=== PATIENT | male | born 1950 | race Caucasian/White ===

== ENCOUNTER → 2016-09-24 | Outpatient (CLI) | payer OTHER, MEDICARE ==
--- NOTE | 2016-09-24 17:44 | CONS ---
DATE OF CONSULTATION: 09/24/2016 This patient is a 65-year-old gentleman who has been evaluated in the sleep center for possible obstructive sleep apnea-hypopnea syndrome and periodic limb movements. HISTORY OF PRESENT ILLNESS/SLEEP-WAKE EVALUATION: Patient's usual sleep schedule is from around 11 or 12 midnight until 4 a.m. He wakes up 5 times from sleep with up to 4 episodes of nocturia. He snores, has witnessed episodes of stopped breathing during sleep. Positive history of choking, heartburn; sometimes gasping for air and sweating. He has a positive history of kicking at night. During the day patient may feel sleepy. [place] Sleepiness Scale is in an extremely high range at 21. He may take naps multiple times during the day and he feels better after a nap. No history of hypnagogic hallucinations, sleep paralysis or cataplexy. PAST MEDICAL HISTORY: 1. Polyarthritis with pain in the back, knees, ankles. 2. Hypertension. 3. Acid reflux. 4. COPD. 5. Iron deficiency. PAST SURGICAL HISTORY: 1. Surgery for hiatal hernia. 2. Tonsillectomy. 3. Hernia repair. 4. Knee arthroscopic surgery. SOCIAL HISTORY: Positive for smoking for about 50 years; recently increased amount of smoking cigarettes up to 3 packs a day. Alcohol consumption overused in the past. No use of alcohol at the present time. MEDICATIONS: 1. Hydrocodone. 2. Lisinopril. 3. Ranitidine. 4. Bupropion. 5. Ferrous sulfate. 6. Proventil inhaler. 7. Symbicort. REVIEW OF SYSTEMS: Multiple awakenings from sleep, sleepiness during the day. Episodes of shortness of breath and wheezing. No fevers. No double vision. No recent chest pain. No shortness of breath. No abdominal pain. No bleeding episodes. No blood in urine. No seizure episodes. FAMILY HISTORY: Hypertension, angina, heart problems, hyperlipidemia, arthritis, asthma, weakness, bronchitis, lung problems, sleep apnea, acid reflux, anemia, during sleep. PHYSICAL EXAMINATION: A 65-year-old gentleman without distress. VITAL SIGNS: BP 125/73, HR 56, RR 18. Height 69 inches. Weight 166 pounds. BMI 24.5. Neck 16-1/2 inches in circumference. Temperature 97.9. Oxygen saturation at room air 98%. HEENT: [place]. Evaluation of oropharynx showed tongue protrudes midline; extremely low position of soft palate. NECK: Supple. No JVD. Thyroid is not palpable. LUNGS: Some wheezing bilaterally. HEART: S1, S2 regular. No murmurs, gallops or rubs. ABDOMEN: Soft and nontender. Bowel sounds are present. No organomegaly appreciated. EXTREMITIES: No clubbing or cyanosis. SUPERVISOR DATA PROCESSING: Awake, alert, and oriented x3. Cranial nerves 2 to 7 intact. There is no fasciculation or atrophy noted. No focal deficits observed. IMPRESSION: 1. Snoring, witnessed episodes of stopped breathing during sleep, extremely low position of soft palate, multiple awakenings from sleep; obstructive sleep apnea-hypopnea syndrome. 2. Positive history of kicking at night; possible periodic limb movement syndrome. 3. Chronic obstructive pulmonary disease; history of smoking for more than 100 pack/years. 4. Hypertension. 5. Acid reflux. 6. Polyarthritis with pain in the back, knees. 7. Left ankle problems. PLAN: 1. Polysomnography for evaluation of patient's breathing during sleep. 2. CPAP/BiPAP titration if sleep study confirms obstructive sleep apnea-hypopnea syndrome. 3. Preferable position during sleep on the side. 4. No driving if patient feels any sleepiness. Patient is aware of civil and criminal liability for unsafe driving. 5. I will see patient for follow-up visit to explain results of the testing and following plan. Thank you very much for referring this patient for consultation. Sincerely, Antwon Bustos MD, PhD, FAASM. Diplomat of [place] [employer], Sleep Medicine Board by [place] [employer] [place] [employer] Corporate Associate of [facility] [place]
== END ==
LOC: SLEEP 13:50
PROVIDERS: ATTEND Internal Medicine
DX: G47.33 Obstructive sleep apnea (adult) (pediatric) (principal); I10 Essential (primary) hypertension; K21.9 Gastro-esophageal reflux disease without esophagitis; M13.0 Polyarthritis, unspecified; Z79.891 Long term (current) use of opiate analgesic; Z79.51 Long term (current) use of inhaled steroids; Z79.899 Other long term (current) drug therapy
CPT/HCPCS: 99211

== ENCOUNTER → 2016-10-29 | Outpatient (CLI) | payer MEDICARE ==
--- NOTE | 2016-10-29 19:19 | PN ---
DATE OF SERVICE: 10/29/2016 A 65-year-old gentleman who has been followed in the Sleep Center to discuss results of sleep studies and plan of the treatment. I discussed results of the sleep studies with the patient. Diagnostic sleep study did not show any significant abnormalities of respiration, but showed significant amount of periodic limb movements 54.4 per hour with 11.7 microarousals per hour. Multiple sleep latency test done on the following day showed extremely short sleep latency 2.6 minutes without any sleep onset REM periods. Oxygen level was not normal during the night. Oxygen was below normal for 11.9 minutes, but that happened again without any significant amount or episodes of stopped breathing or shallow breathing. Total apnea-hypopnea index was 3.1 only. The lowest oxygen level was 82.6%. MEDICATIONS: Hydrocodone, lisinopril, ranitidine, bupropion, ferrous sulfate, Proventil, Symbicort, melatonin, vitamin C. PHYSICAL EXAMINATION: GENERAL: During physical exam, the patient in no distress. VITAL SIGNS: BP 154/94, HR 54, RR 16, weight 168. Height 5 foot 9, BMI 24.8. Oxygen saturation at room air 96%. HEENT: PERRLA, EOMI. Evaluation of oropharynx showed low position of soft palate. NECK: Supple. No JVD. Thyroid is not palpable. LUNGS: No rhonchi. HEART: S1, S2 regular. No murmurs, gallops, or rubs. ABDOMEN: Soft and nontender. Bowel sounds are present. No organomegaly appreciated. EXTREMITIES: No clubbing or cyanosis. TRUCK SPOTTER: Awake, alert, and oriented x3. Cranial nerves 2 to 7 intact. There is no fasciculation or atrophy noted. No focal deficits observed. ( ) of the feet. IMPRESSION: 1. No significantly stopped breathing or shallow breathing has been documented during the sleep study. 2. Oxygen desaturation during the sleep has been documented secondary to chronic obstructive pulmonary disease. 3. Significant amount of periodic limb movements have been documented during this sleep in severe range. 4. Multiple sleep latency test confirmed pathological sleepiness without sleep onset REM periods. Multiple sleep latency test showed extremely short sleep latency 2.6. Difference of diagnosis includes narcolepsy. 5. Hypertension. 6. Chronic obstructive pulmonary disease. 7. Acid reflux. 8. Polyarthritis with pain in the knees and back. 9. Left ankle problems. PLAN: 1. I will start patient on Mirapex 0.125 mg 1 or 2 tablets at bedtime with the goal to stop periodic limb movements. 2. Depending on clinical response patient is a candidate for additional treatment with daytime stimulants because of extremely severe sleepiness, which has been documented and that dictates possibility of diagnosis of narcolepsy. 3. HLA profile for narcolepsy. Patient is a candidate for additional oxygen supplement during the sleep. Total oxygen level was below normal range for 11.9 minutes during sleep. I will order a ( ) oximetry at home during the sleep. . 4. Sleep hygiene with regular time in bed for at least 8 hours. 5. No driving if feeling any sleepiness. Thank you very much for allowing me to participate in the management of your patient. Sincerely, Antwon Bustos MD, PhD, FAASM. Diplomat of [place] [employer], Sleep Medicine Board by [place] [employer] [place] [employer] Coal Cutting Machine Operator of [facility] [place]
== END | disposition home or self-care (01) ==
LOC: SLEEP 11:29
PROVIDERS: ATTEND Internal Medicine
DX: G47.33 Obstructive sleep apnea (adult) (pediatric) (principal); I10 Essential (primary) hypertension; G47.419 Narcolepsy without cataplexy; K21.9 Gastro-esophageal reflux disease without esophagitis; M13.0 Polyarthritis, unspecified; Z79.899 Other long term (current) drug therapy

== ENCOUNTER → 2017-01-07 | Outpatient (CLI) | payer MEDICARE ==
--- NOTE | 2017-01-07 14:11 | PN ---
DATE OF SERVICE: 01/07/2017 A 66-year-old gentleman who has been followed in the Sleep Center for treatment of significant excessive daytime sleepiness. Previously multiple sleep latency test confirms sleepiness with mean sleep latency extremely short only 2.6 minutes. No sleep onset REM period have been documented. Sleep study also showed periodic limb movements so I ordered for patient Mirapex but he was not able to get the medications. I ordered for him oximetry during the night. Oximetry test was done, but we did not get results. At the present time patient continues to have sleepiness during the day. [place] sleepiness scale is 13. MEDICATIONS: Hydrocodone, Lisinopril, ranitidine, bupropion, ferrous sulfate, ( ), Symbicort, melatonin, vitamin C. During physical exam, a 66-year-old gentleman without distress. VITAL SIGNS: BP 124/81, HR 64, RR 16, temp 97.2, oxygen saturation on room air 96%. Height 5 foot 9, weight 163, BMI 25. HEENT: PERRLA, EOMI. Evaluation of oropharynx showed low position of soft palate. NECK: Supple. No JVD. Thyroid is not palpable. LUNGS: clear to percussion and to auscultation. Good air exchange. No wheezing or rhonchi. HEART: S1, S2 regular. No murmurs, gallops or rubs. ABDOMEN: Soft and nontender. Bowel sounds are present. No organomegaly appreciated. EXTREMITIES: No cyanosis or clubbing. HOMEBIRTH MIDWIFE: Awake, alert and oriented x3. Cranial nerves II through VII intact. There is no fasciculation or atrophy noted. No focal deficits observed. IMPRESSION: 1. Pathological sleepiness by results of multiple sleep latency test. [place] sleepiness scale increased to 13. Possible diagnosis of narcolepsy. 2. Severe periodic limb movements have been documented during the sleep study. 3. Chronic obstructive pulmonary disease. 4. Hypertension. 5. Acid reflux. 6. Osteoarthritis with pain in the back and knees. 7. Left ankle problems. PLAN: 1. Repeat oximetry during the sleep. 2. I wrote prescription for Mirapex. Patient could use generic form. 3. Sleep hygiene with regular time in bed for at least 8 hours. 4. Daytime naps permitted. 5. Prescription for modafinil to prevent excessive daytime sleepiness. 6. No driving if feeling any sleepiness. Sincerely, Emma Bustos MD, PhD, FAASM Diplomat of [place] [employer] Medicine, Sleep Medicine Board by [place] [employer] [employer] Medicine Patient Placement Coordinator of [facility] [place]
== END ==
LOC: SLEEP 10:31
PROVIDERS: ATTEND Internal Medicine
DX: G47.10 Hypersomnia, unspecified (principal); G47.61 Periodic limb movement disorder; J44.9 Chronic obstructive pulmonary disease, unspecified; I10 Essential (primary) hypertension; K21.9 Gastro-esophageal reflux disease without esophagitis; M17.0 Bilateral primary osteoarthritis of knee; M19.90 Unspecified osteoarthritis, unspecified site; Z79.899 Other long term (current) drug therapy

== ENCOUNTER 2017-02-15 06:03 | Emergency (ER) | payer MEDICARE, OTHER ==
[2017-02-15 06:10] VITALS: RESP 16; TEMP 97.4
[2017-02-15] MEDS ORDERED: HYDROcodone/APAP 5-325MG 1 EACH TAB PO STA (06:35)
[2017-02-15] MEDS ORDERED: KETOROLAC 60 MG/2 ML VIAL IM STA (06:35)
--- NOTE | 2017-02-15 06:55 | ED ---
General Adult HPI - General Chief complaint: Fall Stated complaint: fall Time Seen by Provider: 02/15/17 06:14 Source: patient, RN notes reviewed, old records reviewed Mode of arrival: EMS Limitations: no limitations - History of Present Illness Initial comments: This is a 58-year-old male KIERSTEN status post fall. Patient is complaining of right-sided pain right-sided back pain and right-sided hip pain down into right leg. Patient denies any other trauma is walking on leg. Patient's fall as mechanical in nature was yesterday. Otherwise patient has no other pain control for pain. No improving modifying factors for pain. Worse with touch or movement. - Related Data Allergies Allergy/AdvReac Type Severity Reaction Status Date / Time No Known Allergies Allergy Verified 02/15/17 06:10 Review of Systems ROS Statement: Those systems with pertinent positive or pertinent negative responses have been documented in the HPI. ROS Other: All systems not noted in ROS Statement are negative. Past Medical History Past Medical History: COPD, Hyperlipidemia, Hypertension, Myocardial Infarction ([place]) Date of last positivie culture/infection: 2006 MDRO Source:: left elbow Past Surgical History: Heart Catheterization With Stent, Tonsillectomy Additional Past Surgical History / Comment(s): hiatal hernia. Smoking Status: Current every day smoker Past Alcohol Use History: None Reported Past Drug Use History: None Reported General Exam Limitations: no limitations General appearance: alert, in no apparent distress Head exam: Present: atraumatic, normocephalic, normal inspection Eye exam: Present: normal appearance, PERRL, EOMI. Absent: scleral icterus, conjunctival injection, periorbital swelling ENT exam: Present: normal exam, mucous membranes moist Neck exam: Present: normal inspection. Absent: tenderness, meningismus, lymphadenopathy Respiratory exam: Present: normal lung sounds bilaterally. Absent: respiratory distress, wheezes, rales, rhonchi, stridor Cardiovascular Exam: Present: regular rate, normal rhythm, normal heart sounds. Absent: systolic murmur, diastolic murmur, rubs, gallop, clicks GI/Abdominal exam: Present: soft, normal bowel sounds. Absent: distended, tenderness, guarding, rebound, rigid Extremities exam: Present: normal inspection, full ROM, normal capillary refill. Absent: tenderness, pedal edema, joint swelling, calf tenderness Back exam: Present: normal inspection Neurological exam: Present: alert, oriented X3, CN II-XII intact Psychiatric exam: Present: normal affect, normal mood Skin exam: Present: warm, dry, intact, normal color. Absent: rash Course Vital Signs 02/15/17 06:05 Temperature 97.4 F L Pulse Rate 95 Respiratory 16 Rate Blood Pressure 179/89 O2 Sat by Pulse 96 Oximetry Medical Decision Making - Medical Decision Making 6 emailed ER for evaluation. Patient is safe for evaluation regarding right side pain. Secondary to fall and contusion. X-rays are negative. Patient will be discharged - Radiology Data Radiology results: report reviewed (XR right hip negative), image reviewed Disposition Clinical Impression: Fall, Right hip pain Disposition: HOME SELF-CARE Condition: Good Instructions: Fall Prevention for Older Adults (ED), Contusion in Adults (ED) Referrals: Abdoul Lancaster DO [Primary Care Provider] - 1-2 days
--- NOTE | 2017-02-15 07:13 | XR ---
EXAMINATION TYPE: XR Hip Complete RT DATE OF EXAM: 02/15/2017 COMPARISON: NONE HISTORY: 66-year-old male with fall and right hip pain TECHNIQUE: 2 views FINDINGS: Mild degenerative joint space narrowing and marginal spurring is appreciated. No acute fracture, subl uxation, or dislocation. Mild osteopenia. IMPRESSION: Mild right hip osteoarthrosis. No acute osseous abnormality seen.
[2017-02-15 07:31] VITALS: BP 140/79; PULSE 77
== END 2017-02-15 07:30 | disposition home or self-care (01) ==
LOC: EC 06:03
DX: M25.551 Pain in right hip (principal); M54.9 Dorsalgia, unspecified; F17.200 Nicotine dependence, unspecified, uncomplicated; W19.XXXA Unspecified fall, initial encounter
CPT/HCPCS: 73502; 99284; 96372; J1885

== ENCOUNTER 2017-06-10 05:25 | Emergency (ER) | payer OTHER, MEDICARE ==
[2017-06-10] MEDS ORDERED: KETOROLAC 60 MG/2 ML VIAL IM STA (05:37)
--- NOTE | 2017-06-10 05:40 | ED ---
Extremity Problem HPI - General Chief complaint: Extremity Problem,Nontraumatic Stated complaint: Leg Weakness Time Seen by Provider: 06/10/17 05:30 Source: patient, RN notes reviewed Mode of arrival: wheelchair Limitations: no limitations - History of Present Illness Initial comments: This is a 66-year-old male with a history of rheumatoid arthritis and who is also currently smoker who complains of the onset of right leg pain yesterday afternoon. He denies any known trauma fevers chills sweats no back pain he points to his right knee into his calf area. He has no swelling and report no injury. He did not take any pain medication today. He does normally take [place] for pain MD Complaint: extremity pain - Related Data Home Medications Medication Instructions Recorded Confirmed Lisinopril [Prinivil] 10 mg PO DAILY 06/10/17 06/10/17 Simvastatin [Zocor] 5 mg PO HS 06/10/17 06/10/17 Previous Rx's Medication Instructions Recorded HYDROcodone/APAP 5-325MG [[place] 1 tab PO Q6HR PRN #20 tab 02/15/17 5-325] Ibuprofen 800 mg PO Q6HR PRN #20 tablet 06/10/17 Allergies Allergy/AdvReac Type Severity Reaction Status Date / Time No Known Allergies Allergy Verified 02/15/17 06:10 Review of Systems ROS Statement: Those systems with pertinent positive or pertinent negative responses have been documented in the HPI. ROS Other: All systems not noted in ROS Statement are negative. Past Medical History Past Medical History: COPD, Hyperlipidemia, Hypertension, Myocardial Infarction ([place]) Additional Past Medical History / Comment(s): RA Date of last positivie culture/infection: 2006 MDRO Source:: left elbow Past Surgical History: Heart Catheterization With Stent, Tonsillectomy Additional Past Surgical History / Comment(s): hiatal hernia. Smoking Status: Current every day smoker Past Alcohol Use History: None Reported Past Drug Use History: None Reported General Exam - General Exam Comments Initial Comments: This a well-developed well-nourished awake alert oriented 3 male Limitations: no limitations General appearance: alert, in no apparent distress Head exam: Present: atraumatic, normocephalic, normal inspection Eye exam: Present: normal appearance, PERRL, EOMI. Absent: scleral icterus, conjunctival injection, periorbital swelling Neck exam: Present: normal inspection Extremities exam: Present: tenderness, normal capillary refill, other ( Tenderness palpation over the distal quadriceps tendon just above the patella on the right no tenderness over the joint no patellar ballottement. No posterior knee pain tenderness palpation no palpable cords.). Absent: pedal edema, joint swelling, calf tenderness Back exam: Present: normal inspection Neurological exam: Present: alert, oriented X3, CN II-XII intact Psychiatric exam: Present: normal affect, normal mood Skin exam: Present: warm, dry, intact, normal color. Absent: rash Course Vital Signs 06/10/17 05:27 Temperature 97.3 F L Pulse Rate 69 Respiratory 20 Rate Blood Pressure 147/79 O2 Sat by Pulse 100 Oximetry Medical Decision Making - Medical Decision Making I did discuss the findings with the patient is getting some improvement in his pain he will be discharged on anti-inflammatories is a follow-up with his PCP and return when necessary - Radiology Data Radiology results: report reviewed (I did review the imaging and reports no acute findings or is degenerative changes noted.), image reviewed Disposition Clinical Impression: Right knee pain Disposition: HOME SELF-CARE Condition: Good Instructions: Knee Pain (ED), Arthralgia (ED) Prescriptions: Ibuprofen 800 mg PO Q6HR PRN #20 tablet PRN Reason: Pain Referrals: Abdoul Lancaster DO [Primary Care Provider] - 1-2 days
--- NOTE | 2017-06-10 06:21 | XR ---
RIGHT KNEE 4 views INDICATION: Right knee pain COMPARISON: None FINDINGS: AP, oblique, lateral, and sunrise views of the right knee are obtained. There is severe tricompartment osteoarthritis with large marginal osteophytes. There is a 4 cm osseous body posteriorly, possibly within a popliteal cyst. There is a small joint effusion. There is no evidence of acute fracture or malalignment. Soft tissues are unremarkable. IMPRESSION: 1. Severe tricompartment osteoarthritis. 2. Large osseous body posteriorly, possibly within a popliteal cyst. 3. No acute fracture or subluxation identified.
[2017-06-10 06:41] VITALS: BP 120/79; PULSE 61; RESP 17; TEMP 98.3
== END 2017-06-10 06:41 | disposition home or self-care (01) ==
LOC: EC 05:25
DX: M25.561 Pain in right knee (principal); E78.5 Hyperlipidemia, unspecified; I10 Essential (primary) hypertension; I25.2 Old myocardial infarction; F17.200 Nicotine dependence, unspecified, uncomplicated; Z79.899 Other long term (current) drug therapy
CPT/HCPCS: 73564; 99283; 96372; J1885

== ENCOUNTER → 2018-12-21 | Outpatient (CLI) | payer OTHER ==
--- NOTE | 2018-12-21 07:51 | US ---
EXAMINATION TYPE: US abdomen complete DATE OF EXAM: 12/21/2018 COMPARISON: MRI abdomen July 30, 2010 CLINICAL HISTORY: R10.10 Abdominal pain. Lower abdominal pain after eating with diarrhea EXAM MEASUREMENTS: Liver Length: 14.2 cm Gallbladder Wall: 0.2 cm CBD: 0.6 cm Spleen: 9.4 cm Right Kidney: 9.0 x 4.2 x 4.8 cm Left Kidney: 9.8 x 5.1 x 4.9 cm Pancreas: Obscured by bowel gas Liver: appears wnl Gallbladder: no evidence of stones Evidence for sonographic Benson's sign: no CBD: wnl Spleen: wnl Right Kidney: lower pole obscured by overlying bowel content Left Kidney: cystic area upper pole = 1.1 x 1.0 x 1.2cm Upper IVC: wnl Abd Aorta: distal measuring upper limits of normal 2.9cm The visualized liver is homogenous. There is and atherosclerotic change and ectasia to the abdominal aorta measuring up to 2.9 cm distally. IVC is seen near hepatic dome. There is no evidence of cholel ithiasis. Common bile duct is within normal limits for patient's age. Pancreas is suboptimally seen on images saved secondary to shadowing from overlying bowel gas per technologist. The spleen is unre markable. Kidneys show no hydronephrosis. Technologist eller nonspecific 1.1 cm exophytic hypoechoic anechoic lesion upper pole left kidney too small to further characterize. IMPRESSION: Suboptimal study without acute finding identified.
== END | disposition home or self-care (01) ==
LOC: RADUSWWP 06:41
DX: R10.10 Upper abdominal pain, unspecified (principal)
CPT/HCPCS: 76700

== ENCOUNTER → 2019-05-19 | Day surgery (SDC) | payer OTHER ==
[2019-05-18 08:35] VITALS: BMI 22.0
[~2019-05-19] MED LIST: LACTATED RINGERS 1,000 ML IV SCH; LIDOCAINE 1% 20 ML VIAL (10MG/ML) FOR IV START INTRADERMA PRN; LIDOCAINE 1% INJ 10MG/ML (20 ML MDV) ONE; PROPOFOL 10 MG/ML 20 ML VIAL IV ONE
[2019-05-19 07:37] VITALS: TEMP 97.2
--- NOTE | 2019-05-19 08:35 | P.PCN ---
Date of Procedure: 05/19/19 Procedure(s) Performed: BRIEF HISTORY: Patient is a 68-year-old pleasant white male scheduled for an elective colonoscopy as a part of evaluation of chronic diarrhea for the last 20 years duration. He has not was anywhere from 10-15 a day which are usually postprandial in nature but no blood or mucus in the stool. PROCEDURE PERFORMED: Colonoscopy with random biopsy. PREOPERATIVE DIAGNOSIS: chronic diarrhea of 20 years duration. IV sedation per Anesthesia. PROCEDURE: After informed consent was obtained, the patient, was brought into the endoscopy unit. IV sedation was administered by Anesthesia under continuous monitoring. Digital rectal examination was normal. Initially the Olympus CF-160 flexible video colonoscope was then inserted in the rectum, gradually advanced into the cecum without any difficulty. Careful examination was performed as the scope was gradually being withdrawn. Ileocecal valve and the appendiceal orifice were visualized and appeared normal. Prep was fair.. Mucosa of the cecum, ascending colon, transverse colon, descending colon, sigmoid colon, and rectum appeared normal.a few scattered diverticulosis noted throughout the entire colon. Random biopsies were done from ascending and descending colon to rule out microscopic/collagenous colitis. Retroflexion was performed in the rectum and no lesions were seen. The patient tolerated the procedure well. IMPRESSION: Normal-appearing colon from rectum to cecum with no evidence of colitis or colorectal neoplasia. RECOMMENDATIONS: Findings of this examination were discussed with the patient as well as his family. He was advised to follow with the biopsy results. In the meantime he was advised to use [id number] Imodium before each meal..
[2019-05-19 08:37] VITALS: RESP 17
[2019-05-19 08:52] VITALS: BP 112/83; PULSE 60
== END ==
LOC: ORWHC2ENDO 07:05
PROVIDERS: ATTEND Internal Medicine Gastroenterology
DX: K57.30 Diverticulosis of large intestine without perforation or abscess without bleeding (principal); K52.9 Noninfective gastroenteritis and colitis, unspecified; I10 Essential (primary) hypertension; E78.5 Hyperlipidemia, unspecified; J44.9 Chronic obstructive pulmonary disease, unspecified; I25.2 Old myocardial infarction; M06.9 Rheumatoid arthritis, unspecified; Z79.899 Other long term (current) drug therapy; Z97.2 Presence of dental prosthetic device (complete) (partial)
CPT/HCPCS: 88305; 45380; J2001; J2704

== ENCOUNTER 2019-06-21 12:04 | Emergency (ER) | payer OTHER ==
[2019-06-21 12:10] VITALS: RESP 18; TEMP 97.9
[2019-06-21] MEDS ORDERED: PROPARACAINE 0.5% OPHTH DROPS 15 ML BTL LEFT EYE STA (12:32)
--- NOTE | 2019-06-21 13:12 | ED ---
Eye Problem HPI - General Chief complaint: Eye Problems Stated complaint: eye redness/pain/drainage Time Seen by Provider: 06/21/19 12:13 Source: patient Mode of arrival: ambulatory Limitations: no limitations - History of Present Illness Initial comments: 68-year-old male presents today for chief complaint of right eye redness and drainage and pain. Patient states this is been ongoing for the past 2-3 days. Patient states he has an occasional headache nothing consistent with the symptoms denies any pain with extraocular movements. Patient states he has decreased vision is now on the right eye he typically uses glasses however there is a significant decrease from his normal baseline. Patient denies contact use. Denies injury to eye, denies nausea, vomiting, pain to palpation of the temples. Patient denies fevers, or known autoimmune disease. Patient denies experiencing this before. Patietn denies curtaining or veiling of vision. Patietn denies any other complaints. Upon arrival patient appears well there is no signs of acute distress. 20/30 OS, 20/70- OD. - Related Data Home Medications Medication Instructions Recorded Confirmed Lisinopril [Prinivil] 10 mg PO DAILY 06/10/17 05/19/19 Simvastatin [Zocor] 5 mg PO HS 06/10/17 05/19/19 Albuterol Inhaler [Ventolin Hfa 1 - 2 puff INHALATION RT-Q6H PRN 05/18/19 05/19/19 Inhaler] Etanercept [Enbrel] 50 mg SQ MO 05/18/19 05/19/19 HYDROcodone/APAP 10-325MG [[place] 1 tab PO TID 05/18/19 05/19/19 10-325] Leflunomide [Arava] 20 mg PO DAILY 05/18/19 05/19/19 Losartan (Unkn Dose) 1 tab PO DAILY 05/18/19 05/19/19 Omeprazole 40 mg PO DAILY 05/18/19 05/19/19 Tiotropium 18 Mcg/Puff [Spiriva] 2 puff INHALATION DAILY 05/18/19 05/19/19 Previous Rx's Medication Instructions Recorded Polymyxin B-Trimeth Sulf Ophth 1 drops BOTH EYES Q4H 10 Days #1 06/21/19 [Polytrim Opthalmic] bottle Allergies Allergy/AdvReac Type Severity Reaction Status Date / Time No Known Allergies Allergy Verified 06/21/19 12:06 Review of Systems ROS Statement: Those systems with pertinent positive or pertinent negative responses have been documented in the HPI. ROS Other: All systems not noted in ROS Statement are negative. Past Medical History Past Medical History: COPD, Hyperlipidemia, Hypertension, Myocardial Infarction ([place]), Rheumatoid Arthritis ([place]) Additional Past Medical History / Comment(s): RA Last Myocardial Infarction Date:: 07/1999 History of Any Multi-Drug Resistant Organisms: MRSA Date of last positivie culture/infection: 06/12/2006 MDRO Source:: lt elbow Past Surgical History: Heart Catheterization With Stent, Hernia Repair, Tonsillectomy Additional Past Surgical History / Comment(s): hiatal hernia. Past Anesthesia/Blood Transfusion Reactions: No Reported Reaction Date of Last Stent Placement:: 07/1999 Past Psychological History: No Psychological Hx Reported Smoking Status: Current every day smoker Past Alcohol Use History: None Reported Past Drug Use History: None Reported - Past Family History Mother Family Medical History: No Reported History General Exam - General Exam Comments Initial Comments: General: The patient is awake and alert, in no distress Eye: +2 mm pupils are equal, round and reactive to light, extra-ocular movements are intact. Direct photophonia, no consensual. There is a curvilinear area of uptake of worsening between the 9 11 o'clock position of the cornea, there is conjunctival injection mostly of the right side of right eye. No injection of left side. Right side is not sparing the limbus. No nystagmus. No signs of icterus. Movement of sclera present. No pain relief with proparacaine. IOP 21 OD. No pain with EOM. Ears, nose, mouth and throat: There are moist mucous membranes and no oral lesions. Neck: The neck is supple, there is no tenderness or JVD. Cardiovascular: There is a regular rate and rhythm. No murmur, rub or gallop is appreciated. Respiratory: Lungs are clear to auscultation, respirations are non-labored, suzy ath sounds are equal. No wheezes, stridor, rales, or rhonchi. Musculoskeletal: Normal ROM, no tenderness. Strength 5/5. Sensation intact. Pulses equal bilaterally 2+. Neurological: A&O x 3. CN II-XII intact grossly, There are no obvious motor or sensory deficits. Coordination appears grossly intact. Speech is normal. Skin: Skin is warm and dry and no rashes or lesions are noted. Psychiatric: Cooperative, appropriate mood & affect, normal judgment. Limitations: no limitations Course Vital Signs 06/21/19 12:07 Temperature 97.9 F Pulse Rate 65 Respiratory 18 Rate Blood Pressure 152/98 O2 Sat by Pulse 96 Oximetry Medical Decision Making - Medical Decision Making 5-year-old male presenting today for chief complaint of right eye redness. IOP within acceptable limits, decrease in VA. VF intact to confrontaction. Mobile sclera. No relief with proparacaine. Uptake at the 9-11oclock position of the right eye. Patient was evaluated in the emergency department after initial evaluation by spray drier Dr. Castellanos. He felt at this time most likely diagnosis was Phlyctenular disease, and should be started of poly-trim abx drops q4h with f/u tomorrow in office at 11AM. Patient is agreeable to this care plan and discharge at this time. Discussed case with Dr Mcmullen who was agreeable to care plan. 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 Please follow-up with ophthalmology tomorrow at 11AM as discussed. Please return to emergency room if the symptoms increase or worsen or for any other concerns. Prescriptions: Polymyxin B-Trimeth Sulf Ophth [Polytrim Opthalmic] 1 drops BOTH EYES Q4H 10 Days #1 bottle Is patient prescribed a controlled substance at d/c from ED?: No Referrals: [facility],Clinic [Primary Care Provider] - 1-2 days Richi Morris MD [STAFF PHYSICIAN] - 1-2 days Time of Disposition: 14:07
[2019-06-21] MEDS ORDERED: POLYMYXIN B-TRIMETHOPRIM SULF (10,000-1) OPHTH DROPS 10 ML BTL RIGHT EYE STA (14:01)
[2019-06-21 14:44] VITALS: BP 152/91; PULSE 77
--- NOTE | 2019-06-21 18:25 | P.CON ---
Consult Note - . Consult date: 06/21/19 Assessment/Plan:: 68 y/o male with 5 day or better history of discomfort, light sensitivity discharge and decreased vision. He presented to the ER today due primarily due to the discomfort. The left eye is not involved, only the right. This is the second time in several years this problem has happened and only previously required drops. He has a history of lens implant surgery more than 20 years ago. He rarely sees any eye care, but for every 5 years or so. Va: 20/70 right eye. External: mild erythema, definite discharge on eyelids Conjuntiva: moderate erythema overall AC: 3+ flare, mild cell Cornea: central clear, but definite superficial epithelial defect from 0930 to 1130 and from 12-2 o/c on his eye. There is positive staining. Iris: miotic. A: most likely a staph marginal type infection involving the conjunctiva and cornea. P: 1) follow up in AM at office. 2) Begin Polytrim drops every 4 hours throughout the day. 3) will begin steroids when cornea healing.
== END 2019-06-21 14:34 | disposition home or self-care (01) ==
LOC: EC 12:04
DX: H16 Keratitis (principal); E78.5 Hyperlipidemia, unspecified; I10 Essential (primary) hypertension; I25.2 Old myocardial infarction; J44.9 Chronic obstructive pulmonary disease, unspecified; M06.9 Rheumatoid arthritis, unspecified; F17.200 Nicotine dependence, unspecified, uncomplicated; Z79.899 Other long term (current) drug therapy; Z95.5 Presence of coronary angioplasty implant and graft
CPT/HCPCS: 99283

== ENCOUNTER → 2020-03-22 | Outpatient (CLI) | payer OTHER ==
--- NOTE | 2020-03-22 16:24 | CTL ---
EXAMINATION TYPE: CT Low Dose Lung DATE OF EXAM ORDERED: 03/22/2020 HISTORY: 69-year-old male Personal history of tobacco use.. Lung cancer screening CT DLP: [address] CTDI: 1.68 mGy Automated exposure control for dose reduction was used. SCREENING VISIT: Baseline COMPARISON: None TECHNIQUE: Low dose computed tomography scan was performed through the chest. Coronal and sagittal re constructions performed. CT DIAGNOSTIC QUALITY: Satisfactory FINDINGS: Heart normal size without pericardial effusion. LAD and mild scattered circumflex and RCA coronary ca lcifications are present. Aorta normal caliber with conventional arch vessel branching anatomy and minimal prostatic calcificat ions. No thoracic lymphadenopathy by CT size criteria. There are surgical changes at the GE junction air distention in the region of the distal esophagus an d some left lateral mural-based irregularity, refer to axial image 54. If prior hiatal hernia repair, this could reflect a slipped wrap. Direct visualization recommended to exclude neoplasm given the ir regularity. Biapical pleural parenchymal scarring scattered mild subpleural reticular change. Moderate diffuse br onchial wall thickening. No consolidation or pleural effusion. Minimal apical emphysema. - 4 mm calcified granuloma peripheral right mid to lower lung, axial image 206. - 7 mm endobronchial filling defect peripheral right lower lobe at the site of some focal bronchiecta sis, coronal image 204 and axial image 174. Visualized upper abdomen is very limited due to low-dose technique and lack of contrast. Bones: Degenerative changes at the right glenoid humeral joint with posterior joint subluxation. Ther e is a normal variant sternal foramen. IMPRESSION: 1. LungRADS Category 3 (probably benign, 1-2% chance of malignancy); a 7 mm endobronchial nodule in t he right lower lobe at the site of some focal bronchiectasis. Mucous plugging is possible. 2. Focal distention at the level of the distal esophagus with some surgical change at the GE junction , query prior Xi fundoplication which would raise the possibility of a slipped wrap. There is ezra e mural based soft tissue irregularity here as well. 3. COPD with minimal emphysema but with moderate bronchial wall thickening suggesting a prominent com ponent of chronic bronchitis or superimposed acute bronchitis. RECOMMENDATION: 1. 6 month follow-up low-dose CT chest to reassess the 7 mm endobronchial nodule in the right lower l obe. 2. Correlation with patient's surgical history at the GE junction to assess the possibility of a slip ped wrap and direct visualization to exclude underlying neoplasm. 3. Smoking cessation. FOLLOW UP CT CHEST RECOMMENDATION: [address] LUNG RAD: Lung-Rad 3 Probably Benign
== END | disposition home or self-care (01) ==
LOC: RADCTMAIN 15:23
DX: Z12.2 Encounter for screening for malignant neoplasm of respiratory organs (principal); F17.210 Nicotine dependence, cigarettes, uncomplicated

== ENCOUNTER 2020-05-06 10:10 | Day surgery (SDC) | payer OTHER ==
[2020-04-22 10:03] VITALS: BMI 21.4
[~2020-05-06 10:10] MED LIST changes: +LIDOCAINE 1% (10MG/ML) FOR IV START INTRADERMA PRN; -LIDOCAINE 1% 20 ML VIAL (10MG/ML) FOR IV START INTRADERMA PRN; -LIDOCAINE 1% INJ 10MG/ML (20 ML MDV) ONE; -PROPOFOL 10 MG/ML 20 ML VIAL IV ONE
[2020-05-06 10:59] VITALS: TEMP 97.2
[2020-05-06] MEDS ORDERED: LACTATED RINGERS 1,000 ML IV ONE (10:59)
[2020-05-06 11:10] LABS: Glucose,Whole Blood 82 mg/dL (75-99)
[2020-05-06] MEDS ORDERED: PROPOFOL 10 MG/ML 20 ML VIAL IV ONE (12:04)
--- NOTE | 2020-05-06 12:22 | P.PCN ---
Date of Procedure: 05/06/20 Description of Procedure: BRIEF HISTORY: Patient is a 69-year-old male presenting for outpatient EGD for abnormal findings on imaging. Patient had a computed tomography scan of the lungs with findings of some thickening at the GE junction and possible hiatal hernia with prior hiatal hernia repair in the remote past. He denies any current reflux or difficulty swallowing.. PROCEDURE PERFORMED: Esophagogastroduodenoscopy with biopsy. PREOPERATIVE DIAGNOSIS: Abnormal findings on imaging, history of GERD, history of hiatal hernia repair. ESTIMATED BLOOD LOSS: Minimal. IV sedation per anesthesia. PROCEDURE: After informed consent was obtained, the patient was brought into the endoscopy unit. IV sedation was administered by Anesthesia under continuous monitoring. Initially the Olympus GIF-190 video endoscope was inserted into the mouth. Esophagus intubated without any difficulty. It was gradually advanced into the stomach and duodenum and carefully examined. The bulb and the second part of the duodenum appeared normal, with biopsies taken. The scope at this time was withdrawn to the stomach, adequately insufflated with air, and upon careful examination, mucosa of the antrum, body, cardia and the fundus appeared normal, except for some mild scattered erythema in the antrum suggestive of mild gastritis with biopsies of the antrum and body taken. The scope was then withdrawn into the esophagus. The GE junction was located at 35 cm from the incisors and biopsied. The patient had a 6 cm hiatal hernia. The esophagus appeared normal. There were no erosions or ulcerations seen and the patient tolerated the procedure well. IMPRESSION: 1. Mild gastritis. 2. Hiatal hernia. 3. Biopsies of the duodenum, antrum and body and GE junction. RECOMMENDATIONS: The findings of this examination were discussed with the patient and his family. Okay to resume diet. Okay to resume medications. Await pathology from biopsies. Okay to resume current medical management, follow-up with PCP as scheduled.
[2020-05-06 12:56] VITALS: RESP 16
[2020-05-06 13:01] VITALS: BP 139/92; PULSE 49
== END 2020-05-06 13:09 | disposition home or self-care (01) ==
LOC: ORWHC2ENDO 10:10
PROVIDERS: ATTEND Internal Medicine
DX: K29.50 Unspecified chronic gastritis without bleeding (principal); K44.9 Diaphragmatic hernia without obstruction or gangrene; K21.9 Gastro-esophageal reflux disease without esophagitis; I25.2 Old myocardial infarction; I11.0 Hypertensive heart disease with heart failure; I50.9 Heart failure, unspecified; E78.5 Hyperlipidemia, unspecified; J44.9 Chronic obstructive pulmonary disease, unspecified; F17.210 Nicotine dependence, cigarettes, uncomplicated; E07.9 Disorder of thyroid, unspecified; Z88.8 Allergy status to other drugs, medicaments and biological substances; Z79.890 Hormone replacement therapy; Z79.899 Other long term (current) drug therapy; M06.9 Rheumatoid arthritis, unspecified; Z98.890 Other specified postprocedural states
CPT/HCPCS: 88305; 43239; J2704

== ENCOUNTER 2020-05-21 14:22 | Inpatient (IN) | payer OTHER, MEDICARE ==
[2020-05-21] MEDS ORDERED: SODIUM CHLORIDE 0.9% 1,000 ML IV STA ×2 (14:43→15:36)
[2020-05-21] MEDS ORDERED: ALBUTEROL HFA INHALER INHALATION STA (14:43)
--- NOTE | 2020-05-21 14:54 | ED ---
SOB HPI - General Chief Complaint: Shortness of Breath Stated Complaint: COVID Symptoms Time Seen by Provider: 05/21/20 14:33 Source: patient, RN notes reviewed Mode of arrival: wheelchair Limitations: no limitations - History of Present Illness Initial Comments: This is a 69-year-old male with a history of COPD who states he had the onset 3 or 4 days ago shortness of breath cough exertional dyspnea cough sometimes produces clear phlegm sometimes yellow-green phlegm. He's had chills but no fevers or sweats no overt chest pain. No other complaints. He was apparently tested for Covid 19 at [facility] and was negative. MD Complaint: shortness of breath, cough - Related Data Home Medications Medication Instructions Recorded Confirmed HYDROcodone/APAP 10-325MG [[place] 2 tab PO TID PRN 05/18/19 05/21/20 10-325] Leflunomide [Arava] 20 mg PO DAILY 05/18/19 05/21/20 Tiotropium 18 Mcg/Puff [Spiriva] 2 puff INHALATION DAILY 05/18/19 05/21/20 Cholecalciferol [Vitamin D3 (25 2,000 unit PO DAILY 04/22/20 05/21/20 Mcg = 1000 Iu)] modafiniL [Provigil] 200 mg PO DAILY 04/22/20 05/21/20 predniSONE 5 mg PO DAILY 04/22/20 05/21/20 Albuterol Inhaler [Ventolin Hfa 2 puff INHALATION RT-QID PRN 05/21/20 05/21/20 Inhaler] Budesonide/Formoterol Fumarate 2 puff INHALATION RT-BID 05/21/20 05/21/20 [Symbicort 160-4.5 Mcg Inhaler] Calcium Carbonate [Tums] 500 mg PO TID 05/21/20 05/21/20 Etanercept [Enbrel Sureclick] 50 mg SQ MCKEON 05/21/20 05/21/20 Levothyroxine Sodium [Synthroid] 112 mcg PO DAILY 05/21/20 05/21/20 Loperamide HCl [Imodium A-D] 2 mg PO AC-TID MDD 8 CAPS 05/21/20 05/21/20 Losartan [Cozaar] 25 mg PO DAILY 05/21/20 05/21/20 Omeprazole 20 mg PO DAILY 05/21/20 05/21/20 Simvastatin [Zocor] 40 mg PO HS 05/21/20 05/21/20 Allergies Allergy/AdvReac Type Severity Reaction Status Date / Time gabapentin [From Neurontin] AdvReac Extremely Verified 05/21/20 16:38 Dozy Review of Systems ROS Statement: Those systems with pertinent positive or pertinent negative responses have been documented in the HPI. ROS Other: All systems not noted in ROS Statement are negative. Past Medical History Past Medical History: COPD, Hyperlipidemia, Hypertension, Myocardial Infarction ([place]), Rheumatoid Arthritis ([place]) Additional Past Medical History / Comment(s): RA Last Myocardial Infarction Date:: 07/1999 History of Any Multi-Drug Resistant Organisms: MRSA Date of last positivie culture/infection: 06/12/2006 MDRO Source:: lt elbow Past Surgical History: Heart Catheterization With Stent, Hernia Repair, Tonsillectomy Additional Past Surgical History / Comment(s): hiatal hernia. Past Anesthesia/Blood Transfusion Reactions: No Reported Reaction Date of Last Stent Placement:: 07/1999 Past Psychological History: No Psychological Hx Reported Smoking Status: Current every day smoker Past Alcohol Use History: None Reported Past Drug Use History: None Reported - Past Family History Mother Family Medical History: No Reported History General Exam - General Exam Comments Initial Comments: This is a well-developed well-nourished awake alert oriented times 3 male Limitations: no limitations General appearance: alert, anxious Head exam: Present: atraumatic, normocephalic, normal inspection Eye exam: Present: normal appearance, PERRL, EOMI. Absent: scleral icterus, conjunctival injection, periorbital swelling ENT exam: Present: mucous membranes dry Neck exam: Present: normal inspection, full ROM, other (No stridor JVD or bruits). Absent: tenderness, meningismus, lymphadenopathy Respiratory exam: Present: wheezes, decreased breath sounds. Absent: respiratory distress, rales, rhonchi, stridor Cardiovascular Exam: Present: regular rate, normal rhythm, normal heart sounds. Absent: systolic murmur, diastolic murmur, rubs, gallop, clicks GI/Abdominal exam: Present: soft, normal bowel sounds. Absent: distended, tenderness, guarding, rebound, rigid Extremities exam: Present: normal inspection, full ROM, normal capillary refill. Absent: tenderness, pedal edema, joint swelling, calf tenderness Back exam: Present: normal inspection Neurological exam: Present: alert, oriented X3, CN II-XII intact Psychiatric exam: Present: normal affect, normal mood Skin exam: Present: warm, dry, intact, normal color. Absent: rash Course Vital Signs 05/21/20 05/21/20 05/21/20 14:30 15:30 16:30 Temperature 98.7 F Pulse Rate 57 L 54 L 51 L Respiratory 18 16 12 Rate Blood Pressure 151/89 162/102 136/96 O2 Sat by Pulse 95 96 94 L Oximetry - Reevaluation(s) Reevaluation #1: 05/21/20 17:34 Patient is breathing somewhat better after the initial treatment. Medical Decision Making - Medical Decision Making I did discuss findings with the patient and with Angela thurston for Dr. Pedroza patient will be admitted he does have evidence of COPD exacerbation rhabdomyolysis. He is a 3 pack a smoker. He'll be placed on nicotine patch. - Lab Data Result diagrams: 05/21/20 14:55 05/21/20 14:55 Lab Results 05/21/20 05/21/20 05/21/20 Range/Units 14:50 14:55 14:55 WBC 5.8 (3.8-10.6) k/uL RBC 4.47 (4.30-5.90) m/uL Hgb 13.0 (13.0-17.5) gm/dL Hct 41.2 (39.0-53.0) % MCV 92.1 (80.0-100.0) fL MCH 29.0 (25.0-35.0) pg MCHC 31.5 (31.0-37.0) g/dL RDW 16.4 H (11.5-15.5) % Plt Count 130 L (150-450) k/uL MPV 8.3 Neutrophils % 82 % Lymphocytes % 11 % Monocytes % 5 % Eosinophils % 2 % Basophils % 1 % Neutrophils # 4.8 (1.3-7.7) k/uL Lymphocytes # 0.6 L (1.0-4.8) k/uL Monocytes # 0.3 (0-1.0) k/uL Eosinophils # 0.1 (0-0.7) k/uL Basophils # 0.0 (0-0.2) k/uL Anisocytosis Slight PT 10.1 (9.0-12.0) sec INR 1.0 (<1.2) APTT 24.6 (22.0-30.0) sec D-Dimer 1.12 H (<0.60) mg/L FEU Sodium (137-145) mmol/L Potassium (3.5-5.1) mmol/L Chloride (98-107) mmol/L Carbon Dioxide (22-30) mmol/L Anion Gap mmol/L BUN (9-20) mg/dL Creatinine (0.66-1.25) mg/dL Est GFR (CKD-EPI)AfAm (>60 ml/min/1.73 sqM) Est GFR (CKD-EPI)NonAf (>60 ml/min/1.73 sqM) Glucose (74-99) mg/dL Plasma Lactic Acid Jn (0.7-2.0) mmol/L Calcium (8.4-10.2) mg/dL Magnesium (1.6-2.3) mg/dL Total Bilirubin (0.2-1.3) mg/dL AST (17-59) U/L ALT (4-49) U/L Alkaline Phosphatase (38-126) U/L Lactate Dehydrogenase (313-618) U/L Creatine Kinase (55-170) U/L Troponin I (0.000-0.034) ng/mL C-Reactive Protein (<10.0) mg/L NT-Pro-B Natriuret Pep pg/mL Total Protein (6.3-8.2) g/dL Albumin (3.5-5.0) g/dL Influenza Type A (PCR) Not Detected (Not Detectd) Influenza Type B (PCR) Not Detected (Not Detectd) RSV (PCR) Not Detected (Not Detectd) SARS-CoV-2 (PCR) Not Detected (Not Detectd) 05/21/20 05/21/20 05/21/20 Range/Units 14:55 14:55 14:55 WBC (3.8-10.6) k/uL RBC (4.30-5.90) m/uL Hgb (13.0-17.5) gm/dL Hct (39.0-53.0) % MCV (80.0-100.0) fL MCH (25.0-35.0) pg MCHC (31.0-37.0) g/dL RDW (11.5-15.5) % Plt Count (150-450) k/uL MPV Neutrophils % % Lymphocytes % % Monocytes % % Eosinophils % % Basophils % % Neutrophils # (1.3-7.7) k/uL Lymphocytes # (1.0-4.8) k/uL Monocytes # (0-1.0) k/uL Eosinophils # (0-0.7) k/uL Basophils # (0-0.2) k/uL Anisocytosis PT (9.0-12.0) sec INR (<1.2) APTT (22.0-30.0) sec D-Dimer (<0.60) mg/L FEU Sodium 138 (137-145) mmol/L Potassium 4.5 (3.5-5.1) mmol/L Chloride 106 (98-107) mmol/L Carbon Dioxide 29 (22-30) mmol/L Anion Gap 3 mmol/L BUN 24 H (9-20) mg/dL Creatinine 1.33 H (0.66-1.25) mg/dL Est GFR (CKD-EPI)AfAm 62 (>60 ml/min/1.73 sqM) Est GFR (CKD-EPI)NonAf 54 (>60 ml/min/1.73 sqM) Glucose 95 (74-99) mg/dL Plasma Lactic Acid Jn 1.3 (0.7-2.0) mmol/L Calcium 9.2 (8.4-10.2) mg/dL Magnesium 1.9 (1.6-2.3) mg/dL Total Bilirubin 0.7 (0.2-1.3) mg/dL AST 93 H (17-59) U/L ALT 51 H (4-49) U/L Alkaline Phosphatase 79 (38-126) U/L Lactate Dehydrogenase 993 H (313-618) U/L Creatine Kinase 1194 H* (55-170) U/L Troponin I <0.012 (0.000-0.034) ng/mL C-Reactive Protein <5.0 (<10.0) mg/L NT-Pro-B Natriuret Pep pg/mL Total Protein 7.2 (6.3-8.2) g/dL Albumin 3.9 (3.5-5.0) g/dL Influenza Type A (PCR) (Not Detectd) Influenza Type B (PCR) (Not Detectd) RSV (PCR) (Not Detectd) SARS-CoV-2 (PCR) (Not Detectd) 05/21/20 Range/Units 14:55 WBC (3.8-10.6) k/uL RBC (4.30-5.90) m/uL Hgb (13.0-17.5) gm/dL Hct (39.0-53.0) % MCV (80.0-100.0) fL MCH (25.0-35.0) pg MCHC (31.0-37.0) g/dL RDW (11.5-15.5) % Plt Count (150-450) k/uL MPV Neutrophils % % Lymphocytes % % Monocytes % % Eosinophils % % Basophils % % Neutrophils # (1.3-7.7) k/uL Lymphocytes # (1.0-4.8) k/uL Monocytes # (0-1.0) k/uL Eosinophils # (0-0.7) k/uL Basophils # (0-0.2) k/uL Anisocytosis PT (9.0-12.0) sec INR (<1.2) APTT (22.0-30.0) sec D-Dimer (<0.60) mg/L FEU Sodium (137-145) mmol/L Potassium (3.5-5.1) mmol/L Chloride (98-107) mmol/L Carbon Dioxide (22-30) mmol/L Anion Gap mmol/L BUN (9-20) mg/dL Creatinine (0.66-1.25) mg/dL Est GFR (CKD-EPI)AfAm (>60 ml/min/1.73 sqM) Est GFR (CKD-EPI)NonAf (>60 ml/min/1.73 sqM) Glucose (74-99) mg/dL Plasma Lactic Acid Jn (0.7-2.0) mmol/L Calcium (8.4-10.2) mg/dL Magnesium (1.6-2.3) mg/dL Total Bilirubin (0.2-1.3) mg/dL AST (17-59) U/L ALT (4-49) U/L Alkaline Phosphatase (38-126) U/L Lactate Dehydrogenase (313-618) U/L Creatine Kinase (55-170) U/L Troponin I (0.000-0.034) ng/mL C-Reactive Protein (<10.0) mg/L NT-Pro-B Natriuret Pep 360 pg/mL Total Protein (6.3-8.2) g/dL Albumin (3.5-5.0) g/dL Influenza Type A (PCR) (Not Detectd) Influenza Type B (PCR) (Not Detectd) RSV (PCR) (Not Detectd) SARS-CoV-2 (PCR) (Not Detectd) - EKG Data -: EKG Interpreted by Me EKG shows normal: sinus rhythm EKG Comments: Says bradycardia 52. Interval 182 QRS duration 82 QT since QTC 366/40 that exodeviation low-voltage QRS poor R-wave progression - Radiology Data Radiology results: report reviewed (Imaging reviewed no definite evidence of infiltrate. Evidence of COPD), image reviewed Critical Care Time Critical Care Time: Yes Total Critical Care Time: 31 Critical Care Time: 31 minutes of critical care time which includes initial presentation with hi story physical labs x-rays multiple reevaluation the patient response to therapy discuss with the patient regarding findings discussed with the admitting service admitting orders neck mentation the above Disposition Clinical Impression: Acute exacerbation of chronic obstructive pulmonary disease, Acute respiratory distress syndrome in adult, Rhabdomyolysis, Smoking, Dehydration Disposition: ADMITTED IP TO THIS HOSP Condition: Fair Instructions (If sedation given, give patient instructions): Acute Bronchitis (ED) Referrals: [facility],Clinic [Primary Care Provider] - 1-2 days
[2020-05-21 15:07] LABS: Anisocytosis Slight; Basophils % (A) 1 %; Eosinophils # (A) 0.1 k/uL (0-0.7); Eosinophils % (A) 2 %; HCT 41.2 % (39.0-53.0); Lymphocytes # (A) 0.6 k/uL (1.0-4.8); Lymphocytes % (A) 11 %; MCHC 31.5 g/dL (31.0-37.0); MCV 92.1 fL (80.0-100.0); Mean Platelet Volume 8.3; Monocytes # (A) 0.3 k/uL (0-1.0); Monocytes % (A) 5 %; Neutrophils # (A) 4.8 k/uL (1.3-7.7); Neutrophils % (A) 82 %; Platelet Count 130 k/uL (150-450); RBC 4.47 m/uL (4.30-5.90); RDW 16.4 % (11.5-15.5); WBC 5.8 k/uL (3.8-10.6)
[2020-05-21 15:19] LABS: ALT 51 U/L (4-49); AST 93 U/L (17-59); African American GFR (CKD) 62 (>60 ml/min/1.73 sqM); Albumin 3.9 g/dL (3.5-5.0); Alkaline Phosphatase 79 U/L (38-126); Anion Gap 3 mmol/L; Blood Urea Nitrogen 24 mg/dL (9-20); C Reactive Protein <5.0 mg/L (<10.0); Calcium 9.2 mg/dL (8.4-10.2); Carbon Dioxide 29 mmol/L (22-30); Chloride 106 mmol/L (98-107); Glucose 95 mg/dL (74-99); LDH 993 U/L (313-618); Magnesium 1.9 mg/dL (1.6-2.3); Non-African American GFR(CKD) 54 (>60 ml/min/1.73 sqM); Potassium 4.5 mmol/L (3.5-5.1); Sodium 138 mmol/L (137-145); Total Bilirubin 0.7 mg/dL (0.2-1.3); Total Protein 7.2 g/dL (6.3-8.2)
[2020-05-21 15:21] LABS: Creatine Kinase 1194 U/L (55-170)
[2020-05-21 15:25] LABS: Partial Thromboplastin Time 24.6 sec (22.0-30.0); Prothrombin Time 10.1 sec (9.0-12.0)
[2020-05-21 15:35] LABS: D-Dimer 1.12 mg/L FEU (<0.60)
--- NOTE | 2020-05-21 15:40 | XR ---
EXAMINATION TYPE: XR chest 2V DATE OF EXAM: 05/21/2020 COMPARISON: 01/22/2015 HISTORY: Shortness of breath TECHNIQUE: Frontal and lateral views of the chest are obtained. FINDINGS: Scattered senescent parenchymal changes noted. Hyperinflation compatible with COPD. No evidence for infiltrate. No evidence for atelectasis. Heart size is stable. Mediastinal structures are stable and grossly unremarkable. No evidence for hilar prominence. Degenerative changes dorsal spine. IMPRESSION: 1. No evidence for acute pulmonary disease.
--- NOTE | 2020-05-21 16:08 | CT ---
EXAMINATION TYPE: CT angio chest DATE OF EXAM: 05/21/2020 COMPARISON: None HISTORY: Shortness of breath and congestion CT DLP: 350.6 mGycm CONTRAST: CT chest with contrast and 3D reconstruction with MIP imaging is performed with IV Contrast, patient injected with 77 mL of Isovue 370. Contrast-enhanced CT of the chest was performed through the course of the pulmonary arteries with sara g and mediastinal window settings submitted. 3D reconstruction with MIP imaging was also performed. PULMONARY ARTERIES: The pulmonary arteries and their major tributaries are patent. I do not see sol dence for sizable filling defect to suggest pulmonary embolic process. LUNGS: The lungs are clear and free of infiltrate. No evidence for atelectasis. No pulmonary nodule or mass is detected. No pleural effusion. MEDIASTINUM: The heart is mildly enlarged. Ectasia of the thoracic aorta without evidence for aneurys m. No evidence for mediastinal mass. No mediastinal lymph nodes greater than 1cm. HILAR STRUCTURES: No evidence for mass. No hilar lymph nodes greater than 1 cm. UPPER ABDOMEN: Moderate fixed hiatal hernia. Small amount of free fluid upper abdomen. The gallbladde r is hydropic at 10.3 cm. IMPRESSION: 1. No evidence for Pulmonary embolism at this time. 2 gallbladder hydrops with a small amount of upper abdominal ascites.
[2020-05-21] MEDS ORDERED: NICOTINE 21MG/24HR PATCH TRANSDERM STA (16:47)
[2020-05-21] MEDS ORDERED: HYDROcodone/APAP 10-325MG 1 EACH TAB PO PRN (17:39)
[2020-05-21] MEDS: SODIUM CHLORIDE 0.9% 1,000 ML IV SCH (18:06)
[2020-05-21] MEDS: methylPREDNISolone SOD SUCCI 125 MG/2 ML VIAL IV SCH (18:54)
[2020-05-21] MEDS ORDERED: IPRATROPIUM-ALBUTEROL 3 ML NEB INHALATION SCH (20:00)
[2020-05-21] MEDS: ALBUTEROL HFA INHALER INHALATION SCH ×2 (21:40→23:48)
[2020-05-21] MEDS: ATORVASTATIN 20 MG TAB PO SCH (22:29)
[2020-05-21] MEDS: AMOXIC-POT CLAV 875-125MG 1 EACH TAB PO SCH (22:29)
[2020-05-21] MEDS: CALCIUM CARBONATE 500 MG CHEWABLE PO SCH (22:29)
[2020-05-22] MEDS: methylPREDNISolone SOD SUCCI 125 MG/2 ML VIAL IV SCH ×3 (00:37→13:47)
[2020-05-22 03:03] LABS: Ferritin 101.4 ng/mL (22.0-322.0)
[2020-05-22] MEDS: SODIUM CHLORIDE 0.9% 1,000 ML IV SCH ×4 (04:38→13:34)
[2020-05-22] MEDS: LEVOTHYROXINE 112 MCG TAB PO SCH (05:50)
[2020-05-22] MEDS: ALBUTEROL HFA INHALER INHALATION SCH ×4 (07:43→20:29)
[2020-05-22] MEDS: TIOTROPIUM 2.5 MCG INHALER INHALATION SCH (07:44)
[2020-05-22] MEDS: LOSARTAN 25 MG TAB PO SCH (07:50)
[2020-05-22] MEDS: PANTOPRAZOLE 40 MG TABLET PO SCH (07:50)
[2020-05-22] MEDS: AMOXIC-POT CLAV 875-125MG 1 EACH TAB PO SCH ×2 (07:50→21:08)
[2020-05-22] MEDS: LOPERAMIDE 2 MG CAP PO SCH ×3 (07:50→17:00)
[2020-05-22] MEDS: CHOLECALCIFEROL 1,000 UNIT TAB PO SCH (07:50)
[2020-05-22] MEDS: CALCIUM CARBONATE 500 MG CHEWABLE PO SCH ×3 (07:50→21:08)
[2020-05-22] MEDS: LEFLUNOMIDE 20 MG TAB PO SCH (07:51)
[2020-05-22] MEDS ORDERED: NON FORMULARY DRUG (Tiotropium 18 Mcg/Puff 1 PUFF Inhaler) INHALATION SCH (09:00)
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
[2020-05-22] MEDS: FAMOTIDINE 20 MG TAB PO SCH ×2 (13:34→21:09)
--- NOTE | 2020-05-22 15:06 | US ---
EXAMINATION TYPE: US gallbladder DATE OF EXAM: 05/22/2020 COMPARISON: US 12/21/2018, CT 05/21/2020 CLINICAL HISTORY: elevated liver enzymes. EXAM MEASUREMENTS: Liver Length: 15.9 cm Gallbladder Wall: 0.28 cm CBD: 0.8 cm Right Kidney: 9.0 x 4.3 x 4.5 cm Pancreas: Obscured by bowel gas Liver: Heterogeneous Gallbladder: Slightly hydropic Evidence for sonographic Benson's sign: No CBD: dilated Right Kidney: Small cystic area visualized upper pole measuring 0.8 cm Small amount of ascites visualized IMPRESSION: 1. Heterogeneous pattern of liver is nonspecific could be seen with hepatic steatosis, diffuse hepato cellular disease including hepatitis. 2. There is a small amount of ascites. 3. Gallbladder is hydropic in the CBD is dilated measuring 8 mm. Distal CBD stone or pathology in the differential diagnosis.
[2020-05-22] MEDS: NICOTINE 21MG/24HR PATCH TRANSDERM SCH (17:25)
[2020-05-22] MEDS: methylPREDNISolone SOD SUCCI 40 MG/ML 1 ML VIAL IV SCH (21:09)
[2020-05-22] MEDS: HEPARIN SODIUM,PORCINE 5,000 UNIT/ML 1 ML VIAL SQ SCH (21:09)
[2020-05-22] MEDS: ATORVASTATIN 20 MG TAB PO SCH (21:09)
[2020-05-23] MEDS: SODIUM CHLORIDE 0.9% 1,000 ML IV SCH ×3 (05:28→08:01)
[2020-05-23] MEDS: LEFLUNOMIDE 20 MG TAB PO SCH (07:59)
[2020-05-23] MEDS: NICOTINE 21MG/24HR PATCH TRANSDERM SCH (07:59)
[2020-05-23] MEDS: CALCIUM CARBONATE 500 MG CHEWABLE PO SCH (07:59)
[2020-05-23] MEDS: LEVOTHYROXINE 112 MCG TAB PO SCH (08:00)
[2020-05-23] MEDS: PANTOPRAZOLE 40 MG TABLET PO SCH (08:00)
[2020-05-23] MEDS: FAMOTIDINE 20 MG TAB PO SCH (08:00)
[2020-05-23] MEDS: CHOLECALCIFEROL 1,000 UNIT TAB PO SCH (08:00)
[2020-05-23] MEDS: HEPARIN SODIUM,PORCINE 5,000 UNIT/ML 1 ML VIAL SQ SCH (08:00)
[2020-05-23] MEDS: AMOXIC-POT CLAV 875-125MG 1 EACH TAB PO SCH (08:00)
[2020-05-23] MEDS: methylPREDNISolone SOD SUCCI 40 MG/ML 1 ML VIAL IV SCH (08:00)
[2020-05-23] MEDS: LOSARTAN 25 MG TAB PO SCH (08:00)
[2020-05-23] MEDS: LOPERAMIDE 2 MG CAP PO SCH ×2 (08:00→12:45)
[2020-05-23] MEDS: ALBUTEROL HFA INHALER INHALATION SCH ×2 (08:06→11:14)
[2020-05-23] MEDS: TIOTROPIUM 2.5 MCG INHALER INHALATION SCH (09:05)
[2020-05-23 10:51] VITALS: BP 162/87; RESP 16; TEMP 98
[2020-05-23 11:35] LABS: African American GFR (CKD) 58.2 (60.0-200.0); Calcium 8.8 mg/dL (8.7-10.3); Magnesium 1.9 mg/dL (1.5-2.4); Non-African American GFR(CKD) 50.2 (60.0-200.0); Potassium 4.9 mmol/L (3.5-5.5)
[2020-05-23 14:10] VITALS: PULSE 76
--- NOTE | 2020-05-23 14:18 | P.DS ---
Providers Date of admission: 05/21/20 17:37 Attending physician: Meri Pedroza Primary care physician: [facility] Course: 69-year-old pleasant male came in with complaints of shortness of breath found to have COPD exacerbation was wheezing quite a bit patient's is improved significantly patient is on IV steroids inhalational treatments. Patient smokes about 3 packs of cigarettes per day patient has a nicotine patch at this time patient denied any fever chills chest x-ray did not show any pneumonia patient the was tested for Covid 19 as an outpatient he was negative in both of these scenarios patient has mildly elevated CK. She is comparing of cough without any symptoms from production. was started on Augmentin which will be continued chest x-ray did not show any pneumonia at this time. ET angios the chest did not show any pneumonia or PE, patient had hydrops gallbladder which is an incidental finding. 05/23/2020 Patient was pretty status is better today will ablate the patient if patient is not requiring any attacks and patient will be discharged today patient is wanting to go home. Patient has chronic cystitis/hydrops gallbladder patient will be referred to Gen. surgery as an outpatient.patient will be given nicotine patches. Extensive counseling regarding nicotine cessation was provided . There is a very high chance that patient go home and smoke again because of which patient is high risk for readmission. PHYSICAL EXAMINATION: GENERAL: The patient is alert and oriented x3, not in any acute distress. Well developed, well nourished. HEENT: Pupils are round and equally reacting to light. EOMI. No scleral icterus. No conjunctival pallor. Normocephalic, atraumatic. No pharyngeal erythema. No thyromegaly. CARDIOVASCULAR: S1 and S2 present. No murmurs, rubs, or gallops. PULMONARY: Decreased air entry with significant expiratory wheezing on exam ABDOMEN: Soft, nontender, nondistended, normoactive bowel sounds. No palpable organomegaly. MUSCULOSKELETAL: No joint swelling or deformity. EXTREMITIES: No cyanosis, clubbing, or pedal edema. NEUROLOGICAL: Gross neurological examination did not reveal any focal deficits. SKIN: No rashes. Assessment and Plan Plan: -COPD exacerbation: -Hydrops gallbladder:was referred to general surgery - hypertension -Coronary artery disease -chronic kidney disease stage III patient creatinine is at his baseline, prob ably hypertensive nephrosclerosis -Ruled out pulmonary embolism -Continued nicotine use: Counseling was provided extensively patient is a nicotine patch at this time Patient Condition at Discharge: Fair Plan - Discharge Summary New Discharge Prescriptions: New Amoxic-Pot Clav 875-125Mg [Augmentin 875-125] 1 each PO BID #10 tab Nicotine 21Mg/24Hr Patch [Habitrol] 1 patch TRANSDERM DAILY #14 patch predniSONE 10 mg PO DAILY #30 tab Continue HYDROcodone/APAP 10-325MG [[place] 10-325] 2 tab PO TID PRN PRN Reason: Pain Leflunomide [Arava] 20 mg PO DAILY Tiotropium 18 Mcg/Puff [Spiriva] 2 puff INHALATION DAILY modafiniL [Provigil] 200 mg PO DAILY Cholecalciferol [Vitamin D3 (25 Mcg = 1000 Iu)] 2,000 unit PO DAILY Omeprazole 20 mg PO DAILY Loperamide HCl [Imodium A-D] 2 mg PO AC-TID MDD 8 CAPS Levothyroxine Sodium [Synthroid] 112 mcg PO DAILY Etanercept [Enbrel Sureclick] 50 mg SQ MCKEON Calcium Carbonate [Tums] 500 mg PO TID Budesonide/Formoterol Fumarate [Symbicort 160-4.5 Mcg Inhaler] 2 puff INHALATION RT-BID Albuterol Inhaler [Ventolin Hfa Inhaler] 2 puff INHALATION RT-QID PRN PRN Reason: Shortness Of Breath Simvastatin [Zocor] 40 mg PO HS predniSONE 5 mg PO DAILY #0 Changed Losartan [Cozaar] 50 mg PO DAILY #0 Discharge Medication List HYDROcodone/APAP 10-325MG [[place] 10-325] 2 tab PO TID PRN 05/18/19 [History] Leflunomide [Arava] 20 mg PO DAILY 05/18/19 [History] Tiotropium 18 Mcg/Puff [Spiriva] 2 puff INHALATION DAILY 05/18/19 [History] Cholecalciferol [Vitamin D3 (25 Mcg = 1000 Iu)] 2,000 unit PO DAILY 04/22/20 [History] modafiniL [Provigil] 200 mg PO DAILY 04/22/20 [History] Albuterol Inhaler [Ventolin Hfa Inhaler] 2 puff INHALATION RT-QID PRN 05/21/20 [History] Budesonide/Formoterol Fumarate [Symbicort 160-4.5 Mcg Inhaler] 2 puff INHALATION RT-BID 05/21/20 [History] Calcium Carbonate [Tums] 500 mg PO TID 05/21/20 [History] Etanercept [Enbrel Sureclick] 50 mg SQ MCKEON 05/21/20 [History] Levothyroxine Sodium [Synthroid] 112 mcg PO DAILY 05/21/20 [History] Loperamide HCl [Imodium A-D] 2 mg PO AC-TID MDD 8 CAPS 05/21/20 [History] Omeprazole 20 mg PO DAILY 05/21/20 [History] Simvastatin [Zocor] 40 mg PO HS 05/21/20 [History] Amoxic-Pot Clav 875-125Mg [Augmentin 875-125] 1 each PO BID #10 tab 05/23/20 [Rx] Losartan [Cozaar] 50 mg PO DAILY #0 05/23/20 [Rx] Nicotine 21Mg/24Hr Patch [Habitrol] 1 patch TRANSDERM DAILY #14 patch 05/23/20 [Rx] predniSONE 5 mg PO DAILY #0 05/23/20 [Rx] predniSONE 10 mg PO DAILY #30 tab 05/23/20 [Rx] Follow up Appointment(s)/Referral(s): [facility],Clinic [Primary Care Provider] - 05/28/20 1:00 pm (They will have your blood pressure cuff, rolllator and nebulizer at the clinic. They will call you when these arrive and are ready for pickup. This is a phone visit. ) Patient Instructions/Handouts: How to Stop Smoking (DC), Acute Bronchitis (ED)
[2020-05-26] MEDS ORDERED: NON FORMULARY DRUG (Etanercept [Enbrel Sureclick] 50 MG/ML Pen.Injctr) SQ SCH (17:39)
== END 2020-05-23 15:36 | disposition home health service (06) | DRG 191 ==
LOC: EC 14:22 → 4SSUR 17:37 → 6NMEDSUR 20:31
PROVIDERS: ADMIT Internal Medicine; ATTEND Internal Medicine
DX: J44.1 Chronic obstructive pulmonary disease with (acute) exacerbation (principal); K82.1 Hydrops of gallbladder; M62.82 Rhabdomyolysis; N18.30 Chronic kidney disease, stage 3 unspecified; M06.9 Rheumatoid arthritis, unspecified; J20.9 Acute bronchitis, unspecified; I12.9 Hypertensive chronic kidney disease with stage 1 through stage 4 chronic kidney disease, or unspecified chronic kidney disease; E86.0 Dehydration; Z20.828 Contact with and (suspected) exposure to other viral communicable diseases; E78.5 Hyperlipidemia, unspecified; I25.10 Atherosclerotic heart disease of native coronary artery without angina pectoris; N30.20 Other chronic cystitis without hematuria; I25.2 Old myocardial infarction; F17.210 Nicotine dependence, cigarettes, uncomplicated; Z71.6 Tobacco abuse counseling; Z79.51 Long term (current) use of inhaled steroids; Z79.890 Hormone replacement therapy; Z79.899 Other long term (current) drug therapy; Z86.14 Personal history of Methicillin resistant Staphylococcus aureus infection; Z95.5 Presence of coronary angioplasty implant and graft; Z87.19 Personal history of other diseases of the digestive system; Z90.89 Acquired absence of other organs; Z98.890 Other specified postprocedural states; Z88.8 Allergy status to other drugs, medicaments and biological substances
CPT/HCPCS: 36415; 71046; 71275; 76705; 80048; 80053; 82550; 82728; 83605; 83615; 83735; 83880; 84145; 84484; 85025; 85379; 85610; 85730; 86140; 87040; 87636; 93005; 94640; 96361; 96374; 99291

== ENCOUNTER → 2020-05-29 | Outpatient (CLI) | payer OTHER ==
--- NOTE | 2020-05-29 16:43 | CTL ---
EXAMINATION TYPE: CT Low Dose Lung DATE OF EXAM ORDERED: 05/29/2020 HISTORY: Personal history of tobacco use. Lung cancer screening CT DLP: 101.[address] CTDI: 2.80 mGy Automated exposure control for dose reduction was used. SCREENING VISIT: Follow-up COMPARISON: 03/22/2020 TECHNIQUE: Low dose computed tomography scan was performed through the chest at 1 mm thick sections a nd reconstructed images in the coronal plane at [address] DIAGNOSTIC QUALITY: Satisfactory FINDINGS: LUNG NODULES: Present, detailed below: 1.1 x 1.3 cm area of increased density which may reside within an area of bronchiectasis. Series 4 im age 89. Bronchiectasis was present previously. Filling defect is new. This could be mucus or fluid LUNGS: COPD: Severity: None Fibrosis: Severity: None Lymph nodes: None Other findings: None RIGHT PLEURAL SPACE: Effusion: None Calcification: None Thickening: None Pneumothorax: None LEFT PLEURAL SPACE: Effusion: None Calcification: None Thickening: None Pneumothorax: None HEART: Heart Size: Normal Coronary calcification: Moderate Pericardial effusion: None OTHER FINDINGS: Upper abdomen: Moderate size hiatal hernia is present. Ascites is visualized adjacent to the liver. Bony thorax: Intact Supraclavicular region: Normal Other: Ascending thoracic aorta at the level the main pulmonary artery Measures 3.7 cm. The main pul monary artery at the bifurcation measures 2.9 cm. IMPRESSION: Probably benign findings FOLLOW UP CT CHEST RECOMMENDATION: Follow-up CT chest [address] LUNG RAD: 3
== END | disposition home or self-care (01) ==
LOC: RADCTMAIN 15:05
DX: Z12.2 Encounter for screening for malignant neoplasm of respiratory organs (principal); F17.210 Nicotine dependence, cigarettes, uncomplicated

== ENCOUNTER 2020-06-24 11:53 | Inpatient (IN) | payer OTHER, MEDICARE ==
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
[2020-06-24 13:34] LABS: Anisocytosis Slight; Basophils % (A) 0 %; Eosinophils # (A) 0.1 k/uL (0-0.7); Eosinophils % (A) 1 %; HCT 37.6 % (39.0-53.0); HGB 12.3 gm/dL (13.0-17.5); Lymphocytes # (A) 0.8 k/uL (1.0-4.8); Lymphocytes % (A) 12 %; MCH 30.7 pg (25.0-35.0); MCHC 32.7 g/dL (31.0-37.0); MCV 93.7 fL (80.0-100.0); Mean Platelet Volume 8.2; Monocytes # (A) 0.3 k/uL (0-1.0); Monocytes % (A) 5 %; Neutrophils # (A) 5.4 k/uL (1.3-7.7); Neutrophils % (A) 81 %; Platelet Count 137 k/uL (150-450); RBC 4.01 m/uL (4.30-5.90); RDW 16.5 % (11.5-15.5); WBC 6.6 k/uL (3.8-10.6)
[2020-06-24 13:41] LABS: Albumin 3.5 g/dL (3.5-5.0); Calcium 9.1 mg/dL (8.4-10.2); Magnesium 2.1 mg/dL (1.6-2.3); Potassium 3.8 mmol/L (3.5-5.1); Total Bilirubin 0.6 mg/dL (0.2-1.3); Total Protein 6.4 g/dL (6.3-8.2)
[2020-06-24 13:53] LABS: Partial Thromboplastin Time 22.1 sec (22.0-30.0); Prothrombin Time 10.5 sec (9.0-12.0)
--- NOTE | 2020-06-24 14:10 | XR ---
EXAMINATION TYPE: XR chest 1V portable DATE OF EXAM: 06/24/2020 COMPARISON: Prior chest x-ray 06/13/2020 HISTORY: Cough TECHNIQUE: Single frontal view of the chest is obtained. FINDINGS: Bandlike increased attenuation present in the right lower lung. No evident pneumothorax or pleural effusion. No significant interval change. IMPRESSION: Probable atelectasis, follow-up to resolution recommended. Correlate to exclude pneumoni a, central obstruction.
[2020-06-24] MEDS ORDERED: AZITHROMYCIN 500 MG in SODIUM CHLORIDE 0.9% 250 ML IVPB STA (14:25)
[2020-06-24] MEDS ORDERED: cefTRIAXone IN SWFI 1,000 MG/10 ML SYRINGE IVP STA (14:25)
[2020-06-24] MEDS ORDERED: methylPREDNISolone SOD SUCCI 125 MG/2 ML VIAL IV STA (14:49)
[2020-06-24 14:52] LABS: Appearance,Urine Clear (Clear); Bilirubin,Urine Negative (Negative); Blood,Urine Negative (Negative); Color,Urine Yellow; Glucose,Urine (UA) Negative (Negative); Ketones,Urine Negative (Negative); Leukocyte Esterase,Urine Negative (Negative); Nitrite,Urine Negative (Negative); PH, Urine 5.5 (5.0-8.0); Protein,Urine Trace (Negative); Specific Gravity,Urine 1.019 (1.001-1.035); Urobilinogen,Urine <2.0 mg/dL (<2.0)
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
[2020-06-24] MEDS ORDERED: NON FORMULARY DRUG (Etanercept [Enbrel Sureclick] 50 MG/ML Pen.Injctr) SQ SCH (17:15)
[2020-06-24] MEDS ORDERED: methylPREDNISolone SOD SUCCI 125 MG/2 ML VIAL IV SCH (18:00)
[2020-06-24] MEDS: SODIUM CHLORIDE 0.9% 1,000 ML IV SCH (18:31)
[2020-06-24] MEDS: methylPREDNISolone SOD SUCCI 125 MG/2 ML VIAL IV SCH (20:47)
[2020-06-24] MEDS: ATORVASTATIN 40 MG TAB PO SCH (20:47)
[2020-06-24] MEDS: CALCIUM CARBONATE 500 MG CHEWABLE PO SCH (20:47)
[2020-06-24] MEDS: SYMBICORT 160-4.5 MCG INHALER INHALATION SCH (21:51)
[2020-06-24] MEDS: HEPARIN SODIUM,PORCINE 5,000 UNIT/ML 1 ML VIAL SQ SCH (23:00)
[2020-06-25] MEDS: SODIUM CHLORIDE 0.9% 1,000 ML IV SCH ×2 (05:14→19:49)
[2020-06-25] MEDS: LEVOTHYROXINE 112 MCG TAB PO SCH (05:14)
[2020-06-25 07:00] LABS: Anisocytosis Slight; HCT 37.8 % (39.0-53.0); HGB 12.3 gm/dL (13.0-17.5); MCH 30.8 pg (25.0-35.0); MCHC 32.5 g/dL (31.0-37.0); Mean Platelet Volume 8.6; Platelet Count 126 k/uL (150-450); RBC 3.98 m/uL (4.30-5.90); RDW 16.6 % (11.5-15.5); WBC 6.4 k/uL (3.8-10.6)
[2020-06-25] MEDS: SYMBICORT 160-4.5 MCG INHALER INHALATION SCH ×2 (07:32→19:50)
[2020-06-25] MEDS: IPRATROPIUM-ALBUTEROL 3 ML NEB INHALATION PRN (07:32)
[2020-06-25] MEDS: NICOTINE 21MG/24HR PATCH TRANSDERM SCH (07:48)
[2020-06-25] MEDS: CALCIUM CARBONATE 500 MG CHEWABLE PO SCH ×3 (07:48→20:17)
[2020-06-25] MEDS: AZITHROMYCIN 500 MG TAB PO SCH (07:48)
[2020-06-25] MEDS: PANTOPRAZOLE 40 MG TABLET PO SCH (07:48)
[2020-06-25] MEDS: HEPARIN SODIUM,PORCINE 5,000 UNIT/ML 1 ML VIAL SQ SCH ×3 (07:48→23:22)
[2020-06-25] MEDS: methylPREDNISolone SOD SUCCI 125 MG/2 ML VIAL IV SCH (07:49)
[2020-06-25] MEDS: LEFLUNOMIDE 20 MG TAB PO SCH (07:49)
[2020-06-25] MEDS: predniSONE 20 MG TAB PO SCH (11:43)
[2020-06-25 12:33] LABS: African American GFR (CKD) 40.2 (60.0-200.0); BUN/Creat Ratio 25.79 Ratio (12.00-20.00); Calcium 8.6 mg/dL (8.7-10.3); Non-African American GFR(CKD) 34.7 (60.0-200.0); Potassium 4.9 mmol/L (3.5-5.5)
--- NOTE | 2020-06-25 12:51 | P.PN ---
Subjective This is admitted for COPD exacerbation. Patient is still short of breath is on 2 L of oxygen. Can use to smoke. Patient is on 20 mg of prednisone now. Patient has some pedal edema this can urine IV fluids. No evidence of covid and will not need isolation. Constitutional: Denied any fatigue denied any fever. Cardio vascular: denied any chest pain, palpitations Gastrointestinal denied any nausea vomiting Pulmonary: Denied any shortness of breath cough Neurologic denied any new focal deficits All inpatient medications were reviewed and appropriate changes in these medications as dictated in the interval history and assessment and plan. Objective - Vital Signs Vital signs: Vital Signs Temp 98.7 F 06/25/20 07:18 Pulse 50 L 06/25/20 07:48 Resp 18 06/25/20 07:48 BP 118/80 06/25/20 07:18 Pulse Ox 95 06/25/20 07:18 Intake & Output 06/24/20 06/25/20 06/25/20 18:59 06:59 18:59 Weight 82.5 kg 83 kg Other: Voiding Method Toilet Toilet # Voids 1 4 # Bowel Movements 1 - Exam PHYSICAL EXAMINATION: GENERAL: The patient is alert and oriented x3, not in any acute distress. Well developed, well nourished. HEENT: Pupils are round and equally reacting to light. EOMI. No scleral icterus. No conjunctival pallor. Normocephalic, atraumatic. No pharyngeal erythema. No thyromegaly. CARDIOVASCULAR: S1 and S2 present. No murmurs, rubs, or gallops. PULMONARY: Bilateral rhonchi, diffuse expiratory wheezing decreased air entry into bilateral lung heredia ABDOMEN: Soft, nontender, nondistended, normoactive bowel sounds. No palpable organomegaly. MUSCULOSKELETAL: No joint swelling or deformity. EXTREMITIES: No cyanosis, clubbing, bilateral 1-2+ pitting pedal edema NEUROLOGICAL: Patient does have a somewhat physical deformities of the legs with muscle atrophy and generalized weakness of both legs without any focal new deficits SKIN: No rashes. - Labs CBC & Chem 7: 06/25/20 06:28 06/25/20 06:28 Labs: Abnormal Lab Results - Last 24 Hours (Table) 06/24/20 06/24/20 06/24/20 Range/Units 13:04 13:04 14:49 RBC 4.01 L (4.30-5.90) m/uL Hgb 12.3 L (13.0-17.5) gm/dL Hct 37.6 L (39.0-53.0) % RDW 16.5 H (11.5-15.5) % Plt Count 137 L (150-450) k/uL Lymphocytes # 0.8 L (1.0-4.8) k/uL Sodium 136 L (137-145) mmol/L BUN 50 H (9-20) mg/dL Creatinine 2.01 H (0.66-1.25) mg/dL Est GFR (CKD-EPI)AfAm (60.0-200.0) Est GFR (CKD-EPI)NonAf (60.0-200.0) BUN/Creatinine Ratio (12.00-20.00) Ratio Glucose 51 L (74-99) mg/dL Calcium (8.7-10.3) mg/dL AST 79 H (17-59) U/L Urine Protein Trace H (Negative) 06/25/20 06/25/20 Range/Units 06:28 06:28 RBC 3.98 L (4.30-5.90) m/uL Hgb 12.3 L (13.0-17.5) gm/dL Hct 37.8 L (39.0-53.0) % RDW 16.6 H (11.5-15.5) % Plt Count 126 L (150-450) k/uL Lymphocytes # (1.0-4.8) k/uL Sodium (137-145) mmol/L BUN 49.0 H (9-20) mg/dL Creatinine 1.9 H (0.66-1.25) mg/dL Est GFR (CKD-EPI)AfAm 40.2 L (60.0-200.0) Est GFR (CKD-EPI)NonAf 34.7 L (60.0-200.0) BUN/Creatinine Ratio 25.79 H (12.00-20.00) Ratio Glucose (74-99) mg/dL Calcium 8.6 L (8.7-10.3) mg/dL AST (17-59) U/L Urine Protein (Negative) Assessment and Plan Plan: -COPD exacerbation: Patient will be continued on systemic steroids inhalational treatments patient will be started on azithromycin for back no evidence of pneumonia at this time. Pulmonology evaluated the patient -Hypertension -Coronary artery disease -Hyperlipidemia -Chronic kidney disease stage III probably hypertensive nephrosclerosis baseline creatinine around 1.4-1.7. On the minimal improvement with IV fluids IV fluids will be discontinued because of his bilateral pedal edema -Mild acute renal failure prerenal azotemia .Hold off on ARSLAN inhibitor -Continued nicotine use extensive counseling was provided nicotine patch was ordered. -Generalized weakness: Patient is really what uses walker. Has a significant weakness part of which is probably secondary to COPD. Physical therapy occup ational therapy will be consulted -DVT prophylaxis with subcutaneous heparin GI prophylaxis with Prilosec/Protonix
--- NOTE | 2020-06-25 15:04 | XR ---
Right hip HISTORY: Right hip pain Single frontal view of the right hip Correlation prior exam 02/15/2017 There is no interval change. Mild joint space loss is present, alignment and bone mineralization main tained. No fracture or dislocation. Question some mild marginal spurring. IMPRESSION: Osteoarthritis as noted on prior exam.
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
[2020-06-25] MEDS ORDERED: methylPREDNISolone SOD SUCCI 40 MG/ML 1 ML VIAL IV SCH (16:00)
[2020-06-25] MEDS: ATORVASTATIN 40 MG TAB PO SCH (20:17)
[2020-06-25] MEDS: HYDROcodone/APAP 10-325MG 1 EACH TAB PO PRN (23:21)
[2020-06-26] MEDS: SODIUM CHLORIDE 0.9% 1,000 ML IV SCH (05:25)
[2020-06-26] MEDS: LEVOTHYROXINE 112 MCG TAB PO SCH (05:28)
[2020-06-26] MEDS: NICOTINE 21MG/24HR PATCH TRANSDERM SCH (08:11)
[2020-06-26] MEDS: CALCIUM CARBONATE 500 MG CHEWABLE PO SCH ×3 (08:11→20:20)
[2020-06-26] MEDS: LEFLUNOMIDE 20 MG TAB PO SCH (08:11)
[2020-06-26] MEDS: HEPARIN SODIUM,PORCINE 5,000 UNIT/ML 1 ML VIAL SQ SCH ×3 (08:11→23:52)
[2020-06-26] MEDS: PANTOPRAZOLE 40 MG TABLET PO SCH (08:11)
[2020-06-26] MEDS: AZITHROMYCIN 500 MG TAB PO SCH (08:11)
[2020-06-26] MEDS: predniSONE 20 MG TAB PO SCH (08:11)
[2020-06-26] MEDS: SYMBICORT 160-4.5 MCG INHALER INHALATION SCH ×2 (08:16→20:29)
[2020-06-26] MEDS: IPRATROPIUM-ALBUTEROL 3 ML NEB INHALATION PRN ×2 (08:17→11:51)
--- NOTE | 2020-06-26 08:59 | XR ---
EXAMINATION TYPE: XR chest 1V portable DATE OF EXAM: 06/26/2020 COMPARISON: 06/24/2020 HISTORY: This of breath TECHNIQUE: Single frontal view of the chest is obtained. FINDINGS: Abnormal attenuation present at the right lung base, right middle lobe. No evident pneumot horax. Cardiac mediastinal silhouette is stable. There is blunting of the right costophrenic angle. IMPRESSION: Correlate for pneumonia, atelectasis, difficult to exclude effusion.
--- NOTE | 2020-06-26 15:31 | P.PN ---
Subjective Progress Note Date: 06/26/20 69-year-old white male patient with past medical history of stage III COPD with baseline FEV1 of 35% of predicted follows with Dr. Humphries in the pulmonary clinic for the same, chronic and ongoing smoker, hypertension, hyperlipidemia, previous history of MT, rheumatoid arthritis on Arava, and Enbrel, coronary artery disease with previous stenting, who presented to the emergency department for evaluation of worsening dyspnea, lower extremity edema, weakness. Patient has a visiting nurse that sees him at home and patient states she noted increased dyspnea, weakness, and patient could not walk related to weakness, he states he had a fall about a week ago related to weakness. He states he walked in with a small bag of groceries and fell, denies any apparent injuries, denies hitting his head. He states he laid on the floor for little while because he could not get up unassisted. He was recently seen in the office by Dr. Humphries on the 06/13/2020 when she presented with cough, wheezing, and shortness of breath, was given a prednisone taper over 21 days, and 10 day course of doxycycline. He was counseled regarding smoking cessation. He is on a maintenance dose of prednisone 5 mg daily on the normal basis, albuterol, and Spiriva. On presentation patient complaining of some cough and congestion. He completed his antibiotics his been compliant with his medications, he was taking his prednisone taper. Denies any exposure to COVID 19 to his knowledge. Denies any recent fever chills, chest pain, back pain, no abdominal pain and nausea, vomiting or diarrhea. Chest x-ray showed probable atelectasis with a bandlike increased attenuation present in the right lower lung. COVID 19 PCR was negative, his white blood cell count was 6.6, hemoglobin is 12.3, lymphocyte count was 0.8, INR was 1, electrolytes were unremarkable, BUN is 50 creatinine is 2.01. Patient was started on gentle hydration with 0.9 normal saline at a rate of 75 ML per hour, azithromycin, we added a small dose of oral prednisone 20 mg daily, and addition to Symbicort and nebulized bronchodilators. The patient is seen today 06/26/2020 and follow-up on the regular medical floor. He is currently awake and alert in no acute distress. He is maintaining good O2 saturation in the mid 90s on 2 L/m per nasal cannula. He is afebrile. Creatinine kinase 996. He is continued on DuoNeb inhalations, Symbicort, pred nisone. He was up with assistance today. He is a bit bronchospastic and wheezy following his activity. NicoDerm patch in place. Heparin for DVT prophylaxis. Objective - Vital Signs Vital signs: Vital Signs Temp 97.7 F 06/26/20 14:00 Pulse 60 06/26/20 14:00 Resp 19 06/26/20 14:00 BP 120/76 06/26/20 14:00 Pulse Ox 95 06/26/20 14:00 Intake & Output 06/25/20 06/26/20 06/26/20 18:59 06:59 18:59 Weight 84 kg Other: Voiding Method Toilet Toilet Toilet # Voids 2 5 # Bowel Movements 2 1 - Exam GENERAL EXAM: Alert, very pleasant, 69-year-old male patient, on 2 L of oxygen with a pulse ox of 95% comfortable in no apparent distress. HEAD: Normocephalic/atraumatic. EYES: Normal reaction of pupils, equal size. Conjunctiva pink, sclera white. NOSE: Clear with pink turbinates. THROAT: No erythema or exudates. NECK: No masses, no JVD, no thyroid enlargement, no adenopathy. CHEST: No chest wall deformity. Symmetrical expansion. LUNGS: Equal air entry with expiratory wheeze, diminished CVS: Regular rate and rhythm, normal S1 and S2, no gallops, no murmurs, no rubs ABDOMEN: Soft, nontender. No hepatosplenomegaly, normal bowel sounds, no guarding or rigidity. EXTREMITIES: No clubbing, 1+ lower extremity edema present no cyanosis, 2+ pu lses and upper and lower extremities. MUSCULOSKELETAL: Muscle strength and tone normal. SPINE: No scoliosis or deformity SKIN: No rashes CENTRAL NERVOUS SYSTEM: No focal deficits, tone is normal in all 4 extremities. PSYCHIATRIC: Alert and oriented -3. Appropriate affect. Intact judgment and insight. - Labs CBC & Chem 7: 06/25/20 06:28 06/25/20 06:28 Labs: Abnormal Lab Results - Last 24 Hours (Table) 06/25/20 06/26/20 Range/Units 06:28 05:55 Creatine Kinase 870 H 996 H (35-257) U/L Assessment and Plan Assessment: 1. Increased shortness of breath, chest x-ray showed probable atelectasis with bandlike increased attenuation in the right lower lung, COVID 19 was negative 2. Increased weakness in bilateral lower extremities, patient had a recent fall at home a week ago, rule out possibility of steroid-induced myopathy, or rhabdomyolysis related to her recent history of a fall 3. Acute kidney injury, rule out possibility of rhabdomyolysis, patient reports recent history of a fall at home 1 week ago 4. Stage III COPD with baseline FEV1 of 35% predicted, with recent history of exacerbation treated in the outpatient basis with steroids and ten-day course of doxycycline 5. History of rheumatoid arthritis on Arava and Enbrel 6. Hypertension 7. Hyperlipidemia 8. Previous history of myocardial infarction 9. Osteoarthritis 10. Chronic and ongoing history of smoking, carries over [id number] smoking history of 2-3 packs per day 11. Coronary artery disease with previous stenting 12. Chronic kidney disease, stage III and baseline 13. Chronic cystitis/hydrops gallbladder Plan: The patient was seen and evaluated by Dr. Turcios Increased prednisone to 30 mg daily Continue with DuoNeb inhalations, Symbicort Again educated regarding the importance of complete smoking cessation NicoDerm patch in place We will continue to follow I, the cosigning physician, performed a history & physical examination of the patient. Lungs sounds with bilateral end expiratory wheeze, diminished. Maintaining good O2 saturations in the 90s on 2 L/m per nasal cannula. I discussed the assessment and plan of care with my nurse practitioner, Jaylin Zimmerman. I attest to the above note as dictated by her.
[2020-06-26] MEDS: ATORVASTATIN 40 MG TAB PO SCH (20:20)
--- NOTE | 2020-06-27 01:39 | P.PN ---
Subjective Progress Note Date: 06/26/20 This patient is a 69 year old male who is admitted for COPD exacerbation. Patient is still short of breath is on 2 L of oxygen. Continues to smoke. Patient is on 20 mg of prednisone now. Patient has some pedal edema, discontinue IV fluids. No evidence of covid and will not need isolation. 06/26/2020 Patient is seen in follow up and continues to become dyspneic with minimal exertion. Patient continues on 2L of 02 via NC. Patient continues with wheezing on exam and presently on oral prednisone, oral zithromax, and breathing inhalational treatments and will continue. Pulmonary following. PT/OT following and recommend rehab although patient is refusing and is agreeable to homecare. Social work following and working with discharge planning. Constitutional: Denied any fatigue denied any fever. Cardio vascular: denied any chest pain, palpitations Gastrointestinal denied any nausea vomiting Pulmonary: shortness of breath with exertion, occasional cough with minimal phlegm production Neurologic denied any new focal deficits All inpatient medications were reviewed and appropriate changes in these medications as dictated in the interval history and assessment and plan. Objective - Vital Signs Vital signs: Vital Signs Temp 97.5 F L 06/26/20 07:44 Pulse 56 L 06/26/20 08:30 Resp 18 06/26/20 08:17 BP 113/71 06/26/20 07:44 Pulse Ox 91 L 06/26/20 07:44 Intake & Output 06/25/20 06/26/20 06/26/20 18:59 06:59 18:59 Weight 84 kg Other: Voiding Method Toilet Toilet Toilet # Voids 2 5 # Bowel Movements 2 1 - Exam GENERAL: The patient is alert and oriented x3, not in any acute distress. Well developed, well nourished. HEENT: Pupils are round and equally reacting to light. EOMI. No scleral icterus. No conjunctival pallor. Normocephalic, atraumatic. No pharyngeal erythema. No thyromegaly. CARDIOVASCULAR: S1 and S2 present. No murmurs, rubs, or gallops. PULMONARY: Bilateral rhonchi, diffuse expiratory wheezing decreased air entry i nto bilateral lung heredia ABDOMEN: Soft, nontender, nondistended, normoactive bowel sounds. No palpable organomegaly. MUSCULOSKELETAL: No joint swelling or deformity. EXTREMITIES: No cyanosis, clubbing, bilateral 1-2+ pitting pedal edema, slightly improved NEUROLOGICAL: Patient does have a somewhat physical deformities of the legs with muscle atrophy and generalized weakness of both legs without any focal new deficits SKIN: No rashes. - Labs CBC & Chem 7: 06/25/20 06:28 06/25/20 06:28 Labs: Abnormal Lab Results - Last 24 Hours (Table) 06/25/20 06/25/20 Range/Units 06:28 06:28 BUN 49.0 H (9.0-27.0) mg/dL Creatinine 1.9 H (0.6-1.5) mg/dL Est GFR (CKD-EPI)AfAm 40.2 L (60.0-200.0) Est GFR (CKD-EPI)NonAf 34.7 L (60.0-200.0) BUN/Creatinine Ratio 25.79 H (12.00-20.00) Ratio Calcium 8.6 L (8.7-10.3) mg/dL Creatine Kinase 870 H (35-257) U/L Assessment and Plan Assessment: -COPD exacerbation: Patient will be continued on systemic steroids inhalational treatments, empiric azithromycin, and oral steroids. Pulmonary following -Hypertension -Coronary artery disease -Hyperlipidemia -Chronic kidney disease stage III probably hypertensive nephrosclerosis baseline creatinine around 1.4-1.7. -Mild acute renal failure prerenal azotemia . Hold off on ARSLAN inhibitor -Continued nicotine use extensive counseling was provided nicotine patch was ordered. -Generalized weakness: Patient uses walker. Has a significant weakness part of which is probably secondary to COPD. PT/OT recommend possible subacute rehab although patient refuses and is open to homecare. Social work following. -DVT prophylaxis with subcutaneous heparin -GI prophylaxis with Prilosec/Protonix
[2020-06-27] MEDS: LEVOTHYROXINE 112 MCG TAB PO SCH (05:25)
[2020-06-27] MEDS: IPRATROPIUM-ALBUTEROL 3 ML NEB INHALATION PRN ×3 (05:38→12:48)
[2020-06-27] MEDS: HYDROcodone/APAP 10-325MG 1 EACH TAB PO PRN (07:51)
[2020-06-27] MEDS: CALCIUM CARBONATE 500 MG CHEWABLE PO SCH ×3 (07:53→20:07)
[2020-06-27] MEDS: NICOTINE 21MG/24HR PATCH TRANSDERM SCH (07:54)
[2020-06-27] MEDS: PANTOPRAZOLE 40 MG TABLET PO SCH (07:54)
[2020-06-27] MEDS: predniSONE 10 MG TAB PO SCH (07:54)
[2020-06-27] MEDS: HEPARIN SODIUM,PORCINE 5,000 UNIT/ML 1 ML VIAL SQ SCH ×3 (07:55→23:50)
[2020-06-27] MEDS: AZITHROMYCIN 500 MG TAB PO SCH (07:55)
[2020-06-27] MEDS: LEFLUNOMIDE 20 MG TAB PO SCH (07:55)
[2020-06-27] MEDS: SYMBICORT 160-4.5 MCG INHALER INHALATION SCH ×2 (08:35→19:21)
[2020-06-27 11:06] LABS: African American GFR (CKD) 44 (>60 ml/min/1.73 sqM); Anion Gap 6 mmol/L; Blood Urea Nitrogen 56 mg/dL (9-20); Carbon Dioxide 23 mmol/L (22-30); Chloride 109 mmol/L (98-107); Glucose 81 mg/dL (74-99); Non-African American GFR(CKD) 38 (>60 ml/min/1.73 sqM); Potassium 4.4 mmol/L (3.5-5.1); Sodium 138 mmol/L (137-145)
--- NOTE | 2020-06-27 13:15 | P.PN ---
Subjective Progress Note Date: 06/27/20 Principal diagnosis: Dyspnea, weakness, fall 69-year-old white male patient with past medical history of stage III COPD with baseline FEV1 of 35% of predicted follows with Dr. Humphries in the pulmonary clinic for the same, chronic and ongoing smoker, hypertension, hyperlipidemia, previous history of NV, rheumatoid arthritis on Arava, and Enbrel, coronary artery disease with previous stenting, who presented to the emergency department for evaluation of worsening dyspnea, lower extremity edema, weakness. Patient has a visiting nurse that sees him at home and patient states she noted increased dyspnea, weakness, and patient could not walk related to weakness, he states he had a fall about a week ago related to weakness. He states he walked in with a small bag of groceries and fell, denies any apparent injuries, denies hitting his head. He states he laid on the floor for little while because he could not get up unassisted. He was recently seen in the office by Dr. Humphries on the 06/13/2020 when she presented with cough, wheezing, and shortness of breath, was given a prednisone taper over 21 days, and 10 day course of doxycycline. He was counseled regarding smoking cessation. He is on a maintenance dose of prednisone 5 mg daily on the normal basis, albuterol, and Spiriva. On presentation patient complaining of some cough and congestion. He completed his antibiotics his been compliant with his medications, he was taking his prednisone taper. Denies any exposure to COVID 19 to his knowledge. Denies any recent fever chills, chest pain, back pain, no abdominal pain and nausea, vomiting or diarrhea. Chest x-ray showed probable atelectasis with a bandlike increased attenuation present in the right lower lung. COVID 19 PCR was negative, his white blood cell count was 6.6, hemoglobin is 12.3, lymphocyte count was 0.8, INR was 1, electrolytes were unremarkable, BUN is 50 creatinine is 2.01. Patient was started on gentle hydration with 0.9 normal saline at a rate of 75 ML per hour, azithromycin, we added a small dose of oral prednisone 20 mg daily, and addition to Symbicort and nebulized bronchodilators. The patient is seen today 06/26/2020 and follow-up on the regular medical floor. He is currently awake and alert in no acute distress. He is maintaining good O2 saturation in the mid 90s on 2 L/m per nasal cannula. He is afebrile. Creatinine kinase 996. He is continued on DuoNeb inhalations, Symbicort, prednisone. He was up with assistance today. He is a bit bronchospastic and wheezy following his activity. NicoDerm patch in place. Heparin for DVT prophylaxis. On 06/27/2020 patient seen in follow-up on the regular medical floor, he is awake and alert, oriented 3, his breathing is improving, patient is tolerating ambulation to the bathroom and back, he is feeling less weak. Vital signs have been stable, his had no fever or chills, blood pressure has been stable, no complaints of chest pain, no phlegm production. Today's labs have been reviewed showing CK relatively stable at 834, maybe slightly improved, his renal profile is improving, with B1 at 56 and creatinine is 1.76. Electrolytes are unremarkable. Patient continues on oral prednisone 30 mg daily, easier breathing treatments, and azithromycin, vitals have been stable Objective - Vital Signs Vital signs: Vital Signs Temp 97.3 F L 06/27/20 07:34 Pulse 72 06/27/20 12:51 Resp 18 06/27/20 08:15 BP 123/80 06/27/20 07:34 Pulse Ox 90 L 06/27/20 07:34 Intake & Output 06/26/20 06/27/20 06/27/20 18:59 06:59 18:59 Intake Total 240 1200 Balance 240 1200 Weight 84 kg Intake: Intake, IV Titration 240 900 Amount Sodium Chloride 0.9% 1, 240 900 000 ml @ 75 mls/hr IV . [id number] [facility] Rx#:[id number] Oral 300 Other: Voiding Method Toilet Toilet Toilet - Exam GENERAL EXAM: Alert, very pleasant, 69-year-old male patient, on 2 L of oxygen with a pulse ox of 92% comfortable in no apparent distress. HEAD: Normocephalic/atraumatic. EYES: Normal reaction of pupils, equal size. Conjunctiva pink, sclera white. NOSE: Clear with pink turbinates. THROAT: No erythema or exudates. NECK: No masses, no JVD, no thyroid enlargement, no adenopathy. CHEST: No chest wall deformity. Symmetrical expansion. LUNGS: Equal air entry with expiratory wheeze, diminished CVS: Regular rate and rhythm, normal S1 and S2, no gallops, no murmurs, no rubs ABDOMEN: Soft, nontender. No hepatosplenomegaly, normal bowel sounds, no guarding or rigidity. EXTREMITIES: No clubbing, 1+ lower extremity edema present no cyanosis, 2+ pulses and upper and lower extremities. MUSCULOSKELETAL: Muscle strength and tone normal. SPINE: No scoliosis or deformity SKIN: No rashes CENTRAL NERVOUS SYSTEM: No focal deficits, tone is normal in all 4 extremities. PSYCHIATRIC: Alert and oriented -3. Appropriate affect. Intact judgment and insight. - Labs CBC & Chem 7: 06/25/20 06:28 06/27/20 05:07 Labs: Abnormal Lab Results - Last 24 Hours (Table) 06/27/20 06/27/20 Range/Units 05:07 05:07 Chloride 109 H (98-107) mmol/L BUN 56 H (9-20) mg/dL Creatinine 1.76 H (0.66-1.25) mg/dL Creatine Kinase 834 H (35-257) U/L Assessment and Plan Plan: Assessment: #1. Increased shortness of breath, chest x-ray showed probable atelectasis with bandlike increased attenuation in the right lower lung, COVID 19 was negative #2. Increased weakness in bilateral lower extremities, patient had a recent fall at home a week ago, rule out possibility of steroid-induced myopathy, or rhabdomyolysis related to her recent history of a fall #3. Acute kidney injury, rule out possibility of rhabdomyolysis, patient reports recent history of a fall at home 1 week ago #4. Stage III COPD with baseline FEV1 of 35% predicted, with recent history of exacerbation treated in the outpatient basis with steroids and ten-day course of doxycycline #5. History of rheumatoid arthritis on Arava and Enbrel #6. Hypertension #7. Hyperlipidemia #8. Previous history of myocardial infarction #9. Osteoarthritis #10. Chronic and ongoing history of smoking, carries over [id number] smoking history of 2-3 packs per day #11. Coronary artery disease with previous stenting #12. Chronic kidney disease, stage III and baseline #13. Chronic cystitis/hydrops gallbladder Plan: Patient is feeling better, he is tolerating ambulation, is feeling a little stronger, no worsening dyspnea, his breathing has been stable, continue oral steroids, nebulized bronchodilators, renal profile is improving, his total CK is trending down, patient is voiding, had no fever or chills. Social work is following, recommendation was made for ECF after discharge however he wants to return home with home care with family/friends support. From pulmonary perspective he is stable, and he can possibly be considered for discharge home today. He'll need outpatient follow-up with Dr. Humphries in the office in 7-10 days. I performed a history & physical examination of the patient and discussed their management with my nurse practitioner, hRea Juarez. I reviewed the nurse practitioner's note and agree with the documented findings and plan of care. Lung sounds are positive for diminished breath sounds. The findings and the impression was discussed with the patient. I attest to the documentation by the nurse practitioner. Time with Patient: Less than 30
--- NOTE | 2020-06-27 14:38 | P.PN ---
Subjective Progress Note Date: 06/27/20 This patient is a 69 year old male who is admitted for COPD exacerbation. Patient is still short of breath is on 2 L of oxygen. Continues to smoke. Patient is on 20 mg of prednisone now. Patient has some pedal edema, discontinue IV fluids. No evidence of covid and will not need isolation. 06/26/2020 Patient is seen in follow up and continues to become dyspneic with minimal exertion. Patient continues on 2L of 02 via NC. Patient continues with wheezing on exam and presently on oral prednisone, oral zithromax, and breathing inhalational treatments and will continue. Pulmonary following. PT/OT following and recommend rehab although patient is refusing and is agreeable to homecare. Social work following and working with discharge planning. 06/27/2020 Patient is seen in follow-up with no acute overnight issues. Patient continues to be maintained on 2 L of oxygen and becomes dyspneic with exertion. Pulmonary is following recommending close outpatient monitoring. Patient working with physical therapy although continues to be weak with unsteady gait with the use of a walker. Patient's current living situation is also of concern for safe discharge planning. Discussed with patient about going to [facility] for continued PT/OT therapy for strength and mobility and social work was consulted. Patient is now agreeable anticipate discharge in the morning. Creatinine trending down and is 1.76 today. Constitutional: Denied any fatigue denied any fever. Cardio vascular: denied any chest pain, palpitations Gastrointestinal denied any nausea vomiting Pulmonary: shortness of breath with exertion, occasional cough with minimal phlegm production Neurologic denied any new focal deficits All inpatient medications were reviewed and appropriate changes in these medications as dictated in the interval history and assessment and plan. Objective - Vital Signs Vital signs: Vital Signs Temp 97.3 F L 06/27/20 07:34 Pulse 61 06/27/20 07:34 Resp 18 06/27/20 08:15 BP 123/80 06/27/20 07:34 Pulse Ox 90 L 06/27/20 07:34 Intake & Output 06/26/20 06/27/20 06/27/20 18:59 06:59 18:59 Intake Total 240 1200 Balance 240 1200 Weight 84 kg Intake: Intake, IV Titration 240 900 Amount Sodium Chloride 0.9% 1, 240 900 000 ml @ 75 mls/hr IV . [id number] [facility] Rx#:[id number] Oral 300 Other: Voiding Method Toilet Toilet Toilet - Exam GENERAL: The patient is alert and oriented x3, not in any acute distress. Well developed, well nourished. HEENT: Pupils are round and equally reacting to light. EOMI. No scleral icterus. No conjunctival pallor. Normocephalic, atraumatic. No pharyngeal erythema. No thyromegaly. CARDIOVASCULAR: S1 and S2 present. No murmurs, rubs, or gallops. PULMONARY: Bilateral rhonchi, diffuse expiratory wheezing decreased air entry into bilateral lung heredia ABDOMEN: Soft, nontender, nondistended, normoactive bowel sounds. No palpable organomegaly. MUSCULOSKELETAL: No joint swelling or deformity. EXTREMITIES: No cyanosis, clubbing, bilateral 1-2+ pitting pedal edema, slightly improved NEUROLOGICAL: Patient does have a somewhat physical deformities of the legs with muscle atrophy and generalized weakness of both legs without any focal new deficits SKIN: No rashes. - Labs CBC & Chem 7: 06/25/20 06:28 06/27/20 05:07 Labs: Abnormal Lab Results - Last 24 Hours (Table) 06/26/20 06/27/20 06/27/20 Range/Units 05:55 05:07 05:07 Chloride 109 H (98-107) mmol/L BUN 56 H (9-20) mg/dL Creatinine 1.76 H (0.66-1.25) mg/dL Creatine Kinase 996 H 834 H (35-257) U/L Assessment and Plan Assessment: -COPD exacerbation: Patient will be continued on systemic steroids inhalational treatments, empiric azithromycin, and oral steroids. Pulmonary following -Hypertension -Coronary artery disease -Hyperlipidemia -Chronic kidney disease stage III probably hypertensive nephrosclerosis baseline creatinine around 1.4-1.7. -Mild acute renal failure prerenal azotemia . Hold off on ARSLAN inhibitor. Improving. Current creatinine is 1.76. -Continued nicotine use extensive counseling was provided nicotine patch was ordered. -Generalized weakness: Patient uses walker. Has a significant weakness part of which is probably secondary to COPD. PT/OT recommend possible subacute rehab although patient refuses and is open to homecare. Social work following. Patient is now agreeable with rehab and working on accepting facility. -DVT prophylaxis with subcutaneous heparin -GI prophylaxis with Prilosec/Protonix Plan: Continue to increase activity as tolerated and wean FiO2 as tolerated. Social work following and working on accepting facility for rehab for continued PT/OT therapy for strengthening mobility. Patient now agreeable and will discharge with in the next 24 hours to [facility] once authorization is obtained.
[2020-06-27] MEDS: ATORVASTATIN 40 MG TAB PO SCH (20:07)
[2020-06-28] MEDS: LEVOTHYROXINE 112 MCG TAB PO SCH (05:39)
[2020-06-28] MEDS: predniSONE 10 MG TAB PO SCH (06:58)
[2020-06-28] MEDS: PANTOPRAZOLE 40 MG TABLET PO SCH (06:58)
[2020-06-28] MEDS: LEFLUNOMIDE 20 MG TAB PO SCH (06:59)
[2020-06-28] MEDS: AZITHROMYCIN 500 MG TAB PO SCH (06:59)
[2020-06-28] MEDS: CALCIUM CARBONATE 500 MG CHEWABLE PO SCH (07:00)
[2020-06-28] MEDS: HEPARIN SODIUM,PORCINE 5,000 UNIT/ML 1 ML VIAL SQ SCH (07:00)
[2020-06-28] MEDS: NICOTINE 21MG/24HR PATCH TRANSDERM SCH (07:01)
[2020-06-28] MEDS: IPRATROPIUM-ALBUTEROL 3 ML NEB INHALATION PRN ×2 (08:27→12:39)
[2020-06-28] MEDS: SYMBICORT 160-4.5 MCG INHALER INHALATION SCH (08:27)
[2020-06-28] MEDS ORDERED: FUROSEMIDE 10 MG/ML 4 ML VIAL IV STA (09:46)
--- NOTE | 2020-06-28 13:28 | P.PN ---
Subjective Progress Note Date: 06/28/20 Principal diagnosis: Dyspnea, weakness, fall 69-year-old white male patient with past medical history of stage III COPD with baseline FEV1 of 35% of predicted follows with Dr. Humphries in the pulmonary clinic for the same, chronic and ongoing smoker, hypertension, hyperlipidemia, previous history of [place], rheumatoid arthritis on Arava, and Enbrel, coronary artery disease with previous stenting, who presented to the emergency department for evaluation of worsening dyspnea, lower extremity edema, weakness. Patient has a visiting nurse that sees him at home and patient states she noted increased dyspnea, weakness, and patient could not walk related to weakness, he states he had a fall about a week ago related to weakness. He states he walked in with a small bag of groceries and fell, denies any apparent injuries, denies hitting his head. He states he laid on the floor for little while because he could not get up unassisted. He was recently seen in the office by Dr. Humphries on the 06/13/2020 when she presented with cough, wheezing, and shortness of breath, was given a prednisone taper over 21 days, and 10 day course of doxycycline. He was counseled regarding smoking cessation. He is on a maintenance dose of prednisone 5 mg daily on the normal basis, albuterol, and Spiriva. On presentation patient complaining of some cough and congestion. He completed his antibiotics his been compliant with his medications, he was taking his prednisone taper. Denies any exposure to COVID 19 to his knowledge. Denies any recent fever chills, chest pain, back pain, no abdominal pain and nausea, vomiting or diarrhea. Chest x-ray showed probable atelectasis with a bandlike increased attenuation present in the right lower lung. COVID 19 PCR was negative, his white blood cell count was 6.6, hemoglobin is 12.3, lymphocyte count was 0.8, INR was 1, electrolytes were unremarkable, BUN is 50 creatinine is 2.01. Patient was started on gentle hydration with 0.9 normal saline at a rate of 75 ML per hour, azithromycin, we added a small dose of oral prednisone 20 mg daily, and addition to Symbicort and nebulized bronchodilators. The patient is seen today 06/26/2020 and follow-up on the regular medical floor. He is currently awake and alert in no acute distress. He is maintaining good O2 saturation in the mid 90s on 2 L/m per nasal cannula. He is afebrile. Creatinine kinase 996. He is continued on DuoNeb inhalations, Symbicort, prednisone. He was up with assistance today. He is a bit bronchospastic and wheezy following his activity. NicoDerm patch in place. Heparin for DVT prophylaxis. On 06/27/2020 patient seen in follow-up on the regular medical floor, he is awake and alert, oriented 3, his breathing is improving, patient is tolerating ambulation to the bathroom and back, he is feeling less weak. Vital signs have been stable, his had no fever or chills, blood pressure has been stable, no complaints of chest pain, no phlegm production. Today's labs have been reviewed showing CK relatively stable at 834, maybe slightly improved, his renal profile is improving, with B1 at 56 and creatinine is 1.76. Electrolytes are unremarkable. Patient continues on oral prednisone 30 mg daily, easier breathing treatments, and azithromycin, vitals have been stable On 06/28/2020 patient seen in follow-up on the regular medical floor, he is awake and alert, in no acute distress, he is been indicating to the bathroom, tolerating activity well, he is on 2 L of oxygen, pulse ox is 90%, afebrile, blood pressure is been stable. He continues on azithromycin for empiric antibiotic coverage, he received a dose of IV Lasix this morning, he remains on bronchodilators, and oral steroids. His breathing has improved, his CK is coming down, down to 693 on today's labs. His renal function is improving, had no fever or chills, no chest discomfort. He is less dyspneic and bronchospastic Objective - Vital Signs Vital signs: Vital Signs Temp 97.7 F 06/28/20 07:27 Pulse 76 06/28/20 12:48 Resp 20 06/28/20 07:45 BP 130/80 06/28/20 07:27 Pulse Ox 90 L 06/28/20 09:16 Intake & Output 06/27/20 06/28/20 06/28/20 18:59 06:59 18:59 Weight 83.8 kg Other: Voiding Method Toilet Toilet Toilet # Voids 4 2 - Exam GENERAL EXAM: Alert, very pleasant, 69-year-old male patient, on 2 L of oxygen with a pulse ox of 92% comfortable in no apparent distress. HEAD: Normocephalic/atraumatic. EYES: Normal reaction of pupils, equal size. Conjunctiva pink, sclera white. NOSE: Clear with pink turbinates. THROAT: No erythema or exudates. NECK: No masses, no JVD, no thyroid enlargement, no adenopathy. CHEST: No chest wall deformity. Symmetrical expansion. LUNGS: Equal air entry with expiratory wheeze, diminished CVS: Regular rate and rhythm, normal S1 and S2, no gallops, no murmurs, no rubs ABDOMEN: Soft, nontender. No hepatosplenomegaly, normal bowel sounds, no guarding or rigidity. EXTREMITIES: No clubbing, 1+ lower extremity edema present no cyanosis, 2+ pulses and upper and lower extremities. MUSCULOSKELETAL: Muscle strength and tone normal. SPINE: No scoliosis or deformity SKIN: No rashes CENTRAL NERVOUS SYSTEM: No focal deficits, tone is normal in all 4 extremities. PSYCHIATRIC: Alert and oriented -3. Appropriate affect. Intact judgment and insight. - Labs CBC & Chem 7: 06/25/20 06:28 06/27/20 05:07 Labs: Abnormal Lab Results - Last 24 Hours (Table) 06/28/20 Range/Units 05:37 Creatine Kinase 693 H (35-257) U/L Assessment and Plan Plan: Assessment: #1. Increased shortness of breath, chest x-ray showed probable atelectasis with bandlike increased attenuation in the right lower lung, COVID 19 was negative #2. Increased weakness in bilateral lower extremities, patient had a recent fall at home a week ago, rule out possibility of steroid-induced myopathy, or rhabdomyolysis related to her recent history of a fall #3. Acute kidney injury, rule out possibility of rhabdomyolysis, patient reports recent history of a fall at home 1 week ago #4. Stage III COPD with baseline FEV1 of 35% predicted, with recent history of exacerbation treated in the outpatient basis with steroids and ten-day course of doxycycline #5. History of rheumatoid arthritis on Arava and Enbrel #6. Hypertension #7. Hyperlipidemia #8. Previous history of myocardial infarction #9. Osteoarthritis #10. Chronic and ongoing history of smoking, carries over [id number] smoking history of 2-3 packs per day #11. Coronary artery disease with previous stenting #12. Chronic kidney disease, stage III and baseline #13. Chronic cystitis/hydrops gallbladder Plan: Patient has remained stable from pulmonary perspective, his breathing is improving, less dyspneic and bronchospastic, he is tolerating ambulation, his renal profile is improving, has had no fever or chills. Discharge planning is in progress for discharge home today. He can finish outpatient prednisone taper, he can resume his Spiriva, Symbicort, and breathing treatments. He will need outpatient follow-up with Dr. Humphries in the office in 7-10 days. I performed a history & physical examination of the patient and discussed their management with my nurse practitioner, Rhea Juarez. I reviewed the nurse practitioner's note and agree with the documented findings and plan of care. Lung sounds are positive for diminished breath sounds. The findings and the impression was discussed with the patient. I attest to the documentation by the nurse practitioner. Time with Patient: Less than 30
[2020-06-28 14:31] VITALS: BP 131/78; PULSE 59; RESP 18; TEMP 97.8
--- NOTE | 2020-06-28 16:05 | P.PN ---
Subjective Progress Note Date: 06/28/20 This patient is a 69 year old male who is admitted for COPD exacerbation. Patient is still short of breath is on 2 L of oxygen. Continues to smoke. Patient is on 20 mg of prednisone now. Patient has some pedal edema, discontinue IV fluids. No evidence of covid and will not need isolation. 06/26/2020 Patient is seen in follow up and continues to become dyspneic with minimal exertion. Patient continues on 2L of 02 via NC. Patient continues with wheezing on exam and presently on oral prednisone, oral zithromax, and breathing inhalational treatments and will continue. Pulmonary following. PT/OT following and recommend rehab although patient is refusing and is agreeable to homecare. Social work following and working with discharge planning. 06/27/2020 Patient is seen in follow-up with no acute overnight issues. Patient continues to be maintained on 2 L of oxygen and becomes dyspneic with exertion. Pulmonary is following recommending close outpatient monitoring. Patient working with physical therapy although continues to be weak with unsteady gait with the use of a walker. Patient's current living situation is also of concern for safe discharge planning. Discussed with patient [facility]/OT therapy for strength and mobility and social work was consulted. Patient is now agreeable anticipate discharge in the morning. Creatinine trending down and is 1.76 today. 06/28/2020 Patient seen in follow-up and is now adamant in refusing to go to rehab although continues to require oxygen and continues to have bilateral lower extremity swelling and edema noted. Patient was given another dose of IV Lasix. Patient is agreeable to the home care and this was being arranged. Home oxygen also being arranged although [facility] and unable to [facility] today. Will repeat labs and monitor kidney functions with the possibility of adding Lasix for a few more days. Oxygen saturation with minimal exertion was 87% on room air and is currently 90% on 2 L of oxygen. Continue with oral prednisone and breathing treatments at this time. [address] will attempt to accommodate [facility] oxygen [facility]. Constitutional: Denied any fatigue denied any fever. Cardio vascular: denied any chest pain, palpitations Gastrointestinal denied any nausea vomiting Pulmonary: shortness of breath with exertion, occasional cough with minimal p hlegm production Neurologic denied any new focal deficits All inpatient medications were reviewed and appropriate changes in these medications as dictated in the interval history and assessment and plan. Objective - Vital Signs Vital signs: Vital Signs Temp 97.8 F 06/28/20 14:00 Pulse 59 L 06/28/20 14:00 Resp 18 06/28/20 14:00 BP 131/78 06/28/20 14:00 Pulse Ox 95 06/28/20 14:00 Intake & Output 06/27/20 06/28/20 06/28/20 18:59 06:59 18:59 Weight 83.8 kg Other: Voiding Method Toilet Toilet Toilet # Voids 4 2 - Exam GENERAL: The patient is alert and oriented x3, not in any acute distress. Well developed, well nourished. HEENT: Pupils are round and equally reacting to light. EOMI. No scleral icterus. No conjunctival pallor. Normocephalic, atraumatic. No pharyngeal erythema. No thyromegaly. CARDIOVASCULAR: S1 and S2 present. No murmurs, rubs, or gallops. PULMONARY: Bilateral rhonchi, diffuse expiratory wheezing decreased air entry into bilateral lung heredia, slight improvement on wheezing ABDOMEN: Soft, nontender, nondistended, normoactive bowel sounds. No palpable organomegaly. MUSCULOSKELETAL: No joint swelling or deformity. EXTREMITIES: No cyanosis, clubbing, bilateral 1-2+ pitting pedal edema, and attenuated NEUROLOGICAL: Patient does have a somewhat physical deformities of the legs with muscle atrophy and generalized weakness of both legs without any focal new deficits SKIN: No rashes. - Labs CBC & Chem 7: 06/25/20 06:28 06/27/20 05:07 Labs: Abnormal Lab Results - Last 24 Hours (Table) 06/28/20 Range/Units 05:37 Creatine Kinase 693 H (35-257) U/L Assessment and Plan Assessment: -COPD exacerbation: Patient will be continued on systemic steroids inhalational treatments, empiric azithromycin, and oral steroids. Requiring home oxygen although unable to accommodate as [facility] in case management is working on this. Pulmonary following -Hypertension -Coronary artery disease -Hyperlipidemia -Chronic kidney disease stage III probably hypertensive nephrosclerosis baseline creatinine around 1.4-1.7. -Mild acute renal failure prerenal azotemia . Hold off on ARSLAN inhibitor. Improving. Current creatinine available at this time -Continued nicotine use extensive counseling was provided nicotine patch was ordered. -Generalized weakness: Patient uses walker. Has a significant weakness part of which is probably secondary to COPD. PT/OT recommend possible subacute rehab although patient refuses and is open to homecare. Social work following. Patient is now agreeable with rehab and working on accepting facility. -DVT prophylaxis with subcutaneous heparin -GI prophylaxis with Prilosec/Protonix Plan: Continue to increase activity as tolerated and wean FiO2 as tolerated. Patient qualifies for home oxygen as his oxygen saturations were 87% on room air requiring 2 L. Patient is now refusing rehab but is agreeable to home care. Oxygen unable to obtain for home oxygen and [facility] and currently pending at this time. [facility] the [facility] and will possibly work on for discharge tomorrow. Will repeat labs in BMP currently pending as patient did receive a dose of Lasix today for continued lower extremity swelling. Possible discharge in 24-48 hours
[2020-06-28 16:35] LABS: African American GFR (CKD) 40 (>60 ml/min/1.73 sqM); Anion Gap 5 mmol/L; Blood Urea Nitrogen 59 mg/dL (9-20); Calcium 9.3 mg/dL (8.4-10.2); Carbon Dioxide 27 mmol/L (22-30); Chloride 106 mmol/L (98-107); Glucose 102 mg/dL (74-99); Non-African American GFR(CKD) 35 (>60 ml/min/1.73 sqM); Potassium 4.6 mmol/L (3.5-5.1); Sodium 138 mmol/L (137-145)
== END 2020-06-28 18:00 | disposition home health service (06) | DRG 191 ==
LOC: EC 11:53 → 4SSUR 14:49
PROVIDERS: ADMIT Internal Medicine; ATTEND Internal Medicine
DX: J44.1 Chronic obstructive pulmonary disease with (acute) exacerbation (principal); N17.9 Acute kidney failure, unspecified; J98.11 Atelectasis; K82.1 Hydrops of gallbladder; I25.10 Atherosclerotic heart disease of native coronary artery without angina pectoris; I12.9 Hypertensive chronic kidney disease with stage 1 through stage 4 chronic kidney disease, or unspecified chronic kidney disease; F17.200 Nicotine dependence, unspecified, uncomplicated; E78.5 Hyperlipidemia, unspecified; M06.9 Rheumatoid arthritis, unspecified; M19.90 Unspecified osteoarthritis, unspecified site; R53.1 Weakness; N18.30 Chronic kidney disease, stage 3 unspecified; N30.20 Other chronic cystitis without hematuria; Z20.822 Contact with and (suspected) exposure to COVID-19; Z95.5 Presence of coronary angioplasty implant and graft; I25.2 Old myocardial infarction; Z79.899 Other long term (current) drug therapy; Z79.51 Long term (current) use of inhaled steroids; Z79.890 Hormone replacement therapy; Z88.8 Allergy status to other drugs, medicaments and biological substances; Z98.890 Other specified postprocedural states
CPT/HCPCS: 36415; 71045; 73501; 80048; 80053; 81003; 82550; 83605; 83735; 83880; 84484; 85025; 85027; 85610; 85652; 85730; 87635; 93005; 94640; 96365; 96375; 99285

== ENCOUNTER 2020-07-01 15:16 | Inpatient (IN) | payer OTHER, MEDICARE ==
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
[2020-07-01 15:55] LABS: Anisocytosis Slight; Basophils % (A) 0 %; Eosinophils % (A) 0 %; HCT 36.4 % (39.0-53.0); HGB 11.6 gm/dL (13.0-17.5); Lymphocytes # (A) 0.3 k/uL (1.0-4.8); Lymphocytes % (A) 3 %; MCH 29.9 pg (25.0-35.0); MCHC 31.8 g/dL (31.0-37.0); Mean Platelet Volume 9.4; Monocytes # (A) 0.3 k/uL (0-1.0); Monocytes % (A) 3 %; Neutrophils # (A) 8.5 k/uL (1.3-7.7); Neutrophils % (A) 93 %; Platelet Count 149 k/uL (150-450); RBC 3.87 m/uL (4.30-5.90); WBC 9.1 k/uL (3.8-10.6)
[2020-07-01 16:01] LABS: Albumin 3.8 g/dL (3.5-5.0); Calcium 9.4 mg/dL (8.4-10.2); Total Bilirubin 0.9 mg/dL (0.2-1.3); Total Protein 6.8 g/dL (6.3-8.2)
--- NOTE | 2020-07-01 16:03 | XR ---
EXAMINATION TYPE: XR ankle complete LT DATE OF EXAM: 07/01/2020 CLINICAL HISTORY: Deformity with multiple falls. TECHNIQUE: Frontal, lateral and oblique images of the left ankle are obtained. COMPARISON: None. FINDINGS: Advanced narrowing tibiotalar joint with [id number] formation along with extensive subcho ndral cystic change and sclerosis. Lateral tilting of the talus. Marked narrowing along with bony for mation at level of the lateral malleolus. Moderate to severe narrowing and spurring throughout the hi ndfoot and midfoot articulations. Chronic bony deformity to the talus. Severe narrowing of the subtal ar joint with sclerosis and subchondral cystic change. Moderate to severe soft tissue swelling. Small to moderate size inferior calcaneal spur. Prominent bony projection anterior to the tibiotalar joint . No acute fracture or dislocation. IMPRESSION: As above. Advanced degenerative changes. Correlate for Charcot type arthropathy and/or hi story of remote injury.
[2020-07-01 16:09] LABS: INR 0.9 (<1.2); Prothrombin Time 9.9 sec (9.0-12.0)
--- NOTE | 2020-07-01 16:10 | XR ---
EXAMINATION TYPE: XR chest 2V DATE OF EXAM: 07/01/2020 COMPARISON: Prior chest x-ray 06/26/2020, chest CT 05/19/2020 HISTORY: Difficulty breathing, dyspnea and shortness of breath TECHNIQUE: Frontal and lateral views of the chest are obtained. FINDINGS: Right middle lobe atelectasis is present. Prominent lung volumes suggest underlying COPD. No evident pneumothorax or pleural effusion. Cardiac mediastinal silhouette is within normal limits. IMPRESSION: Findings are similar to prior exam. Right middle lobe atelectasis, follow-up is recommen ded, there is underlying emphysema
[2020-07-01 16:16] LABS: Partial Thromboplastin Time 18.8 sec (22.0-30.0)
--- NOTE | 2020-07-01 16:50 | US ---
EXAMINATION TYPE: US venous doppler duplex LE BI DATE OF EXAM: 07/01/2020 4:39 PM COMPARISON: NONE CLINICAL HISTORY: worsening le swelling. SIDE PERFORMED: Bilateral TECHNIQUE: The lower extremity deep venous system is examined utilizing real time linear array sonog rashaun with graded compression, doppler sonography and color-flow sonography. VESSELS IMAGED: Common Femoral Vein Deep Femoral Vein Greater Saphenous Vein * Femoral Vein Popliteal Vein Small Saphenous Vein * Proximal Calf Veins, not seen due to patient inability to adduct his legs (* superficial vessels) Right Leg: Negative for DVT Left Leg: Negative for DVT IMPRESSION: No sign of deep vein thrombosis in the right leg.
[2020-07-01] MEDS ORDERED: FUROSEMIDE 10 MG/ML 10 ML VIAL IV STA (17:16)
[2020-07-01] MEDS ORDERED: NALOXONE 0.4 MG/ML 1 ML VIAL IV PRN (17:17)
[2020-07-01] MEDS ORDERED: ALBUTEROL HFA INHALER INHALATION PRN (17:55)
[2020-07-01] MEDS ORDERED: ALBUTEROL NEBULIZED 2.5 MG/3 ML INHALATION PRN (17:55)
[2020-07-01] MEDS ORDERED: IPRATROPIUM-ALBUTEROL 3 ML NEB INHALATION PRN (18:18)
[2020-07-01] MEDS ORDERED: ALPRAZolam 0.25 MG TAB PO PRN (18:18)
[2020-07-01] MEDS: NICOTINE 14MG/24HR PATCH TRANSDERM SCH (18:31)
[2020-07-01] MEDS: methylPREDNISolone SOD SUCCI 125 MG/2 ML VIAL IV SCH ×2 (18:41→23:45)
--- NOTE | 2020-07-01 18:45 | HP ---
HISTORY AND PHYSICAL DATE OF SERVICE: 07/01/2020. CHIEF COMPLAINT: Shortness of breath and weakness. HISTORY OF PRESENT ILLNESS: This 69-year-old gentleman with a past medical history of multiple medical problems including COPD, hypertension, hyperlipidemia, myocardial infarction, rheumatoid arthritis, history of CAD/stent, being followed by Dr. Lancaster in the [facility], was recently admitted with COPD exacerbation. Patient went home. Subsequently, the patient had increasing shortness of breath and patient also had bilateral lower extremity edema and weakness. The patient apparently was recommended rehab. Patient refused. Currently the patient is willing to go into the rehab and the patient apparently had a fall also. The patient had significant inability to get up after sitting on the toilet which was witnessed by the EMS. There was some hemorrhagic streaks in the legs also which are significantly swollen in both legs. There is no history of fever, rigors. No history of headache, loss of consciousness or seizures at this time. PAST MEDICAL HISTORY: History of COPD, history of hypertension, hyperlipidemia, history of myocardial infarction, history of DJD, rheumatoid arthritis. MEDICATIONS: Prednisone taper, Spiriva, Zocor, Narcan, Imodium AD, Arava, [place], Lasix, vitamin D2, Tums, Zithromax. ALLERGIES: Neurontin, methotrexate. FAMILY HISTORY: No history of heart disease or strokes in the family. SOCIAL HISTORY: History of smoking up to 5 cigarettes. No history of alcohol intake. REVIEW OF SYSTEMS: ENT: Diminished vision. Diminished hearing. CARDIOVASCULAR as mentioned earlier. RESPIRATORY: As mentioned earlier. GI: As mentioned earlier. no dysuria or hematuria. NERVOUS SYSTEM as mentioned earlier. ALLERGY/IMMUNOLOGY: No asthma or hayfever. MUSCULOSKELETAL as mentioned earlier. ENDOCRINE as mentioned earlier. CONSTITUTIONAL: As mentioned earlier. DERMATOLOGY negative. RHEUMATOLOGY: Negative. PSYCHIATRY as mentioned earlier. PHYSICAL EXAM: Patient is alert, oriented x3. Pulse 68. Blood pressure 137/89, respirations 20, temperature 98.4, pulse ox 94% on room air. HEENT: Conjunctivae normal. Oral mucosa moist. NECK is jugular venous distention in the root of the neck. CARDIOVASCULAR system: S1, S2 muffled. No S3, no S4. RESPIRATORY: Breath sounds diminished in the bases. Bilateral scattered rhonchi and crackles. Expiratory wheezing. ABDOMEN: Soft. Obese. Nontender. LEGS bilateral leg edema. NERVOUS SYSTEM: Higher functions as mentioned earlier. Moves all 4 limbs. Mild diffuse weakness with significant proximal muscle wasting also present. SKIN: No ulcer or bleeding, but hemorrhagic rash in both lower limbs present. JOINTS: No active deforming arthropathy. LYMPHATICS: No lymph nodes palpable in the neck, axillae or groin. LAB STUDIES: WBC 9.2, hemoglobin 11.6, sodium 140, potassium 4, APTT is 18.8. ASSESSMENT: 1. Chronic obstructive pulmonary disease acute exacerbation with acute purulent tracheobronchitis with failure of outpatient treatment. 2. Acute cor pulmonale with bilateral leg edema. 3. Severe proximal myopathy and gait dysfunction. 4. History of falls. 5. Right middle lobe atelectasis. 6. Hypertension. 7. Hyperlipidemia. 8. History of myocardial infarction. 9. History of rheumatoid arthritis. 10.History of degenerative joint disease. 11.History of MRSA. 12.History of coronary artery disease/stent. 13.History of tonsillectomy. 14.History of continued ongoing nicotine dependence. 15.Chronic kidney disease stage 3. 16.Elevated creatinine kinase with mild rhabdomyolysis. 17.FULL CODE. RECOMMENDATIONS AND DISCUSSION: This 69-year-old gentleman who presented with multiple complex medical issues, at this time, I recommend to continue the current medications, management and symptomatic treatment. I would optimize bronchodilator treatment. Empiric antibiotics. Otherwise PT, OT evaluation, possible ECF rehab. Steroids. Resume the home medications. Prognosis guarded because of multiple complex medical issues. Further recommendations to follow. The patient understands and agrees. A copy of this dictation is being forwarded to Dr. Lancaster who is the primary physician. MMODL / IJN: [id number] / MTDD
[2020-07-01] MEDS: BUDESONIDE 1 MG/2 ML NEBU INHALATION SCH (19:20)
[2020-07-01] MEDS: IPRATROPIUM-ALBUTEROL 3 ML NEB INHALATION SCH (19:20)
[2020-07-01] MEDS: FORMOTEROL FUMARATE 20 MCG/2 ML NEBU INHALATION SCH ×2 (19:28→19:44)
[2020-07-01] MEDS ORDERED: SYMBICORT 160-4.5 MCG INHALER INHALATION SCH (20:00)
[2020-07-01] MEDS: HEPARIN SODIUM,PORCINE 5,000 UNIT/ML 1 ML VIAL SQ SCH (20:38)
[2020-07-01] MEDS: CALCIUM CARBONATE 500 MG CHEWABLE PO SCH (20:39)
[2020-07-01] MEDS: ATORVASTATIN 20 MG TAB PO SCH (20:39)
[2020-07-01 20:43] LABS: Glucose,Whole Blood 110 mg/dL (75-99)
[2020-07-01] MEDS: INSULIN ASPART (NovoLOG) 100 UNIT/ML VIAL SQ SCH (21:19)
[2020-07-01 22:54] LABS: Appearance,Urine Clear (Clear); Bilirubin,Urine Negative (Negative); Blood,Urine Negative (Negative); Color,Urine Colorless; Glucose,Urine (UA) Negative (Negative); Ketones,Urine Negative (Negative); Leukocyte Esterase,Urine Negative (Negative); Nitrite,Urine Negative (Negative); Protein,Urine Negative (Negative); Specific Gravity,Urine 1.007 (1.001-1.035); Urobilinogen,Urine <2.0 mg/dL (<2.0)
[2020-07-02] MEDS: LEVOTHYROXINE 112 MCG TAB PO SCH (05:05)
[2020-07-02] MEDS: methylPREDNISolone SOD SUCCI 125 MG/2 ML VIAL IV SCH ×3 (05:06→17:27)
[2020-07-02 07:14] LABS: Glucose,Whole Blood 125 mg/dL (75-99)
[2020-07-02] MEDS: HEPARIN SODIUM,PORCINE 5,000 UNIT/ML 1 ML VIAL SQ SCH ×2 (07:52→22:35)
[2020-07-02] MEDS: AZITHROMYCIN 500 MG TAB PO SCH (07:52)
[2020-07-02] MEDS: CHOLECALCIFEROL 25 MCG (1000 IU) TABLET PO SCH (07:52)
[2020-07-02] MEDS: LEFLUNOMIDE 20 MG TAB PO SCH (07:52)
[2020-07-02] MEDS: NICOTINE 14MG/24HR PATCH TRANSDERM SCH (07:52)
[2020-07-02] MEDS: CALCIUM CARBONATE 500 MG CHEWABLE PO SCH ×3 (07:53→22:33)
[2020-07-02] MEDS: FORMOTEROL FUMARATE 20 MCG/2 ML NEBU INHALATION SCH ×2 (07:56→20:05)
[2020-07-02] MEDS: BUDESONIDE 1 MG/2 ML NEBU INHALATION SCH ×2 (07:56→20:06)
[2020-07-02] MEDS: IPRATROPIUM-ALBUTEROL 3 ML NEB INHALATION SCH ×4 (07:56→20:06)
[2020-07-02] MEDS ORDERED: IPRATROPIUM 0.5 MG/2.5 ML NEBU INHALATION SCH (08:00)
[2020-07-02] MEDS: INSULIN ASPART (NovoLOG) 100 UNIT/ML VIAL SQ SCH ×4 (08:16→22:32)
[2020-07-02] MEDS: LOPERAMIDE 2 MG CAP PO SCH ×3 (08:27→17:20)
[2020-07-02] MEDS: PANTOPRAZOLE 40 MG TABLET PO SCH (08:29)
[2020-07-02] MEDS ORDERED: FUROSEMIDE 10 MG/ML 4 ML VIAL IV STA (08:51)
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
[2020-07-02] MEDS: HYDROcodone/APAP 10-325MG 1 EACH TAB PO PRN ×2 (09:18→22:34)
[2020-07-02 09:21] LABS: Basophils # (A) 0.01 X 10*3/uL (0.00-0.10); Basophils % (A) 0.1 %; Eosinophils # (A) 0 X 10*3/uL (0.04-0.35); Eosinophils % (A) 0 %; HGB 11.6 g/dL (13.0-17.0); Lymphocytes # (A) 0.27 X 10*3/uL (0.90-5.00); Lymphocytes % (A) 3.1 %; MCH 30.1 pg (27.0-32.0); MCHC 31.4 g/dL (32.0-37.0); MCV 96.1 fL (80.0-97.0); Mean Platelet Volume 12.9 fL (9.5-12.2); Monocytes # (A) 0.24 X 10*3/uL (0.20-1.00); Monocytes % (A) 2.8 %; Neutrophils # (A) 8.13 X 10*3/uL (1.80-7.70); Neutrophils % (A) 93.5 %; Platelet Count 143 X 10*3/uL (140-440); RBC 3.85 X 10*6/uL (4.40-5.60); RDW 17.7 % (11.5-14.5); WBC 8.69 X 10*3/uL (4.50-10.00)
[2020-07-02 09:48] LABS: African American GFR (CKD) 37.8 (60.0-200.0); Anion Gap 8.1 mmol/L (4.00-12.00); BUN/Creat Ratio 33.5 Ratio (12.00-20.00); Calcium 9.5 mg/dL (8.7-10.3); Carbon Dioxide 35.9 mmol/L (21.6-31.8); Non-African American GFR(CKD) 32.6 (60.0-200.0); Potassium 3.9 mmol/L (3.5-5.5)
--- NOTE | 2020-07-02 11:00 | ECHOF ---
Referral Reason:sob, edema MEASUREMENTS -------- HEIGHT: 175.3 cm WEIGHT: 83.0 kg BP: 137/89 RVIDd: 3.6 cm (< 3.3) IVSd: 1.4 cm (0.6 - 1.1) LVIDd: 4.6 cm (3.9 - 5.3) LVPWd: 1.4 cm (0.6 - 1.1) IVSs: 2.0 cm LVIDs: 3.2 cm LVPWs: 1.9 cm LA Diam: 3.8 cm (2.7 - 3.8) Ao Diam: 3.3 cm (2.0 - 3.7) AV Cusp: 2.0 cm (1.5 - 2.6) MV EXCURSION: 15.568 mm (> 18.000) MV EF SLOPE: 48 mm/s (70 - 150) EPSS: 1.2 cm MV E Guzman: 0.51 m/s MV DecT: 328 ms MV A Guzman: 0.58 m/s MV E/A Ratio: 0.88 FINDINGS -------- Sinus rhythm. This was a technically adequate study. The left ventricular size is normal. There is moderate concentric left ventricular hypertrophy. O verall left ventricular systolic function is normal with, an EF between 55 - 60 %. The right ventricle is mildly enlarged. The left atrium is normal in size. The right atrium is normal in size. Interatrial and interventricular septum intact. The aortic valve is trileaflet and appears structurally normal. The mitral valve is normal. The tricuspid valve appears structurally normal. There is no pulmonic regurgitation present. The aortic root size is normal. IVC Not well visulized. There is no pericardial effusion. CONCLUSIONS -------- 1. The left ventricular size is normal. 2. There is moderate concentric left ventricular hypertrophy. 3. Overall left ventricular systolic function is normal with, an EF between 55 - 60 %. 4. The right ventricle is mildly enlarged. 5. There is no pericardial effusion. NUTRITIONAL SERVICES COOK: Sandra Machuca, NITISH
[2020-07-02 11:44] LABS: Glucose,Whole Blood 128 mg/dL (75-99)
[2020-07-02] MEDS: THIAMINE 100 MG TAB PO SCH (12:58)
[2020-07-02] MEDS: MULTIVITAMINS, THERA 1 EACH TAB PO SCH (12:58)
[2020-07-02] MEDS: FOLIC ACID 1 MG TAB PO SCH (12:58)
--- NOTE | 2020-07-02 17:01 | PN ---
PROGRESS NOTE DATE OF SERVICE: 07/02/2020 This 69-year-old gentleman who was admitted with significant shortness of breath and weakness also had COPD, acute exacerbation, acute cor pulmonale. Also the patient had bilateral leg swelling. The patient had significant proximal myopathy also. The patient also had elevated creatinine. Nephrology recommended 40 mg IV Lasix today. Nephrology has seen the patient and recommended continuing the patient. PT/OT is also evaluating the patient. A 2D echo with Doppler which was reviewed by me showed ejection fraction about 55% to 60% and the right ventricle is mildly enlarged. No pericardial effusion. A venous Doppler was done in the ER yesterday which showed no evidence of DVT. Past medical history reviewed. REVIEW OF SYSTEMS: CARDIOVASCULAR SYSTEM: No angina, palpitations. RESPIRATORY SYSTEM: As mentioned earlier. GI: As mentioned earlier. : As mentioned earlier. NERVOUS SYSTEM: As mentioned earlier. CURRENT MEDICATIONS: [place] 10 mg. DuoNeb, Xanax, Lipitor, Zithromax, Pulmicort, Tums, vitamin D3. Doses are reviewed. PHYSICAL EXAMINATION: Patient alert and oriented x3. Pulse 54, blood pressure 142/77, respiration 18, temperature 97.5, pulse ox 94% on room air. HEENT: Conjunctivae normal. NECK: No jugular venous distention. CARDIOVASCULAR SYSTEM: S1, S2 muffled. A few rhonchi. No crackles. ABDOMEN: Soft, non-tender. No mass palpable. LEGS: Bilateral leg edema, especially significant fluid swelling in the distal part with some ecchymotic areas also present. SKIN: As mentioned earlier. JOINTS: No active deforming arthropathy. NERVOUS SYSTEM: Diffusely weak. Significant proximal myopathy and wasting also present. LABS: WBC 8.69, hemoglobin 11.6 and creatinine is to the baseline; on admission 2.17. ASSESSMENT: 1. Chronic obstructive pulmonary disease, acute exacerbation, with acute purulent tracheobronchitis with failure of outpatient treatment. 2. Acute cor pulmonale with bilateral leg edema. 3. Severe proximal myopathy and gait dysfunction. 4. History of falls. 5. Right middle lobe atelectasis. 6. Hypertension. 7. Hyperlipidemia. 8. History of myocardial infarction. 9. Rheumatoid arthritis. 10.History of degenerative joint disease. 11.History of methicillin-resistant Staphylococcus aeruginosa. 12.History of coronary artery disease, stent. 13.History of tonsillectomy. 14.History of continued ongoing nicotine dependence. 15.Chronic kidney disease, stage 3. 16.Elevated creatinine with creatine kinase with mild acute rhabdomyolysis. 17.FULL CODE. RECOMMENDATIONS AND DISCUSSION: I recommend to continue current medications, continue with the monitoring, symptomatic treatment. Continue with the bronchodilators. Continue with IV steroids. Continue empiric antibiotics. Otherwise PT/OT evaluation, possible ECF rehab. Lasix 40 mg one time was given by Nephrology. Will continue to monitor. Cut down the fluid intake. Guarded prognosis. Further recommendations to follow. We will follow the patient closely with PT/OT and possible ECF rehab. MMFARIDEHL / MERVINN: [id number] /
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
[2020-07-02 17:16] LABS: Glucose,Whole Blood 243 mg/dL (75-99)
[2020-07-02 20:26] LABS: Glucose,Whole Blood 163 mg/dL (75-99)
[2020-07-02] MEDS: ATORVASTATIN 20 MG TAB PO SCH (22:34)
[2020-07-03] MEDS: methylPREDNISolone SOD SUCCI 125 MG/2 ML VIAL IV SCH ×5 (00:48→23:21)
[2020-07-03] MEDS: LEVOTHYROXINE 112 MCG TAB PO SCH (06:07)
[2020-07-03 07:08] LABS: Glucose,Whole Blood 190 mg/dL (75-99)
[2020-07-03] MEDS: NICOTINE 14MG/24HR PATCH TRANSDERM SCH (07:45)
[2020-07-03] MEDS: AZITHROMYCIN 500 MG TAB PO SCH (07:45)
[2020-07-03] MEDS: CALCIUM CARBONATE 500 MG CHEWABLE PO SCH ×3 (07:45→21:06)
[2020-07-03] MEDS: HEPARIN SODIUM,PORCINE 5,000 UNIT/ML 1 ML VIAL SQ SCH ×2 (07:45→21:06)
[2020-07-03] MEDS: LEFLUNOMIDE 20 MG TAB PO SCH (07:45)
[2020-07-03] MEDS: CHOLECALCIFEROL 25 MCG (1000 IU) TABLET PO SCH (07:45)
[2020-07-03] MEDS: INSULIN ASPART (NovoLOG) 100 UNIT/ML VIAL SQ SCH ×4 (08:29→21:07)
[2020-07-03] MEDS: PANTOPRAZOLE 40 MG TABLET PO SCH (08:30)
[2020-07-03] MEDS: IPRATROPIUM-ALBUTEROL 3 ML NEB INHALATION SCH ×4 (08:47→20:17)
[2020-07-03] MEDS: BUDESONIDE 1 MG/2 ML NEBU INHALATION SCH ×2 (08:47→20:17)
[2020-07-03] MEDS: FORMOTEROL FUMARATE 20 MCG/2 ML NEBU INHALATION SCH ×2 (08:47→20:17)
--- NOTE | 2020-07-03 09:05 | XR ---
EXAMINATION TYPE: XR chest 1V portable DATE OF EXAM: 07/03/2020 COMPARISON: Chest x-ray 07/01/2020 HISTORY: Shortness of breath TECHNIQUE: Single frontal view of the chest is obtained. FINDINGS: Patchy density persists in the right middle lobe. There is no evident pneumothorax or pleu ral effusion. Retrocardiac density is consistent with hiatal hernia. Cardiac mediastinal silhouette i s stable. Aorta is dense. There are overlying leads. IMPRESSION: Right middle lobe atelectasis. Hiatal hernia with partial intrathoracic stomach.
[2020-07-03 09:17] LABS: Basophils # (A) 0.01 X 10*3/uL (0.00-0.10); Basophils % (A) 0.1 %; Eosinophils # (A) 0 X 10*3/uL (0.04-0.35); Eosinophils % (A) 0 %; HCT 32.6 % (39.6-50.0); HGB 10.3 g/dL (13.0-17.0); Lymphocytes # (A) 0.22 X 10*3/uL (0.90-5.00); Lymphocytes % (A) 2.6 %; MCH 29.9 pg (27.0-32.0); MCHC 31.6 g/dL (32.0-37.0); MCV 94.8 fL (80.0-97.0); Mean Platelet Volume 12.9 fL (9.5-12.2); Monocytes # (A) 0.19 X 10*3/uL (0.20-1.00); Monocytes % (A) 2.3 %; Neutrophils # (A) 7.91 X 10*3/uL (1.80-7.70); Neutrophils % (A) 94.5 %; Platelet Count 135 X 10*3/uL (140-440); RBC 3.44 X 10*6/uL (4.40-5.60); RDW 17.4 % (11.5-14.5); WBC 8.37 X 10*3/uL (4.50-10.00)
[2020-07-03] MEDS: LOPERAMIDE 2 MG CAP PO SCH ×3 (09:24→17:17)
[2020-07-03 09:27] LABS: African American GFR (CKD) 37.8 (60.0-200.0); Anion Gap 10.2 mmol/L (4.00-12.00); BUN/Creat Ratio 35.5 Ratio (12.00-20.00); Calcium 9.1 mg/dL (8.7-10.3); Carbon Dioxide 31.8 mmol/L (21.6-31.8); Magnesium 2.1 mg/dL (1.5-2.4); Non-African American GFR(CKD) 32.6 (60.0-200.0); Potassium 3.9 mmol/L (3.5-5.5)
--- NOTE | 2020-07-03 09:34 | P.PN ---
Subjective Patient is seen in follow-up for acute kidney injury on chronic kidney disease. Renal function stable. Good urine output. Edema improved. Nonoliguric. Oral intake fair. Vital signs are stable. General: The patient appeared well nourished and normally developed. HEENT: Head exam is unremarkable. Neck is without jugular venous distension. LUNGS: Breath sounds decreased. HEART: Rate and Rhythm are regular. ABDOMEN: Soft, nontender. EXTREMITITES: Lower extremities wrapped. Trace edema. Objective - Vital Signs Vital signs: Vital Signs Temp 97.4 F L 07/03/20 07:30 Pulse 64 07/03/20 09:05 Resp 18 07/03/20 07:30 BP 150/88 07/03/20 07:30 Pulse Ox 93 L 07/03/20 08:47 Intake & Output 07/02/20 07/03/20 07/03/20 18:59 06:59 18:59 Intake Total 420 250 Output Total 1325 475 Balance -905 -225 Intake: Oral 420 250 Output: Urine 1325 475 - Labs CBC & Chem 7: 07/03/20 05:51 07/03/20 05:51 Labs: Abnormal Lab Results - Last 24 Hours (Table) 07/02/20 07/02/20 07/02/20 Range/Units 05:16 11:43 17:14 RBC (4.40-5.60) X 10*6/uL Hgb (13.0-17.0) g/dL Hct (39.6-50.0) % MCHC (32.0-37.0) g/dL RDW (11.5-14.5) % Plt Count (140-440) X 10*3/uL MPV (9.5-12.2) fL Neutrophils # (1.80-7.70) X 10*3/uL Lymphocytes # (0.90-5.00) X 10*3/uL Monocytes # (0.20-1.00) X 10*3/uL Eosinophils # (0.04-0.35) X 10*3/uL Carbon Dioxide 35.9 H (21.6-31.8) mmol/L BUN 67.0 H (9.0-27.0) mg/dL Creatinine 2.0 H (0.6-1.5) mg/dL Est GFR (CKD-EPI)AfAm 37.8 L (60.0-200.0) Est GFR (CKD-EPI)NonAf 32.6 L (60.0-200.0) BUN/Creatinine Ratio 33.50 H (12.00-20.00) Ratio Glucose 152 H (70-110) mg/dL POC Glucose (mg/dL) 128 H 243 H (75-99) mg/dL 07/02/20 07/03/20 07/03/20 Range/Units 20:25 05:51 05:51 RBC 3.44 L (4.40-5.60) X 10*6/uL Hgb 10.3 L (13.0-17.0) g/dL Hct 32.6 L (39.6-50.0) % MCHC 31.6 L (32.0-37.0) g/dL RDW 17.4 H (11.5-14.5) % Plt Count 135 L (140-440) X 10*3/uL MPV 12.9 H (9.5-12.2) fL Neutrophils # 7.91 H (1.80-7.70) X 10*3/uL Lymphocytes # 0.22 L (0.90-5.00) X 10*3/uL Monocytes # 0.19 L (0.20-1.00) X 10*3/uL Eosinophils # 0 L (0.04-0.35) X 10*3/uL Carbon Dioxide (21.6-31.8) mmol/L BUN 71.0 H (9.0-27.0) mg/dL Creatinine 2.0 H (0.6-1.5) mg/dL Est GFR (CKD-EPI)AfAm 37.8 L (60.0-200.0) Est GFR (CKD-EPI)NonAf 32.6 L (60.0-200.0) BUN/Creatinine Ratio 35.50 H (12.00-20.00) Ratio Glucose 145 H (70-110) mg/dL POC Glucose (mg/dL) 163 H (75-99) mg/dL 07/03/20 Range/Units 07:06 RBC (4.40-5.60) X 10*6/uL Hgb (13.0-17.0) g/dL Hct (39.6-50.0) % MCHC (32.0-37.0) g/dL RDW (11.5-14.5) % Plt Count (140-440) X 10*3/uL MPV (9.5-12.2) fL Neutrophils # (1.80-7.70) X 10*3/uL Lymphocytes # (0.90-5.00) X 10*3/uL Monocytes # (0.20-1.00) X 10*3/uL Eosinophils # (0.04-0.35) X 10*3/uL Carbon Dioxide (21.6-31.8) mmol/L BUN (9.0-27.0) mg/dL Creatinine (0.6-1.5) mg/dL Est GFR (CKD-EPI)AfAm (60.0-200.0) Est GFR (CKD-EPI)NonAf (60.0-200.0) BUN/Creatinine Ratio (12.00-20.00) Ratio Glucose (70-110) mg/dL POC Glucose (mg/dL) 190 H (75-99) mg/dL Assessment and Plan Plan: Assessment: 1. Acute kidney injury. Unclear etiology. There is concern for cardiorenal syndrome due to the edema. Creatinine was 1.3-1.4 in April 2020 and now in the range of 1.8-2. UA is benign. 2. Lower extremity edema. Erythematous rash noted as well. 3. History of rheumatoid arthritis. 4. Chronic kidney disease. Establish baseline renal function. 5. COPD exacerbation. Plan: Hold off on diuretics today. Follow-up renal ultrasound. Low-salt diet. EF ok. Follow-up serologies - DEMETRI negative.
[2020-07-03 11:38] LABS: Glucose,Whole Blood 194 mg/dL (75-99)
[2020-07-03] MEDS: FOLIC ACID 1 MG TAB PO SCH (11:58)
[2020-07-03] MEDS: MULTIVITAMINS, THERA 1 EACH TAB PO SCH (11:58)
[2020-07-03] MEDS: THIAMINE 100 MG TAB PO SCH (11:58)
--- NOTE | 2020-07-03 13:11 | US ---
EXAMINATION TYPE: US kidneys/renal and bladder DATE OF EXAM: 07/03/2020 COMPARISON: NONE CLINICAL HISTORY: lan. LAN EXAM MEASUREMENTS: Right Kidney: 8.1 x 3.7 x 3.7 cm Left Kidney: 8.9 x 4.9 x 3.3 cm Ascites is visualized. Right Kidney: No hydronephrosis or masses seen Left Kidney: No hydronephrosis or masses seen Bladder: Anechoic Bilateral Jets seen: no IMPRESSION: 1. Renal ultrasound appears within normal limits. 2. Ascites is present.
--- NOTE | 2020-07-03 13:17 | P.PN ---
Subjective Progress Note Date: 07/03/20 Principal diagnosis: Acute exacerbation of COPD, weakness This is an 69-year-old white male patient with known history of COPD, recently placed on home oxygen, prednisone for his history of rheumatoid arthritis and advanced COPD, chronic smoker, currently cut back to one pack a day, was up to 2-3 packs per day for over 50 years. [facility], and has a lung doctor in [place] area however he does not remember his name. Medical history includes hypertension, hyperlipidemia, and previous history of myocardial infarction. Patient was recently hospitalized from 06/24/2020 through 2020 for acute exacerbation of COPD, and following his hospitalizati on patient was recommended rehab, however he refused and chose to be discharged home. On 2020 patient presented to the emergency department with complaints of worsening dyspnea, weakness, increased lower extremity edema. Patient states he could hardly walk related to weakness and dyspnea. Home care nurse came out to his house and found the patient sitting on the toilet unable to get up for 2 hours. He has been wearing home oxygen. He has chronic cough, reports no fever or chills, no chest pain, no hemoptysis, no nausea vomiting or diarrhea. His chest x-ray on admission showed a right middle lobe atelectasis, prominent lung volumes suggestive of underlying COPD. Left ankle x-ray was completed related to deformity with multiple falls showing advanced degenerative changes with correlation for Charcot-type arthropathy or history of remote injury. Lower extremity Dopplers were negative for DVT. EKG showed a sinus rhythm with septal infarct of undetermined age. Admission lab work showed white cell count of 9.1, hemoglobin is 11.6, INR 0.9, electrolytes were within normal limits, BUN is 65 creatinine is 2.17, worsened since his last admission, plasma lactic acid is 1.9, LFTs were within normal limits, troponin is less than 0.012, proBNP is 808, urinalysis showed no evidence of infection. He has had no fever or chills since admission, room air pulse ox today's 95%. His lung sounds reveal diffuse wheezes. He was started on Zithromax, he was also given a dose of Lasix in the emergency department and again today per nephrology. Has been diuresing, he is feeling better. He is on IV steroids and bronchodilators. On 07/03/2010 patient seen in follow-up, breathing easier, no acute events overnight, is currently on room air, fever or chills, his pulse ox on room air was 93%, his and his nonlabored, lung sounds reveal some scattered wheezes, no cough, no significant congestion, but stable overnight, unit dose of IV Lasix yesterday, his lower extremity edema is improving, his bilateral lower extremities have been Ayden wrapped, he is in -1.1 L negative fluid balance over 24 hours. Continues on nebulized broncho-dilators and IV steroids, he is improving. Objective - Vital Signs Vital signs: Vital Signs Temp 97.4 F L 07/03/20 07:30 Pulse 60 07/03/20 09:36 Resp 18 07/03/20 09:36 BP 150/88 07/03/20 07:30 Pulse Ox 93 L 07/03/20 08:47 Intake & Output 07/02/20 07/03/20 07/03/20 18:59 06:59 18:59 Intake Total 420 250 360 Output Total 1325 475 Balance -905 -225 360 Intake: Oral 420 250 360 Output: Urine 1325 475 - Exam GENERAL EXAM: Alert, very pleasant, 69-year-old white male appears chronically d ebilitated, currently on room air with pulse ox of 95% comfortable in no apparent distress. HEAD: Normocephalic/atraumatic. EYES: Normal reaction of pupils, equal size. Conjunctiva pink, sclera white. NOSE: Clear with pink turbinates. THROAT: No erythema or exudates. NECK: No masses, no JVD, no thyroid enlargement, no adenopathy. CHEST: No chest wall deformity. Symmetrical expansion. LUNGS: Equal air entry with diffuse wheezes CVS: Regular rate and rhythm, normal S1 and S2, no gallops, no murmurs, no rubs ABDOMEN: Soft, nontender. No hepatosplenomegaly, normal bowel sounds, no guarding or rigidity. EXTREMITIES: No clubbing, 1+ lower extremity edema, no cyanosis, 2+ pulses and upper and lower extremities. MUSCULOSKELETAL: Muscle strength and tone normal. SPINE: No scoliosis or deformity SKIN: No rashes CENTRAL NERVOUS SYSTEM: Alert and oriented -3. No focal deficits, tone is normal in all 4 extremities. PSYCHIATRIC: Alert and oriented -3. Appropriate affect. Intact judgment and insight. - Labs CBC & Chem 7: 07/03/20 05:51 07/03/20 05:51 Labs: Abnormal Lab Results - Last 24 Hours (Table) 07/02/20 07/02/20 07/03/20 Range/Units 17:14 20:25 05:51 RBC 3.44 L (4.40-5.60) X 10*6/uL Hgb 10.3 L (13.0-17.0) g/dL Hct 32.6 L (39.6-50.0) % MCHC 31.6 L (32.0-37.0) g/dL RDW 17.4 H (11.5-14.5) % Plt Count 135 L (140-440) X 10*3/uL MPV 12.9 H (9.5-12.2) fL Neutrophils # 7.91 H (1.80-7.70) X 10*3/uL Lymphocytes # 0.22 L (0.90-5.00) X 10*3/uL Monocytes # 0.19 L (0.20-1.00) X 10*3/uL Eosinophils # 0 L (0.04-0.35) X 10*3/uL BUN (9.0-27.0) mg/dL Creatinine (0.6-1.5) mg/dL Est GFR (CKD-EPI)AfAm (60.0-200.0) Est GFR (CKD-EPI)NonAf (60.0-200.0) BUN/Creatinine Ratio (12.00-20.00) Ratio Glucose (70-110) mg/dL POC Glucose (mg/dL) 243 H 163 H (75-99) mg/dL 07/03/20 07/03/20 07/03/20 Range/Units 05:51 07:06 11:37 RBC (4.40-5.60) X 10*6/uL Hgb (13.0-17.0) g/dL Hct (39.6-50.0) % MCHC (32.0-37.0) g/dL RDW (11.5-14.5) % Plt Count (140-440) X 10*3/uL MPV (9.5-12.2) fL Neutrophils # (1.80-7.70) X 10*3/uL Lymphocytes # (0.90-5.00) X 10*3/uL Monocytes # (0.20-1.00) X 10*3/uL Eosinophils # (0.04-0.35) X 10*3/uL BUN 71.0 H (9.0-27.0) mg/dL Creatinine 2.0 H (0.6-1.5) mg/dL Est GFR (CKD-EPI)AfAm 37.8 L (60.0-200.0) Est GFR (CKD-EPI)NonAf 32.6 L (60.0-200.0) BUN/Creatinine Ratio 35.50 H (12.00-20.00) Ratio Glucose 145 H (70-110) mg/dL POC Glucose (mg/dL) 190 H 194 H (75-99) mg/dL Assessment and Plan Plan: Assessment: #1. Acute exacerbation of COPD #2. Lower extremity swelling, chest x-ray showing right lower lobe atelectasis and fluid in the fissure related to mild fluid overload #3. Recent hospitalization from 06/24/2020 through 06/28/2020 for acute exacerbation of COPD, and patient was discharged with home care, despite the recommendation for ECF #4. Advanced COPD, stage III with baseline FEV1 of 35% of predicted, patient follows with Dr. Humphries in the pulmonary clinic #5. Chronic and ongoing smoker, down to 1 pack a day, used to smoke 2-3 packs a day for 50 years #6. Hypertension #7. Hyperlipidemia #8. History of coronary artery disease with previous stenting #9. Rheumatoid arthritis #10. Increased weakness, recent falls at home #11. Acute kidney injury, worsened since his discharge #12. History of myocardial infarction #13. Chronic kidney disease stage III at baseline Plan: Patient less dyspneic and bronchospastic, breathing easier, he is in negative fluid balance. Stable, improving, increase activity as tolerated, with patient would benefit from rehab after discharge. Patient has had recent falls at home, weakness, difficulty ambulating. Possible discharge to ECF if cleared by medicine in the next 24 hours. I performed a history & physical examination of the patient and discussed their management with my nurse practitioner, Rhea Juarez. I reviewed the nurse practitioner's note and agree with the documented findings and plan of care. Lung sounds are positive for diffuse wheezes throughout the lung heredia. The findings and the impression was discussed with the patient. I attest to the documentation by the nurse practitioner. Time with Patient: Less than 30
--- NOTE | 2020-07-03 14:20 | P.PN ---
Subjective Progress Note Date: 07/03/20 This is a 69-year-old male who was recently admitted with shortness of breath, weakness, chronic obstructive pulmonary disease acute exacerbation along with bilateral leg swelling and is being closely monitored. Multiple medical consultations following including pulmonary and nephrology. Creatinine cont inues to be elevated at 2.0 today. PT/OT following the patient and recommending subacute rehab as patient continues to be quite weak with an unsteady gait and continued bilateral edema noted to the feet. Ayden wraps from the toes up to the knees noted on exam with some swelling improved from previous. Patient is to continue with fluid restrictions of 1200 mL per day along with low-salt diet. Patient continues to be dyspneic with exertion but is currently on room air at rest and denies any worsening shortness of breath. Renal ultrasound ordered and pending at this time. Review of systems: Constitutional: No reports of fatigue, fever, or chills Cardiovascular: No reports of chest pain or palpitations Respiratory: Reports intermittent shortness of breath with exertion and occasional cough GI: No reports of nausea, vomiting, or diarrhea : No reports of dysuria or retention Neurovascular: No reports of weakness or numbness All medications have been reviewed Objective - Vital Signs Vital signs: Vital Signs Temp 97.4 F L 07/03/20 07:30 Pulse 60 07/03/20 09:36 Resp 18 07/03/20 09:36 BP 150/88 07/03/20 07:30 Pulse Ox 93 L 07/03/20 08:47 Intake & Output 07/02/20 07/03/20 07/03/20 18:59 06:59 18:59 Intake Total 420 250 360 Output Total 1325 475 Balance -905 -225 360 Intake: Oral 420 250 360 Output: Urine 1325 475 - Exam Gen: This is a 69-year-old male sitting up in bed awake, alert and oriented 3. Temp is 97.4F, pulse is 60, respirations are 18, blood pressure is 150/88, oxygen saturation is 92-93% on room air HEENT: Head is atraumatic, normocephalic. Pupils equal, round. Sclerae is anicteric. NECK: Supple. No JVD. No lymphadenopathy. No thyromegaly. LUNGS: Diminished breath sounds bilaterally with some scattered rhonchi noted. No intercostal retractions. HEART: S1, S2 are muffled ABDOMEN: Soft. Bowel sounds are present. No masses. No tenderness. No guarding or rigidity noted on palpation EXTREMITIES: Bilateral pedal edema noted on exam Ayden wraps from the toes to the knees. No calf tenderness. Slight improvement in swelling noted. Bilateral petechial ecchymotic features noted to the knees NEUROLOGICAL: Patient is awake, alert and oriented x3. Diffusely weak, with significant proximal myopathy and wasting present on exam - Labs CBC & Chem 7: 07/03/20 05:51 07/03/20 05:51 Labs: Abnormal Lab Results - Last 24 Hours (Table) 07/02/20 07/02/20 07/03/20 Range/Units 17:14 20:25 05:51 RBC 3.44 L (4.40-5.60) X 10*6/uL Hgb 10.3 L (13.0-17.0) g/dL Hct 32.6 L (39.6-50.0) % MCHC 31.6 L (32.0-37.0) g/dL RDW 17.4 H (11.5-14.5) % Plt Count 135 L (140-440) X 10*3/uL MPV 12.9 H (9.5-12.2) fL Neutrophils # 7.91 H (1.80-7.70) X 10*3/uL Lymphocytes # 0.22 L (0.90-5.00) X 10*3/uL Monocytes # 0.19 L (0.20-1.00) X 10*3/uL Eosinophils # 0 L (0.04-0.35) X 10*3/uL BUN (9.0-27.0) mg/dL Creatinine (0.6-1.5) mg/dL Est GFR (CKD-EPI)AfAm (60.0-200.0) Est GFR (CKD-EPI)NonAf (60.0-200.0) BUN/Creatinine Ratio (12.00-20.00) Ratio Glucose (70-110) mg/dL POC Glucose (mg/dL) 243 H 163 H (75-99) mg/dL 07/03/20 07/03/20 07/03/20 Range/Units 05:51 07:06 11:37 RBC (4.40-5.60) X 10*6/uL Hgb (13.0-17.0) g/dL Hct (39.6-50.0) % MCHC (32.0-37.0) g/dL RDW (11.5-14.5) % Plt Count (140-440) X 10*3/uL MPV (9.5-12.2) fL Neutrophils # (1.80-7.70) X 10*3/uL Lymphocytes # (0.90-5.00) X 10*3/uL Monocytes # (0.20-1.00) X 10*3/uL Eosinophils # (0.04-0.35) X 10*3/uL BUN 71.0 H (9.0-27.0) mg/dL Creatinine 2.0 H (0.6-1.5) mg/dL Est GFR (CKD-EPI)AfAm 37.8 L (60.0-200.0) Est GFR (CKD-EPI)NonAf 32.6 L (60.0-200.0) BUN/Creatinine Ratio 35.50 H (12.00-20.00) Ratio Glucose 145 H (70-110) mg/dL POC Glucose (mg/dL) 190 H 194 H (75-99) mg/dL Assessment and Plan Assessment: Chronic obstructive pulmonary disease, acute exacerbation, with acute purulent tracheobronchitis with failure of outpatient treatment Acute cor pulmonale with bilateral leg edema Severe proximal myopathy and gait dysfunction History of falls Right middle lobe atelectasis Hypertension Hyperlipidemia History of myocardial infarction rheumatoid arthritis history of degenerative joint disease history of methicillin-resistant Staphylococcus aeruginosa History of coronary artery disease, stent History of tonsillectomy History of continued ongoing nicotine dependence chronic kidney disease, stage III elevated creatinine with creatinine kinase with mild acute rhabdomyolysis Full code Recommendations and discussion: Recommend continue current medications, management, and symptomatic treatment. Patient received a dose of IV push Lasix yesterday and is showing some improvement in bilateral lower extremity and pedal edema. Ayden wraps noted on exam and patient does have bilateral lower extremities elevated while at rest. Pulmonary and nephrology following. Creatinine is 2.0 today and renal ultrasound was ordered and pending at this time. She OT therapy evaluated the patient recommending subacute rehab for continued therapy once stabilized discharge. Patient to continue with fluid restrictions of 1200 mL per day along with low-salt diet. Patient to continue with breathing inhalational treatments as well. Social work is following his patient is now agreeable to rehab at [facility] once discharged. Due to multiple complex medical issues, prognosis is guarded. Further recommendations to follow. Possible discharge in 24-48 hours to ECF.
[2020-07-03] MEDS ORDERED: SENNOSIDES 8.6 MG TAB PO STA (14:24)
[2020-07-03] MEDS: HYDROcodone/APAP 10-325MG 1 EACH TAB PO PRN (14:39)
[2020-07-03 14:47] LABS: C-ANCA <1:20 Titer (<1:20)
[2020-07-03 16:30] VITALS: BMI 27.0
[2020-07-03 17:00] LABS: Glucose,Whole Blood 118 mg/dL (75-99)
[2020-07-03 19:56] LABS: Glucose,Whole Blood 160 mg/dL (75-99)
[2020-07-03] MEDS: SENNOSIDES 8.6 MG TAB PO SCH (21:05)
[2020-07-03] MEDS: ATORVASTATIN 20 MG TAB PO SCH (21:05)
[2020-07-04] MEDS: LEVOTHYROXINE 112 MCG TAB PO SCH (05:14)
[2020-07-04] MEDS: methylPREDNISolone SOD SUCCI 125 MG/2 ML VIAL IV SCH ×4 (05:14→23:16)
[2020-07-04 07:07] LABS: Glucose,Whole Blood 114 mg/dL (75-99)
[2020-07-04] MEDS: INSULIN ASPART (NovoLOG) 100 UNIT/ML VIAL SQ SCH ×4 (07:34→20:53)
[2020-07-04] MEDS: IPRATROPIUM-ALBUTEROL 3 ML NEB INHALATION SCH ×4 (08:43→21:43)
[2020-07-04] MEDS: BUDESONIDE 1 MG/2 ML NEBU INHALATION SCH ×2 (08:43→21:43)
[2020-07-04] MEDS: FORMOTEROL FUMARATE 20 MCG/2 ML NEBU INHALATION SCH ×2 (08:43→21:43)
[2020-07-04] MEDS: NICOTINE 14MG/24HR PATCH TRANSDERM SCH (09:14)
[2020-07-04] MEDS: CALCIUM CARBONATE 500 MG CHEWABLE PO SCH ×3 (09:15→21:03)
[2020-07-04] MEDS: LOPERAMIDE 2 MG CAP PO SCH ×4 (09:15→16:15)
[2020-07-04] MEDS: AZITHROMYCIN 500 MG TAB PO SCH (09:16)
[2020-07-04] MEDS: PANTOPRAZOLE 40 MG TABLET PO SCH (09:16)
[2020-07-04] MEDS: HEPARIN SODIUM,PORCINE 5,000 UNIT/ML 1 ML VIAL SQ SCH ×2 (09:17→21:03)
[2020-07-04] MEDS: CHOLECALCIFEROL 25 MCG (1000 IU) TABLET PO SCH (09:17)
[2020-07-04] MEDS: LEFLUNOMIDE 20 MG TAB PO SCH (09:18)
[2020-07-04] MEDS: SENNOSIDES 8.6 MG TAB PO SCH ×2 (09:25→21:03)
--- NOTE | 2020-07-04 09:59 | P.PN ---
Subjective Patient is seen in follow-up for acute kidney injury on chronic kidney disease. Renal function stable. Good urine output. Edema improved. Nonoliguric. Oral intake fair. no changes overnight. Vital signs are stable. General: The patient appeared well nourished and normally developed. HEENT: Head exam is unremarkable. Neck is without jugular venous distension. LUNGS: Breath sounds decreased. HEART: Rate and Rhythm are regular. ABDOMEN: Soft, nontender. EXTREMITITES: Lower extremities wrapped. Trace edema. Objective - Vital Signs Vital signs: Vital Signs Temp 97.6 F 07/04/20 05:00 Pulse 64 07/04/20 09:10 Resp 18 07/04/20 05:00 BP 127/80 07/04/20 05:00 Pulse Ox 90 L 07/04/20 05:00 Intake & Output 07/03/20 07/04/20 07/04/20 18:59 06:59 18:59 Intake Total 950 Output Total 300 Balance 950 -300 Weight 83.007 kg Intake: Oral 950 Output: Urine 300 Other: # Voids 2 - Labs CBC & Chem 7: 07/03/20 05:51 07/03/20 05:51 Labs: Abnormal Lab Results - Last 24 Hours (Table) 07/03/20 07/03/20 07/03/20 Range/Units 11:37 16:58 19:55 POC Glucose (mg/dL) 194 H 118 H 160 H (75-99) mg/dL 07/04/20 Range/Units 07:03 POC Glucose (mg/dL) 114 H (75-99) mg/dL Assessment and Plan Plan: Assessment: 1. Acute kidney injury versus chronic kidney disease. There is concern for cardiorenal syndrome due to the edema. Creatinine was 1.3-1.4 in April 2020 and now in the range of 1.8-2. UA is benign. Kidney ultrasound revealed small sized kidneys without any hydronephrosis. 2. Lower extremity edema. Erythematous rash noted as well. ANCA negative. 3. History of rheumatoid arthritis. 4. Chronic kidney disease. Establish baseline renal function. Etiology is nephrosclerosis. Small sized kidneys. 5. COPD exacerbation. Plan: Low-salt diet. EF ok. avoid nephrotoxins. Add Lasix 20 mg orally once daily
[2020-07-04 11:07] LABS: Glucose,Whole Blood 108 mg/dL (75-99)
[2020-07-04 11:26] LABS: Basophils # (A) 0.01 X 10*3/uL (0.00-0.10); Basophils % (A) 0.1 %; Eosinophils # (A) 0 X 10*3/uL (0.04-0.35); Eosinophils % (A) 0 %; HCT 32.9 % (39.6-50.0); HGB 10.5 g/dL (13.0-17.0); Lymphocytes # (A) 0.41 X 10*3/uL (0.90-5.00); Lymphocytes % (A) 4.2 %; MCH 29.9 pg (27.0-32.0); MCHC 31.9 g/dL (32.0-37.0); MCV 93.7 fL (80.0-97.0); Monocytes # (A) 0.38 X 10*3/uL (0.20-1.00); Monocytes % (A) 3.9 %; Neutrophils # (A) 8.91 X 10*3/uL (1.80-7.70); Neutrophils % (A) 91.2 %; Platelet Count 149 X 10*3/uL (140-440); RBC 3.51 X 10*6/uL (4.40-5.60); RDW 17.6 % (11.5-14.5); WBC 9.77 X 10*3/uL (4.50-10.00)
[2020-07-04 11:51] LABS: African American GFR (CKD) 40.2 (60.0-200.0); Anion Gap 8.7 mmol/L (4.00-12.00); BUN/Creat Ratio 41.05 Ratio (12.00-20.00); Calcium 9.1 mg/dL (8.7-10.3); Carbon Dioxide 32.3 mmol/L (21.6-31.8); Non-African American GFR(CKD) 34.7 (60.0-200.0); Potassium 4.1 mmol/L (3.5-5.5)
--- NOTE | 2020-07-04 12:11 | P.PN ---
Subjective Progress Note Date: 07/04/20 Principal diagnosis: Acute exacerbation of COPD, weakness This is an 69-year-old white male patient with known history of COPD, recently placed on home oxygen, prednisone for his history of rheumatoid arthritis and advanced COPD, chronic smoker, currently cut back to one pack a day, was up to 2-3 packs per day for over 50 years. [facility], and has a lung doctor in [place] area however he does not remember his name. Medical history includes hypertension, hyperlipidemia, and previous history of myocardial infarction. Patient was recently hospitalized from 06/24/2020 through 2020 for acute exacerbation of COPD, and following his hospitalizati on patient was recommended rehab, however he refused and chose to be discharged home. On 2020 patient presented to the emergency department with complaints of worsening dyspnea, weakness, increased lower extremity edema. Patient states he could hardly walk related to weakness and dyspnea. Home care nurse came out to his house and found the patient sitting on the toilet unable to get up for 2 hours. He has been wearing home oxygen. He has chronic cough, reports no fever or chills, no chest pain, no hemoptysis, no nausea vomiting or diarrhea. His chest x-ray on admission showed a right middle lobe atelectasis, prominent lung volumes suggestive of underlying COPD. Left ankle x-ray was completed related to deformity with multiple falls showing advanced degenerative changes with correlation for Charcot-type arthropathy or history of remote injury. Lower extremity Dopplers were negative for DVT. EKG showed a sinus rhythm with septal infarct of undetermined age. Admission lab work showed white cell count of 9.1, hemoglobin is 11.6, INR 0.9, electrolytes were within normal limits, BUN is 65 creatinine is 2.17, worsened since his last admission, plasma lactic acid is 1.9, LFTs were within normal limits, troponin is less than 0.012, proBNP is 808, urinalysis showed no evidence of infection. He has had no fever or chills since admission, room air pulse ox today's 95%. His lung sounds reveal diffuse wheezes. He was started on Zithromax, he was also given a dose of Lasix in the emergency department and again today per nephrology. Has been diuresing, he is feeling better. He is on IV steroids and bronchodilators. On 07/03/2010 patient seen in follow-up, breathing easier, no acute events overnight, is currently on room air, fever or chills, his pulse ox on room air was 93%, his and his nonlabored, lung sounds reveal some scattered wheezes, no cough, no significant congestion, but stable overnight, unit dose of IV Lasix yesterday, his lower extremity edema is improving, his bilateral lower extremities have been Ayden wrapped, he is in -1.1 L negative fluid balance over 24 hours. Continues on nebulized broncho-dilators and IV steroids, he is improving. On 07/04/2020 patient seen in follow-up on medical floor, he is less dyspneic, less bronchospastic, feeling better, vital signs have been stable, no acute events overnight, patient has been tolerating working with physical therapy, however he is very weak, he is unable to maintain standing was initially secondary to weakness, recommendation has been made by physical therapy for rehabilitation after discharge to increase strength, functional mobility prior to returning home. Labs have been reviewed, no leukocytosis, his renal profile is slightly improved. Objective - Vital Signs Vital signs: Vital Signs Temp 97.6 F 07/04/20 05:00 Pulse 64 07/04/20 09:10 Resp 18 07/04/20 05:00 BP 127/80 07/04/20 05:00 Pulse Ox 90 L 07/04/20 05:00 Intake & Output 07/03/20 07/04/20 07/04/20 18:59 06:59 18:59 Intake Total 950 Output Total 300 Balance 950 -300 Weight 83.007 kg Intake: Oral 950 Output: Urine 300 Other: # Voids 2 - Exam GENERAL EXAM: Alert, very pleasant, 69-year-old white male appears chronically debilitated, currently on room air with pulse ox of 95% comfortable in no apparent distress. HEAD: Normocephalic/atraumatic. EYES: Normal reaction of pupils, equal size. Conjunctiva pink, sclera white. NOSE: Clear with pink turbinates. THROAT: No erythema or exudates. NECK: No masses, no JVD, no thyroid enlargement, no adenopathy. CHEST: No chest wall deformity. Symmetrical expansion. LUNGS: Equal air entry with diffuse wheezes CVS: Regular rate and rhythm, normal S1 and S2, no gallops, no murmurs, no rubs ABDOMEN: Soft, nontender. No hepatosplenomegaly, normal bowel sounds, no guarding or rigidity. EXTREMITIES: No clubbing, 1+ lower extremity edema, no cyanosis, 2+ pulses and upper and lower extremities. MUSCULOSKELETAL: Muscle strength and tone normal. SPINE: No scoliosis or deformity SKIN: No rashes CENTRAL NERVOUS SYSTEM: Alert and oriented -3. No focal deficits, tone is normal in all 4 extremities. PSYCHIATRIC: Alert and oriented -3. Appropriate affect. Intact judgment and insight. - Labs CBC & Chem 7: 07/04/20 07:43 07/04/20 07:43 Labs: Abnormal Lab Results - Last 24 Hours (Table) 07/03/20 07/03/20 07/04/20 Range/Units 16:58 19:55 07:03 RBC (4.40-5.60) X 10*6/uL Hgb (13.0-17.0) g/dL Hct (39.6-50.0) % MCHC (32.0-37.0) g/dL RDW (11.5-14.5) % MPV (9.5-12.2) fL Immature Gran # (0.00-0.04) X 10*3/uL Neutrophils # (1.80-7.70) X 10*3/uL Lymphocytes # (0.90-5.00) X 10*3/uL Eosinophils # (0.04-0.35) X 10*3/uL Carbon Dioxide (21.6-31.8) mmol/L BUN (9.0-27.0) mg/dL Creatinine (0.6-1.5) mg/dL Est GFR (CKD-EPI)AfAm (60.0-200.0) Est GFR (CKD-EPI)NonAf (60.0-200.0) BUN/Creatinine Ratio (12.00-20.00) Ratio POC Glucose (mg/dL) 118 H 160 H 114 H (75-99) mg/dL 07/04/20 07/04/20 07/04/20 Range/Units 07:43 07:43 11:06 RBC 3.51 L (4.40-5.60) X 10*6/uL Hgb 10.5 L (13.0-17.0) g/dL Hct 32.9 L (39.6-50.0) % MCHC 31.9 L (32.0-37.0) g/dL RDW 17.6 H (11.5-14.5) % MPV 13.0 H (9.5-12.2) fL Immature Gran # 0.06 H (0.00-0.04) X 10*3/uL Neutrophils # 8.91 H (1.80-7.70) X 10*3/uL Lymphocytes # 0.41 L (0.90-5.00) X 10*3/uL Eosinophils # 0 L (0.04-0.35) X 10*3/uL Carbon Dioxide 32.3 H (21.6-31.8) mmol/L BUN 78.0 H (9.0-27.0) mg/dL Creatinine 1.9 H (0.6-1.5) mg/dL Est GFR (CKD-EPI)AfAm 40.2 L (60.0-200.0) Est GFR (CKD-EPI)NonAf 34.7 L (60.0-200.0) BUN/Creatinine Ratio 41.05 H (12.00-20.00) Ratio POC Glucose (mg/dL) 108 H (75-99) mg/dL Assessment and Plan Plan: Assessment: #1. Acute exacerbation of COPD #2. Lower extremity swelling, chest x-ray showing right lower lobe atelectasis and fluid in the fissure related to mild fluid overload #3. Recent hospitalization from 06/24/2020 through 06/28/2020 for acute exacerbation of COPD, and patient was discharged with home care, despite the recommendation for ECF #4. Advanced COPD, stage III with baseline FEV1 of 35% of predicted, patient follows with Dr. Humphries in the pulmonary clinic #5. Chronic and ongoing smoker, down to 1 pack a day, used to smoke 2-3 packs a day for 50 years #6. Hypertension #7. Hyperlipidemia #8. History of coronary artery disease with previous stenting #9. Rheumatoid arthritis #10. Increased weakness, recent falls at home #11. Acute kidney injury, worsened since his discharge #12. History of myocardial infarction #13. Chronic kidney disease stage III at baseline Plan: Continue current medical treatment, clinically patient is improving, breathing easier, no fever or chills, no acute events overnight, he is working with physical therapy however he continues to be very weak, and would benefit from re habilitation placement after discharge. Stable for discharge to rehab from pulmonary perspective. I performed a history & physical examination of the patient and discussed their management with my nurse practitioner, Rhea Juarez. I reviewed the nurse practitioner's note and agree with the documented findings and plan of care. Lung sounds are positive for diffuse wheezes throughout the lung heredia. The findings and the impression was discussed with the patient. I attest to the documentation by the nurse practitioner. Time with Patient: Less than 30
[2020-07-04] MEDS: FUROSEMIDE 20 MG TAB PO SCH (12:42)
[2020-07-04] MEDS: THIAMINE 100 MG TAB PO SCH (12:43)
[2020-07-04] MEDS: MULTIVITAMINS, THERA 1 EACH TAB PO SCH (12:43)
[2020-07-04] MEDS: FOLIC ACID 1 MG TAB PO SCH (12:44)
[2020-07-04] MEDS: BACITRACIN ZINC 500 UNIT/GM OINT 28.4 GM TUBE TOPICAL SCH ×2 (12:44→21:05)
[2020-07-04] MEDS: HYDROcodone/APAP 10-325MG 1 EACH TAB PO PRN (12:48)
--- NOTE | 2020-07-04 14:17 | P.PN ---
Subjective Progress Note Date: 07/04/20 This is a 69-year-old male who was recently admitted with shortness of breath, weakness, chronic obstructive pulmonary disease acute exacerbation along with bilateral leg swelling and is being closely monitored. Multiple medical consultations following including pulmonary and nephrology. Creatinine cont inues to be elevated at 2.0 today. PT/OT following the patient and recommending subacute rehab as patient continues to be quite weak with an unsteady gait and continued bilateral edema noted to the feet. Ayden wraps from the toes up to the knees noted on exam with some swelling improved from previous. Patient is to continue with fluid restrictions of 1200 mL per day along with low-salt diet. Patient continues to be dyspneic with exertion but is currently on room air at rest and denies any worsening shortness of breath. Renal ultrasound ordered and pending at this time. 07/04/2020 Patient is seen and evaluated this morning and creatinine slightly improved at 1.9. Nephrology and pulmonary following. The patient has been placed on 20 mg of Lasix by mouth daily as patient continues to have lower extremity swelling and edema noted. Patient is also noted to have some weeping on the Ayden wraps of the bilateral lower extremities. Patient states the swelling has slightly improved. Patient continues to be weak with an unsteady gait and has been working with PT/OT therapy. Social work is following and working on authorization for placement at [facility] for continued PT/OT therapy. Patient continues to be slightly dyspneic with exertion although is maintained on room air at this time. Review of systems: Constitutional: No reports of fatigue, fever, or chills Cardiovascular: No reports of chest pain or palpitations Respiratory: Reports intermittent shortness of breath with exertion and occasional cough GI: No reports of nausea, vomiting, or diarrhea : No reports of dysuria or retention Neurovascular: Reports some weakness All medications have been reviewed Active Medications Hydrocodone Bitart/Acetaminophen (Hydrocodone/Apap 10-325mg 1 Each Tab) 2 each PO TID PRN PRN Reason: Pain Last Admin: 07/04/20 12:48 Dose: 2 each Documented by: Albuterol/Ipratropium (Ipratropium-Albuterol 3 Ml Neb) 3 ml INHALATION RT-QID NEL Last Admin: 07/04/20 12:49 Dose: 3 ml Documented by: Albuterol/Ipratropium (Ipratropium-Albuterol 3 Ml Neb) 3 ml INHALATION RT-QID PRN PRN Reason: Shortness Of Breath Or Wheezing Alprazolam (Alprazolam 0.25 Mg Tab) 0.25 mg PO TID PRN PRN Reason: Anxiety Last Admin: 07/03/20 13:10 Dose: 0.25 mg Documented by: Atorvastatin Calcium (Atorvastatin 20 Mg Tab) 20 mg PO HS [facility] Last Admin: 07/03/20 21:05 Dose: 20 mg Documented by: Azithromycin (Azithromycin 500 Mg Tab) 500 mg PO DAILY [facility] Last Admin: 07/04/20 09:16 Dose: 500 mg Documented by: Bacitracin (Bacitracin Zinc 500 Unit/Gm Oint 28.4 Gm Tube) 1 applic TOPICAL BID [facility] Last Admin: 07/04/20 12:44 Dose: 1 applic Documented by: Budesonide (Budesonide 1 Mg/2 Ml Nebu) 1 mg INHALATION RT-BID [facility] Last Admin: 07/04/20 08:43 Dose: 1 mg Documented by: Calcium Carbonate/Glycine (Calcium Carbonate 500 Mg Chewable) 500 mg PO TID [facility] Last Admin: 07/04/20 09:15 Dose: 500 mg Documented by: Cholecalciferol (Cholecalciferol 25 Mcg (1000 Iu) Tablet) 50 mcg PO DAILY [facility] Last Admin: 07/04/20 09:17 Dose: 50 mcg Documented by: Folic Acid (Folic Acid 1 Mg Tab) 1 mg PO DAILY@1200 [facility] Last Admin: 07/04/20 12:44 Dose: 1 mg Documented by: Formoterol Fumarate (Formoterol Fumarate 20 Mcg/2 Ml Nebu) 20 mcg INHALATION RT-BID [facility] Last Admin: 07/04/20 08:43 Dose: 20 mcg Documented by: Furosemide (Furosemide 20 Mg Tab) 20 mg PO DAILY [facility] Last Admin: 07/04/20 12:42 Dose: 20 mg Documented by: Heparin Sodium (Porcine) (Heparin Sodium,Porcine 5,000 Unit/Ml 1 Ml Vial) 5,000 unit SQ Q12HR [facility] Last Admin: 07/04/20 09:17 Dose: 5,000 unit Documented by: Insulin Aspart (Insulin Aspart (Novolog) 100 Unit/Ml Vial) 0 unit SQ ACHS [facility]; Protocol Last Admin: 07/04/20 12:44 Dose: Not Given Documented by: Leflunomide (Leflunomide 20 Mg Tab) 20 mg PO DAILY [facility] Last Admin: 07/04/20 09:18 Dose: 20 mg Documented by: Levothyroxine Sodium (Levothyroxine 112 Mcg Tab) 112 mcg PO DAILY@0630 [facility] Last Admin: 07/04/20 05:14 Dose: 112 mcg Documented by: Loperamide HCl (Loperamide 2 Mg Cap) 2 mg PO AC-TID [facility] Last Admin: 07/04/20 12:44 Dose: Not Given Documented by: Methylprednisolone Sodium Succinate (Methylprednisolone Sod Succi 125 Mg/2 Ml Vial) 60 mg IV Q6HR [facility] Last Admin: 07/04/20 12:42 Dose: 60 mg Documented by: Modafinil (Modafinil 200 Mg Tab) 200 mg PO DAILY [facility] Last Admin: 07/04/20 09:18 Dose: 200 mg Documented by: Multivitamins (Multivitamins, Thera 1 Each Tab) 1 each PO DAILY@1200 [facility] Last Admin: 07/04/20 12:43 Dose: 1 each Documented by: Naloxone HCl (Naloxone 0.4 Mg/Ml 1 Ml Vial) 0.2 mg IV Q2M PRN PRN Reason: Opioid Reversal Nicotine (Nicotine 14mg/24hr Patch) 1 patch TRANSDERM DAILY [facility] Last Admin: 07/04/20 09:14 Dose: 1 patch Documented by: Pantoprazole Sodium (Pantoprazole 40 Mg Tablet) 40 mg PO AC-BRKFST [facility] Last Admin: 07/04/20 09:16 Dose: 40 mg Documented by: Senna (Sennosides 8.6 Mg Tab) 8.6 mg PO BID [facility] Last Admin: 07/04/20 09:25 Dose: 8.6 mg Documented by: Thiamine HCl (Thiamine 100 Mg Tab) 100 mg PO DAILY@1200 [facility] Last Admin: 07/04/20 12:43 Dose: 100 mg Documented by: Objective - Vital Signs Vital signs: Vital Signs Temp 97.6 F 07/04/20 05:00 Pulse 64 07/04/20 09:10 Resp 18 07/04/20 05:00 BP 127/80 07/04/20 05:00 Pulse Ox 90 L 07/04/20 05:00 Intake & Output 07/03/20 07/04/20 07/04/20 18:59 06:59 18:59 Intake Total 950 Output Total 300 Balance 950 -300 Weight 83.007 kg Intake: Oral 950 Output: Urine 300 Other: # Voids 2 - Exam Gen: This is a 69-year-old male sitting up in bed awake, alert and oriented 3. Temp is 97.8F, pulse is 62, respirations are 16, blood pressure is 151/85, oxygen saturation is 90% on room air HEENT: Head is atraumatic, normocephalic. Pupils equal, round. Sclerae is anicteric. NECK: Supple. No JVD. No lymphadenopathy. No thyromegaly. LUNGS: Diminished breath sounds bilaterally with some scattered rhonchi noted. No intercostal retractions. HEART: S1, S2 are muffled ABDOMEN: Soft. Bowel sounds are present. No masses. No tenderness. No guarding or rigidity noted on palpation EXTREMITIES: Bilateral pedal edema noted on exam Ayden wraps from the toes to the knees. No calf tenderness. Slight improvement in swelling noted. Bilateral petechial ecchymotic features noted to the knees. Weeping noted on Ayden wraps of bilateral lower extremities NEUROLOGICAL: Patient is awake, alert and oriented x3. Diffusely weak, with significant proximal myopathy and wasting present on exam - Labs CBC & Chem 7: 07/04/20 07:43 07/04/20 07:43 Labs: Abnormal Lab Results - Last 24 Hours (Table) 07/03/20 07/03/20 07/03/20 Range/Units 11:37 16:58 19:55 POC Glucose (mg/dL) 194 H 118 H 160 H (75-99) mg/dL 07/04/20 Range/Units 07:03 POC Glucose (mg/dL) 114 H (75-99) mg/dL Assessment and Plan Assessment: Chronic obstructive pulmonary disease, acute exacerbation, with acute purulent tracheobronchitis with failure of outpatient treatment Acute cor pulmonale with bilateral leg edema Severe proximal myopathy and gait dysfunction History of falls Right middle lobe atelectasis Hypertension Hyperlipidemia History of myocardial infarction rheumatoid arthritis history of degenerative joint disease history of methicillin-resistant Staphylococcus aeruginosa History of coronary artery disease, stent History of tonsillectomy History of continued ongoing nicotine dependence chronic kidney disease, stage III elevated creatinine with creatinine kinase with mild acute rhabdomyolysis Full code Recommendations and discussion: Recommend continue current medications, management, and symptomatic treatment. Patient started on oral Lasix 20 mg daily for continued bilateral lower ex tremity swelling and edema. Ayden wraps noted on exam with some weeping of bilateral lower extremities. Continued rash of the lower extremities noted as well and will add bacitracin zinc ointment. Pulmonary and nephrology following. Creatinine is 1.9 today and underwent renal ultrasound showing no hydronephrosis. PT/OT following the patient recommending subacute rehab for continued therapy as he continues to be weak with an unsteady gait and continued pedal edema. Patient to continue with fluid restrictions of 1200 mL per day along with low-salt diet. Patient to continue with breathing inhalational treatments as well. Social work is following and patient will be going to [facility] once discharged. Due to multiple complex medical issues, prognosis is guarded. Further recommendations to follow. Possible discharge in 24 hours to [facility].
[2020-07-04 17:13] LABS: Glucose,Whole Blood 259 mg/dL (75-99)
[2020-07-04 20:42] LABS: Glucose,Whole Blood 79 mg/dL (75-99)
[2020-07-04] MEDS: ATORVASTATIN 20 MG TAB PO SCH (21:03)
[2020-07-05] MEDS: methylPREDNISolone SOD SUCCI 125 MG/2 ML VIAL IV SCH ×2 (05:30→12:50)
[2020-07-05] MEDS: LEVOTHYROXINE 112 MCG TAB PO SCH (05:30)
[2020-07-05 07:05] LABS: Glucose,Whole Blood 110 mg/dL (75-99)
[2020-07-05] MEDS: LOPERAMIDE 2 MG CAP PO SCH ×2 (07:31→12:52)
[2020-07-05] MEDS: INSULIN ASPART (NovoLOG) 100 UNIT/ML VIAL SQ SCH ×2 (07:31→12:51)
[2020-07-05] MEDS: IPRATROPIUM-ALBUTEROL 3 ML NEB INHALATION SCH ×3 (07:53→15:28)
[2020-07-05] MEDS: BUDESONIDE 1 MG/2 ML NEBU INHALATION SCH (07:53)
[2020-07-05] MEDS: FORMOTEROL FUMARATE 20 MCG/2 ML NEBU INHALATION SCH (08:12)
[2020-07-05] MEDS: HYDROcodone/APAP 10-325MG 1 EACH TAB PO PRN (08:25)
[2020-07-05] MEDS: AZITHROMYCIN 500 MG TAB PO SCH (08:27)
[2020-07-05] MEDS: CALCIUM CARBONATE 500 MG CHEWABLE PO SCH (08:27)
[2020-07-05] MEDS: PANTOPRAZOLE 40 MG TABLET PO SCH (08:27)
[2020-07-05] MEDS: HEPARIN SODIUM,PORCINE 5,000 UNIT/ML 1 ML VIAL SQ SCH (08:27)
[2020-07-05] MEDS: SENNOSIDES 8.6 MG TAB PO SCH (08:27)
[2020-07-05] MEDS: CHOLECALCIFEROL 25 MCG (1000 IU) TABLET PO SCH (08:27)
[2020-07-05] MEDS: NICOTINE 14MG/24HR PATCH TRANSDERM SCH (08:27)
[2020-07-05] MEDS: LEFLUNOMIDE 20 MG TAB PO SCH (08:28)
[2020-07-05] MEDS: FUROSEMIDE 20 MG TAB PO SCH (08:28)
[2020-07-05] MEDS: BACITRACIN ZINC 500 UNIT/GM OINT 28.4 GM TUBE TOPICAL SCH (08:35)
[2020-07-05 11:12] LABS: Glucose,Whole Blood 145 mg/dL (75-99)
--- NOTE | 2020-07-05 11:48 | P.PN ---
Subjective Patient is seen in follow-up for acute kidney injury on chronic kidney disease. Renal function stable as of yesterday. Good urine output. Edema improved. Nonoliguric. Oral intake fair. no changes overnight. Vital signs are stable. General: The patient appeared well nourished and normally developed. HEENT: Head exam is unremarkable. Neck is without jugular venous distension. LUNGS: Breath sounds decreased. HEART: Rate and Rhythm are regular. ABDOMEN: Soft, nontender. EXTREMITITES: Lower extremities wrapped. Trace edema. Objective - Vital Signs Vital signs: Vital Signs Temp 97.9 F 07/05/20 04:52 Pulse 67 07/05/20 11:44 Resp 20 07/05/20 04:52 BP 142/90 07/05/20 04:52 Pulse Ox 93 L 07/05/20 07:54 Intake & Output 07/04/20 07/05/20 07/05/20 18:59 06:59 18:59 Intake Total 580 250 Output Total 300 Balance 580 250 -300 Intake: Oral 580 250 Output: Urine 300 Other: # Voids 300 3 # Bowel Movements 1 1 - Labs CBC & Chem 7: 07/04/20 07:43 07/04/20 07:43 Labs: Abnormal Lab Results - Last 24 Hours (Table) 07/04/20 07/04/20 07/05/20 Range/Units 07:43 17:12 07:04 Carbon Dioxide 32.3 H (21.6-31.8) mmol/L BUN 78.0 H (9.0-27.0) mg/dL Creatinine 1.9 H (0.6-1.5) mg/dL Est GFR (CKD-EPI)AfAm 40.2 L (60.0-200.0) Est GFR (CKD-EPI)NonAf 34.7 L (60.0-200.0) BUN/Creatinine Ratio 41.05 H (12.00-20.00) Ratio POC Glucose (mg/dL) 259 H 110 H (75-99) mg/dL 07/05/20 Range/Units 11:09 Carbon Dioxide (21.6-31.8) mmol/L BUN (9.0-27.0) mg/dL Creatinine (0.6-1.5) mg/dL Est GFR (CKD-EPI)AfAm (60.0-200.0) Est GFR (CKD-EPI)NonAf (60.0-200.0) BUN/Creatinine Ratio (12.00-20.00) Ratio POC Glucose (mg/dL) 145 H (75-99) mg/dL Assessment and Plan Plan: Assessment: 1. Acute kidney injury versus chronic kidney disease. There is concern for cardiorenal syndrome due to the edema. Creatinine was 1.3-1.4 in April 2020 and now in the range of 1.8-2. UA is benign. Kidney ultrasound revealed small sized kidneys without any hydronephrosis. 2. Lower extremity edema. Erythematous rash noted as well. ANCA negative. 3. History of rheumatoid arthritis. 4. Chronic kidney disease. Establish baseline renal function. Etiology is nephrosclerosis. Small sized kidneys. 5. COPD exacerbation. Plan: Low-salt diet. EF ok. Avoid nephrotoxins. Maintain low-dose Lasix. Repeat electrolytes in the morning.
--- NOTE | 2020-07-05 11:52 | P.PN ---
Subjective Progress Note Date: 07/05/20 Principal diagnosis: Acute exacerbation of COPD, weakness This is an 69-year-old white male patient with known history of COPD, recently placed on home oxygen, prednisone for his history of rheumatoid arthritis and advanced COPD, chronic smoker, currently cut back to one pack a day, was up to 2-3 packs per day for over 50 years. [facility], and has a lung doctor in [place] area however he does not remember his name. Medical history includes hypertension, hyperlipidemia, and previous history of myocardial infarction. Patient was recently hospitalized from 06/24/2020 through 2020 for acute exacerbation of COPD, and following his hospitalizati on patient was recommended rehab, however he refused and chose to be discharged home. On 2020 patient presented to the emergency department with complaints of worsening dyspnea, weakness, increased lower extremity edema. Patient states he could hardly walk related to weakness and dyspnea. Home care nurse came out to his house and found the patient sitting on the toilet unable to get up for 2 hours. He has been wearing home oxygen. He has chronic cough, reports no fever or chills, no chest pain, no hemoptysis, no nausea vomiting or diarrhea. His chest x-ray on admission showed a right middle lobe atelectasis, prominent lung volumes suggestive of underlying COPD. Left ankle x-ray was completed related to deformity with multiple falls showing advanced degenerative changes with correlation for Charcot-type arthropathy or history of remote injury. Lower extremity Dopplers were negative for DVT. EKG showed a sinus rhythm with septal infarct of undetermined age. Admission lab work showed white cell count of 9.1, hemoglobin is 11.6, INR 0.9, electrolytes were within normal limits, BUN is 65 creatinine is 2.17, worsened since his last admission, plasma lactic acid is 1.9, LFTs were within normal limits, troponin is less than 0.012, proBNP is 808, urinalysis showed no evidence of infection. He has had no fever or chills since admission, room air pulse ox today's 95%. His lung sounds reveal diffuse wheezes. He was started on Zithromax, he was also given a dose of Lasix in the emergency department and again today per nephrology. Has been diuresing, he is feeling better. He is on IV steroids and bronchodilators. On 07/03/2010 patient seen in follow-up, breathing easier, no acute events overnight, is currently on room air, fever or chills, his pulse ox on room air was 93%, his and his nonlabored, lung sounds reveal some scattered wheezes, no cough, no significant congestion, but stable overnight, unit dose of IV Lasix yesterday, his lower extremity edema is improving, his bilateral lower extremities have been Ayden wrapped, he is in -1.1 L negative fluid balance over 24 hours. Continues on nebulized broncho-dilators and IV steroids, he is improving. On 07/04/2020 patient seen in follow-up on medical floor, he is less dyspneic, less bronchospastic, feeling better, vital signs have been stable, no acute events overnight, patient has been tolerating working with physical therapy, however he is very weak, he is unable to maintain standing was initially secondary to weakness, recommendation has been made by physical therapy for rehabilitation after discharge to increase strength, functional mobility prior to returning home. Labs have been reviewed, no leukocytosis, his renal profile is slightly improved. On 07/05/2020 patient seen in follow-up on medical floor, tinnitus to improve, he is breathing easier, he is on 3 L of oxygen his pulse ox is 93%, has had no fever or chills, continues on daily dose of oral Lasix 20 mg daily, nephrology is following, he is on IV steroids, breathing treatments. Discharge planning is in progress for discharge to [facility] nursing and rehab possibly today Objective - Vital Signs Vital signs: Vital Signs Temp 97.9 F 07/05/20 04:52 Pulse 67 07/05/20 11:44 Resp 20 07/05/20 04:52 BP 142/90 07/05/20 04:52 Pulse Ox 93 L 07/05/20 07:54 Intake & Output 07/04/20 07/05/20 07/05/20 18:59 06:59 18:59 Intake Total 580 250 Output Total 300 Balance 580 250 -300 Intake: Oral 580 250 Output: Urine 300 Other: # Voids 300 3 # Bowel Movements 1 1 - Exam GENERAL EXAM: Alert, very pleasant, 69-year-old white male appears chronically debilitated, currently on room air with pulse ox of 95% comfortable in no apparent distress. HEAD: Normocephalic/atraumatic. EYES: Normal reaction of pupils, equal size. Conjunctiva pink, sclera white. NOSE: Clear with pink turbinates. THROAT: No erythema or exudates. NECK: No masses, no JVD, no thyroid enlargement, no adenopathy. CHEST: No chest wall deformity. Symmetrical expansion. LUNGS: Equal air entry with diffuse wheezes CVS: Regular rate and rhythm, normal S1 and S2, no gallops, no murmurs, no rubs ABDOMEN: Soft, nontender. No hepatosplenomegaly, normal bowel sounds, no guarding or rigidity. EXTREMITIES: No clubbing, 1+ lower extremity edema, no cyanosis, 2+ pulses and upper and lower extremities. MUSCULOSKELETAL: Muscle strength and tone normal. SPINE: No scoliosis or deformity SKIN: No rashes CENTRAL NERVOUS SYSTEM: Alert and oriented -3. No focal deficits, tone is normal in all 4 extremities. PSYCHIATRIC: Alert and oriented -3. Appropriate affect. Intact judgment and insight. - Labs CBC & Chem 7: 07/04/20 07:43 07/04/20 07:43 Labs: Abnormal Lab Results - Last 24 Hours (Table) 07/04/20 07/04/20 07/05/20 Range/Units 07:43 17:12 07:04 Carbon Dioxide 32.3 H (21.6-31.8) mmol/L BUN 78.0 H (9.0-27.0) mg/dL Creatinine 1.9 H (0.6-1.5) mg/dL Est GFR (CKD-EPI)AfAm 40.2 L (60.0-200.0) Est GFR (CKD-EPI)NonAf 34.7 L (60.0-200.0) BUN/Creatinine Ratio 41.05 H (12.00-20.00) Ratio POC Glucose (mg/dL) 259 H 110 H (75-99) mg/dL 07/05/20 Range/Units 11:09 Carbon Dioxide (21.6-31.8) mmol/L BUN (9.0-27.0) mg/dL Creatinine (0.6-1.5) mg/dL Est GFR (CKD-EPI)AfAm (60.0-200.0) Est GFR (CKD-EPI)NonAf (60.0-200.0) BUN/Creatinine Ratio (12.00-20.00) Ratio POC Glucose (mg/dL) 145 H (75-99) mg/dL Assessment and Plan Plan: Assessment: #1. Acute exacerbation of COPD #2. Lower extremity swelling, chest x-ray showing right lower lobe atelectasis and fluid in the fissure related to mild fluid overload #3. Recent hospitalization from 06/24/2020 through 06/28/2020 for acute exacerbation of COPD, and patient was discharged with home care, despite the recommendation for ECF #4. Advanced COPD, stage III with baseline FEV1 of 35% of predicted, patient follows with Dr. Humphries in the pulmonary clinic #5. Chronic and ongoing smoker, down to 1 pack a day, used to smoke 2-3 packs a day for 50 years #6. Hypertension #7. Hyperlipidemia #8. History of coronary artery disease with previous stenting #9. Rheumatoid arthritis #10. Increased weakness, recent falls at home #11. Acute kidney injury, worsened since his discharge #12. History of myocardial infarction #13. Chronic kidney disease stage III at baseline Plan: Patient is improving, continue current medical treatment, will contact his IV steroids to 40 mg every 8 hours, discharge planning is in progress for discharge to subacute rehab today. Patient was tested for COVID 19 and his PCR was negative. I performed a history & physical examination of the patient and discussed their management with my nurse practitioner, Rhea Juarez. I reviewed the nurse practitioner's note and agree with the documented findings and plan of care. Lung sounds are positive for diffuse wheezes throughout the lung heredia. The findings and the impression was discussed with the patient. I attest to the documentation by the nurse practitioner. Time with Patient: Less than 30
--- NOTE | 2020-07-05 12:43 | P.DS ---
Providers Date of admission: 07/01/20 17:17 Expected date of discharge: 07/05/20 Attending physician: Naveen Montgomery Consults: 07/01/20 17:56 Consult Physician Urgent Consulting Provider: Sancho Young Consult Reason/Comments: b/l le edema, kristal/ckd Do you want consulting provider notified?: Yes 07/01/20 18:16 Consult Physician Routine Consulting Provider: Chris Reaves Consult Reason/Comments: copd, atelectasis Do you want consulting provider notified?: Yes Primary care physician: Larissa PT [facility] Course: Final diagnosis Chronic obstructive pulmonary disease, acute exacerbation, with acute purulent tracheobronchitis with failure of outpatient treatment Acute cor pulmonale with bilateral leg edema Severe proximal myopathy and gait dysfunction Mild protein calorie malnutrition secondary to poor oral intake History of falls Right middle lobe atelectasis Hypertension Hyperlipidemia History of myocardial infarction rheumatoid arthritis history of degenerative joint disease history of methicillin-resistant Staphylococcus aeruginosa History of coronary artery disease, stent History of tonsillectomy History of continued ongoing nicotine dependence chronic kidney disease, stage III elevated creatinine with creatinine kinase with mild acute rhabdomyolysis Full code Discharge disposition Patient is being discharged in a stable condition with guarded prognosis to [facility] for continued PT/OT therapy. Patient will follow-up with [facility] clinic in the outpatient setting upon discharge. Patient will also resume home care once discharged from [facility]. Patient instructed to follow-up with pulmonary Dr. Turcios and nephrology in the outpatient setting. Patient is to continue with Zithromax 500 mg daily for the next 3 days and then may discontinue. Patient will also continue with the prednisone taper upon discharge. Total time taken is greater than 35 minutes. Hospital course This is a 69-year-old male who was recently admitted with shortness of breath, weakness, COPD, acute exacerbation with bilateral lower extremity swelling and was being closely monitored. Multiple medical consultations following including pulmonary and nephrology. Patient continues to have elevated creatinine although slightly improving and recommended repeat labs in 2-3 days to monitor kidney function. Patient is maintained on 20 mg daily of Lasix and will co ntinue. Patient continues to be short of breath with exertion and has continued lower extremity swelling and is maintained on prednisone taper along with Zithromax 500 mg daily for the next 3 days, 2-3 L of oxygen as needed for intermittent shortness of breath. Patient instructed to follow-up with pulmonary in the outpatient setting along with nephrology. Patient needs encouragement with oral intake and recommend to continue monitoring Accu-Cheks before meals and at bedtime and treat with sliding scale along with ensures 3 times daily in between meals. Patient also instructed to continue to use Ayden wraps from toes to knees bilateral lower extremities for continued swelling which is showing improvement. Patient also instructed to elevate lower extremities while at rest. Patient to continue with bacitracin zinc to lower extremities twice daily. Currently no reports of chest pain, shortness of breath, or palpitations. Patient is afebrile. No reports of nausea or vomiting and patient is tolerating diet. Patient will be going to [facility] today. On exam vital signs are stable. Temp is 97.9F, pulse is 63, respirations are 20, blood pressure is 142/90, oxygen saturation is 93% on 3 L via nasal cannula. Cardio S1, S2 are muffled. Respiratory system shows diminished breath sounds at the bases with scattered rhonchi noted. Mild expiratory wheezing noted. Abdomen is soft and nontender. Nervous system shows diffuse weakness. Please refer to medication reconciliation sheet for a list of medications. Patient Condition at Discharge: Stable Plan - Discharge Summary New Discharge Prescriptions: New Bacitracin Zinc Oint 1 applic TOPICAL BID applic Ipratropium-Albuterol Nebulize [Duoneb 0.5 mg-3 mg/3 ml Soln] 3 ml INHALATION RT-QID ml Ipratropium-Albuterol Nebulize [Duoneb 0.5 mg-3 mg/3 ml Soln] 3 ml INHALATION RT-QID PRN ml PRN Reason: Shortness Of Breath Or Wheezing Folic Acid 1 mg PO DAILY@1200 tab Nicotine 14Mg/24Hr Patch [Habitrol] 1 patch TRANSDERM DAILY patch Furosemide [Lasix] 20 mg PO DAILY tab Multivitamins, Thera [Multivitamin (formulary)] 1 each PO DAILY@1200 tab INSULIN ASPART (NovoLOG) [NovoLOG (formulary)] 0 unit SQ ACHS vial Budesonide [Pulmicort] 1 mg INHALATION RT-BID ml Sennosides [Senokot] 8.6 mg PO BID tab Thiamine [Vitamin B-1] 100 mg PO DAILY@1200 tab ALPRAZolam [Xanax] 0.25 mg PO TID PRN #6 tab PRN Reason: Anxiety Continue Omeprazole 20 mg PO BID Levothyroxine Sodium [Synthroid] 112 mcg PO DAILY Calcium Carbonate [Tums] 500 mg PO TID Budesonide/Formoterol Fumarate [Symbicort 160-4.5 Mcg Inhaler] 2 puff INHALATION RT-BID Albuterol Inhaler [Ventolin Hfa Inhaler] 1 puff INHALATION RT-Q4H PRN PRN Reason: Shortness Of Breath Simvastatin [Zocor] 40 mg PO HS Albuterol Nebulized [Ventolin Nebulized] 2.5 mg INHALATION RT-Q4H PRN PRN Reason: Shortness Of Breath Ergocalciferol (Vitamin D2) [Vitamin D2 (2000 Iu)] 50 mcg PO DAILY Leflunomide [Arava] 20 mg PO DAILY HYDROcodone/APAP 10-325MG [[place] 10-325] 2 tab PO TID PRN #12 tab PRN Reason: Pain Azithromycin [Zithromax] 500 mg PO DAILY 3 Days #3 tab modafiniL [Provigil] 200 mg PO DAILY #4 tab Changed Loperamide HCl [Imodium A-D] 2 mg PO AC-TID PRN #0 MDD 8 CAPS PRN Reason: Diarrhea Discontinued Tiotropium 18 Mcg/Puff [Spiriva] 2 puff INHALATION RT-DAILY Etanercept [Enbrel Sureclick] 50 mg SQ DIRECTED Naloxone HCl [Narcan] 4 mg NASAL BID PRN PRN Reason: OVERDOSE Furosemide [Lasix] 40 mg PO DAILY 7 Days #7 tablet predniSONE 5 mg PO DAILY #0 predniSONE See Taper PO DAILY Discharge Medication List Albuterol Inhaler [Ventolin Hfa Inhaler] 1 puff INHALATION RT-Q4H PRN 05/21/20 [History] Budesonide/Formoterol Fumarate [Symbicort 160-4.5 Mcg Inhaler] 2 puff INHALATION RT-BID 05/21/20 [History] Calcium Carbonate [Tums] 500 mg PO TID 05/21/20 [History] Levothyroxine Sodium [Synthroid] 112 mcg PO DAILY 05/21/20 [History] Omeprazole 20 mg PO BID 05/21/20 [History] Simvastatin [Zocor] 40 mg PO HS 05/21/20 [History] Albuterol Nebulized [Ventolin Nebulized] 2.5 mg INHALATION RT-Q4H PRN 06/24/20 [History] Ergocalciferol (Vitamin D2) [Vitamin D2 (2000 Iu)] 50 mcg PO DAILY 06/24/20 [History] Leflunomide [Arava] 20 mg PO DAILY 06/24/20 [History] ALPRAZolam [Xanax] 0.25 mg PO TID PRN #6 tab 07/05/20 [Rx] Azithromycin [Zithromax] 500 mg PO DAILY 3 Days #3 tab 07/05/20 [Rx] Bacitracin Zinc Oint 1 applic TOPICAL BID applic 07/05/20 [Rx] Budesonide [Pulmicort] 1 mg INHALATION RT-BID ml 07/05/20 [Rx] Folic Acid 1 mg PO DAILY@1200 tab 07/05/20 [Rx] Furosemide [Lasix] 20 mg PO DAILY tab 07/05/20 [Rx] HYDROcodone/APAP 10-325MG [[place] 10-325] 2 tab PO TID PRN #12 tab 07/05/20 [Rx] INSULIN ASPART (NovoLOG) [NovoLOG (formulary)] 0 unit SQ ACHS vial 07/05/20 [Rx] Ipratropium-Albuterol Nebulize [Duoneb 0.5 mg-3 mg/3 ml Soln] 3 ml INHALATION RT-QID ml 07/05/20 [Rx] Ipratropium-Albuterol Nebulize [Duoneb 0.5 mg-3 mg/3 ml Soln] 3 ml INHALATION RT-QID PRN ml 07/05/20 [Rx] Loperamide HCl [Imodium A-D] 2 mg PO AC-TID PRN #0 MDD 8 CAPS 07/05/20 [Rx] Multivitamins, Thera [Multivitamin (formulary)] 1 each PO DAILY@1200 tab 07/05/20 [Rx] Nicotine 14Mg/24Hr Patch [Habitrol] 1 patch TRANSDERM DAILY patch 07/05/20 [Rx] Sennosides [Senokot] 8.6 mg PO BID tab 07/05/20 [Rx] Thiamine [Vitamin B-1] 100 mg PO DAILY@1200 tab 07/05/20 [Rx] modafiniL [Provigil] 200 mg PO DAILY #4 tab 07/05/20 [Rx] Follow up Appointment(s)/Referral(s): Marzena Turcios MD [STAFF PHYSICIAN] - 2 Weeks Larissa Phillips PT [Primary Care Provider] - 1-2 days Activity/Diet/Wound Care/Special Instructions: Patient is going to [facility] Home Activity as tolerated Continue with antibiotics for the next 3 days then may discontinue Continue with heart healthy diet and fluid restrictions of 1200 mL daily Continue with ensures 3 times daily in between meals Continue to monitor before meals and at bedtime Accu-Cheks and treat with sliding scale Follow-up with primary care provider upon discharge Follow-up outpatient nephrology Continue with Ayden wraps from toes to knees and elevate lower extremities while at rest Continue with compression hosing Continue with bacitracin the lower extremities twice daily Continue to hold Enbrel until discharge to home Discharge Disposition: TRANSFER TO SNF/ECF
[2020-07-05] MEDS: MULTIVITAMINS, THERA 1 EACH TAB PO SCH (12:51)
[2020-07-05] MEDS: FOLIC ACID 1 MG TAB PO SCH (12:51)
[2020-07-05] MEDS: THIAMINE 100 MG TAB PO SCH (12:51)
[2020-07-05 14:08] VITALS: BP 147/86; RESP 18; TEMP 97.6
[2020-07-05 15:40] VITALS: PULSE 67
[2020-07-05 20:19] LABS: African American GFR (CKD) 42.9 (60.0-200.0); Anion Gap 8.2 mmol/L (4.00-12.00); BUN/Creat Ratio 40.56 Ratio (12.00-20.00); Calcium 8.9 mg/dL (8.7-10.3); Carbon Dioxide 32.8 mmol/L (21.6-31.8); Magnesium 2.2 mg/dL (1.5-2.4); Potassium 4.4 mmol/L (3.5-5.5)
== END 2020-07-05 16:00 | DRG 191 ==
LOC: EC 15:16 → 5NMEDONC 17:17
PROVIDERS: ADMIT Hospitalist; ATTEND Hospitalist
DX: J44.1 Chronic obstructive pulmonary disease with (acute) exacerbation (principal); J98.11 Atelectasis; E44.1 Mild protein-calorie malnutrition; M62.82 Rhabdomyolysis; N17.9 Acute kidney failure, unspecified; M19.90 Unspecified osteoarthritis, unspecified site; N18.30 Chronic kidney disease, stage 3 unspecified; I25.10 Atherosclerotic heart disease of native coronary artery without angina pectoris; I27.81 Cor pulmonale (chronic); M06.9 Rheumatoid arthritis, unspecified; E87.70 Fluid overload, unspecified; E78.5 Hyperlipidemia, unspecified; Z20.822 Contact with and (suspected) exposure to COVID-19; F17.210 Nicotine dependence, cigarettes, uncomplicated; L53.9 Erythematous condition, unspecified; J20.9 Acute bronchitis, unspecified; J44.0 Chronic obstructive pulmonary disease with (acute) lower respiratory infection; R29.6 Repeated falls; H93.19 Tinnitus, unspecified ear; I12.9 Hypertensive chronic kidney disease with stage 1 through stage 4 chronic kidney disease, or unspecified chronic kidney disease; Z95.5 Presence of coronary angioplasty implant and graft; Z91.81 History of falling; Z86.14 Personal history of Methicillin resistant Staphylococcus aureus infection; Z79.899 Other long term (current) drug therapy; Z79.890 Hormone replacement therapy; Z79.52 Long term (current) use of systemic steroids; Z79.51 Long term (current) use of inhaled steroids; Z79.4 Long term (current) use of insulin; Z88.8 Allergy status to other drugs, medicaments and biological substances; Z90.89 Acquired absence of other organs; Z98.890 Other specified postprocedural states; I25.2 Old myocardial infarction; Z68.27 Body mass index [BMI] 27.0-27.9, adult
CPT/HCPCS: 36415; 71045; 71046; 76770; 80048; 80053; 81003; 82550; 83605; 83735; 83880; 84484; 85025; 85610; 85730; 86038; 86255; 87635; 93005; 93306; 93970; 94640; 94760; 96374; 96375; 99285

== ENCOUNTER 2020-07-24 21:51 | Inpatient (IN) | payer OTHER, MEDICARE ==
[2020-07-24 22:11] LABS: Anisocytosis Slight; Basophils % (A) 0 %; Eosinophils # (A) 0.1 k/uL (0-0.7); Eosinophils % (A) 2 %; HCT 21.3 % (39.0-53.0); Hypochromasia Slight; Lymphocytes # (A) 0.3 k/uL (1.0-4.8); Lymphocytes % (A) 8 %; MCH 31.7 pg (25.0-35.0); MCHC 31.8 g/dL (31.0-37.0); MCV 99.7 fL (80.0-100.0); Macrocytosis Slight; Mean Platelet Volume 7.9; Monocytes # (A) 0.2 k/uL (0-1.0); Monocytes % (A) 4 %; Neutrophils # (A) 3.5 k/uL (1.3-7.7); Neutrophils % (A) 85 %; Platelet Count 196 k/uL (150-450); RBC 2.14 m/uL (4.30-5.90); RDW 17.5 % (11.5-15.5); WBC 4.1 k/uL (3.8-10.6)
[2020-07-24 22:24] LABS: Albumin 2.9 g/dL (3.5-5.0); Calcium 8.3 mg/dL (8.4-10.2); Potassium 3.5 mmol/L (3.5-5.1); Total Bilirubin 0.7 mg/dL (0.2-1.3); Total Protein 5.4 g/dL (6.3-8.2)
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
[2020-07-24 22:52] LABS: HGB 6.8 gm/dL (13.0-17.5)
[2020-07-24] MEDS ORDERED: NALOXONE 0.4 MG/ML 1 ML VIAL IV PRN (22:55)
[2020-07-24 23:07] LABS: INR 0.9 (<1.2); Partial Thromboplastin Time 23.4 sec (22.0-30.0); Prothrombin Time 9.6 sec (9.0-12.0)
[2020-07-25 07:40] LABS: Anisocytosis Slight; Basophils % (A) 0 %; Eosinophils # (A) 0.1 k/uL (0-0.7); Eosinophils % (A) 3 %; HCT 27.7 % (39.0-53.0); Hypochromasia Slight; Lymphocytes # (A) 0.4 k/uL (1.0-4.8); Lymphocytes % (A) 10 %; MCH 31.7 pg (25.0-35.0); MCHC 31.8 g/dL (31.0-37.0); MCV 99.7 fL (80.0-100.0); Macrocytosis Slight; Mean Platelet Volume 7.6; Monocytes # (A) 0.2 k/uL (0-1.0); Monocytes % (A) 4 %; Neutrophils # (A) 3.4 k/uL (1.3-7.7); Neutrophils % (A) 81 %; Platelet Count 184 k/uL (150-450); Poikilocytosis Slight; RBC 2.78 m/uL (4.30-5.90); WBC 4.2 k/uL (3.8-10.6)
[2020-07-25 07:55] LABS: Calcium 8.4 mg/dL (8.4-10.2); Potassium 3.5 mmol/L (3.5-5.1)
[2020-07-25 07:56] LABS: HGB 8.8 gm/dL (13.0-17.5)
[2020-07-25] MEDS ORDERED: IPRATROPIUM-ALBUTEROL 3 ML NEB INHALATION PRN (08:32)
[2020-07-25] MEDS ORDERED: MAGNESIUM HYDROXIDE 2,400 MG/10 ML CUP PO PRN (08:32)
[2020-07-25] MEDS ORDERED: ALBUTEROL NEBULIZED 2.5 MG/3 ML INHALATION PRN (08:32)
[2020-07-25] MEDS ORDERED: SENNOSIDES 8.6 MG TAB PO PRN (08:32)
[2020-07-25] MEDS ORDERED: HYDROcodone/APAP 10-325MG 1 EACH TAB PO PRN (08:38)
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
--- NOTE | 2020-07-25 10:25 | XR ---
EXAMINATION TYPE: XR chest 2V DATE OF EXAM: 07/25/2020 COMPARISON: 07/03/2020 TECHNIQUE: PA and lateral views submitted. HISTORY: Cough possible pneumonia FINDINGS: Right basilar subsegmental consolidation. Chronic deformity of the left clavicle. Arthropathy of the shoulders. Hyperinflation of the lungs. No pneumothorax. Heart size normal. No interstitial edema. Co rrelate for small hiatal hernia. Degenerative changes of the spine. Right perihilar subsegmental cons olidation. IMPRESSION: 1. COPD with right basilar and perihilar infiltrate.
[2020-07-25] MEDS: BUDESONIDE 1 MG/2 ML NEBU INHALATION SCH ×2 (11:02→21:26)
[2020-07-25] MEDS: IPRATROPIUM-ALBUTEROL 3 ML NEB INHALATION SCH ×3 (11:02→21:26)
[2020-07-25] MEDS: CALCIUM CARBONATE 500 MG CHEWABLE PO SCH ×2 (11:31→17:21)
[2020-07-25] MEDS: FAMOTIDINE 20 MG TAB PO SCH ×2 (11:31→20:16)
[2020-07-25] MEDS: predniSONE 20 MG TAB PO SCH (11:31)
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
[2020-07-25] MEDS ORDERED: SYMBICORT 160-4.5 MCG INHALER INHALATION SCH (17:00)
[2020-07-25] MEDS: HEPARIN SODIUM,PORCINE 5,000 UNIT/ML 1 ML VIAL SQ SCH (20:16)
[2020-07-26 04:44] LABS: Ferritin 1119.9 ng/mL (22.0-322.0); Folate, Serum 20.8 ng/mL
[2020-07-26 06:35] LABS: Protein, Total 5.6 g/dL (6.2-8.2)
[2020-07-26] MEDS ORDERED: LEFLUNOMIDE 20 MG TAB PO SCH (08:00)
[2020-07-26] MEDS ORDERED: FUROSEMIDE 20 MG TAB PO SCH (08:00)
[2020-07-26] MEDS: BUDESONIDE 1 MG/2 ML NEBU INHALATION SCH ×2 (08:06→18:55)
[2020-07-26] MEDS: IPRATROPIUM-ALBUTEROL 3 ML NEB INHALATION SCH ×4 (08:06→18:55)
[2020-07-26] MEDS: CALCIUM CARBONATE 500 MG CHEWABLE PO SCH ×3 (09:05→22:03)
[2020-07-26] MEDS: HEPARIN SODIUM,PORCINE 5,000 UNIT/ML 1 ML VIAL SQ SCH ×2 (09:05→22:03)
[2020-07-26] MEDS: FAMOTIDINE 20 MG TAB PO SCH ×2 (09:05→22:03)
[2020-07-26] MEDS: predniSONE 20 MG TAB PO SCH (09:05)
[2020-07-26] MEDS: NICOTINE 14MG/24HR PATCH TRANSDERM SCH (09:06)
[2020-07-26 13:23] LABS: Anisocytosis Slight; Basophils % (A) 0 %; Eosinophils % (A) 0 %; HCT 29.3 % (39.0-53.0); HGB 9.2 gm/dL (13.0-17.5); Hypochromasia Slight; Lymphocytes # (A) 0.2 k/uL (1.0-4.8); Lymphocytes % (A) 4 %; MCH 31.4 pg (25.0-35.0); MCHC 31.4 g/dL (31.0-37.0); Macrocytosis Slight; Mean Platelet Volume 7.8; Monocytes # (A) 0.1 k/uL (0-1.0); Monocytes % (A) 2 %; Neutrophils # (A) 4.8 k/uL (1.3-7.7); Neutrophils % (A) 93 %; Platelet Count 235 k/uL (150-450); Poikilocytosis Slight; RBC 2.93 m/uL (4.30-5.90); RDW 16.9 % (11.5-15.5); WBC 5.2 k/uL (3.8-10.6)
--- NOTE | 2020-07-26 13:42 | P.PN ---
Subjective Progress Note Date: 07/26/20 Principal diagnosis: anemia He is status post transfusions and stable hemoglobin today. Partial results of full anemia work-up reveal ESR increased 110, renal function is sub-aqequate, and appears to have some chronic renal disease at baseline, as well as, hypothyroidism with TSH 41, T4 0.4 last admission. RA = 139, DEMETRI neg. He is on Arava, treatment for rheumatoid arthritis. Objective - Vital Signs Vital signs: Vital Signs Temp 97.7 F 07/26/20 08:00 Pulse 69 07/26/20 12:00 Resp 20 07/26/20 12:00 BP 153/85 07/26/20 12:00 Pulse Ox 97 07/26/20 12:00 Intake & Output 07/25/20 07/26/20 07/26/20 18:59 06:59 18:59 Intake Total 702 360 Output Total 300 200 Balance 702 -300 160 Weight 73.5 kg Intake: Oral 702 360 Output: Urine 300 200 Other: # Voids 2 # Bowel Movements 2 2 - Exam - Constitutional General appearance: cooperative, no acute distress - EENT Eyes: EOMI ENT: hard of hearing - Neck Neck: normal ROM - Respiratory Respiratory: bilateral: diminished - Cardiovascular Rhythm: irregularly irregular - Gastrointestinal General gastrointestinal: soft - Integumentary Integumentary: pale - Neurologic Neurologic: CNII-XII intact - Musculoskeletal Musculoskeletal: generalized weakness - Psychiatric Psychiatric: A&O x's 3, intact judgment & insight - Labs CBC & Chem 7: 07/26/20 13:08 07/25/20 07:12 Labs: Abnormal Lab Results - Last 24 Hours (Table) 07/25/20 07/25/20 07/25/20 Range/Units 07:12 07:12 19:01 RBC (4.30-5.90) m/uL Hgb (13.0-17.5) gm/dL Hct (39.0-53.0) % RDW (11.5-15.5) % Lymphocytes # (1.0-4.8) k/uL ESR 110 H (0-15) mm/hr Ferritin 1119.9 H (22.0-322.0) ng/mL Total Protein (PEP) 5.6 L (6.2-8.2) g/dL Rheumatoid Factor 139 H (0-15) IU/mL 07/26/20 Range/Units 13:08 RBC 2.93 L (4.30-5.90) m/uL Hgb 9.2 L (13.0-17.5) gm/dL Hct 29.3 L (39.0-53.0) % RDW 16.9 H (11.5-15.5) % Lymphocytes # 0.2 L (1.0-4.8) k/uL ESR (0-15) mm/hr Ferritin (22.0-322.0) ng/mL Total Protein (PEP) (6.2-8.2) g/dL Rheumatoid Factor (0-15) IU/mL Assessment and Plan Plan: Assessment and Recommendations: Normocytic Anemia: - Likely main component of inflammation and chronic disease: Rheumatoid Arthritis on Arava (component of chronic kidney disease unknown stage) Also with evidence of underlying thyroid disease, I do not see patient is on any therapy for this. Will recheck TSH and defer further treatment/work-up to Primary team - Recommend nephrology to further assess - Full work-up is pending, and recommendations to follow At this time stop Arava until hemoglobin improves and make sure to follow-up with rheumatology (He follows Dr. Stahl) at discharge Physician attest: I have completed the full history and physical and agree with above dictation, dictated as a scribe
[2020-07-26 13:54] LABS: Free Kappa Lt Chain Qnt, Serum 4.49 mg/dL (0.33-1.94)
[2020-07-26 13:54] LABS: Immunoglobulin M 37.3 mg/dL (40.0-280.0)
[2020-07-26 15:41] LABS: Albumin 2.79 g/dL (3.80-4.90); Gamma Globulin 0.62 g/dL (0.70-1.50)
[2020-07-26 16:37] LABS: T4, Free (Free Thyroxine) 0.5 ng/dL (0.78-2.19)
--- NOTE | 2020-07-26 16:50 | P.PN ---
Subjective 69-year-old male with past medical history of COPD, hypertension, hyperlipidemia who presents emergency department with reported low hemoglobin. Patient was hospitalized earlier this month for COPD exacerbation and lower extremity edema. Patient had slowly downtrending hemoglobin labs at that time however did not require transfusion. He was then sent to rehab. Today the patient had labs drawn which showed that his hemoglobin was 6.4. Patient was transferred to our facility for transfusion. Patient denies previous history of transfusion. Denies previous history of anemia. No hemoptysis or hematemesis. Denies any black or bloody stools. Review the patient's chart from [facility] demonstrates that he has had occult testing 2 days in a row which were both negative. He denies any chest pain . No lightheadedness. Reports to previously being on iron tablets however cannot tolerate them as he states he wants to throw up as soon as he takes it. Patient is not on anticoagulation. No other alleviating, precipitating or modifying factors. Patient doesn't have any evidence of acute GI bleed at this time although patient had hemoglobin of around 12 about a month ago. Patient appears to have anemia of chronic disease. Ferritin levels are not low although TIBC is low. Hematology was consulted. Patient creatinine is 1.4 which is his baseline although doesn't have any history of CHF patient is on low-dose of Lasix which will be held. Patient is severe visit transfusion after which hemoglobin did go up to 8.8 from 6.8 patient received 2 units of PRBC. 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 Although patient doesn't have any deformities from rheumatoid arthritis. Patient was on immunosuppressive therapy from there arthritis may be contribu ting to his anemia. Patient is cleared for discharge hemoglobin is fairly stable at this time. His creatinine improved patient appears to be hypothyroid, will be started on thyroid supplementation. Patient respiratory status although symptoms and improved still has some rhonchi and mild wheezing off oxygen today. Constitutional: Denied any fatigue denied any fever. Cardio vascular: denied any chest pain, palpitations Gastrointestinal denied any nausea vomiting Pulmonary: Denied any shortness of breath cough Neurologic denied any new focal deficits All inpatient medications were reviewed and appropriate changes in these medications as dictated in the interval history and assessment and plan. Objective - Vital Signs Vital signs: Vital Signs Temp 97.7 F 07/26/20 08:00 Pulse 62 07/26/20 15:36 Resp 18 07/26/20 15:36 BP 153/85 07/26/20 12:00 Pulse Ox 97 07/26/20 12:00 Intake & Output 07/25/20 07/26/20 07/26/20 18:59 06:59 18:59 Intake Total 702 480 Output Total 300 200 Balance 702 -300 280 Weight 73.5 kg Intake: Oral 702 480 Output: Urine 300 200 Other: # Voids 2 # Bowel Movements 2 2 - Exam PHYSICAL EXAMINATION: GENERAL: The patient is alert and oriented x3, not in any acute distress. Well developed, well nourished. HEENT: Pupils are round and equally reacting to light. EOMI. No scleral icterus. No conjunctival pallor. Normocephalic, atraumatic. No pharyngeal erythema. No thyromegaly. CARDIOVASCULAR: S1 and S2 present. No murmurs, rubs, or gallops. PULMONARY wheezing significantly improved mild rhonchi. Fairly good air entry today ABDOMEN: Soft, nontender, nondistended, normoactive bowel sounds. No palpable organomegaly. MUSCULOSKELETAL: No joint swelling or deformity. EXTREMITIES: No cyanosis, clubbing, or pedal edema. NEUROLOGICAL: Gross neurological examination did not reveal any focal deficits. SKIN: No rashes. - Labs CBC & Chem 7: 07/26/20 13:08 07/25/20 07:12 Labs: Abnormal Lab Results - Last 24 Hours (Table) 07/25/20 07/25/20 07/25/20 Range/Units 07:12 07:12 16:13 RBC (4.30-5.90) m/uL Hgb (13.0-17.5) gm/dL Hct (39.0-53.0) % RDW (11.5-15.5) % Lymphocytes # (1.0-4.8) k/uL ESR (0-15) mm/hr Ferritin 1119.9 H (22.0-322.0) ng/mL Total Protein (PEP) 5.6 L (6.2-8.2) g/dL Albumin (PEP) 2.79 L (3.80-4.90) g/dL Tdumv-8-Vayhfkipi 0.68 H (0.10-0.40) g/dL Gamma Globulins 0.62 L (0.70-1.50) g/dL TSH (0.465-4.680) mIU/L Free T4 (0.78-2.19) ng/dL IgG 668.0 L (700.0-1600.0) mg/dL IgM 37.3 L (40.0-280.0) mg/dL Rheumatoid Factor 139 H (0-15) IU/mL Free [place] LC, Quant 4.49 H (0.33-1.94) mg/dL Free Lambda LC, Quant 4.46 H (0.57-2.63) mg/dL 07/25/20 07/26/20 07/26/20 Range/Units 19:01 13:08 13:08 RBC 2.93 L (4.30-5.90) m/uL Hgb 9.2 L (13.0-17.5) gm/dL Hct 29.3 L (39.0-53.0) % RDW 16.9 H (11.5-15.5) % Lymphocytes # 0.2 L (1.0-4.8) k/uL ESR 110 H (0-15) mm/hr Ferritin (22.0-322.0) ng/mL Total Protein (PEP) (6.2-8.2) g/dL Albumin (PEP) (3.80-4.90) g/dL Ppmzf-5-Gcdmehefm (0.10-0.40) g/dL Gamma Globulins (0.70-1.50) g/dL TSH 16.000 H (0.465-4.680) mIU/L Free T4 0.50 L (0.78-2.19) ng/dL IgG (700.0-1600.0) mg/dL IgM (40.0-280.0) mg/dL Rheumatoid Factor (0-15) IU/mL Free [place] LC, Quant (0.33-1.94) mg/dL Free Lambda LC, Quant (0.57-2.63) mg/dL Assessment and Plan Plan: Anemia appears to be acute but there is no acute GI bleed is probably a competent of B12 or folate deficiency along with the anemia of chronic disease of chronic kidney disease patient doesn't appear to be iron deficient. Patient doesn't have any infection at this time. Patient will be evaluated for hemolysis and hematology is following the patient received 2 units of PRBC alone is presently stable. Patient was on immunosuppressive therapy for rheumatoid arthritis may be contributing to his anemia. -COPD with acute exacerbation patient was started on prednisone continue with inpatient treatments. The chest x-ray -Small possible benign mass during his last hospitalization on the chest x-ray which will need a follow-up computed tomography scan in about 5 months. -Chronic kidney disease probably hypertensive nephrosclerosis creatinine appear to be at his baseline discontinued Lasix is no evidence of CHF patient had a normal EF in the past -Hyperlipidemia -Hypertension -Primary hypothyroidism patient was started on levofloxacin may be contributing to his anemia to -Coronary artery disease -Nicotine use until his recent hospitalization earlier this month. -DVT prophylaxis with subcutaneous heparin GI prophylaxis with Pepcid
[2020-07-27] MEDS: LEVOTHYROXINE 75 MCG TAB PO SCH (06:55)
[2020-07-27] MEDS: BUDESONIDE 1 MG/2 ML NEBU INHALATION SCH ×3 (07:28→19:33)
[2020-07-27] MEDS: IPRATROPIUM-ALBUTEROL 3 ML NEB INHALATION SCH ×4 (07:28→19:33)
[2020-07-27] MEDS: predniSONE 20 MG TAB PO SCH (09:35)
[2020-07-27] MEDS: NICOTINE 14MG/24HR PATCH TRANSDERM SCH (09:35)
[2020-07-27] MEDS: HEPARIN SODIUM,PORCINE 5,000 UNIT/ML 1 ML VIAL SQ SCH ×2 (09:36→22:12)
[2020-07-27] MEDS: CALCIUM CARBONATE 500 MG CHEWABLE PO SCH ×3 (09:36→17:09)
[2020-07-27] MEDS: FAMOTIDINE 20 MG TAB PO SCH ×2 (09:36→22:12)
--- NOTE | 2020-07-27 12:00 | P.PN ---
Subjective Progress Note Date: 07/27/20 69-year-old male with past medical history of COPD, hypertension, hyperlipidemia who presents emergency department with reported low hemoglobin. Patient was hospitalized earlier this month for COPD exacerbation and lower extremity edema. Patient had slowly downtrending hemoglobin labs at that time however did not require transfusion. He was then sent to rehab. Today the patient had labs drawn which showed that his hemoglobin was 6.4. Patient was transferred to our facility for transfusion. Patient denies previous history of transfusion. Denies previous history of anemia. No hemoptysis or hematemesis. Denies any black or bloody stools. Review the patient's chart from [facility] demonstrates t hat he has had occult testing 2 days in a row which were both negative. He denies any chest pain . No lightheadedness. Reports to previously being on iron tablets however cannot tolerate them as he states he wants to throw up as soon as he takes it. Patient is not on anticoagulation. No other alleviating, precipitating or modifying factors. Patient doesn't have any evidence of acute GI bleed at this time although patient had hemoglobin of around 12 about a month ago. Patient appears to have anemia of chronic disease. Ferritin levels are not low although TIBC is low. Hematology was consulted. Patient creatinine is 1.4 which is his baseline although doesn't have any history of CHF patient is on low-dose of Lasix which will be held. Patient is severe visit transfusion after which hemoglobin did go up to 8.8 from 6.8 patient received 2 units of PRBC. 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 Although patient doesn't have any deformities from rheumatoid arthritis. Patient was on immunosuppressive therapy from there arthritis may be contributing to his anemia. Patient is cleared for discharge hemoglobin is fairly stable at this time. His creatinine improved patient appears to be hypothyroid, will be started on thyroid supplementation. Patient respiratory status although symptoms and improved still has some rhonchi and mild wheezing off oxygen today. 07/27/2020 Hemoglobin remained stable, 9.2 today. Still having some wheezing, maintaining oxygen saturations above 90% on room air. Receiving DuoNeb's and Pulmicort. Awaiting rehab placement. Constitutional: Denied any fatigue denied any fever. Cardio vascular: denied any chest pain, palpitations Gastrointestinal denied any nausea vomiting Pulmonary: Denied any shortness of breath cough Neurologic denied any new focal deficits Objective - Vital Signs Vital signs: Vital Signs Temp 98.3 F 07/27/20 08:00 Pulse 64 07/27/20 11:25 Resp 18 07/27/20 08:00 BP 116/68 07/27/20 08:00 Pulse Ox 97 07/27/20 08:00 Intake & Output 07/26/20 07/27/20 07/27/20 18:59 06:59 18:59 Intake Total 1080 400 Output Total 700 1050 Balance 380 -1050 400 Weight 75.1 kg Intake: Oral 1080 400 Output: Urine 700 1050 Other: # Voids 2 # Bowel Movements 2 1 - Exam PHYSICAL EXAMINATION: GENERAL: The patient is alert and oriented x3, not in any acute distress. Well developed, well nourished. HEENT: Pupils are round and equally reacting to light. EOMI. No scleral icterus. No conjunctival pallor. Normocephalic, atraumatic. No pharyngeal erythema. No thyromegaly. CARDIOVASCULAR: S1 and S2 present. No murmurs, rubs, or gallops. PULMONARY minimal wheezing bilaterally, improved air entry. Fairly good air entry today ABDOMEN: Soft, nontender, nondistended, normoactive bowel sounds. No palpable organomegaly. MUSCULOSKELETAL: No joint swelling or deformity. EXTREMITIES: No cyanosis, clubbing, or pedal edema. NEUROLOGICAL: Gross neurological examination did not reveal any focal deficits. SKIN: No rashes. - Labs CBC & Chem 7: 07/26/20 13:08 07/25/20 07:12 Labs: Abnormal Lab Results - Last 24 Hours (Table) 07/25/20 07/25/20 07/26/20 Range/Units 07:12 16:13 13:08 RBC 2.93 L (4.30-5.90) m/uL Hgb 9.2 L (13.0-17.5) gm/dL Hct 29.3 L (39.0-53.0) % RDW 16.9 H (11.5-15.5) % Lymphocytes # 0.2 L (1.0-4.8) k/uL Albumin (PEP) 2.79 L (3.80-4.90) g/dL [place]-1-Vujskrcne 0.68 H (0.10-0.40) g/dL Gamma Globulins 0.62 L (0.70-1.50) g/dL TSH (0.465-4.680) mIU/L Free T4 (0.78-2.19) ng/dL IgG 668.0 L (700.0-1600.0) mg/dL IgM 37.3 L (40.0-280.0) mg/dL Free [place] LC, Quant 4.49 H (0.33-1.94) mg/dL Free Lambda LC, Quant 4.46 H (0.57-2.63) mg/dL 07/26/20 Range/Units 13:08 RBC (4.30-5.90) m/uL Hgb (13.0-17.5) gm/dL Hct (39.0-53.0) % RDW (11.5-15.5) % Lymphocytes # (1.0-4.8) k/uL Albumin (PEP) (3.80-4.90) g/dL Rhevw-9-Hywhsdycg (0.10-0.40) g/dL Gamma Globulins (0.70-1.50) g/dL TSH 16.000 H (0.465-4.680) mIU/L Free T4 0.50 L (0.78-2.19) ng/dL IgG (700.0-1600.0) mg/dL IgM (40.0-280.0) mg/dL Free [place] LC, Quant (0.33-1.94) mg/dL Free Lambda LC, Quant (0.57-2.63) mg/dL Assessment and Plan Assessment: Plan: Anemia appears to be acute but there is no acute GI bleed is probably a competent of B12 or folate deficiency along with the anemia of chronic disease of chronic kidney disease patient doesn't appear to be iron deficient. Patient doesn't have any infection at this time. Has received total 2 units PRBC, hemoglobin remained stable 9.2 this morning. Patient was on immunosuppressive therapy for rheumatoid arthritis may be contributing to his anemia. -COPD with acute exacerbation patient continues on prednisone, receiving DuoNeb and Pulmicort. -Small possible benign mass during his last hospitalization on the chest x-ray which will need a follow-up computed tomography scan in about 5 months. -Chronic kidney disease probably hypertensive nephrosclerosis creatinine appear to be at his baseline discontinued Lasix is no evidence of CHF patient had a normal EF in the past -Hyperlipidemia -Hypertension -Primary hypothyroidism patient was started on levofloxacin may be contributing to his anemia to -Coronary artery disease -Nicotine use until his recent hospitalization earlier this month. -DVT prophylaxis with subcutaneous heparin GI prophylaxis with Pepcid
[2020-07-28] MEDS: LEVOTHYROXINE 75 MCG TAB PO SCH (06:51)
[2020-07-28] MEDS: predniSONE 20 MG TAB PO SCH (07:43)
[2020-07-28] MEDS: NICOTINE 14MG/24HR PATCH TRANSDERM SCH (07:43)
[2020-07-28] MEDS: HEPARIN SODIUM,PORCINE 5,000 UNIT/ML 1 ML VIAL SQ SCH ×2 (07:43→21:05)
[2020-07-28] MEDS: CALCIUM CARBONATE 500 MG CHEWABLE PO SCH ×3 (07:43→15:27)
[2020-07-28] MEDS: FAMOTIDINE 20 MG TAB PO SCH ×2 (07:43→21:05)
[2020-07-28] MEDS: IPRATROPIUM-ALBUTEROL 3 ML NEB INHALATION SCH ×4 (07:51→19:59)
[2020-07-28] MEDS: BUDESONIDE 1 MG/2 ML NEBU INHALATION SCH ×2 (07:51→19:59)
[2020-07-28 08:46] LABS: Anisocytosis Slight; HCT 30.7 % (39.0-53.0); HGB 9.6 gm/dL (13.0-17.5); Hypochromasia Slight; MCH 31.5 pg (25.0-35.0); MCHC 31.4 g/dL (31.0-37.0); MCV 100.4 fL (80.0-100.0); Macrocytosis Slight; Mean Platelet Volume 7.7; Platelet Count 300 k/uL (150-450); RBC 3.06 m/uL (4.30-5.90); RDW 17.1 % (11.5-15.5); WBC 5.7 k/uL (3.8-10.6)
[2020-07-28 09:06] LABS: Calcium 8.2 mg/dL (8.4-10.2); Potassium 3.9 mmol/L (3.5-5.1)
--- NOTE | 2020-07-28 13:35 | P.PN ---
Subjective Progress Note Date: 07/28/20 69-year-old male with past medical history of COPD, hypertension, hyperlipidemia who presents emergency department with reported low hemoglobin. Patient was hospitalized earlier this month for COPD exacerbation and lower extremity edema. Patient had slowly downtrending hemoglobin labs at that time however did not require transfusion. He was then sent to rehab. Today the patient had labs drawn which showed that his hemoglobin was 6.4. Patient was transferred to our facility for transfusion. Patient denies previous history of transfusion. Denies previous history of anemia. No hemoptysis or hematemesis. Denies any black or bloody stools. Review the patient's chart from [facility] demonstrates t hat he has had occult testing 2 days in a row which were both negative. He denies any chest pain . No lightheadedness. Reports to previously being on iron tablets however cannot tolerate them as he states he wants to throw up as soon as he takes it. Patient is not on anticoagulation. No other alleviating, precipitating or modifying factors. Patient doesn't have any evidence of acute GI bleed at this time although patient had hemoglobin of around 12 about a month ago. Patient appears to have anemia of chronic disease. Ferritin levels are not low although TIBC is low. Hematology was consulted. Patient creatinine is 1.4 which is his baseline although doesn't have any history of CHF patient is on low-dose of Lasix which will be held. Patient is severe visit transfusion after which hemoglobin did go up to 8.8 from 6.8 patient received 2 units of PRBC. 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 Although patient doesn't have any deformities from rheumatoid arthritis. Patient was on immunosuppressive therapy from there arthritis may be contributing to his anemia. Patient is cleared for discharge hemoglobin is fairly stable at this time. His creatinine improved patient appears to be hypothyroid, will be started on thyroid supplementation. Patient respiratory status although symptoms and improved still has some rhonchi and mild wheezing off oxygen today. 07/27/2020 Hemoglobin remained stable, 9.2 today. Still having some wheezing, maintaining oxygen saturations above 90% on room air. Receiving DuoNeb's and Pulmicort. Awaiting rehab placement. 07/28/2020 Hemoglobin 9.6 today. Vital signs stable, remains on room air saturating above 90%. Creatinine improved 1.09, which was within normal limits. Awaiting rehab placement possibly on Wednesday. No chest pain, palpitation or shortness of breath. Constitutional: Denied any fatigue denied any fever. Cardio vascular: denied any chest pain, palpitations Gastrointestinal denied any nausea vomiting Pulmonary: Denied any shortness of breath cough Neurologic denied any new focal deficits Objective - Vital Signs Vital signs: Vital Signs Temp 98 F 07/28/20 12:00 Pulse 64 07/28/20 12:01 Resp 18 07/28/20 12:01 BP 131/74 07/28/20 12:00 Pulse Ox 93 L 07/28/20 07:50 Intake & Output 07/27/20 07/28/20 07/28/20 18:59 06:59 18:59 Intake Total 640 440 Balance 640 440 Weight 75.8 kg Intake: Oral 640 440 Other: # Voids 3 1 0 # Bowel Movements 1 0 - Exam PHYSICAL EXAMINATION: GENERAL: The patient is alert and oriented x3, not in any acute distress. Well developed, well nourished. HEENT: Pupils are round and equally reacting to light. EOMI. No scleral icterus. No conjunctival pallor. Normocephalic, atraumatic. No pharyngeal erythema. No thyromegaly. CARDIOVASCULAR: S1 and S2 present. No murmurs, rubs, or gallops. PULMONARY good air movement, mild scattered rhonchi bilaterally respirations even and unlabored, ABDOMEN: Soft, nontender, nondistended, normoactive bowel sounds. No palpable organomegaly. MUSCULOSKELETAL: No joint swelling or deformity. EXTREMITIES: No cyanosis, clubbing, or pedal edema. NEUROLOGICAL: Gross neurological examination did not reveal any focal deficits. SKIN: No rashes. - Labs CBC & Chem 7: 07/28/20 07:43 07/28/20 07:43 Labs: Abnormal Lab Results - Last 24 Hours (Table) 07/28/20 07/28/20 Range/Units 07:43 07:43 RBC 3.06 L (4.30-5.90) m/uL Hgb 9.6 L (13.0-17.5) gm/dL Hct 30.7 L (39.0-53.0) % MCV 100.4 H (80.0-100.0) fL RDW 17.1 H (11.5-15.5) % BUN 28 H (9-20) mg/dL Glucose 72 L (74-99) mg/dL Calcium 8.2 L (8.4-10.2) mg/dL Assessment and Plan Assessment: Plan: Anemia appears to be acute but there is no acute GI bleed is probably a competent of B12 or folate deficiency along with the anemia of chronic disease of chronic kidney disease patient doesn't appear to be iron deficient. Patient doesn't have any infection at this time. Has received total 2 units PRBC, hemoglobin remained stable improving to 9.6 today., . Patient was on immunosuppressive therapy for rheumatoid arthritis may be contributing to his anemia, This has been discontinued -COPD with acute exacerbation: improving, no wheezing to. patient continues on prednisone, receiving DuoNeb and Pulmicort. -Small possible benign mass during his [facility] will need a follow-up computed tomography scan in about 5 months. -Chronic kidney disease probably hypertensive nephrosclerosis creatinine appear to be at his baseline discontinued Lasix is no evidence of CHF patient had a normal EF in the past -Hyperlipidemia -Hypertension -Primary hypothyroidism patient was started on levofloxacin may be contributing to his anemia to -Coronary artery disease -Nicotine use until his recent hospitalization earlier this month. -DVT prophylaxis with subcutaneous heparin GI prophylaxis with Pepcid
[2020-07-29 00:48] VITALS: RESP 18
[2020-07-29] MEDS: LEVOTHYROXINE 75 MCG TAB PO SCH (06:58)
[2020-07-29] MEDS: IPRATROPIUM-ALBUTEROL 3 ML NEB INHALATION SCH ×4 (08:26→16:42)
[2020-07-29] MEDS: BUDESONIDE 1 MG/2 ML NEBU INHALATION SCH (08:26)
[2020-07-29] MEDS: NICOTINE 14MG/24HR PATCH TRANSDERM SCH (10:02)
[2020-07-29] MEDS: predniSONE 20 MG TAB PO SCH (10:02)
[2020-07-29] MEDS: FAMOTIDINE 20 MG TAB PO SCH (10:02)
[2020-07-29] MEDS: CALCIUM CARBONATE 500 MG CHEWABLE PO SCH ×2 (10:02→12:50)
[2020-07-29] MEDS: HEPARIN SODIUM,PORCINE 5,000 UNIT/ML 1 ML VIAL SQ SCH (10:02)
--- NOTE | 2020-07-29 12:33 | P.DS ---
Providers Date of admission: 07/24/20 22:55 Expected date of discharge: 07/29/20 Attending physician: Naveen Montgomery Consults: 07/24/20 22:56 Consult Physician Urgent Consulting Provider: Jose Velásquez Consult Reason/Comments: acute anemia Do you want consulting provider notified?: Yes Primary care physician: [facility] Hospital Course: Final diagnosis -Anemia appears to be acute with the anemia of chronic disease of chronic kidney disease -COPD with acute exacerbation -Small possible benign mass during his last hospitalization on the chest x-ray which will need a follow-up computed tomography scan in about 5 months. -Chronic kidney disease probably hypertensive nephrosclerosis -Hyperlipidemia -Hypertension -Primary hypothyroidism -Coronary artery disease -Nicotine use until his recent hospitalization earlier this month. -DVT prophylaxis -GI prophylaxis -Full code Discharge disposition Patient is being discharged in a stable condition with guarded prognosis to [facility] for continued PT/OT therapy. Patient will follow- up with [facility] in the outpatient setting upon discharge. Patient will continue with the prednisone taper upon discharge. Total time taken is greater than 35 minutes. Hospital course This is a 69-year-old male who was recently admitted with low hemoglobin and was being closely monitored. Patient had recent hospitalization and ECF placement for lower extremity edema and COPD exacerbation. Patient's hemoglobin on admission was found to be 6.4 and was sent to [facility] for transfusion. Patient received 2 unit of PRBCs during hospitalization. No active bleeding noted and denies any bloody stools, black stools, hematemesis or hemoptysis. Patient was also noted to have severe anemia on admission with a hemoglobin of 5.5 and received 3 units of PRBCs during hospitalization. Hemoglobin is stable and is currently 9.6 today. Patient was evaluated by hematology recommending holding Arava until follow-up with citizenship instructor Dr. Ro in the outpatient setting. Patient was started on Synthroid as thyroid functions were abnormal and will need follow-up outpatient for repeat testing in 4-6 weeks. Recommend continue current healthy diet and ensures 3 times daily between meals. Currently no reports of chest pain, shortness of breath, or palpitations. Patient is afebrile. No reports of nausea or vomiting and patient is tolerating diet. Patient will be going to [facility] today. On exam vital signs are stable. Cardio S1, S2 are muffled. Respiratory system shows diminished breath sounds at the bases with no wheezing or rhonchi noted. Abdomen is soft and nontender. Nervous system shows diffuse weakness. Please refer to medication reconciliation sheet for a list of medications. Patient Condition at Discharge: Stable Plan - Discharge Summary Discharge Rx Participant: Yes New Discharge Prescriptions: New Ipratropium-Albuterol Nebulize [Duoneb 0.5 mg-3 mg/3 ml Soln] 3 ml INHALATION RT-QID ml Famotidine [Pepcid] 20 mg PO BID tab predniSONE 10 mg PO DIRECTED #30 tab Levothyroxine Sodium [Synthroid] 75 mcg PO DAILY@0630 tab Continue Omeprazole 20 mg PO BID@0800,1700 Calcium Carbonate [Tums] 500 mg PO TID@0800,1200,1700 Budesonide/Formoterol Fumarate [Symbicort 160-4.5 Mcg Inhaler] 2 puff INHALATION RT-BID@0800,1700 Albuterol Inhaler [Ventolin Hfa Inhaler] 1 puff INHALATION RT-Q4H PRN PRN Reason: Shortness Of Breath Ipratropium-Albuterol Nebulize [Duoneb 0.5 mg-3 mg/3 ml Soln] 3 ml INHALATION RT-QID PRN ml PRN Reason: Shortness Of Breath Or Wheezing Loperamide HCl [Imodium A-D] 2 mg PO AC-TID PRN #0 MDD 8 CAPS PRN Reason: Diarrhea Na Phos,M-B/Na Phos,Di-Ba [Fleet Adult] 133 ml RECTAL DAILY PRN PRN Reason: Constipation bisacodyL [Bisacodyl] 10 mg RECTAL DAILY PRN PRN Reason: Constipation INSULIN ASPART (NovoLOG) [NovoLOG (formulary)] See Protocol SQ QID PRN PRN Reason: HIGH BLOOD SUGAR Acetaminophen [Tylenol 8 Hour] 650 mg PO Q4H PRN PRN Reason: Pain Sennosides [Senokot] 8.6 mg PO BID@0800,1700 Budesonide [Pulmicort] 1 mg INHALATION RT-BID@1000,1400 Lactose-Reduced Food [Ensure Plus] 1 can PO TID@0600,1700,2100 Thiamine [Vitamin B-1] 100 mg PO DAILY@1700 Nicotine 14Mg/24Hr Patch [Habitrol] 1 patch TRANSDERM DAILY@0800 Multivitamins, Thera [Multivitamin (formulary)] 1 tab PO DAILY@1700 Folic Acid 1 mg PO DAILY@1700 Cholecalciferol [Vitamin D3 (25 Mcg = 1000 Iu)] 75 mcg PO DAILY@0800 Magnesium Hydroxide [Milk of Magnesia Concentrate] 7,200 mg PO DAILY PRN PRN Reason: Constipation HYDROcodone/APAP 10-325MG [[place] 10-325] 2 tab PO TID PRN #12 tab PRN Reason: Pain Changed modafiniL [Provigil] 200 mg PO DAILY@0800 #10 tab Discontinued Levothyroxine Sodium [Synthroid] 112 mcg PO DAILY@0600 Albuterol Nebulized [Ventolin Nebulized] 2.5 mg INHALATION RT-Q4H PRN PRN Reason: Shortness Of Breath Leflunomide [Arava] 20 mg PO DAILY@0800 Simvastatin 40 mg PO HS@2100 Furosemide [Lasix] 20 mg PO DAILY@0800 Discharge Medication List Albuterol Inhaler [Ventolin Hfa Inhaler] 1 puff INHALATION RT-Q4H PRN 05/21/20 [History] Budesonide/Formoterol Fumarate [Symbicort 160-4.5 Mcg Inhaler] 2 puff INHALATION RT-BID@0800,1700 05/21/20 [History] Calcium Carbonate [Tums] 500 mg PO TID@0800,1200,1700 05/21/20 [History] Omeprazole 20 mg PO BID@0800,1700 05/21/20 [History] Ipratropium-Albuterol Nebulize [Duoneb 0.5 mg-3 mg/3 ml Soln] 3 ml INHALATION RT-QID PRN ml 07/05/20 [Rx] Loperamide HCl [Imodium A-D] 2 mg PO AC-TID PRN #0 MDD 8 CAPS 07/05/20 [Rx] Acetaminophen [Tylenol 8 Hour] 650 mg PO Q4H PRN 07/24/20 [History] Budesonide [Pulmicort] 1 mg INHALATION RT-BID@1000,1400 07/24/20 [History] Cholecalciferol [Vitamin D3 (25 Mcg = 1000 Iu)] 75 mcg PO DAILY@0800 07/24/20 [History] Folic Acid 1 mg PO DAILY@1700 07/24/20 [History] INSULIN ASPART (NovoLOG) [NovoLOG (formulary)] See Protocol SQ QID PRN 07/24/20 [History] Lactose-Reduced Food [Ensure Plus] 1 can PO TID@0600,1700,2100 07/24/20 [History] Magnesium Hydroxide [Milk of Magnesia Concentrate] 7,200 mg PO DAILY PRN 07/24/20 [History] Multivitamins, Thera [Multivitamin (formulary)] 1 tab PO DAILY@1700 07/24/20 [History] Na Phos,M-B/Na Phos,Di-Ba [Fleet Adult] 133 ml RECTAL DAILY PRN 07/24/20 [History] Nicotine 14Mg/24Hr Patch [Habitrol] 1 patch TRANSDERM DAILY@0800 07/24/20 [History] Sennosides [Senokot] 8.6 mg PO BID@0800,1700 07/24/20 [History] Thiamine [Vitamin B-1] 100 mg PO DAILY@1700 07/24/20 [History] bisacodyL [Bisacodyl] 10 mg RECTAL DAILY PRN 07/24/20 [History] Famotidine [Pepcid] 20 mg PO BID tab 07/29/20 [Rx] HYDROcodone/APAP 10-325MG [[place] 10-325] 2 tab PO TID PRN #12 tab 07/29/20 [Rx] Ipratropium-Albuterol Nebulize [Duoneb 0.5 mg-3 mg/3 ml Soln] 3 ml INHALATION RT-QID ml 07/29/20 [Rx] Levothyroxine Sodium [Synthroid] 75 mcg PO DAILY@0630 tab 07/29/20 [Rx] modafiniL [Provigil] 200 mg PO DAILY@0800 #10 tab 07/29/20 [Rx] predniSONE 10 mg PO DIRECTED #30 tab 07/29/20 [Rx] Follow up Appointment(s)/Referral(s): [facility]Clinic [Primary Care Provider] - 1-2 days Activity/Diet/Wound Care/Special Instructions: Patient is going to [facility] Activity as tolerated Continue current diet with ensures 3 times a day between meals Follow-up with primary care provider upon discharge Patient has a scheduled appointment on August 01 and needs transportation Discharge Disposition: TRANSFER TO SNF/ECF
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
--- NOTE | 2020-07-29 12:50 | P.PN ---
Subjective Progress Note Date: 07/29/20 Principal diagnosis: anemia Blood counts are stable since stopping arava. He will plan for discharge today and follow-up with his human development professor. MMA was increased and B12 low/normal therefore a prescription for B12 daily SL was sent to pharmacy. He can folllow- up with oil and gas superintendent at [place] (unknown if he has an already established relationship) or Dr. Velásquez in about 4 weeks. Objective - Vital Signs Vital signs: Vital Signs Temp 96.9 F L 07/29/20 09:50 Pulse 64 07/29/20 12:18 Resp 18 07/29/20 12:10 BP 139/90 07/29/20 12:10 Pulse Ox 98 07/29/20 12:10 Intake & Output 07/28/20 07/29/20 07/29/20 18:59 06:59 18:59 Intake Total 920 Balance 920 Weight 76.3 kg Intake: Oral 920 Other: # Voids 1 1 1 # Bowel Movements 0 1 1 - Exam - Constitutional General appearance: cooperative, no acute distress - EENT Eyes: EOMI ENT: hard of hearing - Neck Neck: normal ROM - Respiratory Respiratory: bilateral: diminished - Cardiovascular Rhythm: irregularly irregular - Gastrointestinal General gastrointestinal: soft - Integumentary Integumentary: pale - Neurologic Neurologic: CNII-XII intact - Musculoskeletal Musculoskeletal: generalized weakness - Psychiatric Psychiatric: A&O x's 3, intact judgment & insight - Labs CBC & Chem 7: 07/28/20 07:43 07/28/20 07:43 Labs: Abnormal Lab Results - Last 24 Hours (Table) 07/25/20 Range/Units 07:12 Methylmalonic Acid 0.41 H (<0.40) umol/L Assessment and Plan Plan: Assessment and Recommendations: Normocytic Anemia: - Likely main component of inflammation and chronic disease: Rheumatoid Arthritis on Arava (component of chronic kidney disease unknown stage) Also with evidence of underlying thyroid disease, I do not see patient is on any therapy for this. Will recheck TSH and defer further treatment/work-up to Primary team - Recommend nephrology to further assess Continue to holld Arava until hemoglobin improves and make sure to follow-up with rheumatology (He follows Dr. Stahl) at discharge MMA was increased and B12 low/normal therefore a prescription for B12 daily SL was sent to pharmacy. He can folllow-up with oil and gas superintendent at [place] (unknown if he has an already established relationship) or Dr. Velásquez in about 4 weeks.
[2020-07-29 16:49] VITALS: BP 141/89; PULSE 67; TEMP 97.7
== END 2020-07-29 16:30 | DRG 683 ==
LOC: EC 21:51 → 3SCARD 22:55
PROVIDERS: ADMIT Hospitalist; ATTEND Hospitalist
PROC: 30233N1 Transfusion of Nonautologous Red Blood Cells into Peripheral Vein, Percutaneous Approach (ICD-10-PCS; principal; 2020-07-25)
DX: I12.9 Hypertensive chronic kidney disease with stage 1 through stage 4 chronic kidney disease, or unspecified chronic kidney disease (principal); D63.1 Anemia in chronic kidney disease; J44.1 Chronic obstructive pulmonary disease with (acute) exacerbation; N18.9 Chronic kidney disease, unspecified; Z87.891 Personal history of nicotine dependence; D63.8 Anemia in other chronic diseases classified elsewhere; E03.9 Hypothyroidism, unspecified; E78.5 Hyperlipidemia, unspecified; I25.10 Atherosclerotic heart disease of native coronary artery without angina pectoris; I25.2 Old myocardial infarction; L89.892 Pressure ulcer of other site, stage 2; M06.9 Rheumatoid arthritis, unspecified; M19.90 Unspecified osteoarthritis, unspecified site; Z79.51 Long term (current) use of inhaled steroids; Z79.890 Hormone replacement therapy; Z79.899 Other long term (current) drug therapy; Z20.822 Contact with and (suspected) exposure to COVID-19; Z90.89 Acquired absence of other organs; Z86.14 Personal history of Methicillin resistant Staphylococcus aureus infection; Z88.8 Allergy status to other drugs, medicaments and biological substances; K44.9 Diaphragmatic hernia without obstruction or gangrene; Z95.5 Presence of coronary angioplasty implant and graft
CPT/HCPCS: 36415; 71046; 80048; 80053; 82607; 82668; 82728; 82746; 82784; 83010; 83615; 83883; 83921; 84165; 84439; 84443; 85025; 85027; 85045; 85610; 85652; 85730; 86038; 86334; 86431; 86850; 86900; 86901; 86920; 87635; 94640; 99285

== ENCOUNTER 2020-11-15 20:16 | Emergency (ER) | payer MEDICARE, OTHER ==
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
--- NOTE | 2020-11-15 21:24 | XR ---
EXAMINATION TYPE: XR chest 2V DATE OF EXAM: 11/15/2020 COMPARISON: 07/25/2020 HISTORY: Pneumonia TECHNIQUE: FINDINGS: There is no heart failure nor confluent pneumonic infiltrate. Costophrenic angles are clear . There is slight blunting right costophrenic angle. There are no hilar masses. There are chest leads . IMPRESSION: Small right pleural effusion or pleural reaction unchanged. No heart failure or pulmonary consolidation.
[2020-11-15 21:55] LABS: Anisocytosis Slight; Basophils # (A) 0.1 k/uL (0-0.2); Basophils % (A) 1 %; Eosinophils # (A) 0.1 k/uL (0-0.7); Eosinophils % (A) 1 %; HGB 10.4 gm/dL (13.0-17.5); Hypochromasia Slight; Lymphocytes # (A) 1.2 k/uL (1.0-4.8); Lymphocytes % (A) 14 %; MCH 27.6 pg (25.0-35.0); MCHC 31.6 g/dL (31.0-37.0); MCV 87.5 fL (80.0-100.0); Mean Platelet Volume 7.1; Monocytes # (A) 0.5 k/uL (0-1.0); Monocytes % (A) 6 %; Neutrophils # (A) 6.6 k/uL (1.3-7.7); Neutrophils % (A) 77 %; Platelet Count 258 k/uL (150-450); RBC 3.77 m/uL (4.30-5.90); RDW 18.4 % (11.5-15.5); WBC 8.5 k/uL (3.8-10.6)
[2020-11-15 22:03] LABS: Calcium 9.1 mg/dL (8.4-10.2); Magnesium 1.7 mg/dL (1.6-2.3); Potassium 4.6 mmol/L (3.5-5.1); Total Bilirubin 0.5 mg/dL (0.2-1.3); Total Protein 6.3 g/dL (6.3-8.2)
[2020-11-15 22:28] VITALS: BP 103/71; PULSE 64; RESP 20; TEMP 98.2
== END 2020-11-15 22:44 | disposition home or self-care (01) ==
LOC: EC 20:16
DX: R53.1 Weakness (principal); R06.02 Shortness of breath; J02.9 Acute pharyngitis, unspecified; J43.9 Emphysema, unspecified; E78.5 Hyperlipidemia, unspecified; I10 Essential (primary) hypertension; I25.2 Old myocardial infarction; M06.9 Rheumatoid arthritis, unspecified; Z87.891 Personal history of nicotine dependence; Z20.822 Contact with and (suspected) exposure to COVID-19; Z79.51 Long term (current) use of inhaled steroids; Z79.899 Other long term (current) drug therapy; Z88.8 Allergy status to other drugs, medicaments and biological substances
CPT/HCPCS: 36415; 71046; 80053; 83735; 85025; 87635; 93005; 99285

== ENCOUNTER 2020-12-31 21:20 | Emergency (ER) | payer MEDICARE, OTHER ==
[2020-12-31 21:27] VITALS: TEMP 98.2
[2020-12-31] MEDS ORDERED: SODIUM CHLORIDE 0.9% 1,000 ML IV STA (21:43)
[2020-12-31] MEDS ORDERED: IPRATROPIUM-ALBUTEROL 3 ML NEB INHALATION STA (21:44)
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
[2020-12-31 22:27] LABS: Albumin 2.5 g/dL (3.5-5.0); Calcium 8.1 mg/dL (8.4-10.2); Magnesium 1.7 mg/dL (1.6-2.3); Potassium 3.9 mmol/L (3.5-5.1); Total Bilirubin 0.4 mg/dL (0.2-1.3); Total Protein 5.9 g/dL (6.3-8.2)
--- NOTE | 2020-12-31 22:28 | XR ---
EXAMINATION TYPE: XR knee complete RT DATE OF EXAM: 12/31/2020 COMPARISON: NONE HISTORY: Pain TECHNIQUE: 3 views FINDINGS: There is severe narrowing of the joint spaces. There is extensive hypertrophic spurring of the femoral and tibial condyles. There is mild lateral tibial subluxation. I see no fracture. IMPRESSION: Moderately severe osteoarthritis. Small joint effusion. 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
--- NOTE | 2020-12-31 22:29 | XR ---
EXAMINATION TYPE: XR chest 2V DATE OF EXAM: 12/31/2020 COMPARISON: NONE HISTORY: Weakness TECHNIQUE: 2 views FINDINGS: Heart and mediastinum are normal. Lungs are clear. Diaphragm is normal. Bony thorax is inta ct. IMPRESSION: Normal chest. No change.
[2020-12-31 22:32] LABS: INR 1.2 (<1.2); Prothrombin Time 12.1 sec (9.0-12.0)
[2020-12-31 22:40] LABS: Anisocytosis Slight; Basophils % (A) 0 %; Eosinophils # (A) 0.1 k/uL (0-0.7); Eosinophils % (A) 1 %; HCT 32.7 % (39.0-53.0); HGB 10.4 gm/dL (13.0-17.5); Hypochromasia Slight; Lymphocytes % (A) 12 %; MCHC 31.9 g/dL (31.0-37.0); Mean Platelet Volume 8.4; Monocytes # (A) 0.7 k/uL (0-1.0); Monocytes % (A) 8 %; Neutrophils # (A) 6.2 k/uL (1.3-7.7); Neutrophils % (A) 77 %; Platelet Count 185 k/uL (150-450); RDW 17.8 % (11.5-15.5); WBC 8.1 k/uL (3.8-10.6)
[2020-12-31 23:52] LABS: Appearance,Urine Clear (Clear); Bilirubin,Urine Negative (Negative); Blood,Urine Negative (Negative); Color,Urine Yellow; Glucose,Urine (UA) Negative (Negative); Ketones,Urine Negative (Negative); Leukocyte Esterase,Urine Negative (Negative); Nitrite,Urine Negative (Negative); PH, Urine 5.5 (5.0-8.0); Protein,Urine Trace (Negative); Urobilinogen,Urine <2.0 mg/dL (<2.0)
[2021-01-01 00:53] VITALS: BP 104/67; PULSE 67; RESP 18
== END 2021-01-01 00:53 | disposition home or self-care (01) ==
LOC: EC 21:20
DX: R53.1 Weakness (principal); M25.561 Pain in right knee; E78.5 Hyperlipidemia, unspecified; I10 Essential (primary) hypertension; J44.9 Chronic obstructive pulmonary disease, unspecified; I25.2 Old myocardial infarction; M06.9 Rheumatoid arthritis, unspecified; F17.200 Nicotine dependence, unspecified, uncomplicated; Z79.51 Long term (current) use of inhaled steroids; Z79.899 Other long term (current) drug therapy; Z88.8 Allergy status to other drugs, medicaments and biological substances
CPT/HCPCS: 36415; 71046; 80053; 81003; 83735; 85025; 85610; 85730; 93005; 96360; 99285

== ENCOUNTER → 2021-01-23 | Outpatient (CLI) | payer OTHER ==
--- NOTE | 2021-01-23 10:19 | CTL ---
EXAMINATION TYPE: CT Low Dose Lung DATE OF EXAM ORDERED: 01/23/2021 COMPARISON: 05/29/2020 HISTORY: . Low Dose CT Lung Screening CT DLP: 64.[address] CTDI: 1.8 mGy IV CONTRAST USED: None. SCREENING VISIT: First visit COMPARISON: None. TECHNIQUE: Low dose computed tomography scan was performed through the chest at 1 millimeter thick se ctions and reconstructed images in the coronal plane at [address] DIAGNOSTIC QUALITY: Satisfactory FINDINGS: LUNG NODULES: Multiple new bilateral nodules are noted. Right lung: Right upper lobe 5.3 mm image 44 is new. Right upper lobe anteriorly 5.1 mm image 54 is new. 1.2 cm r ight upper lobe nodule adjacent to the aortic arch image 101 is new. Right upper lobe anteromedially 5.8 mm image 111 is also new. New pulmonary nodule 1 cm right lower lobe medially image 231. Right mi ddle lobe medial segment 6.5 mm image 238 is also new. Left lung: Pleural-based left apical nodules measuring 1.1 cm and 1.0 cm image 32 and 22. Cavitary mass left upp er lobe measuring 2.2 cm this is new. Nodule adjacent to the aortic arch 9 mm image 78 is also new. L eft upper lobe nodules medially measuring 1.2 cm 1.8 cm image 129. Peripheral nodule left upper lobe image 129 4.7 mm. Bilobed nodule adjacent to the left heart border left upper lobe measures 2 cm. Lef t lower lobe 5 mm image 235. Left lower lobe multiple nodules seen measuring 1.5 cm 1.2 cm 1.1 cm sydnie ge 247. LUNGS: COPD: Severity: Moderate Fibrosis: Severity: Mild Lymph nodes: None Other findings: None RIGHT PLEURAL SPACE: Effusion: None Calcification: None Thickening: None Pneumothorax: None LEFT PLEURAL SPACE: Effusion: None Calcification: None Thickening: None Pneumothorax: None HEART: Heart Size: Mildly enlarged Coronary calcification: Mild Pericardial effusion: None OTHER FINDINGS: Upper abdomen: Partially imaged upper abdominal ascites. Fixed hiatal hernia. Bony thorax: Degenerative changes Supraclavicular region: No significant abnormalityOther: No significant abnormalityI IMPRESSION: 1. Multiple bilateral pulmonary nodules most of which are new raises the suspicion for metastatic dis ease. Correlate clinically and PET/CT is recommended. Also recommend CT of the chest abdomen or pelvi s standard protocol. FOLLOW UP CT CHEST RECOMMENDATION: Immediate deposition follow-up CT LUNG RAD: LUNG RAD CATEGORY 4 X very suspicious
== END | disposition home or self-care (01) ==
LOC: RADCTMAIN 09:28
DX: R91.8 Other nonspecific abnormal finding of lung field (principal)
CPT/HCPCS: 71271

== ENCOUNTER 2021-03-08 23:30 | Inpatient (IN) | payer OTHER, MEDICARE ==
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
[2021-03-09 00:14] LABS: Anisocytosis Slight; Basophils % (A) 0 %; Eosinophils % (A) 0 %; HCT 28.3 % (39.0-53.0); HGB 8.9 gm/dL (13.0-17.5); Hypochromasia Slight; Lymphocytes # (A) 1.3 k/uL (1.0-4.8); Lymphocytes % (A) 12 %; MCH 31.5 pg (25.0-35.0); MCHC 31.5 g/dL (31.0-37.0); MCV 100.2 fL (80.0-100.0); Macrocytosis Slight; Mean Platelet Volume 7.7; Monocytes # (A) 0.5 k/uL (0-1.0); Monocytes % (A) 5 %; Neutrophils # (A) 8.6 k/uL (1.3-7.7); Neutrophils % (A) 81 %; Platelet Count 244 k/uL (150-450); RBC 2.83 m/uL (4.30-5.90); RDW 16.6 % (11.5-15.5); WBC 10.5 k/uL (3.8-10.6)
[2021-03-09 00:26] LABS: Albumin 2.7 g/dL (3.5-5.0); Calcium 8.9 mg/dL (8.4-10.2); Magnesium 1.7 mg/dL (1.6-2.3); Potassium 3.7 mmol/L (3.5-5.1); Total Bilirubin 0.7 mg/dL (0.2-1.3); Total Protein 5.7 g/dL (6.3-8.2)
[2021-03-09 00:33] LABS: INR 1.1 (<1.2); Partial Thromboplastin Time 26.4 sec (22.0-30.0); Prothrombin Time 11.2 sec (9.0-12.0)
--- NOTE | 2021-03-09 00:37 | XR ---
EXAMINATION TYPE: XR chest 2V DATE OF EXAM: 03/09/2021 COMPARISON: 12/31/2020 HISTORY: Weakness TECHNIQUE: 2 views FINDINGS: Heart and mediastinum are normal. Lungs are clear of infiltrate. There is no heart failure. There are chest leads. Costophrenic angles are clear. Bony thorax is intact. IMPRESSION: No active cardiopulmonary disease. Normal heart. No change.
[2021-03-09 01:56] LABS: Amorphous Sediment,Urine Occasional /hpf; Appearance,Urine Clear (Clear); Bilirubin,Urine Negative (Negative); Blood,Urine Negative (Negative); Color,Urine Yellow; Glucose,Urine (UA) Negative (Negative); Hyaline Casts,Urine 12 /lpf (0-2); Ketones,Urine Negative (Negative); Leukocyte Esterase,Urine Negative (Negative); Mucus,Urine Few /hpf; Nitrite,Urine Negative (Negative); PH, Urine 5.5 (5.0-8.0); Protein,Urine 1+ (Negative); RBC,Urine 1 /hpf (0-5); Specific Gravity,Urine 1.017 (1.001-1.035); Squamous Epithelial Cell,Urine <1 /hpf (0-4); Urobilinogen,Urine <2.0 mg/dL (<2.0); WBC,Urine 2 /hpf (0-5)
[2021-03-09] MEDS ORDERED: NALOXONE 0.4 MG/ML 1 ML VIAL IV PRN (02:35)
[2021-03-09] MEDS ORDERED: IPRATROPIUM-ALBUTEROL 3 ML NEB INHALATION PRN (02:36)
[2021-03-09] MEDS: IPRATROPIUM-ALBUTEROL 3 ML NEB INHALATION SCH ×4 (07:54→19:29)
[2021-03-09] MEDS ORDERED: NICOTINE GUM (POLACRILEX) 2 MG GUM BUCCAL PRN (09:00)
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
[2021-03-09] MEDS ORDERED: FUROSEMIDE 10 MG/ML 4 ML VIAL IV STA (10:19)
[2021-03-09 12:19] LABS: T4, Free (Free Thyroxine) 1.23 ng/dL (0.78-2.19)
[2021-03-09] MEDS: FAMOTIDINE 20 MG/2 ML VIAL IV SCH ×2 (13:38→21:27)
[2021-03-09] MEDS: methylPREDNISolone SOD SUCCI 40 MG/ML 1 ML VIAL IV SCH ×2 (13:38→18:48)
[2021-03-09] MEDS: HEPARIN SODIUM,PORCINE/PF 5,000 UNIT/0.5 ML SYRINGE SQ SCH ×3 (13:38→21:26)
[2021-03-09] MEDS: CAPSAICIN 0.025% CREAM 60 GM TUBE TOPICAL SCH ×3 (13:39→23:23)
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
[2021-03-09] MEDS: SYMBICORT 160-4.5 MCG INHALER INHALATION SCH (19:29)
[2021-03-09] MEDS: MORPHINE SULFATE 2 MG/ML SYRINGE IV PRN ×2 (21:27→21:36)
[2021-03-09] MEDS: ONDANSETRON 4 MG/2 ML VIAL IVP PRN (21:34)
[2021-03-09 21:55] LABS: C Reactive Protein 18.1 mg/dL (<1.0)
[2021-03-10] MEDS: methylPREDNISolone SOD SUCCI 40 MG/ML 1 ML VIAL IV SCH ×3 (00:04→16:41)
[2021-03-10 06:04] LABS: African American GFR (CKD) 74 (>60 ml/min/1.73 sqM); Anion Gap 5 mmol/L; Blood Urea Nitrogen 39 mg/dL (9-20); Calcium 8.8 mg/dL (8.4-10.2); Carbon Dioxide 26 mmol/L (22-30); Chloride 106 mmol/L (98-107); Glucose 129 mg/dL (74-99); Non-African American GFR(CKD) 64 (>60 ml/min/1.73 sqM); Potassium 5.3 mmol/L (3.5-5.1); Sodium 137 mmol/L (137-145)
[2021-03-10] MEDS: IPRATROPIUM-ALBUTEROL 3 ML NEB INHALATION SCH ×4 (07:36→19:44)
[2021-03-10] MEDS: SYMBICORT 160-4.5 MCG INHALER INHALATION SCH ×2 (07:36→19:44)
[2021-03-10 09:01] LABS: Basophils # (A) 0.01 X 10*3/uL (0.00-0.10); Basophils % (A) 0.1 %; Eosinophils # (A) 0 X 10*3/uL (0.04-0.35); Eosinophils % (A) 0 %; HCT 27.3 % (39.6-50.0); HGB 7.9 g/dL (13.0-17.0); Lymphocytes # (A) 0.41 X 10*3/uL (0.90-5.00); Lymphocytes % (A) 3.8 %; MCH 29.3 pg (27.0-32.0); MCHC 28.9 g/dL (32.0-37.0); MCV 101.1 fL (80.0-97.0); Mean Platelet Volume 10.7 fL (9.5-12.2); Monocytes # (A) 0.19 X 10*3/uL (0.20-1.00); Monocytes % (A) 1.8 %; Neutrophils # (A) 10.15 X 10*3/uL (1.80-7.70); Neutrophils % (A) 93.7 %; Platelet Count 287 X 10*3/uL (140-440); RDW 17.2 % (11.5-14.5); WBC 10.82 X 10*3/uL (4.50-10.00)
[2021-03-10] MEDS: HEPARIN SODIUM,PORCINE/PF 5,000 UNIT/0.5 ML SYRINGE SQ SCH ×2 (10:10→20:51)
[2021-03-10] MEDS: FAMOTIDINE 20 MG/2 ML VIAL IV SCH ×2 (10:10→20:51)
[2021-03-10] MEDS: CAPSAICIN 0.025% CREAM 60 GM TUBE TOPICAL SCH ×3 (10:11→20:52)
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
[2021-03-10] MEDS ORDERED: AMOXIC-POT CLAV 875-125MG 1 EACH TAB PO SCH (14:15)
--- NOTE | 2021-03-10 14:58 | MR ---
EXAMINATION TYPE: MR lumbar spine wo/w con DATE OF EXAM: 03/10/2021 COMPARISON: HISTORY: BLE weakness CONTRAST: 6 mL intravenous Gadavist. TECHNIQUE: Multiplanar, multisequence images of the lumbar spine were acquired. FINDINGS: L5-S1: There is central disc bulging with [id number] anterior thecal sac impression. No AP spin al canal stenosis present. Facet hypertrophy and ligamentum flavum laxity are contributing to posteri or-lateral thecal sac impression. Moderate bilateral foraminal narrowing is present. L4-L5: Mild disc bulge has anterior thecal sac flattening. No AP spinal canal stenosis is present. Mi ld bilateral foraminal narrowing is present. L3-L4: Mild disc bulge has mild anterior thecal sac flattening. Facet hypertrophy is present. No spin al canal stenosis present. Moderate bilateral foraminal narrowing from disc bulging is present. No sp inal canal stenosis present. Diffuse narrowing is present and is normal. L2-L3: Disc bulging is present previously greater than left paracentral region. Correlate with left L 3 radicular symptoms. Moderate bilateral foraminal narrowing is present, greater on the left. L1-L2: No significant disc bulge or disc herniation. No spinal canal stenosis. No foraminal stenosi s. T12-L1: No significant disc bulge or disc herniation. No spinal canal stenosis. No foraminal stenos is. No abnormal enhancement. IMPRESSION: 1. Disc bulging L2-3 through L5-S1. This appears slightly greater in the left paracentral region at L 2-3 2. Multilevel foraminal stenosis due to disc bulging
--- NOTE | 2021-03-10 15:29 | P.PN ---
Subjective Progress Note Date: 03/10/21 I am seeing the patient for the first time for neurological management. Please refer to Dr. Crow for further details. Patient stated that his symptoms began in October 2019 and he had weakness starting in the legs and he said that started entire bilateral legs and he stated that he denied that started in the distal to proximal. He stated that that he feels his lower and upper extremity are weak and getting worse. He denies any numbness and tingling to his knowledge. He denies any visual disturbance or difficulty getting his words out. He denies any diplopia. He stated that he rarely has choking episodes to liquids and the he could not give me a time frame. He said that sometimes she'll have bowel incontinence from time to time. He denies any rash that he recalls prior to this. Upon asking him about previous workup he stated that he does not recall about his previous ago. He had an injury to his left ankle he stated that in and he was told that was a sprain but it never healed up. He has a severe arthritis for the last 20 years. She stated that he has based neck pain and denies any radiation and he said it's moderate in severity and he has lower posterior neck pain and denies any radiation as well. Per the patient he stated that he's feeling somewhat better today compared to yesterday. Per the patient's nursing staff, they feel patient is doing better today compared to yesterday and is eating without difficulty. Objective - Vital Signs Vital signs: Vital Signs Temp 97.5 F L 03/10/21 07:00 Pulse 74 03/10/21 11:38 Resp 18 03/10/21 08:00 BP 104/52 03/10/21 07:00 Pulse Ox 99 03/10/21 07:00 Intake & Output 03/09/21 03/10/21 03/10/21 18:59 06:59 18:59 Intake Total 300 200 Output Total 100 150 Balance 200 50 Weight 66 kg Intake: Oral 300 200 Output: Urine 100 150 Other: Voiding Method Bedside Commode Bedside Commode # Voids 1 1 # Bowel Movements 1 - Exam Gen.: The patient is reclining on the gurney in the emergency department. He is in no acute distress. The patient is cachectic. HEENT: Head is atraumatic, normocephalic. Extremities: There is evidence of swelling of the joints of the hands consistent with patient's diagnosis of rheumatoid arthritis. 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 In addition, there is diffuse muscle atrophy. Neurological examination Mental status: The patient is awake, alert and oriented to self place and time. His speech is clear. The patient answers all questions appropriately. There is no aphasia or neglect. Cranial nerves: Pupils are equal, round and reactive to light. Visual heredia are full to confrontation. Extraocular movement intact. There is no nystagmus. Facial sensation is intact. There is no facial asymmetry. Hearing is grossly intact. Uvula and palate are midline. Shoulder shrug is symmetric. Tongue protrudes midline and move side to side without difficulty. Motor: Gait is deferred. The patient is unable to raise his arms over his head. Left forarm extension is 3-4, while right is 4. Otherwise 4+ throughout upper extremities including hand manager shell. Hip extensors/flexors are 4+ bilaterally, knee is 4 bilaterally and ankles are 4+ bilaterally. There is no evidence of fasciculations. There is diffuse muscle atrophy of the extremities, more profound, proximally. Sensation: Grossly intact to light touch throughout. There is no extinction with double simultaneous stimulation. With pinprick it was inconsistent and at time he stated he had decrease sensation from distal ankle to tip of toes and at times was normal throughout. Coordination: Finger to nose and rapid alternating movements are intact. Deep tendon reflexes: 1+ throughout except ankles are 0 bilaterally. Plantar responses is mute bilaterally. WORK-UP: ESR of 70. CRP is 18.1. TSH is 11.2 and the repeated is 11.40 but the free T4 is 1.23. CK level is 224 which is slightly elevated but not too significant AST of 24 ALT of 15 Calcium is 8.9 magnesium is 1.7 Payan virus PCR was not detected Chest x-rays reported as no active cardiopulmonary disease. Normal heart. No change. - Labs CBC & Chem 7: 03/10/21 05:12 03/10/21 05:12 Labs: Abnormal Lab Results - Last 24 Hours (Table) 03/09/21 03/09/21 03/09/21 Range/Units 10:53 10:53 10:53 WBC (4.50-10.00) X 10*3/uL RBC (4.40-5.60) X 10*6/uL Hgb (13.0-17.0) g/dL Hct (39.6-50.0) % MCV (80.0-97.0) fL MCHC (32.0-37.0) g/dL RDW (11.5-14.5) % Immature Gran # (0.00-0.04) X 10*3/uL Neutrophils # (1.80-7.70) X 10*3/uL Lymphocytes # (0.90-5.00) X 10*3/uL Monocytes # (0.20-1.00) X 10*3/uL Eosinophils # (0.04-0.35) X 10*3/uL ESR 70 H (0-20) mm/Hr Potassium (3.5-5.1) mmol/L BUN (9-20) mg/dL Glucose (74-99) mg/dL C-Reactive Protein 18.1 H (<1.0) mg/dL Procalcitonin 0.79 H (0.02-0.09) ng/mL TSH 11.400 H (0.465-4.680) mIU/L 03/10/21 03/10/21 Range/Units 05:12 05:12 WBC 10.82 H (4.50-10.00) X 10*3/uL RBC 2.70 L (4.40-5.60) X 10*6/uL Hgb 7.9 L (13.0-17.0) g/dL Hct 27.3 L (39.6-50.0) % MCV 101.1 H (80.0-97.0) fL MCHC 28.9 L (32.0-37.0) g/dL RDW 17.2 H (11.5-14.5) % Immature Gran # 0.06 H (0.00-0.04) X 10*3/uL Neutrophils # 10.15 H (1.80-7.70) X 10*3/uL Lymphocytes # 0.41 L (0.90-5.00) X 10*3/uL Monocytes # 0.19 L (0.20-1.00) X 10*3/uL Eosinophils # 0 L (0.04-0.35) X 10*3/uL ESR (0-20) mm/Hr Potassium 5.3 H (3.5-5.1) mmol/L BUN 39 H (9-20) mg/dL Glucose 129 H (74-99) mg/dL C-Reactive Protein (<1.0) mg/dL Procalcitonin (0.02-0.09) ng/mL TSH (0.465-4.680) mIU/L Assessment and Plan Assessment: * Quadraparesis, that is progressive since 05/2019. Inability to stand or ambulate. Unsure exact cause. No clear sensory loss. Rule out myopathic process. * No clinical evidence of myelopathy or central nervous system involvement * Acute exacerbation of chronic obstructive pulmonary disease * History of rheumatoid arthritis * Previous myocardial infarction * History of coronary artery disease with previous stenting * Chronic kidney disease * Hypothyroidism * Chronic pain syndrome * Chronic and ongoing history of the continues smokes 1-1/2 packs daily and he smoked 3 packs per day for over 50 years Plan: DEMETRI, Ayden level as well as MRI of the lumbar spine that was ordered by Dr. Crow are pending. I ordered LDH, aldolase, SSA and SSB antibody, HIV antibody, HbA1c. Recommend EMG with nerve conduction study of both upper and lower bas soon as possible and we do not provide this in our facility so this can be done as an outpatient especially this has been going on since May 2019. Recommend muscle biopsy and this cannot be done as an inpatient therefore this has to be done as an outpatient. Will consider getting MRI Cervical spine and Thoracic spine. Physical therapy and occupation therapy are consulted. Pulmonary team is on board and they start the patient on IV Solu-Medrol because of acute COPD exacerbation. We'll defer the rest of the medical management to the primary team. Upon discharge the patient the needs to follow-up with a neurologist within a week. The patient will benefit from rehab. The plan is discussed with the patient and his nurse in length. Thiago Reaves M.D. Neuro-hospitalist Time with Patient: Greater than 30
[2021-03-11] MEDS: AMOXIC-POT CLAV 875-125MG 1 EACH TAB PO SCH ×3 (00:09→19:42)
[2021-03-11] MEDS: methylPREDNISolone SOD SUCCI 40 MG/ML 1 ML VIAL IV SCH ×4 (00:09→23:32)
[2021-03-11] MEDS: SYMBICORT 160-4.5 MCG INHALER INHALATION SCH ×2 (08:10→19:53)
[2021-03-11] MEDS: IPRATROPIUM-ALBUTEROL 3 ML NEB INHALATION SCH ×4 (08:10→19:53)
[2021-03-11] MEDS: HEPARIN SODIUM,PORCINE/PF 5,000 UNIT/0.5 ML SYRINGE SQ SCH ×2 (09:41→19:41)
[2021-03-11] MEDS: FAMOTIDINE 20 MG/2 ML VIAL IV SCH (09:41)
[2021-03-11] MEDS: CAPSAICIN 0.025% CREAM 60 GM TUBE TOPICAL SCH ×3 (09:42→19:42)
--- NOTE | 2021-03-11 09:44 | P.PN ---
Subjective Progress Note Date: 03/10/21 This is a pleasant 70 years old male with past medical history of COPD, Hyperlipidemia, Hypertension, Myocardial Infarction ([place]), Osteoarthritis (OA), Rheumatoid Arthritis . He follows up with [facility] in the [place] and his pbx technician is Dr. Humphries. Because of inability to walk for 2 days. Says that he started getting leg weakness since May last year, he usually uses a walker to walk but over the last 2 days he was unable to use the walker even. He can not raise his legs off the bed however he can bend his knee Also is complaining of from increasing shortness of breath with cough, his cough is weak and cannot bring up phlegm. No chest pain. No back pain. No leg pain. Except his knees. No diarrhea or vomiting. No urinary complaints Patient presents complaining from weakness for 2 days with audible wheezing and shortness of breath CBC showed mild anemia with hemoglobin of 8.9. Patient has chronic anemia. INR, BMP and liver enzymes are unremarkable. Urine analysis showing 1+ protein, no WBC increased Coronavirus not detected. EKG showing normal sinus rhythm at 70 bpm with no significant ST-T changes and QTC of 390. Chest x-ray: No acute process In the emergency room her got breathing treatment and morphine 03/10/2021 Patient is seen and evaluated and follow-up this morning continues to be weak and will have PT/OT therapy evaluate the patient. Patient was seen and eval uated by neurology recommending muscle biopsy although this will be done in the outpatient setting as this is not performed here. Patient's white blood count is 10.82, hemoglobin is 7.9, sodium is 137 with a potassium of 5.3 and current creatinine is 1.14. Patient also evaluated by pulmonary for acute exacerbation of COPD and patient is a continued ongoing nicotine user. Patient is maintained on IV steroids along with breathing inhalational treatments and will be given a dose of IV Lasix. Patient started on Augmentin and will continue to monitor closely. Review of systems: Constitutional: reports of fatigue, no reports of fever, or chills Cardiovascular: No reports of chest pain or palpitations Respiratory: No reports of worsening shortness of breath GI: No reports of nausea, vomiting, or diarrhea : No reports of dysuria or retention Neurovascular: Reports generalized weakness All medications have been reviewed Active Medications Albuterol/Ipratropium (Ipratropium-Albuterol 3 Ml Neb) 3 ml INHALATION RT-QID PRN PRN Reason: Shortness Of Breath Or Wheezing Albuterol/Ipratropium (Ipratropium-Albuterol 3 Ml Neb) 3 ml INHALATION RT-QID [facility] Last Admin: 03/10/21 15:19 Dose: Not Given Documented by: Amoxicillin/Clavulanate Potassium (Amoxic-Pot Clav 875-125mg 1 Each Tab) 1 each PO Q12HR [facility] Last Admin: 03/10/21 16:41 Dose: 1 each Documented by: Budesonide/Formoterol Fumarate (Symbicort 160-4.5 Mcg Inhaler) 2 puff INHALATION RT-BID [facility] Last Admin: 03/10/21 07:36 Dose: 2 puff Documented by: Capsaicin (Capsaicin 0.025% Cream 60 Gm Tube) 1 applic TOPICAL TID [facility]; Protocol Last Admin: 03/10/21 16:41 Dose: 1 applic Documented by: Famotidine (Famotidine 20 Mg/2 Ml Vial) 20 mg IV Q12HR [facility] Last Admin: 03/10/21 10:10 Dose: 20 mg Documented by: Heparin Sodium (Porcine) (Heparin Sodium,Porcine/Pf 5,000 Unit/0.5 Ml Syringe) 5,000 unit SQ Q12HR [facility] Last Admin: 03/10/21 10:10 Dose: 5,000 unit Documented by: Methylprednisolone Sodium Succinate (Methylprednisolone Sod Succi 40 Mg/Ml 1 Ml Vial) 40 mg IV Q8HR [facility] Last Admin: 03/10/21 16:41 Dose: 40 mg Documented by: Morphine Sulfate (Morphine Sulfate 2 Mg/Ml Syringe) 2 mg IV Q4HR PRN PRN Reason: Severe Pain Last Admin: 03/09/21 21:36 Dose: 1 mg Documented by: Naloxone HCl (Naloxone 0.4 Mg/Ml 1 Ml Vial) 0.2 mg IV Q2M PRN PRN Reason: Opioid Reversal Nicotine Polacrilex (Nicotine Gum (Polacrilex) 2 Mg Gum) 2 mg BUCCAL Q4HR PRN PRN Reason: Nicotine Cravings Ondansetron HCl (Ondansetron 4 Mg/2 Ml Vial) 4 mg IVP Q8HR PRN PRN Reason: Nausea And Vomiting Last Admin: 03/09/21 21:34 Dose: 4 mg Documented by: Physical exam: GENERAL: The patient is alert and oriented x3, not in any acute distress. Well developed, well nourished. HEENT: Pupils are round and equally reacting to light. EOMI. No scleral icterus. No conjunctival pallor. Normocephalic, atraumatic. No pharyngeal erythema. No thyromegaly. CARDIOVASCULAR: S1 and S2 present. No murmurs, rubs, or gallops. -PULMONARY: Chest is clear to auscultation, no bilateral expiratory wheezing, bilateral coarse rhonchi noted ABDOMEN: Soft, nontender, nondistended, normoactive bowel sounds. No palpable organomegaly. MUSCULOSKELETAL: No joint swelling or deformity. EXTREMITIES: No cyanosis, clubbing, or pedal edema. -NEUROLOGICAL: Cranial nerves are grossly intact. Bilateral leg weakness of the thighs and less extensive ankles. SKIN: No rashes. No petechiae Assessment: Bilateral lower extremity weakness, looks symmetrical although patient complains of more on the left side. 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 Rule out neurological causes COPD with acute exacerbation Hypertension Hyperlipidemia Osteoarthritis History of rheumatoid arthritis continued ongoing nicotine dependence GI prophylaxis DVT prophylaxis Full code Plan: This is a pleasant 70 years old male who presents with difficulty walking secondary to bilateral leg weakness and COPD exacerbation patient continues on IV steroids, Symbicort and breathing inhalational treatments Hold statin, check CPK and thyroid function test.neurology evaluated the patient recommending outpatient follow-up and possible muscle biopsy which is not done here and will need outpatient topical capsacin to knees Labs and medication were reviewed.. Continue same treatment. Continue with symptomatic treatment. Further recommendations depends on the clinical course of the patient PT/OT: Pending Prognosis is guarded Objective - Vital Signs Vital signs: Vital Signs Temp 97.5 F L 03/10/21 07:00 Pulse 67 03/10/21 07:47 Resp 18 03/10/21 07:00 BP 104/52 03/10/21 07:00 Pulse Ox 99 03/10/21 07:00 Intake & Output 03/09/21 03/10/21 03/10/21 18:59 06:59 18:59 Intake Total 300 200 Output Total 100 150 Balance 200 50 Weight 66 kg Intake: Oral 300 200 Output: Urine 100 150 Other: Voiding Method Bedside Commode # Voids 1 1 # Bowel Movements 1 - Labs CBC & Chem 7: 03/10/21 05:12 03/10/21 05:12 Labs: Abnormal Lab Results - Last 24 Hours (Table) 03/09/21 03/09/21 03/09/21 Range/Units 00:01 10:53 10:53 WBC (4.50-10.00) X 10*3/uL RBC (4.40-5.60) X 10*6/uL Hgb (13.0-17.0) g/dL Hct (39.6-50.0) % MCV (80.0-97.0) fL MCHC (32.0-37.0) g/dL RDW (11.5-14.5) % Immature Gran # (0.00-0.04) X 10*3/uL Neutrophils # (1.80-7.70) X 10*3/uL Lymphocytes # (0.90-5.00) X 10*3/uL Monocytes # (0.20-1.00) X 10*3/uL Eosinophils # (0.04-0.35) X 10*3/uL ESR (0-20) mm/Hr Potassium (3.5-5.1) mmol/L BUN (9-20) mg/dL Glucose (74-99) mg/dL Creatine Kinase 224 H (55-170) U/L C-Reactive Protein 18.1 H (<1.0) mg/dL Procalcitonin 0.79 H (0.02-0.09) ng/mL TSH 11.200 H 11.400 H (0.465-4.680) mIU/L 03/09/21 03/10/21 03/10/21 Range/Units 10:53 05:12 05:12 WBC 10.82 H (4.50-10.00) X 10*3/uL RBC 2.70 L (4.40-5.60) X 10*6/uL Hgb 7.9 L (13.0-17.0) g/dL Hct 27.3 L (39.6-50.0) % MCV 101.1 H (80.0-97.0) fL MCHC 28.9 L (32.0-37.0) g/dL RDW 17.2 H (11.5-14.5) % Immature Gran # 0.06 H (0.00-0.04) X 10*3/uL Neutrophils # 10.15 H (1.80-7.70) X 10*3/uL Lymphocytes # 0.41 L (0.90-5.00) X 10*3/uL Monocytes # 0.19 L (0.20-1.00) X 10*3/uL Eosinophils # 0 L (0.04-0.35) X 10*3/uL ESR 70 H (0-20) mm/Hr Potassium 5.3 H (3.5-5.1) mmol/L BUN 39 H (9-20) mg/dL Glucose 129 H (74-99) mg/dL Creatine Kinase (55-170) U/L C-Reactive Protein (<1.0) mg/dL Procalcitonin (0.02-0.09) ng/mL TSH (0.465-4.680) mIU/L
--- NOTE | 2021-03-11 12:29 | P.PN ---
Subjective Progress Note Date: 03/11/21 The patient seen at bedside and he feels slightly better today compared to yesterday. He denies any worsening of his weakness or any neurological deficits. Objective - Vital Signs Vital signs: Vital Signs Temp 97.6 F 03/11/21 08:36 Pulse 60 03/11/21 11:59 Resp 19 03/11/21 08:36 BP 127/79 03/11/21 08:36 Pulse Ox 94 L 03/11/21 08:36 Intake & Output 03/10/21 03/11/21 03/11/21 18:59 06:59 18:59 Intake Total 1216 Output Total 150 100 Balance 1066 -100 Weight 66 kg Intake: Oral 1216 Output: Urine 150 100 Other: Voiding Method Bedside Commode Bedside Commode Bedside Commode Diaper Urinal Urinal # Voids 2 2 # Bowel Movements 1 1 - Exam Gen.: The patient is reclining on the gurney in the emergency department. He is in no acute distress. The patient is cachectic. HEENT: Head is atraumatic, normocephalic. Extremities: There is evidence of swelling of the joints of the hands consistent with patient's diagnosis of rheumatoid arthritis. 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 In addition, there is diffuse muscle atrophy. Neurological examination Mental status: The patient is awake, alert and oriented to self place and time. His speech is clear. The patient answers all questions appropriately. There is no aphasia or neglect. Cranial nerves: Pupils are equal, round and reactive to light. Visual heredia are full to confrontation. Extraocular movement intact. There is no nystagmus. Facial sensation is intact. There is no facial asymmetry. Hearing is grossly intact. Uvula and palate are midline. Shoulder shrug is symmetric. Tongue protrudes midline and move side to side without difficulty. Motor: Gait is deferred. Strength: the patient is unable to raise his arms over his head; Shoulder flexion is 3-4 bilaterally while flexion is 4. Left forarm extension is 3-4, while right is 4. Forearm flexion is 4+ over right and 4 over left. Left hand home specialist is 4+ to 5-. Hip flexors/extensor are 4+ to 5-; knee extension is 3-4 over right and 4- over left; ankle dorsiflexion and flexion are 4 bilaterally. There is no evidence of fasciculations. There is diffuse m uscle atrophy of the extremities, more profound, proximally. Sensation: Grossly intact to light touch throughout. There is no extinction with double simultaneous stimulation. With pinprick it was inconsistent and at time he stated he had decrease sensation from distal ankle to tip of toes and at times was normal throughout. Coordination: Finger to nose and rapid alternating movements are intact. Deep tendon reflexes: Trceps R 1-2, left 0-1, biceps 0-1 bilaterally, brachioradialis 0-1, patellar right 1+ while left 0-1+ and ankles are 0 bilaterally. Plantar responses is mute bilaterally. WORK-UP: ESR of 70. CRP is 18.1. TSH is 11.2 and the repeated is 11.40 but the free T4 is 1.23. CK level is 224 which is slightly elevated but not too significant DEMETRI is negative LDH is 405. AST of 24 ALT of 15 Calcium is 8.9 magnesium is 1.7 Payan virus PCR was not detected Chest x-rays reported as no active cardiopulmonary disease. Normal heart. No change. MRI of the lumbar spine with and without gadolinium is reported as disc bulging over the L2-L3 through L5-S1. This appears only greater in the left paracentral region at L2-L3. Multilevel foraminal stenosis due to disc bulging. In the body report it is reported as disc bulging is present previously greater than left paracentral region. Correlate with left L3 radicular symptoms. Moderate bilateral former no narrowing is present greater on the left at. Over L3-L4 shows a mild disc bulge and moderate bilateral former narrowing. There is also mild disc bulge and that at L4-L5 and mild bilateral foraminal narrowing present at. Over L5-S1 is reported as mild to moderate anterior thecal sac impression. Moderate bilateral foraminal narrowing is present. - Labs CBC & Chem 7: 03/10/21 05:12 03/10/21 05:12 Assessment and Plan Assessment: * Quadraparesis, that is progressive since 05/2019 with muscle atrophy and hyporeflexia to areflexia. Inability to stand or ambulate. Unsure exact cause. No clear sensory loss. No clinical evidence of myelopathy or central nervous system involvement * Lumbosacral spondylosis without myelopathy (that is mild to moderate in degree over L3-S1) * Acute exacerbation of chronic obstructive pulmonary disease * History of rheumatoid arthritis * Previous myocardial infarction * History of coronary artery disease with previous stenting * Chronic kidney disease * Hypothyroidism * Chronic pain syndrome * Chronic and ongoing history of the continues smokes 1-1/2 packs daily and he smoked 3 packs per day for over 50 years Plan: * Ordered MRI of the cervical thoracic spine and is pending * Pending aldolase, SSA and SSB antibody, HIV antibody, HbA1c. Ordered Vitamin B12 and folate level. * Recommend EMG with nerve conduction study of both upper and lower bas soon as possible and we do not provide this in our facility so this can be done as an outpatient especially this has been going on since May 2019. * Recommend muscle biopsy and this cannot be done as an inpatient therefore this has to be done as an outpatient. * Physical therapy and occupation therapy are consulted. * Pulmonary team is on board and they start the patient on IV Solu-Medrol because of acute COPD exacerbation. * We'll defer the rest of the medical management to the primary team. * Upon discharge the patient the needs to follow-up with a neurologist within a week. * The patient will benefit from rehab. The plan is discussed with the patient and his nurse in length. Thiago Reaves M.D. Neuro-hospitalist Time with Patient: Less than 30
--- NOTE | 2021-03-11 12:31 | P.PN ---
Subjective Progress Note Date: 03/11/21 Principal diagnosis: Shortness of breath. 70-year-old white male patient with past medical history of COPD, not oxygen dependent at baseline, chronic and ongoing history of smoking, still smoking about one half packs per day, hypertension, previous history of myocardial infarction, osteoarthritis, rheumatoid arthritis. Patient follows with [facility], and sees Dr. Humphries in the pulmonary clinic. He presented to the emergency department on 03/08/2021 with complaints of weakness, he was unable to walk for two days prior to presentation. Usually uses a walker, however in the last few days has been unable to walk with a walker. He was having increased shortness of breath, cough, wheezing, he is not able to bring up any phlegm. No fever, no complaints of chest pain, no hemoptysis, no nausea vomiting or diarrhea, his chest x-ray on admission showed no active cardiopulmonary disease. EKG showed normal sinus rhythm with evidence of anteroseptal infarct of undetermined age. he tested negative for COVID-19. Patient has been afebrile while in the hospital. Currently on 3 L of oxygen, pulse ox of 97%, vital signs have been stable. Admission blood work showed a white blood cell count of 10.5, hemoglobin of 8 point, platelet count is 244, sodium was 137 potassium 3.7, chloride is 108, B1 is 26, creatinine is 1.02, LFTs were within normal limits, lactic acid was 1.0, proBNP was 2770, troponin was less than 0.012, TSH was elevated at 11.2 and free T4 was 1.23, CRP was elevated at 8.1, and ESR was 70, urinalysis showed 1+ protein, no definite ev idence of infection. Patient was started on IV steroids, he was given a dose of Lasix yesterday, he was placed on DuoNeb, Symbicort. Progress note dated 03/11/2021. 70-year-old smoker, who we saw yesterday in consultation, for shortness of breath. We diagnosed him with acute exacerbation of COPD. Currently, the patient is still short of breath. Still coughing and wheezing. Does feel better. Denies any fever or chills. Denies any chest pain or chest discomfort. He is currently not wearing any oxygen. No new labs today. Lumbar spine MRI from yesterday shows disc bulging L2/L3, through L5/S1. There is multilevel foraminal stenosis noted. Objective - Vital Signs Vital signs: Vital Signs Temp 97.6 F 03/11/21 08:36 Pulse 60 03/11/21 12:15 Resp 19 03/11/21 08:36 BP 127/79 03/11/21 08:36 Pulse Ox 94 L 03/11/21 08:36 Intake & Output 03/10/21 03/11/21 03/11/21 18:59 06:59 18:59 Intake Total 1216 Output Total 150 100 Balance 1066 -100 Weight 66 kg Intake: Oral 1216 Output: Urine 150 100 Other: Voiding Method Bedside Commode Bedside Commode Bedside Commode Diaper Urinal Urinal # Voids 2 2 # Bowel Movements 1 1 - Exam No acute distress, oriented 3. No conversational dyspnea or use of accessory muscles. HEENT examination is grossly unremarkable. Neck supple. Full range of motion. No adenopathy thyromegaly or neck vein distention. Cardiovascular examination reveals regular rhythm rate. S1-S2 normal. No S3 or S4. No discernible murmur noted. Heart sounds are distant. Heart rate 60 bpm. Lungs reveal coarse bilateral expiratory rhonchi and expiratory wheezes. Breath sounds are equal bilaterally but diminished throughout. There are no crackles. There is prolongation on forced maneuver. Breath sounds today are slightly improved compared to yesterday. Abdomen soft bowel sounds are heard. No masses or tenderness. Extremities are intact. No cyanosis clubbing or edema. Skin is without rash or lesion. Neurologic examination is brief but nonfocal. - Labs CBC & Chem 7: 03/10/21 05:12 03/10/21 05:12 Assessment and Plan Assessment: #1. Acute exacerbation of chronic obstructive pulmonary disease, chest x-ray showed no acute cardiopulmonary process, COVID-19 PCR was negative. #2. Weakness, inability to walk, lower extremity paresthesias, and loss of bowel and bladder function, neurology is following, MRI of the lumbar spine, EMG, muscle biopsy, and labs are pending. #3. Chronic and ongoing history of smoking, currently smoking one and a half packs daily, used to smoke to 3 packs per day for over 50 years. #4. History of COPD, was on oxygen in the past, he states currently he is not on oxygen on a regular basis, his baseline FEV1 is 35% of predicted, stage III COPD, follows with Dr. Turcios in the pulmonary clinic. #5. History of rheumatoid arthritis on leflunomide. #6. Hypertension. #7. Hyperlipidemia. #8. Previous history of myocardial infarction. #9. History of coronary artery disease with previous stenting. #10. History of increased weakness, gait dysfunction, falls at home. Usually ambulates with a walker. #11. Chronic kidney disease stage III. #12. Hypothyroidism. #13. Chronic pain syndrome. Plan: Plan dated 03/11/2021. From the pulmonary standpoint, the patient is doing better. The patient was placed on Augmentin, Symbicort, an albuterol sulfate mixed with ipratropium bromide, 4 times a day and when necessary. In addition, the patient is on Solu- Medrol, 40 mg IV push every 8 hours. The patient is currently being evaluated by neurology for his lower extremity weakness and lack of coordination. We will continue to follow and make recommendations where appropriate. The patient is counseled about the importance of smoking cessation. He continues to smoke a pack and a half of cigarettes a day. Prognosis is guarded. Time with Patient: Less than 30
--- NOTE | 2021-03-11 15:26 | MR ---
EXAMINATION TYPE: MR cspine/tspine wo/w con DATE OF EXAM: 03/11/2021 COMPARISON: T2 spinal survey 08/04/2010, MR lumbar spine 03/10/2021 HISTORY: Weakness upper and lower TECHNIQUE: Multiplanar, multisequence images of the cervical and thoracic spine is performed without and with IV contrast, utilizing 6 mL intravenous Gadavist FINDINGS: Artifact is present. Cervical spine MRI: There is motion on exam. Cervical vertebral bodies show preserved height and alig nment. There is spondylosis at multiple levels with endplate discogenic marrow signal change, loss of disc height signal is greatest at C4-5, C6-7. Difficult to exclude cord signal change due to the exa m. No abnormal enhancement following contrast administration. C2-3: Unremarkable C3-4: There is a posterior broad-based disc bulge present. There is contact the anterior cervical cor d, mild spinal stenosis. Uncovertebral joint hypertrophy and facet arthropathy results in some forami nal encroachment bilaterally. C4-5: Posterior extension endplate disc complex results in moderate spinal stenosis. There is bilater al foraminal encroachment present due to uncovertebral joint hypertrophy and facet arthropathy. C5-6: Posterior extension endplate disc complex results in some mild anterior mass effect on the thec al sac. There is foraminal encroachment right greater than left due to uncovertebral joint hypertroph y and facet arthropathy. C6-7: Posterior extension endplate disc complex causes mild anterior mass effect on the thecal sac. U ncovertebral joint hypertrophy and facet arthropathy results in right-sided foraminal encroachment gr eater than left. C7-T1: Within normal limits. IMPRESSION: Multilevel spinal stenosis, significant foraminal encroachment, degenerative disc disease as described. Thoracic spine MRI: Correlation to CT chest dated 01/23/2021 Thoracic vertebral bodies show preserved height and alignment. There is multilevel Schmorl's node formation, loss of disc height signal at int ervertebral levels consistent with disc desiccation and disc disease. No significant spinal stenosis or foraminal encroachment. Multilevel small posterior disc bulge formation is noted at C3-4, C5-6, T7 -8, T8-9. Facet arthropathy changes are present at the lower thoracic spine. Thoracic cord signal is thought to be maintained. No abnormal enhancement following contrast administration. Upper lobes posteriorly shows some subpleural nodularity as noted on prior high-resolution chest CT. IMPRESSION: Multilevel degenerative disc disease without significant spinal stenosis. Additional find ings above.
[2021-03-11] MEDS: MORPHINE SULFATE 2 MG/ML SYRINGE IV PRN (16:30)
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
[2021-03-11] MEDS: FAMOTIDINE 20 MG TAB PO SCH (19:41)
--- NOTE | 2021-03-11 23:02 | P.PN ---
Subjective Progress Note Date: 03/11/21 This is a pleasant 70 years old male with past medical history of COPD, Hyperlipidemia, Hypertension, Myocardial Infarction ([place]), Osteoarthritis (OA), Rheumatoid Arthritis . 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 Humphries. Because of inability to walk for 2 days. Says that he started getting leg weakness since May last year, he usually uses a walker to walk but over the last 2 days he was unable to use the walker even. He can not raise his legs off the bed however he can bend his knee Also is complaining of from increasing shortness of breath with cough, his cough is weak and cannot bring up phlegm. No chest pain. No back pain. No leg pain. Except his knees. No diarrhea or vomiting. No urinary complaints Patient presents complaining from weakness for 2 days with audible wheezing and shortness of breath CBC showed mild anemia with hemoglobin of 8.9. Patient has chronic anemia. INR, BMP and liver enzymes are unremarkable. Urine analysis showing 1+ protein, no WBC increased Coronavirus not detected. EKG showing normal sinus rhythm at 70 bpm with no significant [address]-T changes and QTC of 390. Chest x-ray: No acute process In the emergency room her got breathing treatment and morphine 03/10/2021 Patient is seen and evaluated and follow-up this morning continues to be weak and will have PT/OT therapy evaluate the patient. Patient was seen and eval uated by neurology recommending muscle biopsy although this will be done in the outpatient setting as this is not performed here. Patient's white blood count is 10.82, hemoglobin is 7.9, sodium is 137 with a potassium of 5.3 and current creatinine is 1.14. Patient also evaluated by pulmonary for acute exacerbation of COPD and patient is a continued ongoing nicotine user. Patient is maintained on IV steroids along with breathing inhalational treatments and will be given a dose of IV Lasix. Patient started on Augmentin and will continue to monitor closely. 03/11/2021 Patient is seen in follow up today and awaiting MRI of the c/t/ls spine. Patient continues to be weak and PT/OT following. Neurology following closely as well. Pulmonary following as well for COPD and continued on IV steroids along with bronchodilators and will continue. Denies any worsening shortness of breath. Patient denies chest pain or palpitations. Encouraged oral intake. Review of systems: Constitutional: reports of fatigue, no reports of fever, or chills Cardiovascular: No reports of chest pain or palpitations Respiratory: No reports of worsening shortness of breath GI: No reports of nausea, vomiting, reports loose stools : No reports of dysuria or retention Neurovascular: Reports generalized weakness All medications have been reviewed Active Medications Albuterol/Ipratropium (Ipratropium-Albuterol 3 Ml Neb) 3 ml INHALATION RT-QID PRN PRN Reason: Shortness Of Breath Or Wheezing Albuterol/Ipratropium (Ipratropium-Albuterol 3 Ml Neb) 3 ml INHALATION RT-QID REPLACED BY [facility] Last Admin: 03/11/21 19:53 Dose: 3 ml Documented by: Amoxicillin/Clavulanate Potassium (Amoxic-Pot Clav 875-125mg 1 Each Tab) 1 each PO Q12HR REPLACED BY [facility] Last Admin: 03/11/21 19:42 Dose: 1 each Documented by: Budesonide/Formoterol Fumarate (Symbicort 160-4.5 Mcg Inhaler) 2 puff INHALATION RT-BID REPLACED BY [facility] Last Admin: 03/11/21 19:53 Dose: 2 puff Documented by: Capsaicin (Capsaicin 0.025% Cream 60 Gm Tube) 1 applic TOPICAL TID REPLACED BY [facility]; Protocol Last Admin: 03/11/21 19:42 Dose: 1 applic Documented by: Famotidine (Famotidine 20 Mg Tab) 20 mg PO Q12HR REPLACED BY [facility] Last Admin: 03/11/21 19:41 Dose: 20 mg Documented by: Heparin Sodium (Porcine) (Heparin Sodium,Porcine/Pf 5,000 Unit/0.5 Ml Syringe) 5,000 unit SQ Q12HR REPLACED BY [facility] Last Admin: 03/11/21 19:41 Dose: 5,000 unit Documented by: Methylprednisolone Sodium Succinate (Methylprednisolone Sod Succi 40 Mg/Ml 1 Ml Vial) 40 mg IV Q8HR NEL Last Admin: 03/11/21 15:33 Dose: 40 mg Documented by: Morphine Sulfate (Morphine Sulfate 2 Mg/Ml Syringe) 2 mg IV Q4HR PRN PRN Reason: Severe Pain Last Admin: 03/11/21 16:30 Dose: 2 mg Documented by: Naloxone HCl (Naloxone 0.4 Mg/Ml 1 Ml Vial) 0.2 mg IV Q2M PRN PRN Reason: Opioid Reversal Nicotine Polacrilex (Nicotine Gum (Polacrilex) 2 Mg Gum) 2 mg BUCCAL Q4HR PRN PRN Reason: Nicotine Cravings Ondansetron HCl (Ondansetron 4 Mg/2 Ml Vial) 4 mg IVP Q8HR PRN PRN Reason: Nausea And Vomiting Last Admin: 03/09/21 21:34 Dose: 4 mg Documented by: Physical exam: GENERAL: The patient is alert and oriented x3, not in any acute distress. Well developed, well nourished. HEENT: Pupils are round and equally reacting to light. EOMI. No scleral icterus. No conjunctival pallor. Normocephalic, atraumatic. No pharyngeal erythema. No thyromegaly. CARDIOVASCULAR: S1 and S2 present. No murmurs, rubs, or gallops. -PULMONARY: Chest is clear to auscultation, no bilateral expiratory wheezing, bilateral coarse rhonchi noted ABDOMEN: Soft, nontender, nondistended, normoactive bowel sounds. No palpable organomegaly. MUSCULOSKELETAL: No joint swelling or deformity. EXTREMITIES: No cyanosis, clubbing, or pedal edema. -NEUROLOGICAL: Cranial nerves are grossly intact. Bilateral leg weakness of the thighs and less extensive ankles. SKIN: No rashes. No petechiae Assessment: Bilateral lower extremity weakness, looks symmetrical although patient complains of more on the left side. 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 Neurology following and orthopedics consulted based on multi-level spinal stenosis noted on MRI of cervical spine along with degenerative disc disease. Await PT/OT therapy notes. Recommend to continue with IV steroids and bronchodilators. NO labs from today. Will order am labs. Given the severity of symptoms along with continued weakness, patient will require inpatient hospitalization and will require more than two night stay in the hospital with possible social work consult and placement. Possible surgical intervention is being discussed as well. Further recommendations depends on the clinical course of the patient. Prognosis is guarded. Objective - Vital Signs Vital signs: Vital Signs Temp 97.6 F 03/11/21 08:36 Pulse 60 03/11/21 08:36 Resp 19 03/11/21 08:36 BP 127/79 03/11/21 08:36 Pulse Ox 94 L 03/11/21 08:36 Intake & Output 03/10/21 03/11/21 03/11/21 18:59 06:59 18:59 Intake Total 1216 Output Total 150 100 Balance 1066 -100 Intake: Oral 1216 Output: Urine 150 100 Other: Voiding Method Bedside Commode Bedside Commode Diaper Urinal # Voids 2 2 # Bowel Movements 1 1 - Labs CBC & Chem 7: 03/10/21 05:12 03/10/21 05:12
[2021-03-12] MEDS: IPRATROPIUM-ALBUTEROL 3 ML NEB INHALATION SCH ×4 (08:13→21:28)
[2021-03-12] MEDS: SYMBICORT 160-4.5 MCG INHALER INHALATION SCH ×2 (08:13→21:28)
[2021-03-12 09:11] LABS: HIV 2 AB Non-Reactive (Non-Reactive); HIV AB P24 Non-Reactive (Non-Reactive); HIV P24 AG Non-Reactive (Non-Reactive)
[2021-03-12 09:17] LABS: HCT 30.9 % (39.0-53.0); Hypochromasia Marked; MCH 30.2 pg (25.0-35.0); MCHC 29.2 g/dL (31.0-37.0); MCV 103.4 fL (80.0-100.0); Macrocytosis Moderate; Mean Platelet Volume 9.2; Platelet Count 342 k/uL (150-450); RBC 2.99 m/uL (4.30-5.90); RDW 15.9 % (11.5-15.5); WBC 9.7 k/uL (3.8-10.6)
[2021-03-12] MEDS: methylPREDNISolone SOD SUCCI 40 MG/ML 1 ML VIAL IV SCH (09:46)
[2021-03-12] MEDS: METOPROLOL TARTRATE 25 MG TAB PO SCH ×2 (09:46→21:49)
[2021-03-12] MEDS: FAMOTIDINE 20 MG TAB PO SCH ×2 (09:47→21:49)
[2021-03-12] MEDS: AMOXIC-POT CLAV 875-125MG 1 EACH TAB PO SCH ×2 (09:47→21:49)
[2021-03-12] MEDS: CAPSAICIN 0.025% CREAM 60 GM TUBE TOPICAL SCH ×3 (09:50→21:51)
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
--- NOTE | 2021-03-12 10:51 | P.PN ---
Subjective Progress Note Date: 03/12/21 Patient seen at bedside and he feels about the same today compared to yesterday. Recent had MRI of the cervical spine showed the severe cervical stenosis over C4 to C6 as well as has a lumbar spondylosis of moderate to severe over the L2 L4. I consulted the orthopedic surgery team and they felt that he is a poor surgical candidate and possibly consider conservative management. Also the patient went into the paroxysmalatrial fibrillation and that atrophic fibrillation that is new. Patient stated that he's been smoking for almost 50 years and was smoke in the 3-4 packs a day until the last 2 years disease and smoking 1-2 packs a day. He said that he hasn't been drinking alcohol for the last 10 years. He denies any illicit drug use. Her the patient's nurse she was notified that that there is a suspicion for lung cancer when the patient followed up with [facility] but he has not followed up with them for further evaluation according to the nurse. According to the patient he was more notified that there is suspicion spots in his long for cancer. In April 2020 he had slurring the speech and it was questionable TIA. Objective - Vital Signs Vital signs: Vital Signs Temp 98.3 F 03/12/21 07:34 Pulse 78 03/12/21 08:27 Resp 18 03/12/21 08:27 BP 134/88 03/12/21 07:34 Pulse Ox 95 03/12/21 08:13 Intake & Output 03/11/21 03/12/21 03/12/21 18:59 06:59 18:59 Intake Total 236 Output Total 100 Balance 136 Weight 66 kg 67 kg Intake: Oral 236 Output: Urine 100 Other: Voiding Method Bedside Commode Bedside Commode Urinal Urinal # Voids 1 2 # Bowel Movements 3 - Exam Gen.: The patient is reclining on the gurney in the emergency department. He is in no acute distress. The patient is cachectic. HEENT: Head is atraumatic, normocephalic. Extremities: There is evidence of swelling of the joints of the hands consistent with patient's diagnosis of rheumatoid arthritis. 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 In addition, there is diffuse muscle atrophy. Neurological examination Mental status: The patient is awake, alert and oriented to self place and time. His speech is clear. The patient answers all questions appropriately. There is no aphasia or neglect. Cranial nerves: Pupils are equal, round and reactive to light. Visual heredia are full to confrontation. Extraocular movement intact. There is no nystagmus. Facial sensation is intact. There is no facial asymmetry. Hearing is grossly intact. Uvula and palate are midline. Shoulder shrug is symmetric. Tongue protrudes midline and move side to side without difficulty. Motor: Gait is deferred. Strength: the patient is unable to raise his arms over his head; Shoulder flexion is 3-4 bilaterally while flexion is 4. Left forarm extension is 3-4, while right is 4. Forearm flexion is 4+ over right and 4 over left. Left hand transfusion aide is 4+ to 5-. Hip flexors/extensor are 4+ to 5-; knee extension is 3-4 over right and 4- over left; ankle dorsiflexion and flexion are 4 bilaterally. There is no evidence of fasciculations. There is diffuse muscle atrophy of the extremities, more profound, proximally. Sensation: Grossly intact to light touch throughout. There is no extinction with double simultaneous stimulation. With pinprick it was inconsistent and at time he stated he had decrease sensation from distal ankle to tip of toes and at times was normal throughout. Coordination: Finger to nose and rapid alternating movements are intact. Deep tendon reflexes: Trceps R 1-2, left 0-1, biceps 0-1 bilaterally, brachioradialis 0-1, patellar right 1+ while left 0-1+ and ankles are 0 berenice aterally. Plantar responses is mute bilaterally. WORK-UP: * ESR of 70. CRP is 18.1. * TSH is 11.2 and the repeated is 11.40 but the free T4 is 1.23. * CK level is 224 which is slightly elevated but not too significant * DEMETRI is negative * LDH is 405. * AST of 24 ALT of 15 * Calcium is 8.9 magnesium is 1.7 * Hemoglobin A1c is 4.5 * SSA and SSB antibody is negative * HIV 1 and 2 antibody is nonreactive as well as at HIV P 24 antibody was nonreactive. * Payan virus PCR was not detected * Chest x-rays reported as no active cardiopulmonary disease. Normal heart. No change. * MRI of the cervical spine is reported as multilevel spinal stenosis, significant foraminal encroachment, degenerative disc disease as described. In the body of the report is mentioned the patient has moderate spinal stenosis over C4-C5. There is some mild anterior mass effect the thecal sac over C5-C6 right greater than left as well as the anterior mild mass effect on C6-C7 right greater than left. * I felt the patient has cervical stenosissevere over C3-C4, C4-C5 and mild to moderate C5-C6 and mild over C6-C7. * MRI of the thoracic spine is reported as markedly level D reactive disc disease without significant spinal stenosis. Additional finding above. * MRI of the lumbar spine with and without gadolinium is reported as disc bulging over the L2-L3 through L5-S1. This appears only greater in the left paracentral region at L2-L3. Multilevel foraminal stenosis due to disc bulging. In the body report it is reported as disc bulging is present previously greater than left paracentral region. Correlate with left L3 radicular symptoms. Moderate bilateral former no narrowing is present greater on the left at. Over L3-L4 shows a mild disc bulge and moderate bilateral former narrowing. There is also mild disc bulge and that at L4-L5 and mild bilateral foraminal narrowing present at. Over L5-S1 is reported as mild to moderate anterior thecal sac impression. Moderate bilateral foraminal narrowing is present. - Labs CBC & Chem 7: 03/12/21 05:20 03/10/21 05:12 Labs: Abnormal Lab Results - Last 24 Hours (Table) 03/12/21 Range/Units 05:20 RBC 2.99 L (4.30-5.90) m/uL Hgb 9.0 L (13.0-17.5) gm/dL Hct 30.9 L (39.0-53.0) % MCV 103.4 H (80.0-100.0) fL MCHC 29.2 L (31.0-37.0) g/dL RDW 15.9 H (11.5-15.5) % Assessment and Plan Assessment: * Quadraparesis, that is progressive since 05/2019 with muscle atrophy and hyporeflexia to areflexia. Inability to stand or ambulate. Could be due to multifactorial: Has moderate to significant cervical and lumbosacral spondylosis that can cause weakness. Rule out other causes. * Cervical spondylosis (I felt severe over C3-C4, C4-C5 and mild to moderate C5- C6 and mild over C6-C7). * Lumbosacral spondylosis without myelopathy (Moderate to severe L2-L3, moderate L3-L4) * Acute exacerbation of chronic obstructive pulmonary disease * New onset Paroxysmal atrial fibrillation * Questionable TIA in 04/2020 was slurred speech * History of significant rheumatoid arthritis * Questionable lung cancer (per nurse was notified that patient had mass at work-up at [facility]) but has not followed-up. * Previous myocardial infarction * History of coronary artery disease with previous stenting in 1999 * Chronic kidney disease--currently controlled. * Hypothyroidism * Chronic pain syndrome * Chronic and ongoing history of the continues smokes 1-2 packs daily for past 2 years and prior to that smoking 3-4 acks per day for over 50 years * History of alcohol use (last drink was 10 years ago) Plan: * Ordered MRI Brain to rule out intracranial process (unlikely). * Pending aldolase, Vitamin B12 and folate level. * I notified patient to consider Lumbar puncture to rule out other process (such as Chronic inflammatory demylinating disease) that can also contribute to his quadraparesis but he refused Lumbar puncture. * Recommend EMG with nerve conduction study of both upper and lower bas soon as possible and we do not provide this in our facility so this can be done as an outpatient especially this has been going on since May 2019. * Recommend muscle biopsy and this cannot be done as an inpatient therefore this has to be done as an outpatient. * Physical therapy and occupation therapy are consulted. * Orthopedic team is on board. They don't feel patient is a good surgical candidate and are leaning toward conservative management. * Cardiology is on board. * Pulmonary team is on board and they start the patient on IV Solu-Medrol because of acute COPD exacerbation. * We'll defer the rest of the medical management to the primary team. * Patient was counseled on tobacco cessation. * Upon discharge the patient the needs to follow-up with a neurologist within 1- 2 weeks. * The patient will benefit from rehab. The patient condition is very guarded. The plan is discussed with the patient and nurse practioner from primary team. Thiago Reaves M.D. Neuro-hospitalist Time with Patient: Less than 30
--- NOTE | 2021-03-12 11:06 | P.PN ---
Subjective Progress Note Date: 03/12/21 70-year-old white male patient with past medical history of COPD, not oxygen dependent at baseline, chronic and ongoing history of smoking, still smoking about one half packs per day, hypertension, previous history of myocardial infarction, osteoarthritis, rheumatoid arthritis. Patient follows with [facility] at the [place] [facility], and sees Dr. Humphries in the pulmonary clinic. He presented to the emergency department on 03/08/2021 with complaints of weakness, he was unable to walk for two days prior to presentation. Usually uses a walker, however in the last few days has been unable to walk with a walker. He was having increased shortness of breath, cough, wheezing, he is not able to bring up any phlegm. No fever, no complaints of chest pain, no hemoptysis, no nausea vomiting or diarrhea, his chest x-ray on admission showed no active cardiopulmonary disease. EKG showed normal sinus rhythm with evidence of anteroseptal infarct of undetermined age. he tested negative for COVID-19. Patient has been afebrile while in the hospital. Currently on 3 L of oxygen, pulse ox of 97%, vital signs have been stable. Admission blood work showed a white blood cell count of 10.5, hemoglobin of 8 point, platelet count is 244, sodium was 137 potassium 3.7, chloride is 108, B1 is 26, creatinine is 1.02, LFT s were within normal limits, lactic acid was 1.0, proBNP was 2770, troponin was less than 0.012, TSH was elevated at 11.2 and free T4 was 1.23, CRP was elevated at 8.1, and ESR was 70, urinalysis showed 1+ protein, no definite evidence of infection. Patient was started on IV steroids, he was given a dose of Lasix yesterday, he was placed on DuoNeb, Symbicort. Evaluation on 03/12/2021 patient seen in follow-up on 6 N. in room 631. Breathing has been stable, minimal wheeze, patient is on room air, and the pulse ox is 95-97%, afebrile, no complaints of chest pain, breathing comfortably, however patient is still having issues with weakness in his lower extremities, having episodes of bowel incontinence, patient underwent orthopedic surgery evaluation, and the recommendation is for conservative measures to alleviate his symptoms, steroids, physical therapy as the patient is somewhat of a poor surgical candidate. From pulmonary perspective breathing has been stable, has had no acute issues overnight. Remains on IV steroids, nebulized bronchodilators, patient also had new onset atrial fibrillation with RVR, cardiology saw the patient, and patient was placed on beta blockers and oral anticoagulation. Echocardiogram is pending. His rate is much better controlled, he is request for anticoagulation. His chest x-ray on admission showed no active cardiopulmonary disease. Objective - Vital Signs Vital signs: Vital Signs Temp 98.3 F 03/12/21 07:34 Pulse 78 03/12/21 08:27 Resp 18 03/12/21 08:27 BP 134/88 03/12/21 07:34 Pulse Ox 95 03/12/21 08:13 Intake & Output 03/11/21 03/12/21 03/12/21 18:59 06:59 18:59 Intake Total 236 474 Output Total 100 Balance 136 474 Weight 66 kg 67 kg Intake: Oral 236 474 Output: Urine 100 Other: Voiding Method Bedside Commode Bedside Commode Urinal Urinal # Voids 1 2 # Bowel Movements 3 - Exam GENERAL EXAM: Alert, very pleasant, 70-year-old white male, resting comfortably in bed, breathing comfortably, currently on room air with a pulse ox of 97% comfortable in no apparent distress. HEAD: Normocephalic/atraumatic. EYES: Normal reaction of pupils, equal size. Conjunctiva pink, sclera white. NOSE: Clear with pink turbinates. THROAT: No erythema or exudates. NECK: No masses, no JVD, no thyroid enlargement, no adenopathy. CHEST: No chest wall deformity. Symmetrical expansion. LUNGS: Equal air entry with diminished breath sounds and expiratory wheezes bilaterally CVS: Regular rate and rhythm, normal S1 and S2, no gallops, no murmurs, no rubs ABDOMEN: Soft, nontender. No hepatosplenomegaly, normal bowel sounds, no guarding or rigidity. EXTREMITIES: No clubbing, no edema, no cyanosis, 2+ pulses and upper and lower extremities. MUSCULOSKELETAL: Muscle strength and tone normal. SPINE: No scoliosis or deformity SKIN: No rashes CENTRAL NERVOUS SYSTEM: Alert and oriented -3. No focal deficits, tone is normal in all 4 extremities. PSYCHIATRIC: Alert and oriented -3. Appropriate affect. Intact judgment and insight. - Labs CBC & Chem 7: 03/12/21 05:20 03/10/21 05:12 Labs: Abnormal Lab Results - Last 24 Hours (Table) 03/12/21 Range/Units 05:20 RBC 2.99 L (4.30-5.90) m/uL Hgb 9.0 L (13.0-17.5) gm/dL Hct 30.9 L (39.0-53.0) % MCV 103.4 H (80.0-100.0) fL MCHC 29.2 L (31.0-37.0) g/dL RDW 15.9 H (11.5-15.5) % Assessment and Plan Plan: Assessment: #1. Acute exacerbation of chronic obstructive pulmonary disease, chest x-ray showed no acute cardiopulmonary process, COVID-19 PCR was negative #2. Weakness, inability to walk, lower extremity paresthesias, and loss of bowel and bladder function, neurology is following, related to Severe cervical stenosis of C4, C5, C6. Severe central stenosis of L2, 3, 4 #3. Chronic and ongoing history of smoking, currently smoking one and a half packs daily, used to smoke to 3 packs per day for over 50 years #4. History of COPD, was on oxygen in the past, he states currently he is not on oxygen on a regular basis, his baseline FEV1 is 35% of predicted, stage III COPD, follows with Dr. Humphries in the pulmonary clinic #5. History of rheumatoid arthritis on leflunomide #6. Hypertension #7. Hyperlipidemia #8. Previous history of myocardial infarction #9. History of coronary artery disease with previous stenting #10. History of increased weakness, gait dysfunction, falls at home. Usually ambulates with a walker #11. Chronic kidney disease stage III #12. Hypothyroidism #13. Chronic pain syndrome Plan: current medical management Breathing is stable, improving We'll switch the IV steroids to oral prednisone Continue oral Augmentin, nebulized bronchodilators Physical therapy may need to be evaluated for rehab placement after discharge, and that depends on his functional performance be considered for discharge to [facility], when cleared by cardiology, and orthopedic surgery Smoking cessation was strongly encouraged He can finish prednisone taper, and antibiotics on outpatient basis he will need nebulized bronchodilators Outpatient follow-up with Dr. Reaves in the office in 7 days I performed a history & physical examination of the patient and discussed their management with my nurse practitioner, Rhea Juarez. I reviewed the nurse practitioner's note and agree with the documented findings and plan of care. Lung sounds are positive for diffuse wheezes throughout the lung heredia. The findings and the impression was discussed with the patient. I attest to the documentation by the nurse practitioner. Time with Patient: Less than 30
[2021-03-12] MEDS: HEPARIN SODIUM,PORCINE/PF 5,000 UNIT/0.5 ML SYRINGE SQ SCH (13:31)
[2021-03-12 18:00] LABS: African American GFR (CKD) 62.6 (60.0-200.0); Anion Gap 17.1 mmol/L (4.00-12.00); BUN/Creat Ratio 40.31 Ratio (12.00-20.00); Blood Urea Nitrogen 52.8 mg/dL (9.0-27.0); Calcium 8.8 mg/dL (8.7-10.3); Carbon Dioxide 18.2 mmol/L (21.6-31.8); Folate, Serum 15.9 ng/mL (4.40-31.00); Potassium 4.6 mmol/L (3.5-5.5)
--- NOTE | 2021-03-12 18:01 | MR ---
EXAMINATION TYPE: MR brain wo/w con DATE OF EXAM: 03/12/2021 COMPARISON: 12/18/2010 HISTORY: Facial weakness. CONTRAST: Standard multiplanar, multisequence MRI departmental protocol utilizing 6 mL intravenous Gadavist nan olinium contrast. There is some cerebral cortical atrophy. There is mild enlargement of the ventricles. There is no mas s effect nor midline shift. There is no sign of intracranial hemorrhage. Brainstem is intact. There i s no evidence of orbital mass. There is thinning of the corpus callosum. Diffusion images show no sol dence of an acute infarct. Contrast images show no pathologic enhancement. On the T2 and FLAIR images there is some mild increas ed linear signal in the white matter adjacent to the lateral ventricles. There are few small scattere d white matter foci of increased signal in the waller-white matter junction both cerebral hemispheres. These measure up to 4 mm. Total number is less than 10. IMPRESSION: Mild atrophy. Mild hydrocephalus. White matter signal changes consistent with age related atrophy and mild hydrocephalus. No evidence of cortical infarct.
--- NOTE | 2021-03-12 18:03 | P.PN ---
Subjective Progress Note Date: 03/12/21 This is a pleasant 70 years old male with past medical history of COPD, Hyperlipidemia, Hypertension, Myocardial Infarction ([place]), Osteoarthritis (OA), Rheumatoid Arthritis . He follows up with [facility] in the [place] and his afterschool babysitter is Dr. Humphries. Because of inability to walk for 2 days. Says that he started getting leg weakness since May last year, he usually uses a walker to walk but over the last 2 days he was unable to use the walker even. He can not raise his legs off the bed however he can bend his knee Also is complaining of from increasing shortness of breath with cough, his cough is weak and cannot bring up phlegm. No chest pain. No back pain. No leg pain. Except his knees. No diarrhea or vomiting. No urinary complaints Patient presents complaining from weakness for 2 days with audible wheezing and shortness of breath CBC showed mild anemia with hemoglobin of 8.9. Patient has chronic anemia. INR, BMP and liver enzymes are unremarkable. Urine analysis showing 1+ protein, no WBC increased Coronavirus not detected. EKG showing normal sinus rhythm at [address]pm with no significant [address]-T changes and QTC of 390. Chest x-ray: No acute process In the emergency room her got breathing treatment and morphine 03/10/2021 Patient is seen and evaluated and follow-up this morning continues to be weak and will have PT/OT therapy evaluate the patient. Patient was seen and eval uated by neurology recommending muscle biopsy although this will be done in the outpatient setting as this is not performed here. Patient's white blood count is 10.82, hemoglobin is 7.9, sodium is 137 with a potassium of 5.3 and current creatinine is 1.14. Patient also evaluated by pulmonary for acute exacerbation of COPD and patient is a continued ongoing nicotine user. Patient is maintained on IV steroids along with breathing inhalational treatments and will be given a dose of IV Lasix. Patient started on Augmentin and will continue to monitor closely. 03/11/2021 Patient is seen in follow up today and awaiting MRI of the c/t/ls spine. Patient continues to be weak and PT/OT following. Neurology following closely as well. Pulmonary following as well for COPD and continued on IV steroids along with bronchodilators and will continue. Denies any worsening shortness of breath. Patient denies chest pain or palpitations. Encouraged oral intake. 03/12/2021 Patient is seen and evaluated in follow-up today and underwent MRI of cervical thoracic spine which shows stenosis and cervical spondylosis C3 to C4 and C4 to C5 with mild to moderate C5 to C6 along with lumbosacral spondylosis in multiple areas with orthopedics following closely. Patient is severely noncompliant with follow-up in the outpatient setting and clinically appears from a seated with extensive muscle wasting noted. Oral intake is poor although he states he is eating well and eats minimally. Patient continues to smoke as well. Patient continues with significant weakness and will consult social work for possible placement. Discussed at length with nurse practitioner from the [place] clinic who follows his care and reports to having a recent low-dose computed tomography scan of the lungs which was questionable for possible cancer and patient failed to follow-up for PET scan and possible biopsy. Following closely and will discuss with pulmonary. A blood count today is 9.7, hemoglobin is 9.0, platelets are 342 no repeat BMP done today and will repeat. Extensive neurological workup in process. Brain MRI ordered and report is pending. Review of systems: Constitutional: reports of fatigue, no reports of fever, or chills Cardiovascular: No reports of chest pain or palpitations Respiratory: No reports of worsening shortness of breath GI: No reports of nausea, vomiting, reports loose stools : No reports of dysuria or retention Neurovascular: Reports generalized weakness All medications have been reviewed Active Medications Albuterol/Ipratropium (Ipratropium-Albuterol 3 Ml Neb) 3 ml INHALATION RT-QID PRN PRN Reason: Shortness Of Breath Or Wheezing Albuterol/Ipratropium (Ipratropium-Albuterol 3 Ml Neb) 3 ml INHALATION RT-QID [facility] Last Admin: 03/12/21 17:04 Dose: Not Given Documented by: Amoxicillin/Clavulanate Potassium (Amoxic-Pot Clav 875-125mg 1 Each Tab) 1 each PO Q12HR [facility] Last Admin: 03/12/21 09:47 Dose: 1 each Documented by: Apixaban (Apixaban 2.5 Mg Tablet) 2.5 mg PO BID [facility]; Protocol Budesonide/Formoterol Fumarate (Symbicort 160-4.5 Mcg Inhaler) 2 puff INHALATION RT-BID [facility] Last Admin: 03/12/21 08:13 Dose: 2 puff Documented by: Capsaicin (Capsaicin 0.025% Cream 60 Gm Tube) 1 applic TOPICAL TID [facility]; Protocol Last Admin: 03/12/21 09:50 Dose: 1 applic Documented by: Famotidine (Famotidine 20 Mg Tab) 20 mg PO Q12HR [facility] Last Admin: 03/12/21 09:47 Dose: 20 mg Documented by: Metoprolol Tartrate (Metoprolol Tartrate 25 Mg Tab) 25 mg PO BID [facility] Last Admin: 03/12/21 09:46 Dose: 25 mg Documented by: Morphine Sulfate (Morphine Sulfate 2 Mg/Ml Syringe) 2 mg IV Q4HR PRN PRN Reason: Severe Pain Last Admin: 03/11/21 16:30 Dose: 2 mg Documented by: Naloxone HCl (Naloxone 0.4 Mg/Ml 1 Ml Vial) 0.2 mg IV Q2M PRN PRN Reason: Opioid Reversal Nicotine Polacrilex (Nicotine Gum (Polacrilex) 2 Mg Gum) 2 mg BUCCAL Q4HR PRN PRN Reason: Nicotine Cravings Ondansetron HCl (Ondansetron 4 Mg/2 Ml Vial) 4 mg IVP Q8HR PRN PRN Reason: Nausea And Vomiting Last Admin: 03/09/21 21:34 Dose: 4 mg Documented by: Prednisone (Prednisone 20 Mg Tab) 40 mg PO DAILY [facility] Physical exam: GENERAL: The patient is alert and oriented x3, not in any acute distress. Well developed, well nourished. Cachectic, ill-appearing, appears much older than stated age HEENT: Pupils are round and equally reacting to light. EOMI. No scleral icterus. No conjunctival pallor. Normocephalic, atraumatic. No pharyngeal erythema. No thyromegaly. CARDIOVASCULAR: S1 and S2 present. No murmurs, rubs, or gallops. PULMONARY: Chest is clear to auscultation, no bilateral expiratory wheezing, bilateral coarse rhonchi noted ABDOMEN: Soft, nontender, nondistended, normoactive bowel sounds. No palpable organomegaly. MUSCULOSKELETAL: No joint swelling or deformity. EXTREMITIES: No cyanosis, clubbing, or pedal edema. NEUROLOGICAL: Cranial nerves are grossly intact. Bilateral leg weakness of the thighs and less extensive ankles. Muscle wasting noted SKIN: No rashes. No petechiae Assessment: Bilateral lower extremity weakness, looks symmetrical although patient complains of more on the left side. 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 Rule out neurological causes COPD with acute exacerbation New onset atrial fibrillation, paroxysmal Multiple bilateral pulmonary nodules with suspicion for metastatic disease as noted on recent CT ordered by primary care in December of this year Moderate protein calorie malnutrition with a body mass index of 21.8 Stage II pressure ulcer noted on the coccyx Lumbosacral spondylosis without myelopathy is noted on CT c-diff ruled out multi-level spinal stenosis of C-spine as noted on MRI Hypertension Hyperlipidemia Osteoarthritis History of rheumatoid arthritis degenerative disc disease continued ongoing nicotine dependence GI prophylaxis DVT prophylaxis Full code Plan: Recommend to continue with current medications and medical management. Neurology following and orthopedics consulted based on multi-level spinal stenosis noted on MRI of cervical spine along with degenerative disc disease. Await PT/OT therapy notes. Recommend to continue with IV steroids and bronchodilators. NO labs from today. Will order am labs. Given the severity of symptoms along with continued weakness, patient will require inpatient hospitalization and will require more than two night stay in the hospital with possible social work consult and placement. Possible surgical intervention is being discussed as well. Further recommendations depends on the clinical course of the patient. Prognosis is guarded. Objective - Vital Signs Vital signs: Vital Signs Temp 98.3 F 03/12/21 07:34 Pulse 78 03/12/21 08:27 Resp 18 03/12/21 08:27 BP 134/88 03/12/21 07:34 Pulse Ox 95 03/12/21 08:13 Intake & Output 03/11/21 03/12/21 03/12/21 18:59 06:59 18:59 Intake Total 236 Output Total 100 Balance 136 Weight 66 kg 67 kg Intake: Oral 236 Output: Urine 100 Other: Voiding Method Bedside Commode Bedside Commode Urinal Urinal # Voids 1 2 # Bowel Movements 3 - Labs CBC & Chem 7: 03/12/21 05:20 03/10/21 05:12 Labs: Abnormal Lab Results - Last 24 Hours (Table) 03/12/21 Range/Units 05:20 RBC 2.99 L (4.30-5.90) m/uL Hgb 9.0 L (13.0-17.5) gm/dL Hct 30.9 L (39.0-53.0) % MCV 103.4 H (80.0-100.0) fL MCHC 29.2 L (31.0-37.0) g/dL RDW 15.9 H (11.5-15.5) %
[2021-03-12] MEDS ORDERED: APIXABAN 5 MG TAB PO SCH (21:00)
[2021-03-12] MEDS: APIXABAN 2.5 MG TABLET PO SCH (21:49)
[2021-03-12] MEDS: ONDANSETRON 4 MG/2 ML VIAL IVP PRN (21:55)
[2021-03-12] MEDS: MORPHINE SULFATE 2 MG/ML SYRINGE IV PRN (21:55)
[2021-03-13] MEDS: AMOXIC-POT CLAV 875-125MG 1 EACH TAB PO SCH ×2 (08:17→19:56)
[2021-03-13] MEDS: APIXABAN 2.5 MG TABLET PO SCH ×2 (08:18→19:56)
[2021-03-13] MEDS: predniSONE 20 MG TAB PO SCH (08:18)
[2021-03-13] MEDS: METOPROLOL TARTRATE 25 MG TAB PO SCH ×2 (08:18→19:56)
[2021-03-13] MEDS: IPRATROPIUM-ALBUTEROL 3 ML NEB INHALATION SCH ×4 (09:22→20:43)
[2021-03-13] MEDS: SYMBICORT 160-4.5 MCG INHALER INHALATION SCH ×2 (09:23→20:44)
[2021-03-13 10:32] LABS: Basophils % (A) 0 %; Eosinophils % (A) 0 %; HCT 31.6 % (39.0-53.0); HGB 9.4 gm/dL (13.0-17.5); Hypochromasia Marked; Lymphocytes # (A) 1.2 k/uL (1.0-4.8); Lymphocytes % (A) 19 %; MCH 30.9 pg (25.0-35.0); MCHC 29.8 g/dL (31.0-37.0); MCV 103.5 fL (80.0-100.0); Macrocytosis Moderate; Mean Platelet Volume 7.8; Monocytes # (A) 0.5 k/uL (0-1.0); Monocytes % (A) 8 %; Neutrophils # (A) 4.3 k/uL (1.3-7.7); Neutrophils % (A) 71 %; Platelet Count 317 k/uL (150-450); RBC 3.06 m/uL (4.30-5.90); RDW 15.8 % (11.5-15.5); WBC 6.1 k/uL (3.8-10.6)
--- NOTE | 2021-03-13 10:42 | P.PN ---
Subjective This is a pleasant 70-year-old male past medical history significant for hypothyroidism, coronary artery disease, MT in 1999 status post 2 stents (uknown details), possible CVA/TIA per patient in 04/2020, hypertension, dyslipidemia, COPD, osteoarthritis, rheumatoid arthritis, chronic nicotine dependence, previous EtOH use. 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 We have been asked to see in consultation for new onset atrial fibrillation. Patient is seen and examined at bedside, no acute distress. Patient was admitted on 03/08/2021 with complaints of difficulty ambulating, frequent falls with neck and back pain for the past 3 weeks. He usually uses a walker to ambulate at home. He denies any chest pain, shortness of breath, lightheadedness, dizziness, numbness or tingling, headaches, blurry or double vision, fever or chills. Patient has undergone cervical/thoracic spine/lumbar spine MRI which revealed multilevel spinal stenosis, severe stenosis at C4 5 C5 6, significant foraminal encroachment, multiple degenerative disc disease, L2-3 L3 4 moderate to severe stenosis, disc bulging. Orthopedics is following the patient, they're rec ommending conservative measures with IV steroids, physical therapy and no plan for surgery while inpatient at this time. Patient has been on the cardiac telemetry where atrial fibrillation was ident ified. He was in sinus mechanism on admission. EKG was performed 03/12/21 which revealed atrial fibrillation, heart rate 98. Patient does endorse some occasional palpitations. He also continues to smoke 12PPD. 03/13/21: Patient seen and examined at bedside, no acute distress. Telemetry reviewed patient appears to be in and out of sinus rhythm and atrial fibrillation, his rates are controlled. He is currently maintained on Eliquis 2.5 mg twice a day, Lopressor 25 mg twice a day. Blood pressure 135/74, heart rate 85, afebrile, maintaining oxygen saturations on room air. Laboratory data review WBC 6.1, hemoglobin 9.4, platelets 317, sodium 139, potassium 4.6, BUN 52, serum creatinine 1.3. Echocardiogram revealed an EF 50-55%, mild mitral regurgitation,mild pulmonary hypertension with RVSP 35mmHg. PHYSICAL EXAMINATION GENERAL: Well-appearing, in no acute distress. NECK: Supple without JVD or thyromegaly. LUNGS: Breath sounds clear to auscultation bilaterally. Respiration equal and unlabored. No wheezes, rales or rhonchi. HEART: Irregular rate and rhythm without murmurs, rubs or gallops. S1 and S2 heard. EXTREMITIES: Normal range of motion, no edema. No clubbing or cyanosis. Peripheral pulses intact. ASSESSMENT New onset paroxysmal atrial fibrillation [id number] score 5 Bilateral lower extremity weakness History of coronary artery disease, MT in 1999 status post 2 stents (unknown details) Possible CVA/TIA per patient in 04/2020- states he had acute onset slurred speech at that time, unknown details Hypertension Dyslipidemia COPD History of rheumatoid arthritis Chronic nicotine dependence Hypothyroidism Hyperkalemia PLAN -Continue metoprolol tartrate 25mg BID for rate control -Continue Eliquis 2.5mg BID and per case management patient's Eliquis will be covered at Rehab on discharge -Repeat BMP and CBC -Repeat TSH and free T4 pending, restarting patient's home Synthroid per primary -From cardiology perspective patient stable to be discharged pending primary and consult services recommendations Nurse Practitioner note has been reviewed, I agree with a documented findings and plan of care. Patient was seen and examined. Objective - Vital Signs Vital signs: Vital Signs Temp 97.7 F 03/13/21 08:00 Pulse 85 03/13/21 09:37 Resp 18 03/13/21 08:00 BP 135/74 03/13/21 08:00 Pulse Ox 94 L 03/13/21 08:00 Intake & Output 03/12/21 03/13/21 03/13/21 18:59 06:59 18:59 Intake Total 714 474 Balance 714 474 Intake: Oral 714 474 Other: Voiding Method Bedside Commode Urinal # Voids 1 2 1 # Bowel Movements 2 - Labs CBC & Chem 7: 03/13/21 10:07 03/13/21 10:07 Labs: Abnormal Lab Results - Last 24 Hours (Table) 03/12/21 03/13/21 Range/Units 05:20 10:07 RBC 3.06 L (4.30-5.90) m/uL Hgb 9.4 L (13.0-17.5) gm/dL Hct 31.6 L (39.0-53.0) % MCV 103.5 H (80.0-100.0) fL MCHC 29.8 L (31.0-37.0) g/dL RDW 15.8 H (11.5-15.5) % Carbon Dioxide 18.2 L (21.6-31.8) mmol/L Anion Gap 17.10 H (4.00-12.00) mmol/L BUN 52.8 H (9.0-27.0) mg/dL Est GFR (CKD-EPI)NonAf 54.0 L (60.0-200.0) BUN/Creatinine Ratio 40.31 H (12.00-20.00) Ratio Glucose 134 H (70-110) mg/dL
--- NOTE | 2021-03-13 10:45 | P.PN ---
Subjective Progress Note Date: 03/13/21 The patient was seen at bedside and feeling about the same about same. Review the patient's nurse that there was a mass seen in his long at workup at the [facility] but the patient was supposed to have rather workup/as well as PET scan but has not done so. Objective - Vital Signs Vital signs: Vital Signs Temp 97.7 F 03/13/21 08:00 Pulse 85 03/13/21 09:37 Resp 18 03/13/21 08:00 BP 135/74 03/13/21 08:00 Pulse Ox 94 L 03/13/21 08:00 Intake & Output 03/12/21 03/13/21 03/13/21 18:59 06:59 18:59 Intake Total 714 474 Balance 714 474 Intake: Oral 714 474 Other: Voiding Method Bedside Commode Urinal # Voids 1 2 1 # Bowel Movements 2 - Exam Gen.: The patient is reclining on the gurney in the emergency department. He is in no acute distress. The patient is cachectic. HEENT: Head is atraumatic, normocephalic. Extremities: There is evidence of swelling of the joints of the hands consistent with patient's diagnosis of rheumatoid arthritis. 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 In addition, there is diffuse muscle atrophy. Neurological examination Mental status: The patient is awake, alert and oriented to self place and time. His speech is clear. The patient answers all questions appropriately. There is no aphasia or neglect. Cranial nerves: Pupils are equal, round and reactive to light. Visual heredia are full to confrontation. Extraocular movement intact. There is no nystagmus. Facial sensation is intact. There is no facial asymmetry. Hearing is grossly intact. Uvula and palate are midline. Shoulder shrug is symmetric. Tongue protrudes midline and move side to side without difficulty. Motor: Gait is deferred. Strength: the patient is unable to raise his arms over his head; Shoulder flexion is 3-4 bilaterally while flexion is 4. Left forarm extension is 3-4, while right is 4. Forearm flexion is 4+ over right and 4 over left. Left hand extractor loader and unloader is 4+ to 5-. Hip flexors/extensor are 4+ to 5-; knee extension is 3-4 over right and 4- over left; ankle dorsiflexion and flexion are 4 bilaterally. There is no evidence of fasciculations. There is diffuse muscle atrophy of the extremities, more profound, proximally. Sensation: Grossly intact to light touch throughout. There is no extinction with double simultaneous stimulation. With pinprick it was inconsistent and at time he stated he had decrease sensation from distal ankle to tip of toes and at times was normal throughout. Coordination: Finger to nose and rapid alternating movements are intact. Deep tendon reflexes: Trceps R 1-2, left 0-1, biceps 0-1 bilaterally, brachioradialis 0-1, patellar right 1+ while left 0-1+ and ankles are 0 bilaterally. Plantar responses is mute bilaterally. WORK-UP: * ESR of 70. CRP is 18.1. * TSH is 11.2 and the repeated is 11.40 but the free T4 is 1.23. * CK level is 224 which is slightly elevated but not too significant * DEMETRI is negative * LDH is 405. * AST of 24 ALT of 15 * Calcium is 8.9 magnesium is 1.7 * Hemoglobin A1c is 4.5 * SSA and SSB antibody is negative * HIV 1 and 2 antibody is nonreactive as well as at HIV P 24 antibody was nonreactive. * HbA1c: 4.5 * Vitamin B12: 330 (200-944) which is low normal. * Folate: 15.9 (4.4-31) * Payan virus PCR was not detected * Chest x-rays reported as no active cardiopulmonary disease. Normal heart. No change. * MRI of the cervical spine is reported as multilevel spinal stenosis, significant foraminal encroachment, degenerative disc disease as described. In the body of the report is mentioned the patient has moderate spinal stenosis over C4-C5. There is some mild anterior mass effect the thecal sac over C5-C6 right greater than left as well as the anterior mild mass effect on C6-C7 right greater than left. * I felt the patient has cervical stenosissevere over C3-C4, C4-C5 and mild to moderate C5-C6 and mild over C6-C7. * MRI of the thoracic spine is reported as markedly level D reactive disc disease without significant spinal stenosis. Additional finding above. * MRI of the lumbar spine with and without gadolinium is reported as disc bulging over the L2-L3 through L5-S1. This appears only greater in the left paracentral region at L2-L3. Multilevel foraminal stenosis due to disc bulging. In the body report it is reported as disc bulging is present previously greater than left paracentral region. Correlate with left L3 radicular symptoms. Moderate bilateral former no narrowing is present greater on the left at. Over L3-L4 shows a mild disc bulge and moderate bilateral former narrowing. There is also mild disc bulge and that at L4-L5 and mild bilateral foraminal narrowing present at. Over L5-S1 is reported as mild to moderate anterior thecal sac impression. Moderate bilateral foraminal narrowing is present. * MRI Brain: Mild atrophy. Mild hydrocephalus. White matter signal changes consistent with age related atrophy and mild hydrocephalus. No evidence of cortical infarct. - Labs CBC & Chem 7: 03/13/21 10:07 03/13/21 10:07 Labs: Abnormal Lab Results - Last 24 Hours (Table) 03/12/21 03/13/21 Range/Units 05:20 10:07 RBC 3.06 L (4.30-5.90) m/uL Hgb 9.4 L (13.0-17.5) gm/dL Hct 31.6 L (39.0-53.0) % MCV 103.5 H (80.0-100.0) fL MCHC 29.8 L (31.0-37.0) g/dL RDW 15.8 H (11.5-15.5) % Carbon Dioxide 18.2 L (21.6-31.8) mmol/L Anion Gap 17.10 H (4.00-12.00) mmol/L BUN 52.8 H (9.0-27.0) mg/dL Est GFR (CKD-EPI)NonAf 54.0 L (60.0-200.0) BUN/Creatinine Ratio 40.31 H (12.00-20.00) Ratio Glucose 134 H (70-110) mg/dL Assessment and Plan Assessment: * Quadraparesis, that is progressive since 05/2019 with muscle atrophy and hyporeflexia to areflexia. Inability to stand or ambulate. Could be due to multifactorial: Has moderate to significant cervical and lumbosacral spondylosis that can cause weakness. Rule out other causes. * Cervical spondylosis (I felt severe over C3-C4, C4-C5 and mild to moderate C5- C6 and mild over C6-C7). * Lumbosacral spondylosis without myelopathy (Moderate to severe L2-L3, moderate L3-L4) * Acute exacerbation of chronic obstructive pulmonary disease * New onset Paroxysmal atrial fibrillation * Questionable TIA in 04/2020 was slurred speech * History of significant rheumatoid arthritis * Questionable lung mass (per nurse was notified that patient had mass at work- up at [facility]) but has not followed-up. * Previous myocardial infarction * History of coronary artery disease with previous stenting in 1999 * Chronic kidney disease--currently controlled. * Hypothyroidism * Chronic pain syndrome * Chronic and ongoing history of the continues smokes 1-2 packs daily for past 2 years and prior to that smoking 3-4 acks per day for over 50 years * History of alcohol use (last drink was 10 years ago) Plan: * Low normal vitamin B12: I started the patient on the vitamin B12 1000 g daily. * I notified patient to consider Lumbar puncture to rule out other process (such as Chronic inflammatory demylinating disease) that can also contribute to his quadraparesis but he refused Lumbar puncture. * Recommend EMG with nerve conduction study of both upper and lower bas soon as possible and we do not provide this in our facility so this can be done as an outpatient especially this has been going on since May 2019. * Recommend muscle biopsy and this cannot be done as an inpatient therefore this has to be done as an outpatient. * Physical therapy and occupation therapy are consulted. * Orthopedic team is on board. Orthopedic team feels the patient has cervical stenosis or severe over C4 to C6 as well as cervical spondylitic myelopathy> I feel more stenosis than myelopathy. Orthopedic team don't feel patient is a good surgical candidate and are leaning toward conservative management. * Cardiology is on board. He started the patient on Eliquis 2.5 mg 1 tablet twice a day for his new onset atrial fibrillation * Pulmonary team is on board. Regarding the questionable lung mass seen at CT facility will defer further work-up to the pulmonary team. * We'll defer the rest of the medical management to the primary team. * Patient was counseled on tobacco cessation. * Upon discharge the patient the needs to follow-up with a neurologist within 1- 2 weeks. * The patient will benefit from rehab. The patient condition is very guarded. The plan is discussed with the patient and nurse practioner from primary team. Thiago Reaves M.D. Neuro-hospitalist Time with Patient: Less than 30
[2021-03-13] MEDS: CAPSAICIN 0.025% CREAM 60 GM TUBE TOPICAL SCH ×3 (10:47→20:56)
[2021-03-13] MEDS: FAMOTIDINE 20 MG TAB PO SCH (10:48)
[2021-03-13 10:57] LABS: African American GFR (CKD) 62 (>60 ml/min/1.73 sqM); Anion Gap 4 mmol/L; Blood Urea Nitrogen 60 mg/dL (9-20); Calcium 9.2 mg/dL (8.4-10.2); Carbon Dioxide 28 mmol/L (22-30); Chloride 104 mmol/L (98-107); Glucose 96 mg/dL (74-99); Non-African American GFR(CKD) 54 (>60 ml/min/1.73 sqM); Potassium 4.6 mmol/L (3.5-5.1); Sodium 136 mmol/L (137-145)
--- NOTE | 2021-03-13 11:04 | P.PN ---
Progress Note - Text Progress Note Date: 03/13/21 [facility] CC: Weakness Subjective: Patient seen and examined again today. He seems to be doing about the same. He denies any progressive weakness or progressive symptoms. We discussed surgical options again for the patient. Due to his severe stenosis of the cervical spine it would be in the form of a likely staged procedure the first stage would be a cervical discectomy and fusion anteriorly. Followed by a later date a posterior cervical decompression and fusion. We discussed all the risks and benefits of the procedure including the potential outcomes as well as limitations of surgery. I discussed with the patient that he is a difficult surgical candidate because of his medical history as well as his current medical conditions. However if he is wanting surgical options we have waited these out together. He asked for some time to think about it and this is reasonable. He could potentially follow up with me in the office to discuss these unless he wants something done urgently. I do not feel that he needs emergent surgery however he does have an increased risk of neurologic compromise with minor trauma due to his severe stenosis in the cervical spine. He understands this and is comfortable with that. The patient's past medical history; past surgical history; family history; medicines; allergies and social history have been reviewed and are as stated elsewhere in the chart. 14 points review of systems completed and as stated in HPI, all other systems reviewed are negative. PHYSICAL EXAM: Exam remains stable at this time PHYSICAL EXAMINATION: Vitals: Stable General: Awake, alert, appropriate for age, in no acute distress. Appears somewhat unkempt HEENT: No unusual neck masses around region of lateral neck triangle, thyroid, supraclavicular groove. Extremities: Skin warm and dry without no acute lesions, coloration, temperature, skin intact, no tenderness or erythema. Integument: Hairy patches: Absent Dorsal skin dimples: Absent Cafe au lait spots: Absent Surgical incisions: No lower back or neck incisions Palpation: Please see Pain drawing on Intake sheet for further detail. (Tenderness = T, Nontender = NT, Swelling = S, Ecchymosis = E) Findings on Midline and paraspinal palpation and percussion: Cervical: NT Thoracic: NT Lumbar: NT Sacral: NT Special findings: None POSTURAL and MUSCULO-SKELETAL EVALUATION: Coronal Balance: Neutral Recumbent testing: Patient denies lay flat on back Sagittal Balance: Positive Shoulder Profile: [Level] Pelvic Girdle: [Level] Neck ROM: [Unrestricted in six directions] causes some pain with motion Lumbar ROM: [Unrestricted in six directions] Shoulder ROM: Stiff range of motion Hip ROM: Stiff range of motion Knee ROM: High amount of rheumatologic disease noted Hands: All her deviation of MCP joints and lateral hands extremely rheumatoid view of both hands Feet: Patient has a Charcot appearing left ankle secondary to an old ankle fracture this is essentially fused in position and a pronated external rotation position. This is from his injury. He does have a small ulcer starting on the medial malleolar portion. Patient's overall appearance is very much rheumatologic with hands feet knees and ankles which appear rheumatoid in nature VASCULAR STATUS : Wrist Pulses: [2/4 bilateral radial and ulnar] Pedal Pulses: [2/4 bilateral DP and PT] Color: Pale Edema: [None] NEUROLOGIC EXAMINATION: Mental Status: Awake and alert, fully oriented, with normal attention, concentration and memory, and fluent, appropriate speech. Cranial Nerves: I: Olfactory not tested. II: Visual acuity normal, no visual field deficit noted with confrontation. III,IV: Normal pupillary reflexes & intact extraocular movements without nystagmus. V,: Intact symmetrical facial sensation. VII: Intact symmetrical facial motor movement VIII: Hearing intact. IX,X: Intact gag, swallow, & normal voice. XI: Sternocleidomastoid, trapezius function intact. XII: Tongue midline with normal movements. Special Tests: L'hermitte's Sign: Absent Spurling'Sign: Absent Bilateral Cubital percussion test: Absent Bilateral Juan Jose-Tinel sign - Carpal region: Absent Bilateral Straight Leg Raising: Absent Bilateral Motor Exam (0-5/5, N/T) STRENGTH UPPER EXTREMITY Shoulder Abd (Not part of JASON Motor score): RIGHT 4 LEFT 4 Elbow Flexors: RIGHT 4 LEFT 4 Elbow Extensor: RIGHT 4 LEFT 4 Wrrist Dorsiflexors: RIGHT 4 LEFT 4 Finger Abductor: RIGHT 4 LEFT 4 Healthcare Consulting Manager: RIGHT 4 LEFT 4 LOWER EXTREMITY Hip Flexor (Not part of JASON Motor Score): RIGHT 4- LEFT 4- Knee Flexor: RIGHT 4 LEFT 4 Knee Extensor: RIGHT 4 LEFT 4 Ankle Dorsiflexion: RIGHT 4 LEFT unable to perform secondary to his injury Ankle Plantarflexion: RIGHT 4 LEFT unable to perform secondary to his injury EHL: RIGHT 4 LEFT 4 FHL: RIGHT 4 LEFT 4 REFLEXES Biecp: RIGHT 1 LEFT 1 Tricep: RIGHT 1 LEFT 1 Brachioradialis: RIGHT 1 LEFT 1 Patellar: RIGHT 1 LEFT 1 Achilles: RIGHT 1 LEFT 1 Pathological Reflexes Hancock's: RIGHT [Absent] LEFT [Absent] Babinski: RIGHT [Absent] LEFT [Absent] Clonus: RIGHT [None] LEFT [None] SENSORY Joint Position: [Intact bilaterally] Vibration [Intact bilaterally] Pain and LT sense [Intact C5-T1 and L2-S1] Dermatomal deficit Jaci have decreased light touch sensation in the C5 distribution bilaterally Gait and Functional Evaluation: Ambulatory aids: Walker Romberg's test: Intact bilaterally. Toe walk/ heel walk / heel-toe walk unable to perform Squatting and straightening unable to perform Single leg stance: Unable to perform Hand and finger dexterity not intact bilaterally[]. Disdiadochokinesis examination positive bilaterally. ASSESSMENT: Assessment: 70-year-old male with bilateral upper and lower extremity weakness 1. Cervical spondylotic myelopathy 2. Cervical stenosis severe C4 5 C5 6 3. Bilateral upper extremity weakness 4. L2 3 L3 4 moderate to severe central stenosis 5. Bilateral lower extremity weakness 6. Rheumatoid arthritis 7. Multiple medical comorbidities PLAN: -Continue with conservative measures at this time. -Discussed anterior cervical discectomy and fusion C4 to C6 -Continue with primary medical management In our visit today * and I have had a chance to go over my understanding of the patient's current condition, the natural course history without intervention and various interventional options. Questions were invited and answered, and the patient wishes to proceed as outlined above. I will be sure to keep you updated after * returns here for further follow- up. Thank you again for your referral. Please do not hesitate to contact me if you have any further questions. Signed and authenticated by: Moe Thibodeaux [facility] [address] [place] [id number] This message is confidential, intended only for the named recipient(s) and may contain information that is privileged or exempt from disclosure under applicable law. If you are not the intended recipient(s), you are notified that the dissemination, distribution or copying of this information is strictly prohibited. If you received this message in error, please notify the sender then delete this message.
--- NOTE | 2021-03-13 11:22 | P.PN ---
Subjective Progress Note Date: 03/13/21 Principal diagnosis: Shortness of breath. 70-year-old white male patient with past medical history of COPD, not oxygen dependent at baseline, chronic and ongoing history of smoking, still smoking about one half packs per day, hypertension, previous history of myocardial infarction, osteoarthritis, rheumatoid arthritis. Patient follows with [facility], and sees Dr. Humphries in the pulmonary clinic. He presented to the emergency department on 03/08/2021 with complaints of weakness, he was unable to walk for two days prior to presentation. Usually uses a walker, however in the last few days has been unable to walk with a walker. He was having increased shortness of breath, cough, wheezing, he is not able to bring up any phlegm. No fever, no complaints of chest pain, no hemoptysis, no nausea vomiting or diarrhea, his chest x-ray on admission showed no active cardiopulmonary disease. EKG showed normal sinus rhythm with evidence of anteroseptal infarct of undetermined age. he tested negative for COVID-19. Patient has been afebrile while in the hospital. Currently on 3 L of oxygen, pulse ox of 97%, vital signs have been stable. Admission blood work showed a white blood cell count of 10.5, hemoglobin of 8 point, platelet count is 244, sodium was 137 potassium 3.7, chloride is 108, B1 is 26, creatinine is 1.02, LFTs were within normal limits, lactic acid was 1.0, proBNP was 2770, troponin was less than 0.012, TSH was elevated at 11.2 and free T4 was 1.23, CRP was elevated at 8.1, and ESR was 70, urinalysis showed 1+ protein, no definite ev idence of infection. Patient was started on IV steroids, he was given a dose of Lasix yesterday, he was placed on DuoNeb, Symbicort. Progress note dated 03/11/2021. 70-year-old smoker, who we saw yesterday in consultation, for shortness of breath. We diagnosed him with acute exacerbation of COPD. Currently, the patient is still short of breath. Still coughing and wheezing. Does feel better. Denies any fever or chills. Denies any chest pain or chest discomfort. He is currently not wearing any oxygen. No new labs today. Lumbar spine MRI from yesterday shows disc bulging L2/L3, through L5/S1. There is multilevel foraminal stenosis noted. Evaluation on 03/12/2021 patient seen in follow-up on 6 N. in room 631. Breathing has been stable, minimal wheeze, patient is on room air, and the pulse ox is 95-97%, afebrile, no complaints of chest pain, breathing comfortably, however patient is still having issues with weakness in his lower extremities, having episodes of bowel incontinence, patient underwent orthopedic surgery evaluation, and the recommendation is for conservative measures to alleviate his symptoms, steroids, physical therapy as the patient is somewhat of a poor pena rgical candidate. From pulmonary perspective breathing has been stable, has had no acute issues overnight. Remains on IV steroids, nebulized bronchodilators, patient also had new onset atrial fibrillation with RVR, cardiology saw the patient, and patient was placed on beta blockers and oral anticoagulation. Echocardiogram is pending. His rate is much better controlled, he is request for anticoagulation. His chest x-ray on admission showed no active cardiopulmonary disease. Progress note dated 03/13/2021. The patient is again seen on the general medical floor, room 631. Currently he is doing well. Breathing is stable. He's not receiving any supplemental oxygen. He's not on any IV fluids. The patient is probably not a candidate for any orthopedic procedures at this time. I think rehab would be beneficial for this patient. The patient denies any worsening shortness of breath, cough, wheezing, or phlegm production. He also denies any chest pain or chest discomfort. He remains on appropriate medications. White count 6.1, hemoglobin 9.4, hematocrit 31.6, and platelet count 317,000. Sodium 136, potassium 4.6, chlorides 104, CO2 28, anion gap 4, BUN 60, creatinine 1.32. Objective - Vital Signs Vital signs: Vital Signs Temp 97.7 F 03/13/21 08:00 Pulse 85 03/13/21 09:37 Resp 18 03/13/21 08:00 BP 135/74 03/13/21 08:00 Pulse Ox 94 L 03/13/21 08:00 Intake & Output 03/12/21 03/13/21 03/13/21 18:59 06:59 18:59 Intake Total 714 474 Balance 714 474 Intake: Oral 714 474 Other: Voiding Method Bedside Commode Urinal # Voids 1 2 1 # Bowel Movements 2 - Exam No acute distress, oriented 3. No conversational dyspnea or use of accessory muscles. Currently on room air. Saturations 94%. HEENT examination is grossly unremarkable. Neck supple. Full range of motion. No adenopathy thyromegaly or neck vein distention. Cardiovascular examination reveals regular rhythm rate. S1-S2 normal. No S3 or S4. No discernible murmur noted. Heart sounds are distant. Heart rate 85 bpm. Lungs reveal coarse bilateral expiratory rhonchi and expiratory wheezes. Breath sounds are equal bilaterally but diminished throughout. There are no crackles. There is prolongation on forced maneuver. Breath sounds today are slightly improved compared to yesterday. Abdomen soft bowel sounds are heard. No masses or tenderness. Extremities are intact. No cyanosis clubbing or edema. Skin is without rash or lesion. Neurologic examination is brief but nonfocal. - Labs CBC & Chem 7: 03/13/21 10:07 03/13/21 10:07 Labs: Abnormal Lab Results - Last 24 Hours (Table) 03/12/21 03/13/21 03/13/21 Range/Units 05:20 10:07 10:07 RBC 3.06 L (4.30-5.90) m/uL Hgb 9.4 L (13.0-17.5) gm/dL Hct 31.6 L (39.0-53.0) % MCV 103.5 H (80.0-100.0) fL MCHC 29.8 L (31.0-37.0) g/dL RDW 15.8 H (11.5-15.5) % Sodium 136 L (137-145) mmol/L Carbon Dioxide 18.2 L (21.6-31.8) mmol/L Anion Gap 17.10 H (4.00-12.00) mmol/L BUN 52.8 H 60 H (9.0-27.0) mg/dL Creatinine 1.32 H (0.66-1.25) mg/dL Est GFR (CKD-EPI)NonAf 54.0 L (60.0-200.0) BUN/Creatinine Ratio 40.31 H (12.00-20.00) Ratio Glucose 134 H (70-110) mg/dL Assessment and Plan Assessment: #1. Acute exacerbation of chronic obstructive pulmonary disease, chest x-ray showed no acute cardiopulmonary process, COVID-19 PCR was negative. #2. Weakness, inability to walk, lower extremity paresthesias, and loss of bow el and bladder function, neurology is following, MRI of the lumbar spine, EMG, muscle biopsy, and labs are pending. #3. Chronic and ongoing history of smoking, currently smoking one and a half packs daily, used to smoke to 3 packs per day for over 50 years. #4. History of COPD, was on oxygen in the past, he states currently he is not on oxygen on a regular basis, his baseline FEV1 is 35% of predicted, stage III COPD, follows with Dr. Turcios in the pulmonary clinic. #5. History of rheumatoid arthritis on leflunomide. #6. Hypertension. #7. Hyperlipidemia. #8. Previous history of myocardial infarction. #9. History of coronary artery disease with previous stenting. #10. History of increased weakness, gait dysfunction, falls at home. Usually ambulates with a walker. #11. Chronic kidney disease stage III. #12. Hypothyroidism. #13. Chronic pain syndrome. Plan: Plan dated 03/11/2021. From the pulmonary standpoint, the patient is doing better. The patient was placed on Augmentin, Symbicort, an albuterol sulfate mixed with ipratropium bromide, 4 times a day and when necessary. In addition, the patient is on Solu- Medrol, 40 mg IV push every 8 hours. The patient is currently being evaluated by neurology for his lower extremity weakness and lack of coordination. We will continue to follow and make recommendations where appropriate. The patient is c ounseled about the importance of smoking cessation. He continues to smoke a pack and a half of cigarettes a day. Prognosis is guarded. Plan dated 03/13/2021. Currently, the patient's doing much better. He's not on any supplemental oxygen. He is not receiving IV fluids. He is counseled about the importance of smoking cessation. Labs and medications are reviewed. Currently, he remains on Augmentin, Symbicort, DuoNeb nebs, and prednisone. The patient in my opinion is not ready for any orthopedic procedures or surgery at this time. Rehab would be beneficial in this patient. Additional recommendations and suggestions are forthcoming. Prognosis is guarded. We will continue to follow make recommendations where appropriate. Time with Patient: Less than 30
--- NOTE | 2021-03-13 11:30 | ECHOF ---
Referral Reason:Repeat for LV function and new atrial fibrillation MEASUREMENTS -------- HEIGHT: 175.3 cm WEIGHT: 66.7 kg BP: RVIDd: 2.7 cm (< 3.3) IVSd: 1.0 cm (0.6 - 1.1) LVIDd: 4.3 cm (3.9 - 5.3) LVPWd: 1.1 cm (0.6 - 1.1) IVSs: 1.5 cm LVIDs: 3.7 cm LVPWs: 1.4 cm LA Diam: 3.6 cm (2.7 - 3.8) Ao Diam: 3.6 cm (2.0 - 3.7) AV Cusp: 2.5 cm (1.5 - 2.6) MV E Guzman: 0.72 m/s MV DecT: 133 ms MV A Guzman: 0.54 m/s MV E/A Ratio: 1.33 RAP: 5.00 mmHg RVSP: 35.44 mmHg FINDINGS -------- Atrial fibrillation. This was a technically adequate study. The left ventricular size is normal. Overall left ventricular systolic function is low-normal with, an EF between 50 - 55 %. The right ventricle is normal in size. The left atrium is mildly dilated. The right atrial size is normal. There is mild aortic valve sclerosis. There is no evidence of aortic regurgitation. Mild mitral annular calcification present. Mild mitral regurgitation is present. Mild tricuspid regurgitation present. There is mild pulmonary hypertension. The right ventricular systolic pressure, as measured by Doppler, is 35.44mmHg. There is no pulmonic regurgitation present. Echo free space indicative of a pericardial fat pad. CONCLUSIONS -------- 1. The left ventricular size is normal. 2. Overall left ventricular systolic function is low-normal with, an EF between 50 - 55 %. 3. The right ventricle is normal in size. 4. The left atrium is mildly dilated. 5. The right atrial size is normal. 6. There is mild aortic valve sclerosis. 7. Mild mitral annular calcification present. 8. Mild mitral regurgitation is present. 9. There is mild pulmonary hypertension. 10. The right ventricular systolic pressure, as measured by Doppler, is 35.44mmHg. 11. There is no pulmonic regurgitation present. 12. Echo free space indicative of a pericardial fat pad. HOME THEATER EXPERIENCE EXPERT: Daniela Quintanilla RDCS
[2021-03-13] MEDS: CYANOCOBALAMIN 500 MCG TAB PO SCH (12:48)
[2021-03-13] MEDS: MORPHINE SULFATE 2 MG/ML SYRINGE IV PRN ×2 (12:54→20:00)
--- NOTE | 2021-03-13 16:33 | P.PN ---
Subjective Progress Note Date: 03/13/21 This is a pleasant 70 years old male with past medical history of COPD, Hyperlipidemia, Hypertension, Myocardial Infarction ([place]), Osteoarthritis (OA), Rheumatoid Arthritis . 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 Because of inability to walk for 2 days. Says that he started getting leg weakness since May last year, he usually uses a walker to walk but over the last 2 days he was unable to use the walker even. He can not raise his legs off the bed however he can bend his knee Also is complaining of from increasing shortness of breath with cough, his cough is weak and cannot bring up phlegm. No chest pain. No back pain. No leg pain. Except his knees. No diarrhea or vomiting. No urinary complaints Patient presents complaining from weakness for 2 days with audible wheezing and shortness of breath CBC showed mild anemia with hemoglobin of 8.9. Patient has chronic anemia. INR, BMP and liver enzymes are unremarkable. Urine analysis showing 1+ protein, no WBC increased Coronavirus not detected. EKG showing normal sinus rhythm at [address]pm with no significant [address]-T changes and QTC of 390. Chest x-ray: No acute process In the emergency room her got breathing treatment and morphine 03/10/2021 Patient is seen and evaluated and follow-up this morning continues to be weak and will have PT/OT therapy evaluate the patient. Patient was seen and eval uated by neurology recommending muscle biopsy although this will be done in the outpatient setting as this is not performed here. Patient's white blood count is 10.82, hemoglobin is 7.9, sodium is 137 with a potassium of 5.3 and current creatinine is 1.14. Patient also evaluated by pulmonary for acute exacerbation of COPD and patient is a continued ongoing nicotine user. Patient is maintained on IV steroids along with breathing inhalational treatments and will be given a dose of IV Lasix. Patient started on Augmentin and will continue to monitor closely. 03/11/2021 Patient is seen in follow up today and awaiting MRI of the c/t/ls spine. Patient continues to be weak and PT/OT following. Neurology following closely as well. Pulmonary following as well for COPD and continued on IV steroids along with bronchodilators and will continue. Denies any worsening shortness of breath. Patient denies chest pain or palpitations. Encouraged oral intake. 03/12/2021 Patient is seen and evaluated in follow-up today and underwent MRI of cervical thoracic spine which shows stenosis and cervical spondylosis C3 to C4 and C4 to C5 with mild to moderate C5 to C6 along with lumbosacral spondylosis in multiple areas with orthopedics following closely. Patient is severely noncompliant with follow-up in the outpatient setting and clinically appears from a seated with extensive muscle wasting noted. Oral intake is poor although he states he is eating well and eats minimally. Patient continues to smoke as well. Patient continues with significant weakness and will consult social work for possible placement. Discussed at length with nurse practitioner from the [place] clinic who follows his care and reports to having a recent low-dose computed tomography scan of the lungs which was questionable for possible cancer and patient failed to follow-up for PET scan and possible biopsy. Following closely and will discuss with pulmonary. A blood count today is 9.7, hemoglobin is 9.0, platelets are 342 no repeat BMP done today and will repeat. Extensive neurological workup in process. Brain MRI ordered and report is pending. 03/13/2021 Patient is seen in follow-up morning with multiple medical consultations including orthopedics, pulmonary, neurology, cardiology following closely. Patient has been started on eliquis along with metoprolol and heart rate improved. Recommend continue telemetry monitoring. Patient is currently 96% on room air denies any worsening shortness of breath. Audible expiratory wheezing noted on exam. Patient will continue on breathing inhalational treatments and empiric antibiotics in the form of Augmentin. Lengthy discussion was had with the patient about noncompliance with medications and follow-up and continued weakness and PT/OT therapy recommending subacute rehab and patient is agreeable and social work was consulted. Possible down the line surgical intervention with orthopedics was discussed for his stenosis of the cervical spine although is a high risk surgical candidate and recommending conservative management at this time. Patient did have a brain MRI which shows mild atrophy and mild hydrocephalus with white matter signal changes consistent with age-related atrophy and mild hydrocephalus with no evidence of cortical infarct. Patient will need outpatient neurology follow-up. Review of systems: Constitutional: reports of fatigue, no reports of fever, or chills Cardiovascular: No reports of chest pain or palpitations Respiratory: No reports of worsening shortness of breath GI: No reports of nausea, vomiting : No reports of dysuria or retention Neurovascular: Reports generalized weakness All medications have been reviewed Active Medications Albuterol/Ipratropium (Ipratropium-Albuterol 3 Ml Neb) 3 ml INHALATION RT-QID PRN PRN Reason: Shortness Of Breath Or Wheezing Albuterol/Ipratropium (Ipratropium-Albuterol 3 Ml Neb) 3 ml INHALATION RT-QID [facility] [place] Last Admin: 03/13/21 12:18 Dose: 3 ml Documented by: Amoxicillin/Clavulanate Potassium (Amoxic-Pot Clav 875-125mg 1 Each Tab) 1 each PO Q12HR [facility] [place] Last Admin: 03/13/21 08:17 Dose: 1 each Documented by: Apixaban (Apixaban 2.5 Mg Tablet) 2.5 mg PO BID [facility]; Protocol Last Admin: 03/13/21 08:18 Dose: 2.5 mg Documented by: Budesonide/Formoterol Fumarate (Symbicort 160-4.5 Mcg Inhaler) 2 puff INHALATION RT-BID [facility] [place] Last Admin: 03/13/21 09:23 Dose: 2 puff Documented by: Capsaicin (Capsaicin 0.025% Cream 60 Gm Tube) 1 applic TOPICAL TID [facility] [place]; Protocol Last Admin: 03/13/21 10:47 Dose: 1 applic Documented by: Cyanocobalamin (Cyanocobalamin 500 Mcg Tab) 1,000 mcg PO DAILY [facility] Last Admin: 03/13/21 12:48 Dose: 1,000 mcg Documented by: Famotidine (Famotidine 20 Mg Tab) 20 mg PO DAILY [facility] Metoprolol Tartrate (Metoprolol Tartrate 25 Mg Tab) 25 mg PO BID [facility] [place] Last Admin: 03/13/21 08:18 Dose: 25 mg Documented by: Morphine Sulfate (Morphine Sulfate 2 Mg/Ml Syringe) 2 mg IV Q4HR PRN PRN Reason: Severe Pain Last Admin: 03/13/21 12:54 Dose: 2 mg Documented by: Naloxone HCl (Naloxone 0.4 Mg/Ml 1 Ml Vial) 0.2 mg IV Q2M PRN PRN Reason: Opioid Reversal Nicotine Polacrilex (Nicotine Gum (Polacrilex) 2 Mg Gum) 2 mg BUCCAL Q4HR PRN PRN Reason: Nicotine Cravings Ondansetron HCl (Ondansetron 4 Mg/2 Ml Vial) 4 mg IVP Q8HR PRN PRN Reason: Nausea And Vomiting Last Admin: 03/12/21 21:55 Dose: 4 mg Documented by: Prednisone (Prednisone 20 Mg Tab) 40 mg PO DAILY [facility] Last Admin: 03/13/21 08:18 Dose: 40 mg Documented by: Physical exam: GENERAL: The patient is alert and oriented x3, not in any acute distress. Well developed, well nourished. Cachectic, ill-appearing, appears much older than stated age HEENT: Pupils are round and equally reacting to light. EOMI. No scleral icterus. No conjunctival pallor. Normocephalic, atraumatic. No pharyngeal erythema. No thyromegaly. CARDIOVASCULAR: S1 and S2 present. No murmurs, rubs, or gallops. PULMONARY: Chest is clear to auscultation, bilateral expiratory wheezing, bilateral coarse rhonchi noted ABDOMEN: Soft, nontender, nondistended, normoactive bowel sounds. No palpable organomegaly. MUSCULOSKELETAL: No joint swelling or deformity. EXTREMITIES: No cyanosis, clubbing, or pedal edema. NEUROLOGICAL: Cranial nerves are grossly intact. Bilateral leg weakness of the thighs and less extensive ankles. Muscle wasting noted SKIN: No rashes. No petechiae Assessment: Bilateral lower extremity weakness, looks symmetrical although patient complains of more on the left side. 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 Rule out neurological causes COPD with acute exacerbation New onset atrial fibrillation, paroxysmal Multiple bilateral pulmonary nodules with suspicion for metastatic disease as noted on recent CT ordered by primary care in December of this year Moderate protein calorie malnutrition with a body mass index of 21.8 Stage II pressure ulcer noted on the coccyx Lumbosacral spondylosis without myelopathy is noted on CT c-diff ruled out multi-level spinal stenosis of C-spine as noted on MRI Hypertension Hyperlipidemia Osteoarthritis History of rheumatoid arthritis degenerative disc disease continued ongoing nicotine dependence GI prophylaxis DVT prophylaxis Full code Plan: Recommend to continue with current medications and medical management. No plans for surgical intervention from an orthopedic standpoint at this time and recommending conservative management. Neurology following and recommending outpatient follow-up. Concerns for lung nodules as noted previous on a CT that was done in December of this year by primary care and patient failed to follow-up for further PET scans and pulmonary evaluation. Discussed with the patient about the importance of compliance with medications and follow-up. Patient continues to be weak and PT/OT therapy evaluating and recommending subacute rehab and patient is now agreeable. Case management aware and social work being consulted. Further recommendations depends on the clinical course of the patient. Prognosis is guarded. Possible discharge in 24 hours. Objective - Vital Signs Vital signs: Vital Signs Temp 97.7 F 03/13/21 08:00 Pulse 86 03/13/21 12:18 Resp 18 03/13/21 08:00 BP 135/74 03/13/21 08:00 Pulse Ox 94 L 03/13/21 08:00 Intake & Output 03/12/21 03/13/21 03/13/21 18:59 06:59 18:59 Intake Total 714 474 Balance 714 474 Intake: Oral 714 474 Other: Voiding Method Bedside Commode Urinal # Voids 1 2 1 # Bowel Movements 2 - Labs CBC & Chem 7: 03/13/21 10:07 03/13/21 10:07 Labs: Abnormal Lab Results - Last 24 Hours (Table) 03/12/21 03/12/21 03/13/21 Range/Units 05:20 05:20 10:07 RBC 3.06 L (4.30-5.90) m/uL Hgb 9.4 L (13.0-17.5) gm/dL Hct 31.6 L (39.0-53.0) % MCV 103.5 H (80.0-100.0) fL MCHC 29.8 L (31.0-37.0) g/dL RDW 15.8 H (11.5-15.5) % Sodium (137-145) mmol/L Carbon Dioxide 18.2 L (21.6-31.8) mmol/L Anion Gap 17.10 H (4.00-12.00) mmol/L BUN 52.8 H (9.0-27.0) mg/dL Creatinine (0.66-1.25) mg/dL Est GFR (CKD-EPI)NonAf 54.0 L (60.0-200.0) BUN/Creatinine Ratio 40.31 H (12.00-20.00) Ratio Glucose 134 H (70-110) mg/dL RBC Folate 1,478 H (280 - 791) ng/mL 03/13/21 Range/Units 10:07 RBC (4.30-5.90) m/uL Hgb (13.0-17.5) gm/dL Hct (39.0-53.0) % MCV (80.0-100.0) fL MCHC (31.0-37.0) g/dL RDW (11.5-15.5) % Sodium 136 L (137-145) mmol/L Carbon Dioxide (21.6-31.8) mmol/L Anion Gap (4.00-12.00) mmol/L BUN 60 H (9.0-27.0) mg/dL Creatinine 1.32 H (0.66-1.25) mg/dL Est GFR (CKD-EPI)NonAf (60.0-200.0) BUN/Creatinine Ratio (12.00-20.00) Ratio Glucose (70-110) mg/dL RBC Folate (280 - 791) ng/mL
[2021-03-14] MEDS: AMOXIC-POT CLAV 875-125MG 1 EACH TAB PO SCH ×2 (07:54→20:08)
[2021-03-14] MEDS: CAPSAICIN 0.025% CREAM 60 GM TUBE TOPICAL SCH ×3 (07:56→20:08)
[2021-03-14] MEDS: METOPROLOL TARTRATE 25 MG TAB PO SCH ×2 (07:56→20:08)
[2021-03-14] MEDS: predniSONE 20 MG TAB PO SCH (07:56)
[2021-03-14] MEDS: CYANOCOBALAMIN 500 MCG TAB PO SCH (07:56)
[2021-03-14] MEDS: FAMOTIDINE 20 MG TAB PO SCH (07:56)
[2021-03-14] MEDS: APIXABAN 2.5 MG TABLET PO SCH ×2 (07:56→20:08)
[2021-03-14] MEDS: MORPHINE SULFATE 2 MG/ML SYRINGE IV PRN (08:07)
[2021-03-14] MEDS: IPRATROPIUM-ALBUTEROL 3 ML NEB INHALATION SCH ×4 (08:17→20:22)
[2021-03-14] MEDS: SYMBICORT 160-4.5 MCG INHALER INHALATION SCH ×2 (08:17→20:22)
--- NOTE | 2021-03-14 11:05 | P.PN ---
Subjective Progress Note Date: 03/14/21 The patient is seen at bedside and he feels about the same. He denies of any neurological problems. Objective - Vital Signs Vital signs: Vital Signs Temp 97.9 F 03/14/21 08:00 Pulse 64 03/14/21 08:29 Resp 18 03/14/21 08:00 BP 161/80 03/14/21 08:00 Pulse Ox 100 03/14/21 08:18 Intake & Output 03/13/21 03/14/21 03/14/21 18:59 06:59 18:59 Intake Total 948 10 180 Balance 948 10 180 Weight 67 kg 67.2 kg Intake: IV 10 Invasive Line 1 10 Oral 948 180 Other: Voiding Method Bedside Commode Bedside Commode Urinal Urinal # Voids 1 3 # Bowel Movements 1 2 - Exam Gen.: The patient is reclining on the gurney in the emergency department. He is in no acute distress. The patient is cachectic. HEENT: Head is atraumatic, normocephalic. Extremities: There is evidence of swelling of the joints of the hands consistent with patient's diagnosis of rheumatoid arthritis. 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 In addition, there is diffuse muscle atrophy. Neurological examination Mental status: The patient is awake, alert and oriented to self place and time. His speech is clear. The patient answers all questions appropriately. There is no aphasia or neglect. Cranial nerves: Pupils are equal, round and reactive to light. Visual heredia are full to confrontation. Extraocular movement intact. There is no nystagmus. Facial sensation is intact. There is no facial asymmetry. Hearing is grossly intact. Uvula and palate are midline. Shoulder shrug is symmetric. Tongue protrudes midline and move side to side without difficulty. Motor: Gait is deferred. Strength: the patient is unable to raise his arms over his head; Shoulder flexion is 3-4 bilaterally while flexion is 4. Left forarm extension is 3-4, while right is 4. Forearm flexion is 4+ over right and 4 over left. 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 Hip flexors/extensor are 4+ to 5-; knee extension is 3-4 over right and 4- over left; ankle dorsiflexion and flexion are 4 bilaterally. There is no evidence of fasciculations. There is diffuse muscle atrophy of the extremities, more profound, proximally. Sensation: Grossly intact to light touch throughout. There is no extinction with double simultaneous stimulation. With pinprick it was inconsistent and at time he stated he had decrease sensation from distal ankle to tip of toes and at times was normal throughout. Coordination: Finger to nose and rapid alternating movements are intact. Deep tendon reflexes: Trceps R 1-2, left 0-1, biceps 0-1 bilaterally, brachi oradialis 0-1, patellar right 1+ while left 0-1+ and ankles are 0 bilaterally. Plantar responses is mute bilaterally. WORK-UP: * ESR of 70. CRP is 18.1. * TSH is 11.2 and the repeated is 11.40 but the free T4 is 1.23. * CK level is 224 which is slightly elevated but not too significant * DEMETRI is negative * LDH is 405. * AST of 24 ALT of 15 * Calcium is 8.9 magnesium is 1.7 * Hemoglobin A1c is 4.5 * SSA and SSB antibody is negative * Aldolase lace is 7.2 (normal) * HIV 1 and 2 antibody is nonreactive as well as at HIV P 24 antibody was nonreactive. * HbA1c: 4.5 * Vitamin B12: 330 (200-944) which is low normal. * Serum Folate: 15.9 (4.4-31). While RBC folate is 1478 * Payan virus PCR was not detected * Chest x-rays reported as no active cardiopulmonary disease. Normal heart. No change. * MRI of the cervical spine is reported as multilevel spinal stenosis, significant foraminal encroachment, degenerative disc disease as described. In the body of the report is mentioned the patient has moderate spinal stenosis over C4-C5. There is some mild anterior mass effect the thecal sac over C5-C6 right greater than left as well as the anterior mild mass effect on C6-C7 right greater than left. I felt the patient has cervical stenosissevere over C3-C4, C4-C5 and mild to moderate C5-C6 and mild over C6-C7. * MRI of the thoracic spine is reported as markedly level D reactive disc disease without significant spinal stenosis. Additional finding above. * MRI of the lumbar spine with and without gadolinium is reported as disc bulging over the L2-L3 through L5-S1. This appears only greater in the left paracentral region at L2-L3. Multilevel foraminal stenosis due to disc bulging. In the body report it is reported as disc bulging is present previously greater than left paracentral region. Correlate with left L3 radicular symptoms. Moderate bilateral former no narrowing is present greater on the left at. Over L3-L4 shows a mild disc bulge and moderate bilateral former narrowing. There is also mild disc bulge and that at L4-L5 and mild bilateral foraminal narrowing present at. Over L5-S1 is reported as mild to moderate anterior thecal sac impression. Moderate bilateral foraminal narrowing is present. * MRI Brain: Mild atrophy. Mild hydrocephalus. White matter signal changes consistent with age related atrophy and mild hydrocephalus. No evidence of cortical infarct. - Labs CBC & Chem 7: 03/13/21 10:07 03/13/21 10:07 Labs: Abnormal Lab Results - Last 24 Hours (Table) 03/12/21 03/12/21 Range/Units 05:20 05:20 Methylmalonic Acid 0.59 H (<0.40) umol/L RBC Folate 1,478 H (280 - 791) ng/mL Assessment and Plan Assessment: * Quadraparesis, that is progressive since 05/2019 with muscle atrophy and hyporeflexia to areflexia. Inability to stand or ambulate. Could be due to multifactorial: Has moderate to significant cervical and lumbosacral spondylosis that can cause weakness. Rule out other causes. * Cervical spondylosis (I felt severe over C3-C4, C4-C5 and mild to moderate C5- C6 and mild over C6-C7). * Lumbosacral spondylosis without myelopathy (Moderate to severe L2-L3, moderate L3-L4) * Acute exacerbation of chronic obstructive pulmonary disease * New onset Paroxysmal atrial fibrillation * Questionable TIA in 04/2020 was slurred speech * History of significant rheumatoid arthritis * Questionable lung mass (per nurse was notified that patient had mass at work- up at [facility]) but has not followed-up. * Previous myocardial infarction * History of coronary artery disease with previous stenting in 1999 * Chronic kidney disease--currently controlled. * Hypothyroidism * Chronic pain syndrome * Chronic and ongoing history of the continues smokes 1-2 packs daily for past 2 years and prior to that smoking 3-4 acks per day for over 50 years * History of alcohol use (last drink was 10 years ago) Plan: * Low normal vitamin B12: Continue vitamin B12 1000 g daily (was started during this admission). * I notified patient to consider Lumbar puncture to rule out other process (such as Chronic inflammatory demylinating disease) that can also contribute to his quadraparesis but he refused Lumbar puncture. * Recommend EMG with nerve conduction study of both upper and lower bas soon as possible and we do not provide this in our facility so this can be done as an outpatient especially this has been going on since May 2019. * Recommend muscle biopsy and this cannot be done as an inpatient therefore this has to be done as an outpatient. * Physical therapy and occupation therapy are consulted. * Orthopedic team is on board. Orthopedic team feels the patient has cervical stenosis that is severe over C4 to C6 as well as cervical spondylitic myelopathy. I feel more stenosis than myelopathy. Orthopedic team does not feel patient is a good surgical candidate and are leaning toward conservative management. * Cardiology is on board. He started the patient on Eliquis 2.5 mg 1 tablet twice a day for his new onset atrial fibrillation * Pulmonary team is on board. Regarding the questionable lung mass seen at [facility] will defer further work-up to the pulmonary team. * We'll defer the rest of the medical management to the primary team. * Patient was counseled on tobacco cessation. * Upon discharge the patient the needs to follow-up with a neurologist within 1- 2 weeks. * The patient will benefit from rehab. The patient condition is very guarded. The plan is discussed with the patient and nurse practioner from primary team. There is no further work-up. He is clear for discharge. Thiago Reaves M.D. Neuro-hospitalist Time with Patient: Less than 30
--- NOTE | 2021-03-14 11:15 | P.PN ---
Subjective Progress Note Date: 03/14/21 Principal diagnosis: Shortness of breath. 70-year-old white male patient with past medical history of COPD, not oxygen dependent at baseline, chronic and ongoing history of smoking, still smoking about one half packs per day, hypertension, previous history of myocardial infarction, osteoarthritis, rheumatoid arthritis. Patient follows with [facility], and sees Dr. Humphries in the pulmonary clinic. He presented to the emergency department on 03/08/2021 with complaints of weakness, he was unable to walk for two days prior to presentation. Usually uses a walker, however in the last few days has been unable to walk with a walker. He was having increased shortness of breath, cough, wheezing, he is not able to bring up any phlegm. No fever, no complaints of chest pain, no hemoptysis, no nausea vomiting or diarrhea, his chest x-ray on admission showed no active cardiopulmonary disease. EKG showed normal sinus rhythm with evidence of anteroseptal infarct of undetermined age. he tested negative for COVID-19. Patient has been afebrile while in the hospital. Currently on 3 L of oxygen, pulse ox of 97%, vital signs have been stable. Admission blood work showed a white blood cell count of 10.5, hemoglobin of 8 point, platelet count is 244, sodium was 137 potassium 3.7, chloride is 108, B1 is 26, creatinine is 1.02, LFTs were within normal limits, lactic acid was 1.0, proBNP was 2770, troponin was less than 0.012, TSH was elevated at 11.2 and free T4 was 1.23, CRP was elevated at 8.1, and ESR was 70, urinalysis showed 1+ protein, no definite ev idence of infection. Patient was started on IV steroids, he was given a dose of Lasix yesterday, he was placed on DuoNeb, Symbicort. Progress note dated 03/11/2021. 70-year-old smoker, who we saw yesterday in consultation, for shortness of breath. We diagnosed him with acute exacerbation of COPD. Currently, the patient is still short of breath. Still coughing and wheezing. Does feel better. Denies any fever or chills. Denies any chest pain or chest discomfort. He is currently not wearing any oxygen. No new labs today. Lumbar spine MRI from yesterday shows disc bulging L2/L3, through L5/S1. There is multilevel foraminal stenosis noted. Evaluation on 03/12/2021 patient seen in follow-up on 6 N. in room 631. Breathing has been stable, minimal wheeze, patient is on room air, and the pulse ox is 95-97%, afebrile, no complaints of chest pain, breathing comfortably, however patient is still having issues with weakness in his lower extremities, having episodes of bowel incontinence, patient underwent orthopedic surgery evaluation, and the recommendation is for conservative measures to alleviate his symptoms, steroids, physical therapy as the patient is somewhat of a poor pena rgical candidate. From pulmonary perspective breathing has been stable, has had no acute issues overnight. Remains on IV steroids, nebulized bronchodilators, patient also had new onset atrial fibrillation with RVR, cardiology saw the patient, and patient was placed on beta blockers and oral anticoagulation. Echocardiogram is pending. His rate is much better controlled, he is request for anticoagulation. His chest x-ray on admission showed no active cardiopulmonary disease. Progress note dated 03/13/2021. The patient is again seen on the general medical floor, room 631. Currently he is doing well. Breathing is stable. He's not receiving any supplemental oxygen. He's not on any IV fluids. The patient is probably not a candidate for any orthopedic procedures at this time. I think rehab would be beneficial for this patient. The patient denies any worsening shortness of breath, cough, wheezing, or phlegm production. He also denies any chest pain or chest discomfort. He remains on appropriate medications. White count 6.1, hemoglobin 9.4, hematocrit 31.6, and platelet count 317,000. Sodium 136, potassium 4.6, chlorides 104, CO2 28, anion gap 4, BUN 60, creatinine 1.32. Progress note dated 03/14/2021. 70-year-old male admitted with a diagnosis of COPD exacerbation. Currently, he's on room air. He's not receiving any IV fluids. From the pulmonary standpoint, is doing much better. I did mention yesterday that he could be considered for possible discharge. No new labs today. Labs from March 13 reviewed. No new chest x-ray today. Objective - Vital Signs Vital signs: Vital Signs Temp 97.9 F 03/14/21 08:00 Pulse 64 03/14/21 08:29 Resp 18 03/14/21 08:00 BP 161/80 03/14/21 08:00 Pulse Ox 100 03/14/21 08:18 Intake & Output 03/13/21 03/14/21 03/14/21 18:59 06:59 18:59 Intake Total 948 10 180 Balance 948 10 180 Weight 67 kg 67.2 kg Intake: IV 10 Invasive Line 1 10 Oral 948 180 Other: Voiding Method Bedside Commode Bedside Commode Urinal Urinal # Voids 1 3 # Bowel Movements 1 2 - Exam No acute distress, oriented 3. No conversational dyspnea or use of accessory muscles. Currently on room air. Saturations 96%. HEENT examination is grossly unremarkable. Neck supple. Full range of motion. No adenopathy thyromegaly or neck vein distention. Cardiovascular examination reveals regular rhythm rate. S1-S2 normal. No S3 or S4. No discernible murmur noted. Heart sounds are distant. Heart rate 64 bpm. Lungs reveal diminished bilateral breath sounds. Scattered rhonchi. No wheezes or crackles. Slight prolongation on forced maneuver. Slight worsening of adventitious lung sounds on forced maneuver. Abdomen soft bowel sounds are heard. No masses or tenderness. Extremities are intact. No cyanosis clubbing or edema. Skin is without rash or lesion. Neurologic examination is brief but nonfocal. - Labs CBC & Chem 7: 03/13/21 10:07 03/13/21 10:07 Labs: Abnormal Lab Results - Last 24 Hours (Table) 03/12/21 03/12/21 Range/Units 05:20 05:20 Methylmalonic Acid 0.59 H (<0.40) umol/L RBC Folate 1,478 H (280 - 791) ng/mL Assessment and Plan Assessment: #1. Acute exacerbation of chronic obstructive pulmonary disease, chest x-ray showed no acute cardiopulmonary process, COVID-19 PCR was negative. #2. Weakness, inability to walk, lower extremity paresthesias, and loss of bowel and bladder function, neurology is following, MRI of the lumbar spine, EMG, muscle biopsy, and labs are pending. #3. Chronic and ongoing history of smoking, currently smoking one and a half packs daily, used to smoke to 3 packs per day for over 50 years. #4. History of COPD, was on oxygen in the past, he states currently he is not on oxygen on a regular basis, his baseline FEV1 is 35% of predicted, stage III COPD, follows with Dr. Turcios in the pulmonary clinic. #5. History of rheumatoid arthritis on leflunomide. #6. Hypertension. #7. Hyperlipidemia. #8. Previous history of myocardial infarction. #9. History of coronary artery disease with previous stenting. #10. History of increased weakness, gait dysfunction, falls at home. Usually ambulates with a walker. #11. Chronic kidney disease stage III. #12. Hypothyroidism. #13. Chronic pain syndrome. Plan: Plan dated 03/11/2021. From the pulmonary standpoint, the patient is doing better. The patient was placed on Augmentin, Symbicort, an albuterol sulfate mixed with ipratropium bromide, 4 times a day and when necessary. In addition, the patient is on Solu- Medrol, 40 mg IV push every 8 hours. The patient is currently being evaluated by neurology for his lower extremity weakness and lack of coordination. We will continue to follow and make recommendations where appropriate. The patient is counseled about the importance of smoking cessation. He continues to smoke a pack and a half of cigarettes a day. Prognosis is guarded. Plan dated 03/13/2021. Currently, the patient's doing much better. He's not on any supplemental oxygen. He is not receiving IV fluids. He is counseled about the importance of smoking cessation. Labs and medications are reviewed. Currently, he remains on Augmentin, Symbicort, DuoNeb nebs, and prednisone. The patient in my opinion is not ready for any orthopedic procedures or surgery at this time. Rehab would be beneficial in this patient. Additional recommendations and suggestions are forthcoming. Prognosis is guarded. We will continue to follow make recommendations where appropriate. Plan dated 03/14/2021. Currently, the patient's doing well from the pulmonary standpoint. From the pulmonary standpoint, the patient could be significant for discharge. Additional recommendations and suggestions are forthcoming. Labs and x-rays are reviewed. Medications have been adjusted accordingly. He is currently in Augmentin, Symbicort, DuoNeb, and prednisone. Additional recommendations and suggestions are forthcoming. We will continue to follow make recommendations where appropriate. Time with Patient: Less than 30
[2021-03-15] MEDS: IPRATROPIUM-ALBUTEROL 3 ML NEB INHALATION SCH ×4 (07:29→20:20)
[2021-03-15] MEDS: SYMBICORT 160-4.5 MCG INHALER INHALATION SCH ×2 (07:29→20:20)
--- NOTE | 2021-03-15 07:31 | P.PN ---
Subjective Progress Note Date: 03/14/21 This is a pleasant 70 years old male with past medical history of COPD, Hyperlipidemia, Hypertension, Myocardial Infarction (CT), Osteoarthritis (OA), Rheumatoid Arthritis . He follows up with [facility] in the [facility] and his ground mixer is Dr. Humphries. Because of inability to walk for 2 days. Says that he started getting leg weakness since May last year, he usually uses a walker to walk but over the last 2 days he was unable to use the walker even. He can not raise his legs off the bed however he can bend his knee Also is complaining of from increasing shortness of breath with cough, his cough is weak and cannot bring up phlegm. No chest pain. No back pain. No leg pain. Except his knees. No diarrhea or vomiting. No urinary complaints Patient presents complaining from weakness for 2 days with audible wheezing and shortness of breath CBC showed mild anemia with hemoglobin of 8.9. Patient has chronic anemia. INR, BMP and liver enzymes are unremarkable. Urine analysis showing 1+ protein, no WBC increased Coronavirus not detected. EKG showing normal sinus rhythm at 70 bpm with no significant ST-T changes and QTC of 390. Chest x-ray: No acute process In the emergency room her got breathing treatment and morphine 03/10/2021 Patient is seen and evaluated and follow-up this morning continues to be weak and will have PT/OT therapy evaluate the patient. Patient was seen and eval uated by neurology recommending muscle biopsy although this will be done in the outpatient setting as this is not performed here. Patient's white blood count is 10.82, hemoglobin is 7.9, sodium is 137 with a potassium of 5.3 and current creatinine is 1.14. Patient also evaluated by pulmonary for acute exacerbation of COPD and patient is a continued ongoing nicotine user. Patient is maintained on IV steroids along with breathing inhalational treatments and will be given a dose of IV Lasix. Patient started on Augmentin and will continue to monitor closely. 03/11/2021 Patient is seen in follow up today and awaiting MRI of the c/t/ls spine. Patient continues to be weak and PT/OT following. Neurology following closely as well. Pulmonary following as well for COPD and continued on IV steroids along with bronchodilators and will continue. Denies any worsening shortness of breath. Patient denies chest pain or palpitations. Encouraged oral intake. 03/12/2021 Patient is seen and evaluated in follow-up today and underwent MRI of cervical thoracic spine which shows stenosis and cervical spondylosis C3 to C4 and C4 to C5 with mild to moderate C5 to C6 along with lumbosacral spondylosis in multiple areas with orthopedics following closely. Patient is severely noncompliant with follow-up in the outpatient setting and clinically appears from a seated with extensive muscle wasting noted. Oral intake is poor although he states he is eating well and eats minimally. Patient continues to smoke as well. Patient continues with significant weakness and will consult social work for possible placement. Discussed at length with nurse practitioner from the [facility] who follows his care and reports to having a recent low-dose computed tomography scan of the lungs which was questionable for possible cancer and patient failed to follow-up for PET scan and possible biopsy. Following closely and will discuss with pulmonary. A blood count today is 9.7, hemoglobin is 9.0, platelets are 342 no repeat BMP done today and will repeat. Extensive neurological workup in process. Brain MRI ordered and report is pending. 03/13/2021 Patient is seen in follow-up morning with multiple medical consultations including orthopedics, pulmonary, neurology, cardiology following closely. Patient has been started on eliquis along with metoprolol and heart rate improved. Recommend continue telemetry monitoring. Patient is currently 96% on room air denies any worsening shortness of breath. Audible expiratory wheezing noted on exam. Patient will continue on breathing inhalational treatments and empiric antibiotics in the form of Augmentin. Lengthy discussion was had with the patient about noncompliance with medications and follow-up and continued weakness and PT/OT therapy recommending subacute rehab and patient is agreeable and social work was consulted. Possible down the line surgical intervention with orthopedics was discussed for his stenosis of the cervical spine although is a high risk surgical candidate and recommending conservative management at this time. Patient did have a brain MRI which shows mild atrophy and mild hydrocephalus with white matter signal changes consistent with age-related atrophy and mild hydrocephalus with no evidence of cortical infarct. Patient will need outpatient neurology follow-up. 03/14/2021 Patient is evaluated this morning and continues to be weak. Patient will need outpatient neurology follow up and outpatient PET scan for further evaluation. Pulmonary,orthopedics, and neurology along with cardiology following the patient. Patient continues with oral augmentin, oral steroids, breathing inhalational treatments and will continue. Patient has been evaluated by PT/OT recommending [facility] and social work following and working on accepting facility and insurance authorization. Review of systems: Constitutional: reports of fatigue, no reports of fever, or chills Cardiovascular: No reports of chest pain or palpitations Respiratory: No reports of worsening shortness of breath GI: No reports of nausea, vomiting : No reports of dysuria or retention Neurovascular: Reports generalized weakness All medications have been reviewed Active Medications Albuterol/Ipratropium (Ipratropium-Albuterol 3 Ml Neb) 3 ml INHALATION RT-QID PRN PRN Reason: Shortness Of Breath Or Wheezing Albuterol/Ipratropium (Ipratropium-Albuterol 3 Ml Neb) 3 ml INHALATION RT-QID [facility] Last Admin: 03/14/21 20:22 Dose: Not Given Documented by: Amoxicillin/Clavulanate Potassium (Amoxic-Pot Clav 875-125mg 1 Each Tab) 1 each PO Q12HR [facility] Last Admin: 03/14/21 20:08 Dose: 1 each Documented by: Apixaban (Apixaban 2.5 Mg Tablet) 2.5 mg PO BID [facility]; Protocol Last Admin: 03/14/21 20:08 Dose: 2.5 mg Documented by: Budesonide/Formoterol Fumarate (Symbicort 160-4.5 Mcg Inhaler) 2 puff INHALATION RT-BID [facility] Last Admin: 03/14/21 20:22 Dose: Not Given Documented by: Capsaicin (Capsaicin 0.025% Cream 60 Gm Tube) 1 applic TOPICAL TID [facility]; Protocol Last Admin: 03/14/21 20:08 Dose: 1 applic Documented by: Cyanocobalamin (Cyanocobalamin 500 Mcg Tab) 1,000 mcg PO DAILY [facility] Last Admin: 03/14/21 07:56 Dose: 1,000 mcg Documented by: Famotidine (Famotidine 20 Mg Tab) 20 mg PO DAILY [facility] Last Admin: 03/14/21 07:56 Dose: 20 mg Documented by: Metoprolol Tartrate (Metoprolol Tartrate 25 Mg Tab) 25 mg PO BID [facility] Last Admin: 03/14/21 20:08 Dose: 25 mg Documented by: Morphine Sulfate (Morphine Sulfate 2 Mg/Ml Syringe) 2 mg IV Q4HR PRN PRN Reason: Severe Pain Last Admin: 03/14/21 08:07 Dose: 2 mg Documented by: Naloxone HCl (Naloxone 0.4 Mg/Ml 1 Ml Vial) 0.2 mg IV Q2M PRN PRN Reason: Opioid Reversal Nicotine Polacrilex (Nicotine Gum (Polacrilex) 2 Mg Gum) 2 mg BUCCAL Q4HR PRN PRN Reason: Nicotine Cravings Ondansetron HCl (Ondansetron 4 Mg/2 Ml Vial) 4 mg IVP Q8HR PRN PRN Reason: Nausea And Vomiting Last Admin: 03/12/21 21:55 Dose: 4 mg Documented by: Prednisone (Prednisone 20 Mg Tab) 40 mg PO DAILY [facility] Last Admin: 03/14/21 07:56 Dose: 40 mg Documented by: Physical exam: GENERAL: The patient is alert and oriented x3, not in any acute distress. Well developed, well nourished. Cachectic, ill-appearing, appears much older than stated age. Temp is 97.9, pulse is 54, resp are 18, blood pressure is 161/80, on 02 is 96 % room air. HEENT: Pupils are round and equally reacting to light. EOMI. No scleral icterus. No conjunctival pallor. Normocephalic, atraumatic. No pharyngeal erythema. No thyromegaly. CARDIOVASCULAR: S1 and S2 muffled. PULMONARY: diminished breath sounds bilaterally, bilateral expiratory wheezing, bilateral coarse rhonchi noted ABDOMEN: Soft, nontender, nondistended, normoactive bowel sounds. No palpable organomegaly. MUSCULOSKELETAL: No joint swelling or deformity. EXTREMITIES: No cyanosis, clubbing, or pedal edema. NEUROLOGICAL: Cranial nerves are grossly intact. Bilateral leg weakness of the thighs and less extensive ankles. Muscle wasting noted SKIN: No rashes. No petechiae Assessment: Bilateral lower extremity weakness, looks symmetrical although patient complains of more on the left side. 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 Rule out neurological causes COPD with acute exacerbation New onset atrial fibrillation, paroxysmal Multiple bilateral pulmonary nodules with suspicion for metastatic disease as noted on recent CT ordered by primary care in December of this year Moderate protein calorie malnutrition with a body mass index of 21.8 Stage II pressure ulcer noted on the coccyx Lumbosacral spondylosis without myelopathy is noted on CT c-diff ruled out multi-level spinal stenosis of C-spine as noted on MRI Hypertension Hyperlipidemia Osteoarthritis History of rheumatoid arthritis degenerative disc disease continued ongoing nicotine dependence GI prophylaxis DVT prophylaxis Full code Plan: Recommend to continue with current medications and medical management. No plans for surgical intervention from an orthopedic standpoint at this time and recommending conservative management. Neurology following and recommending outpatient follow-up. Concerns for lung nodules as noted previously on a CT that was done in December of this year by primary care and patient failed to follow-up for further PET scans and pulmonary evaluation. Discussed with the patient about the importance of compliance with medications and follow-up. Patient continues to be weak and PT/OT therapy evaluating and recommending subacute rehab and patient is now agreeable. Case management aware and social work following and working on accepting facilities and will require insurance authorization. Further recommendations depends on the clinical course of the patient. Prognosis is guarded. Objective - Vital Signs Vital signs: Vital Signs Temp 97.9 F 03/14/21 08:00 Pulse 64 03/14/21 08:29 Resp 18 03/14/21 08:00 BP 161/80 03/14/21 08:00 Pulse Ox 100 03/14/21 08:18 Intake & Output 03/13/21 03/14/21 03/14/21 18:59 06:59 18:59 Intake Total 948 10 180 Balance 948 10 180 Weight 67 kg 67.2 kg Intake: IV 10 Invasive Line 1 10 Oral 948 180 Other: Voiding Method Bedside Commode Urinal # Voids 1 3 # Bowel Movements 1 2 - Labs CBC & Chem 7: 03/13/21 10:07 03/13/21 10:07 Labs: Abnormal Lab Results - Last 24 Hours (Table) 03/12/21 03/12/21 03/13/21 Range/Units 05:20 05:20 10:07 RBC 3.06 L (4.30-5.90) m/uL Hgb 9.4 L (13.0-17.5) gm/dL Hct 31.6 L (39.0-53.0) % MCV 103.5 H (80.0-100.0) fL MCHC 29.8 L (31.0-37.0) g/dL RDW 15.8 H (11.5-15.5) % Sodium (137-145) mmol/L BUN (9-20) mg/dL Creatinine (0.66-1.25) mg/dL Methylmalonic Acid 0.59 H (<0.40) umol/L RBC Folate 1,478 H (280 - 791) ng/mL 03/13/21 Range/Units 10:07 RBC (4.30-5.90) m/uL Hgb (13.0-17.5) gm/dL Hct (39.0-53.0) % MCV (80.0-100.0) fL MCHC (31.0-37.0) g/dL RDW (11.5-15.5) % Sodium 136 L (137-145) mmol/L BUN 60 H (9-20) mg/dL Creatinine 1.32 H (0.66-1.25) mg/dL Methylmalonic Acid (<0.40) umol/L RBC Folate (280 - 791) ng/mL
[2021-03-15] MEDS: APIXABAN 2.5 MG TABLET PO SCH ×2 (08:36→21:17)
[2021-03-15] MEDS: CYANOCOBALAMIN 500 MCG TAB PO SCH (08:36)
[2021-03-15] MEDS: FAMOTIDINE 20 MG TAB PO SCH ×2 (08:37→21:17)
[2021-03-15] MEDS: predniSONE 20 MG TAB PO SCH (08:37)
[2021-03-15] MEDS: METOPROLOL TARTRATE 25 MG TAB PO SCH ×2 (08:37→21:17)
[2021-03-15] MEDS: AMOXIC-POT CLAV 875-125MG 1 EACH TAB PO SCH ×2 (08:38→21:17)
[2021-03-15] MEDS: CAPSAICIN 0.025% CREAM 60 GM TUBE TOPICAL SCH ×3 (08:39→21:17)
[2021-03-15 11:46] LABS: Basophils % (A) 0 %; Eosinophils % (A) 0 %; HCT 34.7 % (39.0-53.0); HGB 10.4 gm/dL (13.0-17.5); Hypochromasia Marked; Lymphocytes # (A) 0.8 k/uL (1.0-4.8); Lymphocytes % (A) 9 %; MCH 30.7 pg (25.0-35.0); MCV 102.5 fL (80.0-100.0); Macrocytosis Slight; Mean Platelet Volume 7.8; Monocytes # (A) 0.5 k/uL (0-1.0); Monocytes % (A) 6 %; Neutrophils # (A) 7.3 k/uL (1.3-7.7); Neutrophils % (A) 84 %; Platelet Count 337 k/uL (150-450); RBC 3.39 m/uL (4.30-5.90); RDW 15.6 % (11.5-15.5); WBC 8.7 k/uL (3.8-10.6)
[2021-03-15 11:59] LABS: African American GFR (CKD) 75 (>60 ml/min/1.73 sqM); Anion Gap 4 mmol/L; Blood Urea Nitrogen 68 mg/dL (9-20); Carbon Dioxide 31 mmol/L (22-30); Chloride 100 mmol/L (98-107); Glucose 59 mg/dL (74-99); Non-African American GFR(CKD) 65 (>60 ml/min/1.73 sqM); Potassium 4.9 mmol/L (3.5-5.1); Sodium 135 mmol/L (137-145)
[2021-03-15] MEDS ORDERED: DIPHENOX-ATROP 2.5-0.025 MG 1 EACH TAB PO PRN (15:56)
--- NOTE | 2021-03-15 20:45 | PN ---
PROGRESS NOTE DATE OF SERVICE: 03/15/2021 This 70-year-old gentleman who was admitted with bilateral lower extremity weakness was thought to have some proximal myopathy. Neurology has seen the patient. The patient also had COPD, acute exacerbation. Neurology has recommended multiple . No history of fever, rigors, chills at this time. PHYSICAL EXAMINATION: Alert and oriented x2. Pulse 56, blood pressure 121/70, respirations 16, temperature 97.9, pulse ox 94% on room air. HEENT: Conjunctivae normal. NECK: No jugular venous distention. CARDIOVASCULAR: S1, S2 muffled. RESPIRATION: Breath sounds diminished at the bases. A few scattered rhonchi. ABDOMEN: Soft. LEGS: No edema. No swelling. NERVOUS SYSTEM: Diffusely weak. LABS: WBC 8.6, hemoglobin 10.6, sodium 135. SSA antibodies negative. TSH is elevated. Methylmalonic acid is high. ASSESSMENT: 1. Generalized weakness with possible proximal myopathy and gait dysfunction. 2. Possible cervical lumbar degenerative joint disease. 3. Chronic obstructive pulmonary disease, acute exacerbation. 4. New-onset atrial fibrillation. 5. Change in mental status, acute metabolic encephalopathy. 6. Multiple bilateral pulmonary nodules suspicious for metastatic disease. 7. Moderate protein-calorie malnutrition with body mass index 21.9. 8. Stage II pressure ulcer noted on the coccyx. 9. Lumbosacral spondylosis without myelopathy. 10.Clostridium difficile ruled out. 11.Multi-level spinal stenosis of C-spine. 12.Hypertension. 13.Hyperlipidemia. 14.History of degenerative joint disease. 15.History of rheumatoid arthritis. 16.Continued ongoing nicotine dependence. 17.Gait dysfunction. RECOMMENDATIONS AND DISCUSSION: I recommend to continue current medications, continue with symptomatic treatment. Otherwise, monitor closely. PT/OT evaluation; possibly ECF rehab. Guarded prognosis. Further recommendations to follow. MMODL / IJN: [id number] / ROMELIA
[2021-03-16] MEDS: IPRATROPIUM-ALBUTEROL 3 ML NEB INHALATION SCH ×4 (07:52→19:47)
[2021-03-16] MEDS: SYMBICORT 160-4.5 MCG INHALER INHALATION SCH ×2 (07:52→19:47)
[2021-03-16] MEDS: predniSONE 20 MG TAB PO SCH (09:14)
[2021-03-16] MEDS: APIXABAN 2.5 MG TABLET PO SCH ×2 (09:15→20:26)
[2021-03-16] MEDS: CYANOCOBALAMIN 500 MCG TAB PO SCH (09:15)
[2021-03-16] MEDS: FAMOTIDINE 20 MG TAB PO SCH ×2 (09:17→20:26)
[2021-03-16] MEDS: METOPROLOL TARTRATE 25 MG TAB PO SCH ×2 (09:18→20:26)
[2021-03-16] MEDS: MORPHINE SULFATE 2 MG/ML SYRINGE IV PRN ×2 (09:33→20:32)
[2021-03-16] MEDS: CAPSAICIN 0.025% CREAM 60 GM TUBE TOPICAL SCH ×3 (11:27→20:26)
--- NOTE | 2021-03-16 19:48 | PN ---
PROGRESS NOTE DATE OF SERVICE: 03/16/2021 This 70-year-old gentleman who was admitted with generalized weakness with possible proximal myopathy and gait dysfunction is being closely monitored. No chest pain. No palpitations. No fever. PHYSICAL EXAMINATION: Alert and oriented x3. Pulse 60, blood pressure 104/60, respiration 17, temperature 97.2, pulse ox 98% on room air. HEENT: Conjunctivae normal. Oral mucosa moist. NECK: No jugular venous distention. No lymph node enlargement. CARDIOVASCULAR: S1, S2, muffled. No S3, no S4, RESPIRATORY: Diminished breath sounds at the bases. A few scattered rhonchi. ABDOMEN: Soft, nontender. LEGS: No edema, no swelling. NERVOUS SYSTEM: Diffusely weak. LAB STUDIES: WBC 8.2, hemoglobin 10.4, sodium 135. C diff is negative. ASSESSMENT: 1. Generalized weakness with possible proximal myopathy and gait dysfunction. 2. Possible cervical and lumbar DJD. 3. Chronic obstructive pulmonary disease acute exacerbation. 4. New onset atrial fibrillation. 5. Change in mental status, acute metabolic encephalopathy. 6. Multiple bilateral pulmonary nodules suspicious for metastatic disease. 7. Moderate protein-calorie malnutrition with body mass index 21.9. 8. Stage II pressure ulcer noted on the coccyx. 9. Lumbosacral spondylosis without myelopathy. 10.Clostridium difficile ruled out. 11.Multilevel spinal stenosis of C-spine. 12.Hypertension. 13.Hyperlipidemia. 14.History of DJD. 15.History rheumatoid arthritis. 16.Continued ongoing nicotine dependence. 17.Gait dysfunction. RECOMMENDATIONS AND DISCUSSION: I recommend to continue current management and symptomatic treatment. Otherwise, at this time monitor closely. PT/OT evaluation. Otherwise, I would also recommend free T3 and free T4. Guarded prognosis. Further recommendations to follow. MMODL / IJN: [id number] /
[2021-03-16 20:28] LABS: T4, Free (Free Thyroxine) 0.49 ng/dL (0.78-2.19)
[2021-03-17] MEDS ORDERED: LEVOTHYROXINE 25 MCG TAB PO SCH (06:30)
[2021-03-17] MEDS: IPRATROPIUM-ALBUTEROL 3 ML NEB INHALATION SCH ×3 (07:08→16:58)
[2021-03-17] MEDS: SYMBICORT 160-4.5 MCG INHALER INHALATION SCH (07:08)
[2021-03-17] MEDS: CYANOCOBALAMIN 500 MCG TAB PO SCH (08:54)
[2021-03-17] MEDS: METOPROLOL TARTRATE 25 MG TAB PO SCH (08:54)
[2021-03-17] MEDS: predniSONE 20 MG TAB PO SCH (08:54)
[2021-03-17] MEDS: FAMOTIDINE 20 MG TAB PO SCH (08:55)
[2021-03-17] MEDS: APIXABAN 2.5 MG TABLET PO SCH (08:55)
[2021-03-17] MEDS: CAPSAICIN 0.025% CREAM 60 GM TUBE TOPICAL SCH ×2 (08:55→17:59)
[2021-03-17 12:04] VITALS: BMI 22.1
[2021-03-17 12:12] VITALS: PULSE 58
[2021-03-17 12:16] VITALS: BP 139/88; TEMP 97.9
--- NOTE | 2021-03-17 12:47 | P.DS ---
<Michelle Richardson - Last Filed: 03/17/21 12:38> Providers Expected date of discharge: 03/17/21 Hospital Course: Final diagnosis Generalized weakness with possible proximal myopathy and gait dysfunction Possible cervical and lumbar degenerative disc disease Chronic obstructive pulmonary disease acute exacerbation New onset atrial fibrillation Change in mental status, acute metabolic encephalopathy Multiple bilateral pulmonary nodules suspicious for metastatic disease Moderate protein calorie malnutrition with a BMI of 21.9 Stage II pressure ulcer noted on the coccyx Lumbosacral spondylosis without myelopathy Clostridium difficile ruled out Multilevel spinal stenosis of C-spine Hypertension hyperlipidemia History of degenerative joint disease history of rheumatoid arthritis continued ongoing nicotine dependence Gait dysfunction Full code Discharge disposition Patient is being discharged in a stable condition with guarded prognosis to [facility] for continued PT/OT therapy. Patient will follow-up with Dr. Chung in the outpatient setting upon discharge. Patient will also need neurology follow-up for further EMG testing, orthopedics, cardiology, pulmonary once discharged from [facility]. Total time taken is greater than 35 minutes. Hospital course This is a 70-year-old male who was recently admitted with generalized weakness and possible proximal myopathy along with continued gait dysfunction and was being closely monitored. Patient was seen and evaluated by orthopedics recommending conservative management and outpatient follow-up to discuss possible intervention of the cervical spine after clearance from primary care along with cardiology. Patient was new onset atrial fibrillation and started on anticoagulant along with metoprolol and will need outpatient follow-up with cardiology in 1-2 weeks. Patient also evaluated by neurology recommending outpatient follow-up for further studies and possible muscle biopsy and EMG studies as well. Patient to follow-up with pulmonary in the outpatient setting for suspicious lung nodules as noted on previous CT that was done in the outpatient setting and will need PET scan which patient failed to follow up with. This was discussed in detail with the patient. Patient continues to have loose stools and was tested multiple times for C. diff which were negative and will continue with Lomotil as needed and added Questran for continued loose stools. Recommend repeat labs of CBC and CMP in the outpatient setting in 2-3 days. Patient will also continue with the prednisone taper for his COPD and continued breathing inhalational treatments. Patient is a 2-3 pack smoker a day and will continue with nicotine patches and Nicorette gum. Recommend repeat thyroid function testing of TSH and free T4 in 4-6 weeks. Also recommend continue with local wound care of the pressure ulcer noted on the coccyx. Currently no reports of chest pain, worsening shortness of breath, or palpitations. Patient is afebrile. No reports of nausea or vomiting and patient is tolerating diet. Patient will be going to [facility] on the [facility] today. On exam vital signs are stable. Cardio S1, S2 are muffled. Respiratory system shows diminished breath sounds at the bases with some expiratory wheezing noted. Abdomen is soft and nontender. Nervous system shows diffuse weakness. Please refer to medication reconciliation sheet for a list of medications. Patient Condition at Discharge: Stable Plan - Discharge Summary New Discharge Prescriptions: New Apixaban [Eliquis] 2.5 mg PO BID 30 Days #60 tablet Metoprolol Tartrate [Lopressor] 25 mg PO BID tab predniSONE 10 mg PO DIRECTED #30 tab Cholestyramine (with Sugar) [Questran] 4 gm PO QID #10 packet Ipratropium-Albuterol Nebulize [Duoneb 0.5 mg-3 mg/3 ml Soln] 3 ml INHALATION RT-QID ml Ipratropium-Albuterol Nebulize [Duoneb 0.5 mg-3 mg/3 ml Soln] 3 ml INHALATION RT-QID PRN ml PRN Reason: Shortness Of Breath Or Wheezing Diphenox-Atrop 2.5-0.025 mg [Lomotil] 1 each PO Q6HR PRN #6 tab PRN Reason: Diarrhea Nicotine Gum (Polacrilex) [Nicorette] 2 mg BUCCAL Q4HR PRN PRN Reason: Nicotine Cravings Famotidine [Pepcid] 20 mg PO BID tab Levothyroxine Sodium [Synthroid] 25 mcg PO DAILY@0630 tab Capsaicin Cream [Trixaicin Cream] 1 applic TOPICAL TID gm Cyanocobalamin [Vitamin B-12] 1,000 mcg PO DAILY tab Continue Budesonide/Formoterol Fumarate [Symbicort 160-4.5 Mcg Inhaler] 2 puff INHALATION RT-BID Albuterol Inhaler [Ventolin Hfa Inhaler] 1 puff INHALATION RT-Q4H PRN PRN Reason: Shortness Of Breath Cholecalciferol [Vitamin D3 (25 Mcg = 1000 Iu)] 50 mcg PO DAILY modafiniL [Provigil] 200 mg PO DAILY Albuterol Nebulized [Ventolin Nebulized] 2.5 mg INHALATION RT-Q4H PRN PRN Reason: Shortness Of Breath Simvastatin [Zocor] 40 mg PO HS Naloxone HCl [Narcan] 4 mg NASAL ONCE PRN PRN Reason: OVERDOSE Calcium Carbonate [Tums] 500 mg PO TID Tiotropium 2.5 Mcg/Puff [Spiriva Respimat 2.5 Mcg] 2 puff INHALATION RT-DAILY HYDROcodone/APAP 10-325MG [Dulac 10-325] 1 tab PO 5XD PRN #6 tab PRN Reason: Pain Multivitamins, Thera [Multivitamin (formulary)] 1 tab PO DAILY Folic Acid 1 mg PO DAILY Discontinued Omeprazole 20 mg PO AC-BID Leflunomide 20 mg PO DAILY Spironolactone 25 mg PO DAILY Adalimumab [Humira Pen] 40 mg SQ Q14D Levothyroxine Sodium [Synthroid] 150 mcg PO DAILY Discharge Medication List Albuterol Inhaler [Ventolin Hfa Inhaler] 1 puff INHALATION RT-Q4H PRN 05/21/20 [History] Budesonide/Formoterol Fumarate [Symbicort 160-4.5 Mcg Inhaler] 2 puff INHALATION RT-BID 05/21/20 [History] Cholecalciferol [Vitamin D3 (25 Mcg = 1000 Iu)] 50 mcg PO DAILY 07/24/20 [History] Albuterol Nebulized [Ventolin Nebulized] 2.5 mg INHALATION RT-Q4H PRN 11/15/20 [History] modafiniL [Provigil] 200 mg PO DAILY 11/15/20 [History] Folic Acid 1 mg PO DAILY 12/31/20 [History] Multivitamins, Thera [Multivitamin (formulary)] 1 tab PO DAILY 12/31/20 [History] Naloxone HCl [Narcan] 4 mg NASAL ONCE PRN 12/31/20 [History] Simvastatin [Zocor] 40 mg PO HS 12/31/20 [History] Calcium Carbonate [Tums] 500 mg PO TID 03/09/21 [History] Tiotropium 2.5 Mcg/Puff [Spiriva Respimat 2.5 Mcg] 2 puff INHALATION RT-DAILY 03/09/21 [History] Apixaban [Eliquis] 2.5 mg PO BID 30 Days #60 tablet 03/12/21 [Rx] Capsaicin Cream [Trixaicin Cream] 1 applic TOPICAL TID gm 03/17/21 [Rx] Cholestyramine (with Sugar) [Questran] 4 gm PO QID #10 packet 03/17/21 [Rx] Cyanocobalamin [Vitamin B-12] 1,000 mcg PO DAILY tab 03/17/21 [Rx] Diphenox-Atrop 2.5-0.025 mg [Lomotil] 1 each PO Q6HR PRN #6 tab 03/17/21 [Rx] Famotidine [Pepcid] 20 mg PO BID tab 03/17/21 [Rx] HYDROcodone/APAP 10-325MG [Dulac 10-325] 1 tab PO 5XD PRN #6 tab 03/17/21 [Rx] Ipratropium-Albuterol Nebulize [Duoneb 0.5 mg-3 mg/3 ml Soln] 3 ml INHALATION RT-QID ml 03/17/21 [Rx] Ipratropium-Albuterol Nebulize [Duoneb 0.5 mg-3 mg/3 ml Soln] 3 ml INHALATION RT-QID PRN ml 03/17/21 [Rx] Levothyroxine Sodium [Synthroid] 25 mcg PO DAILY@0630 tab 03/17/21 [Rx] Metoprolol Tartrate [Lopressor] 25 mg PO BID tab 03/17/21 [Rx] Nicotine Gum (Polacrilex) [Nicorette] 2 mg BUCCAL Q4HR PRN 03/17/21 [Rx] predniSONE 10 mg PO DIRECTED #30 tab 03/17/21 [Rx] Follow up Appointment(s)/Referral(s): Marzena Turcios MD [STAFF PHYSICIAN] - 03/31/21 9:45 am (appointment on 03/19/21 is cancelled ) Myriam Mohan MD [STAFF PHYSICIAN] - 2 Weeks (office will call patient with appointment ) Arnulfo Donis MD [REFERRING] - 1 Week (neurology we recommend EMG with nerve conduction study of both upper and lower bas soon as possible and also we recommend muscle biopsy ) Chris Reaves DO [Doctor of Osteopathic Medicine] - 1 Week Jayson Cisneros MD [Medical Doctor] - 1 Week (neurology we recommend EMG with nerve conduction study of both upper and lower bas soon as possible and also we recommend muscle biopsy ) Jackie Donis MD [REFERRING] - 1 Week (neurology we recommend EMG with nerve conduction study of both upper and lower bas soon as possible and also we recommend muscle biopsy ) Moe Canela DO [Doctor of Osteopathic Medicine] - 1 Week (Patient already has an appointment scheduled 03/19/[address] Hackett ) [facility] [Primary Care Provider] - 03/20/21 2:30 pm Ambulatory/Diagnostic Orders: Complete Blood Count w/diff [LAB.AMB] Time Frame: 3 Days, Location: None Selected Activity/Diet/Wound Care/Special Instructions: Patient is going to [facility] on the [facility] Activity as tolerated Continue current diet adding yogurt each meal and ensure and live 3 times a day with meals and also Serjio twice a day with meals, prefers a punch Continue prednisone taper until finished Follow-up with multiple medical consultations on discharge Recommend repeat labs of CBC and CMP in 2-3 days May use Lomotil and Questran as needed for loose stools diet: Heart healthy diet Activity is restricted till you see your doctor at the long-term. neurologist recommend EMG with nerve conduction study of both upper and lower bas soon as possible and also we recommend muscle biopsy Discharge Disposition: TRANSFER TO SNF/ECF <Chris Baltazar E - Last Filed: 03/18/21 00:26> Providers Date of admission: 03/11/21 10:04 Attending physician: Naveen Montgomery Consults: 03/09/21 09:01 Consult Physician Urgent Consulting Provider: Sheila Crow Consult Reason/Comments: bilateral leg weakness Do you want consulting provider notified?: Yes 03/09/21 09:03 Consult Physician Urgent Consulting Provider: Marzena Turcios Consult Reason/Comments: copd Do you want consulting provider notified?: Yes 03/11/21 12:28 Consult Physician Routine Consulting Provider: Moe Canela Consult Reason/Comments: lumbosacral spondylosis Do you want consulting provider notified?: Yes 03/12/21 07:00 Consult Physician Urgent Consulting Provider: Myriam Mohan Consult Reason/Comments: new afib Do you want consulting provider notified?: Yes Primary care physician: [facility] Hospital Course: I have discussed the plan and I have reviewed the notes with THEODORE Martinez and I ag ree with it except was mentioned below Patient is seen and examined by me at bedside Patient presents with bilateral leg weakness, patient reports partial improvement estimated by about 30-40% per patient, patient is going to rehab today. Neurologist evaluated the patient and recommended EMG and nerve conduction study as an outpatient as well as a muscle biopsy. Patient was instructed to follow up with neurology in 1 week and [address]uel Hoffmann and dr.samuel Denson and dr cisneros, patient agrees to call and make appointment in 1 week. Also patient agrees with [facility] Turcios [facility] 03/[facility]. Today I called his PCP THEODORE Haro and I discussed the case with her including recommendation for outpatient muscle biopsy and nerve conduction study/EMG with the neurologist and she currently took note of these. Patient COPD became stable and patient will be discharged on tapering prednisone. 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 The patient on discharge on metoprolol and Eliquis patient aware and agrees with the risk of bleeding were explained to him, benefits more than risk Patient on B12 replacement therapy Also patient was started on low-dose levothyroxine for mild hypothyroidism Patient states his back to normal self and actually is better than normal self today. He denies any other complaints. No chest pain or dyspnea. No abdominal pain. No fever. No change in urine or bowel habits. Problems and management plan were discussed with the patient and he verbalized understanding and acceptance Please refer to discharge instructions and above for more details
[2021-03-17 17:08] VITALS: RESP 18
== END 2021-03-17 18:18 | DRG 91 ==
LOC: EC 23:30 → 6NMEDSUR 03-09 02:25 → OBSVTOIN 03-11 10:04 → 6NMEDSUR 03-12 02:31
PROVIDERS: ADMIT Hospitalist; ATTEND Hospitalist
DX: G72.9 Myopathy, unspecified (principal); R53.2 Functional quadriplegia; G93.41 Metabolic encephalopathy; J44.1 Chronic obstructive pulmonary disease with (acute) exacerbation; E44.0 Moderate protein-calorie malnutrition; I13.0 Hypertensive heart and chronic kidney disease with heart failure and stage 1 through stage 4 chronic kidney disease, or unspecified chronic kidney disease; M47.12 Other spondylosis with myelopathy, cervical region; M50.01 Cervical disc disorder with myelopathy, high cervical region; Z20.822 Contact with and (suspected) exposure to COVID-19; E03.9 Hypothyroidism, unspecified; E78.5 Hyperlipidemia, unspecified; E87.5 Hyperkalemia; D63.1 Anemia in chronic kidney disease; I48.0 Paroxysmal atrial fibrillation; F17.210 Nicotine dependence, cigarettes, uncomplicated; G89.4 Chronic pain syndrome; L89.152 Pressure ulcer of sacral region, stage 2; I25.10 Atherosclerotic heart disease of native coronary artery without angina pectoris; M19.90 Unspecified osteoarthritis, unspecified site; R26.89 Other abnormalities of gait and mobility; M06.9 Rheumatoid arthritis, unspecified; I50.9 Heart failure, unspecified; M47.817 Spondylosis without myelopathy or radiculopathy, lumbosacral region; M48.02 Spinal stenosis, cervical region; M48.061 Spinal stenosis, lumbar region without neurogenic claudication; R91.8 Other nonspecific abnormal finding of lung field; M51.34 Other intervertebral disc degeneration, thoracic region; M51.36 Other intervertebral disc degeneration, lumbar region; N18.30 Chronic kidney disease, stage 3 unspecified; R29.6 Repeated falls; Z68.21 Body mass index [BMI] 21.0-21.9, adult; Z95.5 Presence of coronary angioplasty implant and graft; I25.2 Old myocardial infarction; Z79.01 Long term (current) use of anticoagulants; Z79.51 Long term (current) use of inhaled steroids; Z79.890 Hormone replacement therapy; Z79.899 Other long term (current) drug therapy; Z91.14 Patient's other noncompliance with medication regimen; Z91.19 Patient's noncompliance with other medical treatment and regimen; Z86.14 Personal history of Methicillin resistant Staphylococcus aureus infection
CPT/HCPCS: 36415; 70553; 71046; 72156; 72157; 72158; 80048; 80053; 81001; 82085; 82164; 82550; 82607; 82746; 82747; 83036; 83605; 83615; 83735; 83880; 83921; 84145; 84439; 84443; 84481; 84484; 85025; 85027; 85610; 85652; 85730; 86038; 86140; 86235; 87324; 87390; 87635; 93005; 93306; 94640; 94760; 99285

== ENCOUNTER 2021-04-25 22:21 | Inpatient (IN) | payer OTHER, MEDICARE ==
[2021-04-25] MEDS ORDERED: SODIUM CHLORIDE 0.9% 500 ML 500 ML IV STA (23:04)
[2021-04-25] MEDS ORDERED: HYDROmorphone 1 MG/ML 1 ML SYRINGE IVP STA (23:05)
[2021-04-25] MEDS ORDERED: ONDANSETRON 4 MG/2 ML VIAL IVP STA (23:05)
--- NOTE | 2021-04-25 23:35 | XR ---
EXAMINATION TYPE: XR chest 2V DATE OF EXAM: 04/25/2021 COMPARISON: 03/09/2021 HISTORY: Weakness TECHNIQUE: 2 views FINDINGS: Heart is normal. Lungs are clear of infiltrate. There is no heart failure. There are chest leads. Costophrenic angles are clear. IMPRESSION: No active cardiopulmonary disease. Normal heart. No change.
[2021-04-25 23:46] LABS: Basophils % (A) 0 %; Eosinophils # (A) 0.1 k/uL (0-0.7); Eosinophils % (A) 1 %; HCT 33.5 % (39.0-53.0); HGB 10.7 gm/dL (13.0-17.5); Lymphocytes # (A) 1.2 k/uL (1.0-4.8); Lymphocytes % (A) 19 %; MCH 30.9 pg (25.0-35.0); Monocytes # (A) 0.3 k/uL (0-1.0); Monocytes % (A) 5 %; Neutrophils # (A) 4.4 k/uL (1.3-7.7); Neutrophils % (A) 73 %; Platelet Count 303 k/uL (150-450); RBC 3.47 m/uL (4.30-5.90); RDW 15.3 % (11.5-15.5); WBC 6.1 k/uL (3.8-10.6)
[2021-04-25 23:47] LABS: MCV 96.6 fL (80.0-100.0)
[2021-04-25 23:49] LABS: Appearance,Urine Clear (Clear); Bacteria,Urine Few /hpf; Bilirubin,Urine Negative (Negative); Blood,Urine Negative (Negative); Color,Urine Yellow; Glucose,Urine (UA) Negative (Negative); Hyaline Casts,Urine 3 /lpf (0-2); Ketones,Urine Negative (Negative); Leukocyte Esterase,Urine Trace (Negative); Mucus,Urine Rare /hpf; Nitrite,Urine Positive (Negative); Protein,Urine Negative (Negative); RBC,Urine 1 /hpf (0-5); Specific Gravity,Urine 1.018 (1.001-1.035); Squamous Epithelial Cell,Urine <1 /hpf (0-4); Urobilinogen,Urine <2.0 mg/dL (<2.0); WBC,Urine 13 /hpf (0-5)
[2021-04-26] LABS: Albumin 2.8 g/dL (3.5-5.0); Calcium 9.2 mg/dL (8.4-10.2); Magnesium 1.6 mg/dL (1.6-2.3); Potassium 4.3 mmol/L (3.5-5.1); Total Bilirubin 0.4 mg/dL (0.2-1.3); Total Protein 6.1 g/dL (6.3-8.2)
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
[2021-04-26 01:11] LABS: INR 1.1 (<1.2); Partial Thromboplastin Time 28.8 sec (22.0-30.0); Prothrombin Time 11.5 sec (9.0-12.0)
[2021-04-26] MEDS ORDERED: cefTRIAXone IN SWFI 1,000 MG/10 ML SYRINGE IVP STA (01:42)
[2021-04-26] MEDS ORDERED: NALOXONE 0.4 MG/ML 1 ML VIAL IV PRN (01:43)
[2021-04-26] MEDS ORDERED: ONDANSETRON 4 MG/2 ML VIAL IVP PRN (01:43)
[2021-04-26] MEDS ORDERED: HYDROmorphone 0.5 MG/0.5 ML SYRINGE IVP PRN (01:43)
[2021-04-26] MEDS ORDERED: IPRATROPIUM-ALBUTEROL 3 ML NEB INHALATION PRN ×2 (01:44→04:54)
[2021-04-26] MEDS: IPRATROPIUM-ALBUTEROL 3 ML NEB INHALATION SCH ×4 (05:10→20:24)
[2021-04-26] MEDS ORDERED: IPRATROPIUM-ALBUTEROL 3 ML NEB INHALATION SCH (08:00)
[2021-04-26] MEDS ORDERED: BUDESONIDE 1 MG/2 ML NEBU INHALATION SCH (08:00)
[2021-04-26] MEDS: HYDROcodone/APAP 10-325MG 1 EACH TAB PO PRN ×2 (08:55→15:54)
[2021-04-26] MEDS ORDERED: ALBUTEROL NEBULIZED 2.5 MG/3 ML INHALATION PRN (15:44)
--- NOTE | 2021-04-26 17:06 | US ---
EXAMINATION TYPE: US venous doppler duplex LE DATE OF EXAM: 04/26/2021 3:51 PM COMPARISON: US 2020 CLINICAL HISTORY: swelling. Exam done portable SIDE PERFORMED: Bilateral TECHNIQUE: The lower extremity deep venous system is examined utilizing real time linear array sonog rashaun with graded compression, doppler sonography and color-flow sonography. VESSELS IMAGED: Common Femoral Vein Deep Femoral Vein Greater Saphenous Vein * Femoral Vein Popliteal Vein Small Saphenous Vein * Proximal Calf Veins (* superficial vessels) Right Leg: Appears negative for DVT Left Leg: Appears negative for DVT IMPRESSION: No evidence of deep vein thrombosis in both legs..
[2021-04-26] MEDS: CALCIUM CARBONATE 500 MG CHEWABLE PO SCH ×2 (17:44→21:04)
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
[2021-04-26] MEDS: SYMBICORT 160-4.5 MCG INHALER INHALATION SCH (20:24)
[2021-04-26] MEDS: METOPROLOL TARTRATE 50 MG TAB PO SCH (20:30)
[2021-04-26] MEDS: FAMOTIDINE 20 MG TAB PO SCH (21:04)
[2021-04-26] MEDS: APIXABAN 2.5 MG TABLET PO SCH (21:04)
[2021-04-26] MEDS: ATORVASTATIN 40 MG TAB PO SCH (21:04)
[2021-04-27] MEDS: HYDROcodone/APAP 10-325MG 1 EACH TAB PO PRN ×2 (03:12→16:29)
[2021-04-27] MEDS: IPRATROPIUM-ALBUTEROL 3 ML NEB INHALATION SCH ×4 (03:13→20:41)
[2021-04-27] MEDS: LEVOTHYROXINE 25 MCG TAB PO SCH (05:40)
[2021-04-27] MEDS: FAMOTIDINE 20 MG TAB PO SCH ×2 (09:21→20:54)
[2021-04-27] MEDS: FOLIC ACID 1 MG TAB PO SCH (09:22)
[2021-04-27] MEDS: POTASSIUM CHLORIDE ER 10 MEQ TAB.ER.PRT PO SCH (09:22)
[2021-04-27] MEDS: MULTIVITAMINS, THERA 1 EACH TAB PO SCH (09:22)
[2021-04-27] MEDS: CHOLECALCIFEROL 25 MCG (1000 IU) TABLET PO SCH (09:22)
[2021-04-27] MEDS: APIXABAN 2.5 MG TABLET PO SCH ×2 (09:22→20:54)
[2021-04-27] MEDS: CYANOCOBALAMIN 500 MCG TAB PO SCH (09:22)
[2021-04-27] MEDS: CALCIUM CARBONATE 500 MG CHEWABLE PO SCH ×3 (09:22→20:54)
[2021-04-27] MEDS: FUROSEMIDE 20 MG TAB PO SCH (09:22)
[2021-04-27] MEDS: METOPROLOL TARTRATE 50 MG TAB PO SCH ×2 (09:23→20:54)
[2021-04-27] MEDS: LEFLUNOMIDE 20 MG TAB PO SCH (09:23)
[2021-04-27 09:30] LABS: Basophils # (A) 0.03 X 10*3/uL (0.00-0.10); Basophils % (A) 0.3 %; Eosinophils # (A) 0.05 X 10*3/uL (0.04-0.35); Eosinophils % (A) 0.6 %; HCT 32.1 % (39.6-50.0); HGB 9.5 g/dL (13.0-17.0); Lymphocytes # (A) 1.16 X 10*3/uL (0.90-5.00); Lymphocytes % (A) 13.4 %; MCH 29.9 pg (27.0-32.0); MCHC 29.6 g/dL (32.0-37.0); MCV 100.9 fL (80.0-97.0); Mean Platelet Volume 10.3 fL (9.5-12.2); Monocytes % (A) 5.8 %; Neutrophils # (A) 6.88 X 10*3/uL (1.80-7.70); Neutrophils % (A) 79.2 %; Platelet Count 273 X 10*3/uL (140-440); RBC 3.18 X 10*6/uL (4.40-5.60); RDW 15.7 % (11.5-14.5); WBC 8.68 X 10*3/uL (4.50-10.00)
[2021-04-27] MEDS: SYMBICORT 160-4.5 MCG INHALER INHALATION SCH ×2 (10:13→20:41)
[2021-04-27 10:40] LABS: African American GFR (CKD) 74.1 (60.0-200.0); Anion Gap 10.1 mmol/L (10.00-18.00); BUN/Creat Ratio 17.63 Ratio (12.00-20.00); Blood Urea Nitrogen 20.1 mg/dL (9.0-27.0); Calcium 8.8 mg/dL (8.7-10.3); Non-African American GFR(CKD) 63.9 (60.0-200.0); Potassium 4.5 mmol/L (3.5-5.5)
--- NOTE | 2021-04-27 20:38 | P.PN ---
Subjective Progress Note Date: 04/27/21 Principal diagnosis: Generalized weakness/UTI Bilateral lower extremity swelling 70 year-old male patient presents to the emergency department for evaluation of generalized weakness, hand, knee, and foot pain. Patient states that his physician has been decreasing the amount of [place] he gets per month and his body "can't take it". States his pain has been flaring up. States for the last couple of days he feels weak. Denies any fever or chills. Denies any chest pain or worsening shortness of breath. He denies abdominal pain, nausea, vomiting, or diarrhea. States he has not had an appetite and has not been eating much. He does have chronic cough and wheezing due to COPD. He is a current smoker. Patient denies any recent rash, back pain, numbness, tingling, dizziness, hematuria, dysuria, urinary urgency, urinary frequency, headache, visual changes, or any other complaints. 04/27/2021 Patient is seen sitting up in bed; more awake and alert this morning Vital signs are reviewed and remained stable Workup is negative for DVT with a negative Doppler both lower extremities; urine culture is positive for gram-negative bacilli Patient is currently on IV Rocephin and await final culture and sensitivity results before antibiotic adjustment Patient continues to report marked weakness and inability to stand up on his feet; PT/OT consulted and recommendations are pending Objective - Vital Signs Vital signs: Vital Signs Temp 98.4 F 04/27/21 07:00 Pulse 68 04/27/21 12:38 Resp 16 04/27/21 07:00 BP 105/53 04/27/21 07:00 Pulse Ox 96 04/27/21 07:00 Intake & Output 04/26/21 04/27/21 04/27/21 18:59 06:59 18:59 Intake Total 598 200 Balance 598 200 Intake: Oral 598 200 Other: # Voids 1 1 0 - Exam PHYSICAL EXAMINATION: GENERAL: The patient is alert and oriented x3, not in any acute distress. Well developed, well nourished. HEENT: Pupils are round and equally reacting to light. EOMI. No scleral icterus. No conjunctival pallor. Normocephalic, atraumatic. No pharyngeal erythema. No thyromegaly. CARDIOVASCULAR: S1 and S2 present. No murmurs, rubs, or gallops. PULMONARY: Chest is clear to auscultation, no wheezing or crackles. ABDOMEN: Soft, nontender, nondistended, normoactive bowel sounds. No palpable organomegaly. MUSCULOSKELETAL: No joint swelling or deformity. EXTREMITIES: No cyanosis, clubbing, or pedal edema. NEUROLOGICAL: Gross neurological examination did not reveal any focal deficits. SKIN: No rashes. - Labs CBC & Chem 7: 04/27/21 05:38 04/27/21 05:38 Labs: Abnormal Lab Results - Last 24 Hours (Table) 04/27/21 Range/Units 05:38 RBC 3.18 L (4.40-5.60) X 10*6/uL Hgb 9.5 L (13.0-17.0) g/dL Hct 32.1 L (39.6-50.0) % MCV 100.9 H (80.0-97.0) fL MCHC 29.6 L (32.0-37.0) g/dL RDW 15.7 H (11.5-14.5) % Immature Gran # 0.06 H (0.00-0.04) X 10*3/uL Microbiology - Last 24 Hours (Table) 04/25/21 23:13 Urine Culture - Preliminary Urine,Voided Gram Neg Bacilli Assessment and Plan Assessment: 1. Generalized weakness/UTI - patient continues to report marked weakness; patient received 1 g of Rocephin IV 1 in ED; we will continue daily doses; urine and blood cultures are obtained and pending 2. Bilateral lower extremity swelling; more so on the left lower extremity - We will obtain bilateral lower extremity venous duplex 3. Hypertension; metoprolol 50 g by mouth twice a day 4. Hyperlipidemia; Lipitor 40 mg by mouth daily at bedtime 5. Atrial fibrillation; patient remains rate controlled on metoprolol with anticoagulation with Eliquis 2.5 mg twice a day 6. Hypothyroidism; levothyroxin 25 MCG daily 7. CAD; stable on beta blockers, statins and anticoagulation therapy 8. COPD; not in exacerbation; continue home inhalers therapy in form of Symbicort 2 puffs twice a day, albuterol inhaler 2 puffs 4 times a day when necessary, fluticasoneSalmeterol 1 puff twice a day; DuoNeb nebulizer treatmen ts 4 times a day and when necessary DVT prophylaxis; SCDs/Eliquis CODE STATUS; full code
[2021-04-27] MEDS: ATORVASTATIN 40 MG TAB PO SCH (20:54)
[2021-04-28] MEDS: IPRATROPIUM-ALBUTEROL 3 ML NEB INHALATION SCH ×4 (03:01→20:17)
[2021-04-28] MEDS: LEVOTHYROXINE 25 MCG TAB PO SCH (05:09)
[2021-04-28] MEDS: CALCIUM CARBONATE 500 MG CHEWABLE PO SCH ×3 (09:05→20:53)
[2021-04-28] MEDS: APIXABAN 2.5 MG TABLET PO SCH ×2 (09:05→20:54)
[2021-04-28] MEDS: CHOLECALCIFEROL 25 MCG (1000 IU) TABLET PO SCH (09:05)
[2021-04-28] MEDS: MULTIVITAMINS, THERA 1 EACH TAB PO SCH (09:06)
[2021-04-28] MEDS: METOPROLOL TARTRATE 50 MG TAB PO SCH ×2 (09:06→20:53)
[2021-04-28] MEDS: POTASSIUM CHLORIDE ER 10 MEQ TAB.ER.PRT PO SCH (09:06)
[2021-04-28] MEDS: LEFLUNOMIDE 20 MG TAB PO SCH (09:06)
[2021-04-28] MEDS: FUROSEMIDE 20 MG TAB PO SCH (09:06)
[2021-04-28] MEDS: HYDROcodone/APAP 10-325MG 1 EACH TAB PO PRN ×2 (09:17→20:53)
[2021-04-28] MEDS: CYANOCOBALAMIN 500 MCG TAB PO SCH (09:17)
[2021-04-28] MEDS: FAMOTIDINE 20 MG TAB PO SCH ×2 (09:17→20:54)
[2021-04-28] MEDS: FOLIC ACID 1 MG TAB PO SCH (09:17)
[2021-04-28] MEDS: SYMBICORT 160-4.5 MCG INHALER INHALATION SCH ×2 (09:26→20:25)
[2021-04-28 13:42] VITALS: BMI 22.2
--- NOTE | 2021-04-28 15:06 | P.PN ---
Subjective Patient is a 68-year-old male admitted for generalized weakness is being treated for urinary tract infection although patient doesn't have any symptoms of UTI urine cultures are positive for gram-negative bacilli post probably asymptomatic bacteriuria. Physical therapy and occupational therapy valid the patient is awaiting disposition to subacute rehabilitation for today and continue antibiotics and complete 3 day of therapy although my suspicion is low for urinary tract infection. Constitutional: Denied any fatigue denied any fever. Cardio vascular: denied any chest pain, palpitations Gastrointestinal denied any nausea vomiting Pulmonary: Denied any shortness of breath cough Neurologic denied any new focal deficits All inpatient medications were reviewed and appropriate changes in these medications as dictated in the interval history and assessment and plan. PHYSICAL EXAMINATION: GENERAL: The patient is alert and oriented x3, not in any acute distress. Well developed, well nourished. HEENT: Pupils are round and equally reacting to light. EOMI. No scleral icterus. No conjunctival pallor. Normocephalic, atraumatic. No pharyngeal erythema. No thyromegaly. CARDIOVASCULAR: S1 and S2 present. No murmurs, rubs, or gallops. PULMONARY: Chest is clear to auscultation, no wheezing or crackles. ABDOMEN: Soft, nontender, nondistended, normoactive bowel sounds. No palpable organomegaly. MUSCULOSKELETAL: No joint swelling or deformity. EXTREMITIES: No cyanosis, clubbing, or pedal edema. NEUROLOGICAL: Gross neurological examination did not reveal any focal deficits. Does have significant generalized weakness and bilateral lower extremity weakness SKIN: No rashes. Assessment and plan -Generalized weakness: Secondary to age-related muscle atrophy my suspicion is low for urinary tract infection and medics at this can you tomorrow although urine cultures are showing gram-negative bacilli. -Ruled out for deep venous thrombosis -Hypertension -Hyperlipidemia -COPD with mild acute exacerbation continue with the inhaled steroids inhalational treatments patient can use to smoke counseling was provided regarding this -Atrial fibrillation paroxysmal rate controlled continue with anticoagulation and beta jelena -Hypothyroidism -Coronary artery disease Hyperlipidemia prophylaxis: On Eliquis Objective - Vital Signs Vital signs: Vital Signs Temp 98.2 F 04/28/21 07:00 Pulse 60 04/28/21 13:15 Resp 16 04/28/21 14:00 BP 105/73 04/28/21 07:00 Pulse Ox 93 L 04/28/21 07:00 Intake & Output 11/04/28/21 04/28/21 18:59 06:59 18:59 Intake Total 120 168 Output Total 800 10 Balance -680 -10 168 Weight 70.307 kg Intake: IV 50 [id number] 1 gm In 50 Sodium Chloride 0.9% 50 ml @ 100 mls/hr IVPB Q24HR [facility] Rx#:[id number] Oral 120 118 Output: Urine 800 Stool 10 Other: Voiding Method Bedside Commode Bedside Commode Urinal Urinal Diaper Diaper # Voids 1 1 # Bowel Movements 2 - Labs CBC & Chem 7: 04/27/21 05:38 04/27/21 05:38 Labs: Microbiology - Last 24 Hours (Table) 04/25/21 23:13 Urine Culture - Final Urine,Voided Escherichia coli
[2021-04-28] MEDS: ATORVASTATIN 40 MG TAB PO SCH (20:54)
[2021-04-29] MEDS: IPRATROPIUM-ALBUTEROL 3 ML NEB INHALATION SCH ×5 (02:57→23:24)
[2021-04-29] MEDS: LEVOTHYROXINE 25 MCG TAB PO SCH (05:28)
[2021-04-29] MEDS: SYMBICORT 160-4.5 MCG INHALER INHALATION SCH ×2 (07:45→21:59)
[2021-04-29] MEDS: APIXABAN 2.5 MG TABLET PO SCH ×2 (10:11→21:02)
[2021-04-29] MEDS: POTASSIUM CHLORIDE ER 10 MEQ TAB.ER.PRT PO SCH (10:11)
[2021-04-29] MEDS: MULTIVITAMINS, THERA 1 EACH TAB PO SCH (10:11)
[2021-04-29] MEDS: CHOLECALCIFEROL 25 MCG (1000 IU) TABLET PO SCH (10:12)
[2021-04-29] MEDS: FOLIC ACID 1 MG TAB PO SCH (10:12)
[2021-04-29] MEDS: FAMOTIDINE 20 MG TAB PO SCH ×2 (10:12→21:02)
[2021-04-29] MEDS: CYANOCOBALAMIN 500 MCG TAB PO SCH (10:12)
[2021-04-29] MEDS: CALCIUM CARBONATE 500 MG CHEWABLE PO SCH ×3 (10:12→21:02)
[2021-04-29] MEDS: METOPROLOL TARTRATE 50 MG TAB PO SCH ×2 (10:12→21:04)
[2021-04-29] MEDS: FUROSEMIDE 20 MG TAB PO SCH (10:12)
[2021-04-29] MEDS: LEFLUNOMIDE 20 MG TAB PO SCH (10:38)
[2021-04-29] MEDS: HYDROcodone/APAP 10-325MG 1 EACH TAB PO PRN ×2 (11:44→19:08)
--- NOTE | 2021-04-29 14:06 | P.DS ---
Providers Date of admission: 04/28/21 12:42 Attending physician: Naveen Montgomery Primary care physician: [facility] Hospital Course: Final Diagnosis -Generalized weakness: Secondary to age-related muscle atrophy -E. Coli UTI, mild symptomatic - finished 3 day course of rocephin -Ruled out for deep venous thrombosis -Hypertension -Hyperlipidemia -COPD with mild acute exacerbation -Atrial fibrillation paroxysmal rate controlled continue with anticoagulation and beta jelena, on eliquis -Hypothyroidism -Coronary artery disease -Chronic nicotine use, 1+ pack per day DVT prophylaxis: eliquis -GI prophylaxis: pepcid FULL CODE. Discharge Summary Patient is cleared medically for discharge to rehab. We discontinue the Santyl on discharge as it was from an evaluation in July 2020. Patient can follow up with wound care and rehab if he needs to. Continue all other home medications, we did send nicotine patches. Patient is counseled extensively on smoking cessation. Hospital Course This is a pleasant 70 year old male who presents to the for complaints of generalized weakness. Urinalysis is positive for leukocyte esterase, WBCs, few bacteria. and microbiology was positive for E. coli. There is no resistance, patient did complete a 4 day course of IV Rocephin during this hospital stay. He was complaining of some mild burning discomfort with urination that is improved. Patient was evaluated PT OT recommending subacute rehab on discharge. Labs on admission show hemoglobin 10.7, white count 6.1, sodium 138, potassium 4.3, globulin 23, creatinine 1.21. B12 normal at 434. PCR is negative. Chest x-ray this admission shows no active cardiopulmonary disease. Normal heart. No change. Venous Doppler is negative for bilateral DVT. Vitals this admission show blood pressure 113/69, heart rate 62 atrial fibrillation, afebrile. 04/29/2021 Patient evaluated the bedside. He denies any shortness of breath, reports mild nonproductive cough. Continues to smoke 1+ packs per day, he is counseled on smoking cessation. He is okay with discharging to rehab today. Lungs are clear, abdomen is soft nontender, denies he nausea vomiting diarrhea. Denies any chest pain, chest pressure, palpitations. Focal neurological exam is negative. Vital signs are stable today. Please see medication reconciliation for a list of current medications. Thank you for allowing us to participate in the care of this patient. Patient Condition at Discharge: Serious Plan - Discharge Summary Discharge Rx Participant: No New Discharge Prescriptions: New Nicotine 14Mg/24Hr Patch [Habitrol] 1 patch TRANSDERM DAILY #7 patch Continue Budesonide/Formoterol Fumarate [Symbicort 160-4.5 Mcg Inhaler] 2 puff INHALATION RT-BID Albuterol Inhaler [Ventolin Hfa Inhaler] 1 puff INHALATION RT-Q4H PRN PRN Reason: Shortness Of Breath Cholecalciferol [Vitamin D3 (25 Mcg = 1000 Iu)] 50 mcg PO DAILY modafiniL [Provigil] 200 mg PO DAILY Albuterol Nebulized [Ventolin Nebulized] 2.5 mg INHALATION RT-Q4H PRN PRN Reason: Shortness Of Breath Simvastatin [Zocor] 40 mg PO HS Naloxone HCl [Narcan] 4 mg NASAL ONCE PRN PRN Reason: OVERDOSE Calcium Carbonate [Tums] 500 mg PO TID Apixaban [Eliquis] 2.5 mg PO BID 30 Days #60 tablet Adalimumab [Humira(Cf) Pen] 40 mg SQ Q14D Fluticasone Propion/Salmeterol [Fluticasone-Salmeterol 500-50] 1 puff INHALATION RT-BID Multivitamins, Thera [Multivitamin (formulary)] 1 tab PO DAILY Folic Acid 1 mg PO DAILY Famotidine [Pepcid] 20 mg PO BID tab Cyanocobalamin [Vitamin B-12] 1,000 mcg PO DAILY tab Furosemide [Lasix] 20 mg PO DAILY Ipratropium-Albuterol Nebulize [Duoneb 0.5 mg-3 mg/3 ml Soln] 3 ml INHALATION RT-Q6H Leflunomide [Arava] 20 mg PO DAILY Levothyroxine Sodium [Synthroid] 25 mcg PO DAILY Metoprolol Tartrate [Lopressor] 50 mg PO BID Potassium Chloride ER [K-Dur 10] 10 meq PO DAILY Changed HYDROcodone/APAP 10-325MG [[place] 10-325] 1 tab PO QID PRN #8 tab PRN Reason: Pain Discontinued Collagenase [Santyl] 1 applic TOPICAL DAILY Discharge Medication List Albuterol Inhaler [Ventolin Hfa Inhaler] 1 puff INHALATION RT-Q4H PRN 05/21/20 [History] Budesonide/Formoterol Fumarate [Symbicort 160-4.5 Mcg Inhaler] 2 puff INHALATION RT-BID 05/21/20 [History] Cholecalciferol [Vitamin D3 (25 Mcg = 1000 Iu)] 50 mcg PO DAILY 07/24/20 [History] Albuterol Nebulized [Ventolin Nebulized] 2.5 mg INHALATION RT-Q4H PRN 11/15/20 [History] modafiniL [Provigil] 200 mg PO DAILY 11/15/20 [History] Folic Acid 1 mg PO DAILY 12/31/20 [History] Multivitamins, Thera [Multivitamin (formulary)] 1 tab PO DAILY 12/31/20 [History] Naloxone HCl [Narcan] 4 mg NASAL ONCE PRN 12/31/20 [History] Simvastatin [Zocor] 40 mg PO HS 12/31/20 [History] Calcium Carbonate [Tums] 500 mg PO TID 03/09/21 [History] Apixaban [Eliquis] 2.5 mg PO BID 30 Days #60 tablet 03/12/21 [Rx] Cyanocobalamin [Vitamin B-12] 1,000 mcg PO DAILY tab 03/17/21 [Rx] Famotidine [Pepcid] 20 mg PO BID tab 03/17/21 [Rx] Adalimumab [Humira(Cf) Pen] 40 mg SQ Q14D 04/25/21 [History] Fluticasone Propion/Salmeterol [Fluticasone-Salmeterol 500-50] 1 puff INHALATION RT-BID 04/25/21 [History] Furosemide [Lasix] 20 mg PO DAILY 04/25/21 [History] Ipratropium-Albuterol Nebulize [Duoneb 0.5 mg-3 mg/3 ml Soln] 3 ml INHALATION RT-Q6H 04/25/21 [History] Leflunomide [Arava] 20 mg PO DAILY 04/25/21 [History] Levothyroxine Sodium [Synthroid] 25 mcg PO DAILY 04/25/21 [History] Metoprolol Tartrate [Lopressor] 50 mg PO BID 04/25/21 [History] Potassium Chloride ER [K-Dur 10] 10 meq PO DAILY 04/25/21 [History] HYDROcodone/APAP 10-325MG [[place] 10-325] 1 tab PO QID PRN #8 tab 04/29/21 [Rx] Nicotine 14Mg/24Hr Patch [Habitrol] 1 patch TRANSDERM DAILY #7 patch 04/29/21 [Rx] Follow up Appointment(s)/Referral(s): [facility],Clinic [Primary Care Provider] - 1-2 days Activity/Diet/Wound Care/Special Instructions: If patient still has foot wounds, follow up with wound care at rehab Discharge Disposition: TRANSFER TO SNF/ECF
[2021-04-29 18:35] VITALS: RESP 18
[2021-04-29 18:55] VITALS: TEMP 97.9
[2021-04-29] MEDS: ATORVASTATIN 40 MG TAB PO SCH (21:02)
[2021-04-29 21:07] VITALS: BP 121/78
[2021-04-29 23:38] VITALS: PULSE 58
== END 2021-04-29 23:57 | DRG 558 ==
LOC: EC 22:21 → SUPCPDRO 22:21 → 6NMEDSUR 04-26 01:38 → OBSVTOIN 04-28 12:42 → 5NMEDONC 04-28 22:17
PROVIDERS: ADMIT Hospitalist; ATTEND Hospitalist
DX: M62.50 Muscle wasting and atrophy, not elsewhere classified, unspecified site (principal); N39.0 Urinary tract infection, site not specified; E03.9 Hypothyroidism, unspecified; E78.5 Hyperlipidemia, unspecified; F17.210 Nicotine dependence, cigarettes, uncomplicated; I50.9 Heart failure, unspecified; I11.0 Hypertensive heart disease with heart failure; I25.10 Atherosclerotic heart disease of native coronary artery without angina pectoris; R60.0 Localized edema; J44.9 Chronic obstructive pulmonary disease, unspecified; B96.20 Unspecified Escherichia coli [E. coli] as the cause of diseases classified elsewhere; M06.9 Rheumatoid arthritis, unspecified; I48.0 Paroxysmal atrial fibrillation; Z20.822 Contact with and (suspected) exposure to COVID-19; I25.2 Old myocardial infarction; Z79.01 Long term (current) use of anticoagulants; Z79.51 Long term (current) use of inhaled steroids; Z79.890 Hormone replacement therapy; Z79.899 Other long term (current) drug therapy; Z86.14 Personal history of Methicillin resistant Staphylococcus aureus infection
CPT/HCPCS: 36415; 71046; 80048; 80053; 81001; 82607; 83605; 83735; 84484; 85025; 85610; 85730; 87077; 87086; 87186; 87635; 93005; 93970; 94640; 94760; 96374; 96375; 99285

== ENCOUNTER → 2021-06-06 | Outpatient (CLI) | payer OTHER, MEDICARE ==
--- NOTE | 2021-06-08 12:57 | PE ---
EXAMINATION TYPE: PET CT fusion skull to thigh DATE OF EXAM: 06/06/2021 COMPARISON: NONE HISTORY: Solitary pulmonary nodule. Abnormal CT. TECHNIQUE: Following the intravenous administration of 8.48 mCi of F-18 FDG, whole body images are p erformed from the skull base to the midthigh. Images are reviewed on the computer in the coronal, ax ial, and sagittal planes. Reconstructed rotating images are created on independent workstation and r eviewed on the computer. A localization and attenuation correction CT is performed in conjunction w ith the PET scan. Blood glucose level equals 74. SCAN: Initial Scan FINDINGS: SKULL BASE AND NECK: Abnormal hypermetabolic uptake posterior cervical spinal muscle level. Finding could be postinflammatory in etiology. CHEST, MEDIASTINUM, AND HILAR REGION: No suspicious abnormal hypermetabolic uptake. Mild underlying e mphysematous change without hypermetabolic nodule or mass. There is 4 mm calcified nodule or benign g ranuloma posterior right upper lung axial image 60. There is 7 mm noncalcified right lower lobe nodul e centrally axial image 113 that is a metabolic. ABDOMEN AND PELVIS: Normal excretion is present. No abnormal hypermetabolic uptake. OSSEOUS STRUCTURES: Mild uptake bilateral shoulder and right elbow regions presumed postinflammatory. High riding right humeral head suggests chronic rotator cuff tear. Similar findings left greater lidia n right sternoclavicular joint and bilateral hip joints. No suspicious hypermetabolic osseous uptake corresponding to osseous sclerotic or lytic lesion. OTHER CT: Mild to moderate calcified plaque right carotid bulb level. Coronary artery calcification and/or stents are present. Recurrent moderate-sized hiatal hernia despi te surgical correction at level of diaphragmatic hiatus. Distended gallbladder. Scattered colonic diverticulosis. Atherosclerotic and slightly aneurysmal abdo chelly aorta up to 3.1 cm transversely with aneurysmal atherosclerotic change in the common iliac zack sara bilaterally. Enlarged prostate consistent with BPH. Small right groin focal fluid collection pro bable fluid containing hernia. IMPRESSION: No suspicious hypermetabolic uptake in pulmonary nodule or mass to suggest malignancy. Ap propriate CT and/or PET/CT follow up in 6-12 months time is advised to reassess subcentimeter pulmona ry nodule. Diffuse muscular and periarticular uptake raises concern for inflammatory arthropathy or s yndrome. Correlate clinically.
== END | disposition home or self-care (01) ==
LOC: RADPETMAIN 10:32
PROVIDERS: ATTEND Nurse Practitioner Acute Care
DX: R91.1 Solitary pulmonary nodule (principal)
CPT/HCPCS: 78815; A9552